=== PATIENT | male | born 1945 | race Caucasian/White ===

== ENCOUNTER 2021-02-10 06:48 | Inpatient (IN) ==
[2021-02-10] MEDS ORDERED: LACTATED RINGERS 1,000 ML IV ONE (07:17)
[2021-02-10] MEDS ORDERED: cefTRIAXone 1 GM in DEXTROSE 5% IN WATER 50 ML IV SCH (07:30)
--- NOTE | 2021-02-10 07:31 | Emergency Department Note ---
HPI General Chief complaint: Fall Stated complaint: fall, stuck on ground Time Seen by Provider: 02/10/21 07:02 Source: patient Mode of arrival: ambulatory Limitations: no limitations History of Present Illness HPI Narrative: Narrative: 75 yo M w/ h/o a fib, possible HTN, and chronic alcohol use presents after a fal l. He reports that he fell yesterday around 1400, and since then has been unable to get up off the floor d/t generalized weakness. He does not know why he fell, but states that he went face first into the floor. He did lose consciousness but does not know the duration. After the fall, he was too weak to get up, and crawled around on the floor to occasionally get some gatorade to drink, although this was quite challenging and thus he was only able to drink about 1/2 bottle of gatorade. He attempted to get to his phone numerous times to call for help but was unable to until this AM. He currently denies any pain. His only complaint is of generalized weakness and dehydration. He has not had any similar episodes. He denies any current medications. Related Data Home Medications Medication Instructions Recorded Confirmed No Known Home Meds 01/06/20 02/10/21 Allergies Allergy/AdvReac Type Severity Reaction Status Date / Time No Known Drug Allergies Allergy Verified 02/10/21 16:20 Review of Systems ROS ROS Narrative: Narrative: All systems ED: reviewed and negative except as stated. [facility] Narrative Patient History Narrative: Narrative: Medical/Surgical/Family History All Active Problems (Updated 02/10/21 @ 12:16 by Damián Walton MD) Atrial fibrillation with RVR (Acute) Acute hyponatremia (Acute) Acute dehydration (Acute) Multiple skin tears (Acute) Head injury (Acute) Elevated CK (Acute) Generalized muscle weakness (Acute) Social History Smoking Status: Former smoker Alcohol Intake Frequency: 2+ drinks per day Substance Use: does not use Exam Narrative Narrative: Narrative: General Limitations: no limitations General appearance: Present alert and in no apparent distress Head Head: Present normocephalic and other (dried blood over L caodaism) Eye Eye: Present PERRL, EOMI and other (dried secretions around the eyes B/L); Absent conjunctival injection ENT ENT: Present normal oropharynx and mucous membranes dry Neck Neck: Present normal inspection; Absent tenderness Chest Chest: Present normal inspection and symmetric chest wall rise Respiratory Respiratory: Present normal lung sounds bilaterally; Absent respiratory distress and wheezes Cardiovascular Cardiovascular: Present regular rate, normal rhythm, +S1 and +S2 Adbominal Abdominal: Present soft and normal bowel sounds; Absent distention and ten derness Extremities Extremities: Present pedal edema (2+ B/LLE pitting edema) Neurological Neurological: Present alert, oriented X3 and other (intact sensation and strength all 4 extremities, no facial droop or tongue deviation, no aphasia/dysarthria) Psychiatric Psychiatric: Present normal affect Skin Skin: Present warm (WNL), dry and other (multiple contusions, ecchymoses over the B/LUE. Nipples and belly button have a dried neon pink substance over them, which rubs off w/ an alcohol prep pad. Skin tears over B/LUE, L caodaism) Course Vital Signs Vital signs: Vital Signs Temperature 97.0 F 02/10/21 06:49 Pulse Rate 105 H 02/10/21 06:49 Respiratory Rate 24 H 02/10/21 06:49 Blood Pressure 122/104 02/10/21 06:49 Pulse Oximetry (%) 100 02/10/21 06:49 Temperature 97.6 F 02/10/21 16:04 Pulse Rate 92 H 02/10/21 16:04 Respiratory Rate 18 02/10/21 18:01 Blood Pressure 102/73 02/10/21 18:01 Pulse Oximetry (%) 99 02/10/21 18:01 [facility]DM Narrative Medical decision making narrative: Narrative: 75 yo M w h/o AF and ETOH use presents after a fall w/ prolonged immobilization. DDx - Head injury, spinal injury, extremity injury, rhabdomyolysis, sepsis, metabolic/electrolyte d/o, dehydration, thyroid d/o, arrhythmia, syncope Pt presented clinically stable, in NAD. He had NFD on exam, was AOx3, but given his age and LOC, I opted to check a CT head which was negative for bleed. I clinically cleared his C spine w/ NEXUS criteria. I did not see evidence of extremity injury. CK was elevated, but not to the level of rhabdo, and there was no assoc'd FOUZIA. Sepsis was a concern, however ultimately he had no septic source, no fever, no leukocytosis. While his lactate was elevated, this was much more likely d/t dehydration. I Tx'd his dehydration w/ 1L LR, w/ good effect. CMP was notable for significant hyponatremia, which may have contributed to his fall. I started him on gentle NS for cautious replacement. While TSH was s omewhat elevated, I did not feel that this was likely to be the source of his presentation. Syncope is possible given the unclear nature of his fall, however he did not have signs/symptoms of high risk syncope causes such as aortic pathology, PE, ACS, CVA/SAH. EKG showed no high risk syncope features such as ischemia, interval prolongation, WPW, Brugada. His sodium required ongoing replacement and he was thus admitted to the hospitalist. In our discussion, we did note his elevated LFTs, and he requested a RUQ US which is pending. EKG (06:51AM) Sinus rate of 102, normal SC, QRS, QT/QTc intervals, no STEMI. Overall similar to previous EKG from December. Lab Data Lab results reviewed: Yes I reviewed the patient's lab results. Result diagrams: 02/10/21 07:50 02/10/21 07:50 Labs: Lab Results 02/10/21 02/10/21 02/10/21 Range/Units 07:50 07:50 07:50 WBC 10.1 (4.5-11.0) K/mcL RBC 3.18 L (4.50-5.90) M/mcL Hgb 11.6 L (13.5-16.5) g/dL Hct 31.5 L (41.0-55.0) % MCV 99.1 (80.0-100.0) fL MCH 36.5 H (26.0-34.0) pg MCHC 36.8 H (31.0-36.0) g/dL RDW 13.1 (11.5-14.5) % Plt Count 169 (140-440) K/mcL MPV 10.1 (7.4-10.4) fL Neut % (Auto) 76.6 (38.0-78.0) % Lymph % (Auto) 6.8 L (15.0-49.0) % Sumter % (Auto) 15.1 H (1.0-12.0) % Eos % (Auto) 1.2 (0.0-7.0) % Baso % (Auto) 0.3 (0.0-2.0) % Lymph # (Auto) 0.69 L (1.50-4.80) K/mcL Sumter # (Auto) 1.53 H (0.10-0.90) K/mcL Eos # (Auto) 0.12 (0.00-0.70) K/mcL Baso # (Auto) 0.03 (0.00-0.20) K/mcL Absolute Neutrophils 7.75 (1.80-8.00) K/mcL VBG Lactic Acid 2.6 H (0.5-2.0) mmol/L Sodium 122 L (133-145) mmol/L Potassium 3.5 (3.3-5.1) mmol/L Chloride 83 L (96-108) mmol/L Carbon Dioxide 23 (22-30) mmol/L Anion Gap 16.0 (8.0-16.0) BUN 6 L (8-23) mg/dL Creatinine 0.5 L (0.7-1.2) mg/dL GFR Calculation 105 Glucose 120 H (70-105) mg/dL Osmolality (280-300) mOSM/kg Calcium 9.3 (8.6-10.4) mg/dL Total Bilirubin 4.1 H (0.1-1.0) mg/dL AST 164 H (<40) U/L ALT 111 H (<40) U/L Alkaline Phosphatase 150 H (39-117) U/L Total Creatine Kinase 250 H (24-195) U/L CK-MB (CK-2) 5.6 (<6.7) ng/mL Troponin T (<0.03) ng/mL Total Protein 6.1 (5.9-8.4) gm/dL Albumin 3.5 (3.2-5.2) gm/dL Globulin 2.6 (2.2-3.7) gm/dL Albumin/Globulin Ratio 1.3 (1.0-2.3) Procalcitonin (<0.10) ng/mL TSH 6.48 H (0.27-5.01) uIU/mL Urine Color Urine Appearance (Clear) Urine pH (5.0-9.0) Ur Specific Ronks (1.000-1.035) Urine Protein (Negative) mg/dL Urine Glucose (UA) (Negative) mg/dL Urine Ketones (Negative) mg/dL Urine Occult Blood (Negative) mg/dL Urine Nitrate (Negative) Urine Bilirubin (Negative) mg/dL Urine Urobilinogen mg/dL Ur Leukocyte Esterase (Negative) /ug Ur Culture Indicated? Urine Osmolality (80-1000) mOSM/kg Urine Opiates Screen Ur Opiates Confirm Ur Oxycodone Screen Urine Methadone Screen Ur Methadone Confirm Ur Barbiturates Screen Ur Barbiturate Confirm Ur Phencyclidine Scrn Urine PCP Confirm Ur Amphetamines Screen U Amphetamines Confirm U Benzodiazepines Scrn U Benzodiazepine Confm Urine Cocaine Screen Urine Cocaine Confirm U Cannabinoids Confirm U Marijuana (THC) Screen Ethyl Alcohol (<0.010) gm/dL 02/10/21 02/10/21 02/10/21 Range/Units 07:50 07:50 07:50 WBC (4.5-11.0) K/mcL RBC (4.50-5.90) M/mcL Hgb (13.5-16.5) g/dL Hct (41.0-55.0) % MCV (80.0-100.0) fL MCH (26.0-34.0) pg MCHC (31.0-36.0) g/dL RDW (11.5-14.5) % Plt Count (140-440) K/mcL MPV (7.4-10.4) fL Neut % (Auto) (38.0-78.0) % Lymph % (Auto) (15.0-49.0) % Sumter % (Auto) (1.0-12.0) % Eos % (Auto) (0.0-7.0) % Baso % (Auto) (0.0-2.0) % Lymph # (Auto) (1.50-4.80) K/mcL Sumter # (Auto) (0.10-0.90) K/mcL Eos # (Auto) (0.00-0.70) K/mcL Baso # (Auto) (0.00-0.20) K/mcL Absolute Neutrophils (1.80-8.00) K/mcL VBG Lactic Acid (0.5-2.0) mmol/L Sodium (133-145) mmol/L Potassium (3.3-5.1) mmol/L Chloride (96-108) mmol/L Carbon Dioxide (22-30) mmol/L Anion Gap (8.0-16.0) BUN (8-23) mg/dL Creatinine (0.7-1.2) mg/dL GFR Calculation Glucose (70-105) mg/dL Osmolality (280-300) mOSM/kg Calcium (8.6-10.4) mg/dL Total Bilirubin (0.1-1.0) mg/dL AST (<40) U/L ALT (<40) U/L Alkaline Phosphatase (39-117) U/L Total Creatine Kinase (24-195) U/L CK-MB (CK-2) (<6.7) ng/mL Troponin T < 0.01 (<0.03) ng/mL Total Protein (5.9-8.4) gm/dL Albumin (3.2-5.2) gm/dL Globulin (2.2-3.7) gm/dL Albumin/Globulin Ratio (1.0-2.3) Procalcitonin 0.49 H (<0.10) ng/mL TSH (0.27-5.01) uIU/mL Urine Color Urine Appearance (Clear) Urine pH (5.0-9.0) Ur Specific Ronks (1.000-1.035) Urine Protein (Negative) mg/dL Urine Glucose (UA) (Negative) mg/dL Urine Ketones (Negative) mg/dL Urine Occult Blood (Negative) mg/dL Urine Nitrate (Negative) Urine Bilirubin (Negative) mg/dL Urine Urobilinogen mg/dL Ur Leukocyte Esterase (Negative) /ug Ur Culture Indicated? Urine Osmolality (80-1000) mOSM/kg Urine Opiates Screen Ur Opiates Confirm Ur Oxycodone Screen Urine Methadone Screen Ur Methadone Confirm Ur Barbiturates Screen Ur Barbiturate Confirm Ur Phencyclidine Scrn Urine PCP Confirm Ur Amphetamines Screen U Amphetamines Confirm U Benzodiazepines Scrn U Benzodiazepine Confm Urine Cocaine Screen Urine Cocaine Confirm U Cannabinoids Confirm U Marijuana (THC) Screen Ethyl Alcohol < 0.010 (<0.010) gm/dL 02/10/21 02/10/21 02/10/21 Range/Units 09:45 09:45 09:45 WBC (4.5-11.0) K/mcL RBC (4.50-5.90) M/mcL Hgb (13.5-16.5) g/dL Hct (41.0-55.0) % MCV (80.0-100.0) fL MCH (26.0-34.0) pg MCHC (31.0-36.0) g/dL RDW (11.5-14.5) % Plt Count (140-440) K/mcL MPV (7.4-10.4) fL Neut % (Auto) (38.0-78.0) % Lymph % (Auto) (15.0-49.0) % Sumter % (Auto) (1.0-12.0) % Eos % (Auto) (0.0-7.0) % Baso % (Auto) (0.0-2.0) % Lymph # (Auto) (1.50-4.80) K/mcL Sumter # (Auto) (0.10-0.90) K/mcL Eos # (Auto) (0.00-0.70) K/mcL Baso # (Auto) (0.00-0.20) K/mcL Absolute Neutrophils (1.80-8.00) K/mcL VBG Lactic Acid (0.5-2.0) mmol/L Sodium (133-145) mmol/L Potassium (3.3-5.1) mmol/L Chloride (96-108) mmol/L Carbon Dioxide (22-30) mmol/L Anion Gap (8.0-16.0) BUN (8-23) mg/dL Creatinine (0.7-1.2) mg/dL GFR Calculation Glucose (70-105) mg/dL Osmolality 250 L (280-300) mOSM/kg Calcium (8.6-10.4) mg/dL Total Bilirubin (0.1-1.0) mg/dL AST (<40) U/L ALT (<40) U/L Alkaline Phosphatase (39-117) U/L Total Creatine Kinase (24-195) U/L CK-MB (CK-2) (<6.7) ng/mL Troponin T (<0.03) ng/mL Total Protein (5.9-8.4) gm/dL Albumin (3.2-5.2) gm/dL Globulin (2.2-3.7) gm/dL Albumin/Globulin Ratio (1.0-2.3) Procalcitonin (<0.10) ng/mL TSH (0.27-5.01) uIU/mL Urine Color Yellow Urine Appearance Clear (Clear) Urine pH 6.0 (5.0-9.0) Ur Specific Ronks 1.003 (1.000-1.035) Urine Protein Negative (Negative) mg/dL Urine Glucose (UA) Negative (Negative) mg/dL Urine Ketones Negative (Negative) mg/dL Urine Occult Blood Negative (Negative) mg/dL Urine Nitrate Negative (Negative) Urine Bilirubin Negative (Negative) mg/dL Urine Urobilinogen 4.0 A mg/dL Ur Leukocyte Esterase Negative (Negative) /ug Ur Culture Indicated? No Urine Osmolality 152 (80-1000) mOSM/kg Urine Opiates Screen Ur Opiates Confirm Ur Oxycodone Screen Urine Methadone Screen Ur Methadone Confirm Ur Barbiturates Screen Ur Barbiturate Confirm Ur Phencyclidine Scrn Urine PCP Confirm Ur Amphetamines Screen U Amphetamines Confirm U Benzodiazepines Scrn U Benzodiazepine Confm Urine Cocaine Screen Urine Cocaine Confirm U Cannabinoids Confirm U Marijuana (THC) Screen Ethyl Alcohol (<0.010) gm/dL 02/10/21 Range/Units 09:46 WBC (4.5-11.0) K/mcL RBC (4.50-5.90) M/mcL Hgb (13.5-16.5) g/dL Hct (41.0-55.0) % MCV (80.0-100.0) fL MCH (26.0-34.0) pg MCHC (31.0-36.0) g/dL RDW (11.5-14.5) % Plt Count (140-440) K/mcL MPV (7.4-10.4) fL Neut % (Auto) (38.0-78.0) % Lymph % (Auto) (15.0-49.0) % Sumter % (Auto) (1.0-12.0) % Eos % (Auto) (0.0-7.0) % Baso % (Auto) (0.0-2.0) % Lymph # (Auto) (1.50-4.80) K/mcL Sumter # (Auto) (0.10-0.90) K/mcL Eos # (Auto) (0.00-0.70) K/mcL Baso # (Auto) (0.00-0.20) K/mcL Absolute Neutrophils (1.80-8.00) K/mcL VBG Lactic Acid (0.5-2.0) mmol/L Sodium (133-145) mmol/L Potassium (3.3-5.1) mmol/L Chloride (96-108) mmol/L Carbon Dioxide (22-30) mmol/L Anion Gap (8.0-16.0) BUN (8-23) mg/dL Creatinine (0.7-1.2) mg/dL GFR Calculation Glucose (70-105) mg/dL Osmolality (280-300) mOSM/kg Calcium (8.6-10.4) mg/dL Total Bilirubin (0.1-1.0) mg/dL AST (<40) U/L ALT (<40) U/L Alkaline Phosphatase (39-117) U/L Total Creatine Kinase (24-195) U/L CK-MB (CK-2) (<6.7) ng/mL Troponin T (<0.03) ng/mL Total Protein (5.9-8.4) gm/dL Albumin (3.2-5.2) gm/dL Globulin (2.2-3.7) gm/dL Albumin/Globulin Ratio (1.0-2.3) Procalcitonin (<0.10) ng/mL TSH (0.27-5.01) uIU/mL Urine Color Urine Appearance (Clear) Urine pH (5.0-9.0) Ur Specific Ronks (1.000-1.035) Urine Protein (Negative) mg/dL Urine Glucose (UA) (Negative) mg/dL Urine Ketones (Negative) mg/dL Urine Occult Blood (Negative) mg/dL Urine Nitrate (Negative) Urine Bilirubin (Negative) mg/dL Urine Urobilinogen mg/dL Ur Leukocyte Esterase (Negative) /ug Ur Culture Indicated? Urine Osmolality (80-1000) mOSM/kg Urine Opiates Screen None detected Ur Opiates Confirm TNP Ur Oxycodone Screen None detected Urine Methadone Screen None detected Ur Methadone Confirm TNP Ur Barbiturates Screen None detected Ur Barbiturate Confirm TNP Ur Phencyclidine Scrn None detected Urine PCP Confirm TNP Ur Amphetamines Screen None detected U Amphetamines Confirm TNP U Benzodiazepines Scrn None detected U Benzodiazepine Confm TNP Urine Cocaine Screen None detected Urine Cocaine Confirm TNP U Cannabinoids Confirm TNP U Marijuana (THC) Screen None detected Ethyl Alcohol (<0.010) gm/dL ED POC Tests ED POC Tests: SHIVANI - SARS Antigen Negative Discharge Plan Patient/Caregiver Discharge Instructions Pt seen by KILN PLACER/PA only: No Clinical Impression: Acute hyponatremia, Acute dehydration, Multiple skin tears, Head injury, Elevated CK, Generalized muscle weakness Patient Disposition: Xfer As Inpt ([facility]) Condition: Fair Discharge Date/Time: 02/10/21 14:17
[2021-02-10] MEDS ORDERED: cefTRIAXone 1 GM VIAL ONE (08:16)
--- NOTE | 2021-02-10 09:08 | Cat Scan Report ---
CLINICAL INFORMATION: Trauma COMPARISON: None. TECHNIQUE: 2.5 mm helical slices were obtained in the skull base to vertex. Following reconstruction, axial reformatted images were reviewed at bone and parenchymal windows. The exam was performed using radiation dose optimization techniques including, but not limited to, automated exposure control, adjustment of the mA and/or kV according to patient size and use of iterative reconstruction technique. FINDINGS: The ventricles, sulci, fissures, and cisterns are symmetrically enlarged bowel moderate age-related atrophy. No extra-axial fluid collections are identified. Mild patchy chronic ischemic changes, in the cerebral white matter, expected for age. There is no evidence of hemorrhage, mass effect, or edema. Bone windows show no osseous abnormality. IMPRESSION: Moderate atrophy with chronic ischemic changes in the deep cerebral white matter expected for age. No acute findings Opacification of the right sphenoid sinus compatible sphenoid sinusitis. Mild mucosal thickening in the right anterior ethmoid air cells.. Interpreted and Authenticated by: Luke Dickens 02/10/21
[2021-02-10 09:09] LABS: Alcohol, Blood < 10.0 mg/dL; Alcohol,Blood < 0.010 gm/dL (<0.010)
[2021-02-10 09:12] LABS: Basophils # (Auto) 0.03 K/mcL (0.00-0.20); Basophils % (Auto) 0.3 % (0.0-2.0); Eosinophils # (Auto) 0.12 K/mcL (0.00-0.70); Eosinophils % (Auto) 1.2 % (0.0-7.0); Hematocrit 31.5 % (41.0-55.0); Hemoglobin 11.6 g/dL (13.5-16.5); Lymphocytes # (Auto) 0.69 K/mcL (1.50-4.80); Lymphocytes % (Auto) 6.8 % (15.0-49.0); Mean Cell Volume 99.1 fL (80.0-100.0); Mean Corpuscular HGB Conc 36.8 g/dL (31.0-36.0); Mean Platelet Volume 10.1 fL (7.4-10.4); Monocytes # (Auto) 1.53 K/mcL (0.10-0.90); Monocytes % (Auto) 15.1 % (1.0-12.0); Neutrophils % (Auto) 76.6 % (38.0-78.0); Platelet Count 169 K/mcL (140-440); RBC 3.18 M/mcL (4.50-5.90); Red Cell Distribution Width 13.1 % (11.5-14.5); WBC 10.1 K/mcL (4.5-11.0)
[2021-02-10 09:30] LABS: ALT/SGPT 111 U/L (<40); AST/SGOT 164 U/L (<40); Albumin 3.5 gm/dL (3.2-5.2); Albumin/Globulin Ratio 1.3 (1.0-2.3); Alkaline Phosphatase 150 U/L (39-117); Bilirubin,Total 4.1 mg/dL (0.1-1.0); Blood Urea Nitrogen 6 mg/dL (8-23); Calcium 9.3 mg/dL (8.6-10.4); Carbon Dioxide 23 mmol/L (22-30); Chloride 83 mmol/L (96-108); Creatine Kinase 250 U/L (24-195); Creatine Kinase MB 5.6 ng/mL (<6.7); Globulin 2.6 gm/dL (2.2-3.7); Glomerular Filtration Rate 105; Glucose 120 mg/dL (70-105); Thyroid Stimulating Hormone 6.48 uIU/mL (0.27-5.01)
[2021-02-10 11:11] LABS: Appearance,Urine CLEAR (Clear); Bilirubin,Urine Negative (Negative); Color,Urine YELLOW; Culture Indicated,Urine No; Glucose,Urine (UA) Negative (Negative); Ketones,Urine Negative (Negative); Leukocyte Esterase,Urine Negative /ug (Negative); Nitrate,Urine Negative (Negative); Protein,Urine Negative (Negative); Specific Gravity,Urine 1.003 (1.000-1.035); Urine Blood Negative (Negative)
[2021-02-10 11:14] LABS: Amphetamine Screen,Urine None detected; Barbiturate Screen,Urine None detected; Benzodiazepines Screen,Urine None detected; Cannabinoid Screen,Urine None detected; Cocaine Screen,Urine None detected; Opiate Screen,Urine None detected; Oxycodone, Urine Screen None detected; Phencyclidine Screen,Urine None detected
[2021-02-10] MEDS ORDERED: DIPH,PERTUSS(ACELL),TET VAC/PF 0.5 ML SYRINGE IM ONE (12:05)
--- NOTE | 2021-02-10 12:06 | XRay Report ---
CLINICAL INFORMATION: fall, sepsis, r/o occult PNA COMPARISON: 01/06/2020 FINDINGS: Heart size, mediastinum and pulmonary vessels are normal. The lungs are clear. No effusions. Malunified old fracture distal left clavicle again noted.. Nonunified fracture tip of the distal right clavicle again noted IMPRESSION: Negative Interpreted and Authenticated by: Luke Dickens 02/10/21
[2021-02-10] MEDS ORDERED: 0.9 % SODIUM CHLORIDE 1,000 ML IV SCH (12:15)
--- NOTE | 2021-02-10 13:19 | Internal Med History&Physical ---
HPI History of Present Illness Patient information: Note initiated : 02/10/21 at 1:15 pm Service Date, if different from initiated Date: [] Patient: Johnathan Son a 75 y/o M admitted on for Fall, Stuck On Ground. Chief Complaint: [] History of present illness: Mr. Son is a 75 year old M with a history of chronic alcoholism who lives fairly independently. Patient over the last couple of days has gotten increasingly weak. He fell yesterday and was unable to get off the floor after he momentarily lost consciousness. He somehow dragged himself to fetch Gatorade. He subsequently managed to call help this morning and presented to the ER for evaluation. Initial work-up was with neuroimaging was unremarkable for acute process except for chronic ischemic changes. Sodium 122, bilirubin 4.1, elevated LFTs, elevated lactate. No clear source of infection identified. Patient was started on crystalloids. It was unclear as to the circumstances of fall whether a seizure or true syncope. Subsequently hospitalist service was consulted for further evaluation. At the time of my evaluation patient is lucid. Undergoing abdominal ultrasound. He was able to provide answer most of the question. Denies fever, chills, abdominal pain, chest pain, vertigo but endorses to progressive weakness fatigue. He denies recent sick contacts. Denies Covid symptoms or cough or diarrhea or dysuria. He does endorse to drinking 3 tall beers a day which is lower than before. He however has attempted to quit a few times but unable to due to significant withdrawal symptoms including shakes and jitters. He also expresses desire to help him quit alcohol during his hospitalization. No family members are present. Review of systems 10 point review system was performed and is negative except for ones discussed above PFSH PFSH All Active Problems (Updated 02/10/21 @ 12:16 by Damián Walton MD) Atrial fibrillation with RVR (Acute) Acute hyponatremia (Acute) Acute dehydration (Acute) Multiple skin tears (Acute) Head injury (Acute) Elevated CK (Acute) Generalized muscle weakness (Acute) Social History alcohol intake frequency: 2+ drinks per day substance use type: does not use MEDS/ALLERGIES Home Medications and Allergies Home Medications Medication Instructions Recorded Confirmed Type No Known Home Meds 01/06/20 02/10/21 History Allergies Allergy/AdvReac Type Severity Reaction Status Date / Time No Known Drug Allergies Allergy Verified 02/10/21 06:48 EXAM Constitutional Vitals: Temp Pulse Resp BP Pulse Ox 97.0 F 97 H 20 115/83 100 02/10/21 06:49 02/10/21 13:01 02/10/21 13:01 02/10/21 12:02 02/10/21 13:01 Head bruising/skin abrasion left lateral orbit Anxious and lethargic Oral cavity moist No ear or nose discharge Eye no subconjunctival pallor, movement symmetrical S1-S2 regular tachycardia Nonlabored breathing Nondistended nontender abdomen Lower extremity no cyanosis clubbing or joint swelling Skin no suspicious lesion Psych anxious but no hallucination Neuro normal higher function on limited neuro exam DATA Data Completed and Pending Labs: Labs from last 24 hours 02/10/21 02/10/21 02/10/21 09:46 09:45 07:50 WBC RBC Hgb Hct MCV MCH MCHC RDW Plt Count MPV Neut % (Auto) Lymph % (Auto) [place] % (Auto) Eos % (Auto) Baso % (Auto) Lymph # (Auto) [place] # (Auto) Eos # (Auto) Baso # (Auto) Absolute Neutrophils VBG Lactic Acid Sodium Potassium Chloride Carbon Dioxide Anion Gap BUN Creatinine GFR Calculation Glucose Calcium Total Bilirubin AST ALT Alkaline Phosphatase Total Creatine Kinase CK-MB (CK-2) Troponin T Total Protein Albumin Globulin Albumin/Globulin Ratio TSH Urine Color Yellow Urine Appearance Clear Urine pH 6.0 Ur Specific [place] 1.003 Urine Protein Negative Urine Glucose (UA) Negative Urine Ketones Negative Urine Occult Blood Negative Urine Nitrate Negative Urine Bilirubin Negative Urine Urobilinogen 4.0 A Ur Leukocyte Esterase Negative Ur Culture Indicated? No Urine Opiates Screen None detected Ur Opiates Confirm TNP Ur Oxycodone Screen None detected Urine Methadone Screen None detected Ur Methadone Confirm TNP Ur Barbiturates Screen None detected Ur Barbiturate Confirm TNP Ur Phencyclidine Scrn None detected Urine PCP Confirm TNP Ur Amphetamines Screen None detected U Amphetamines Confirm TNP U Benzodiazepines Scrn None detected U Benzodiazepine Confm TNP Urine Cocaine Screen None detected Urine Cocaine Confirm TNP U Cannabinoids Confirm TNP U Marijuana (THC) Screen None detected Ethyl Alcohol < 0.010 02/10/21 02/10/21 02/10/21 07:50 07:50 07:50 WBC RBC Hgb Hct MCV MCH MCHC RDW Plt Count MPV Neut % (Auto) Lymph % (Auto) [place] % (Auto) Eos % (Auto) Baso % (Auto) Lymph # (Auto) [place] # (Auto) Eos # (Auto) Baso # (Auto) Absolute Neutrophils VBG Lactic Acid 2.6 H Sodium 122 L Potassium 3.5 Chloride 83 L Carbon Dioxide 23 Anion Gap 16.0 BUN 6 L Creatinine 0.5 L GFR Calculation 105 Glucose 120 H Calcium 9.3 Total Bilirubin 4.1 H AST 164 H ALT 111 H Alkaline Phosphatase 150 H Total Creatine Kinase 250 H CK-MB (CK-2) 5.6 Troponin T < 0.01 Total Protein 6.1 Albumin 3.5 Globulin 2.6 Albumin/Globulin Ratio 1.3 TSH 6.48 H Urine Color Urine Appearance Urine pH Ur Specific [place] Urine Protein Urine Glucose (UA) Urine Ketones Urine Occult Blood Urine Nitrate Urine Bilirubin Urine Urobilinogen Ur Leukocyte Esterase Ur Culture Indicated? Urine Opiates Screen Ur Opiates Confirm Ur Oxycodone Screen Urine Methadone Screen Ur Methadone Confirm Ur Barbiturates Screen Ur Barbiturate Confirm Ur Phencyclidine Scrn Urine PCP Confirm Ur Amphetamines Screen U Amphetamines Confirm U Benzodiazepines Scrn U Benzodiazepine Confm Urine Cocaine Screen Urine Cocaine Confirm U Cannabinoids Confirm U Marijuana (THC) Screen Ethyl Alcohol 02/10/21 07:50 WBC 10.1 RBC 3.18 L Hgb 11.6 L Hct 31.5 L MCV 99.1 MCH 36.5 H MCHC 36.8 H RDW 13.1 Plt Count 169 MPV 10.1 Neut % (Auto) 76.6 Lymph % (Auto) 6.8 L [place]field % (Auto) 15.1 H Eos % (Auto) 1.2 Baso % (Auto) 0.3 Lymph # (Auto) 0.69 L [place]field # (Auto) 1.53 H Eos # (Auto) 0.12 Baso # (Auto) 0.03 Absolute Neutrophils 7.75 VBG Lactic Acid Sodium Potassium Chloride Carbon Dioxide Anion Gap BUN Creatinine GFR Calculation Glucose Calcium Total Bilirubin AST ALT Alkaline Phosphatase Total Creatine Kinase CK-MB (CK-2) Troponin T Total Protein Albumin Globulin Albumin/Globulin Ratio TSH Urine Color Urine Appearance Urine pH Ur Specific [place] Urine Protein Urine Glucose (UA) Urine Ketones Urine Occult Blood Urine Nitrate Urine Bilirubin Urine Urobilinogen Ur Leukocyte Esterase Ur Culture Indicated? Urine Opiates Screen Ur Opiates Confirm Ur Oxycodone Screen Urine Methadone Screen Ur Methadone Confirm Ur Barbiturates Screen Ur Barbiturate Confirm Ur Phencyclidine Scrn Urine PCP Confirm Ur Amphetamines Screen U Amphetamines Confirm U Benzodiazepines Scrn U Benzodiazepine Confm Urine Cocaine Screen Urine Cocaine Confirm U Cannabinoids Confirm U Marijuana (THC) Screen Ethyl Alcohol A/P Narrative A/P Narrative: * Syncope-unclear etiology, negative head CT except for microvascular ischemic changes, check echocardiogram, continue telemetry monitoring to rule out arrhythmias, orthostasis. * Symptomatic hyponatremia continue 4 hourly sodium check. Likely secondary to alcohol use. Check urine and serum osmolarity. Rule out SIADH. * Severe alcohol use disorder high risk DTs. Continue management on benzodiazepine sparing protocol on clonidine/gabapentin. * Elevated LFTs/bilirubin. Await ultrasound rule out obstructive biliary process. Likely alcoholic hepatitis. * Prophylaxis Heparin Plan * Inpatient PCU admission * Seizure watch/telemetry monitoring/neuroimaging * Syncope evaluation * Crystalloid support/multivitamins/electrolyte management * Alcohol withdrawal management per protocol * PT OT/nutrition support * Discharge planning per case management Time Spent With Patient Time: Total time spent is greater than 50% in coordination of care (as documented) at patient's floor/unit and/or counseling patient:
--- NOTE | 2021-02-10 14:16 | Ultrasound Report ---
CLINICAL INFORMATION: elevated LFTs, r/o biliary pathology COMPARISON: None. FINDINGS: Liver is moderately enlarged 17.5 cm in vertical dimension mid clavicular line. It is diffusely hyperechoic heterogeneous compatible fatty change or other diffuse hepatocellular process. No focal hepatic lesion. The gallbladder and bile ducts are normal CBD is 6 mm. The right kidney and pancreas are normal. No free fluid IMPRESSION: Moderate hepatomegaly with elevated echotexture compatible fatty change or other diffuse hepatocellular process. Interpreted and Authenticated by: Luke Dickens 02/10/21
[2021-02-10] MEDS ORDERED: POTASSIUM CHLORIDE 20 MEQ PACKET PO PRN (14:21)
[2021-02-10] MEDS ORDERED: BISACODYL 10 MG SUPP.RECT PR PRN (14:21)
[2021-02-10] MEDS ORDERED: ACETAMINOPHEN 325 MG TABLET PO PRN (14:21)
[2021-02-10] MEDS ORDERED: ACETAMINOPHEN 650 MG/65 ML BAG IV PRN (14:21)
[2021-02-10] MEDS ORDERED: MAGNESIUM SULFATE 2 GM/50 ML BAG IV PRN (14:21)
[2021-02-10] MEDS ORDERED: POLYETHYLENE GLYCOL 3350 17 GM PACKET PO PRN (14:21)
[2021-02-10] MEDS ORDERED: cloNIDine TTS 1 1 PATCH PATCH TD ONE (14:21)
[2021-02-10] MEDS ORDERED: POTASSIUM CHLORIDE 40 MEQ in DEXTROSE 5% IN WATER 500 ML IV PRN (14:21)
[2021-02-10] MEDS ORDERED: ONDANSETRON 4 MG/2 ML VIAL IV PRN (14:21)
[2021-02-10] MEDS ORDERED: NEUTRA PHOS 1 PACKET PO PRN (14:21)
[2021-02-10] MEDS ORDERED: MELATONIN 3 MG TABLET PO PRN (14:21)
[2021-02-10] MEDS ORDERED: GABAPENTIN 300 MG CAPSULE PO ONE (14:21)
[2021-02-10] MEDS ORDERED: ONDANSETRON 4 MG ODT TABLET SL PRN (14:21)
[2021-02-10] MEDS: cloNIDine HCL 0.1 MG TABLET PO SCH ×2 (14:36→21:32)
[2021-02-10] MEDS: 0.9 % SODIUM CHLORIDE 1,000 ML IV SCH (14:37)
[2021-02-10] MEDS: 0.9 % SODIUM CHLORIDE 10 ML SYRINGE IV SCH ×2 (14:37→20:30)
[2021-02-10] MEDS: DOCUSATE SODIUM 100 MG CAPSULE PO SCH (20:11)
[2021-02-10] MEDS: GABAPENTIN 400 MG CAPSULE PO SCH (20:17)
[2021-02-10] MEDS: HEPARIN 5,000 UNIT/ML VIAL SQ SCH (20:17)
[2021-02-10] MEDS: CYANOCOBALAMIN (VITAMIN B-12) 500 MCG TABLET PO SCH (20:17)
[2021-02-10] MEDS ORDERED: SENNOSIDES/DOCUSATE SODIUM 1 TAB TABLET PO SCH (21:00)
[2021-02-11 04:58] LABS: ALT/SGPT 93 U/L (<40); AST/SGOT 132 U/L (<40); Albumin 3.1 gm/dL (3.2-5.2); Albumin/Globulin Ratio 1.3 (1.0-2.3); Alkaline Phosphatase 142 U/L (39-117); Basophils # (Auto) 0.04 K/mcL (0.00-0.20); Basophils % (Auto) 0.5 % (0.0-2.0); Bilirubin,Direct 1.7 mg/dL (<0.3); Bilirubin,Total 2.6 mg/dL (0.1-1.0); Blood Urea Nitrogen 5 mg/dL (8-23); Calcium 8.6 mg/dL (8.6-10.4); Carbon Dioxide 27 mmol/L (22-30); Chloride 88 mmol/L (96-108); Eosinophils # (Auto) 0.38 K/mcL (0.00-0.70); Eosinophils % (Auto) 4.3 % (0.0-7.0); Globulin 2.4 gm/dL (2.2-3.7); Glomerular Filtration Rate 105; Glucose 129 mg/dL (70-105); Hematocrit 28.8 % (41.0-55.0); Hemoglobin 10.3 g/dL (13.5-16.5); Lactate Dehydrogenase 215 U/L (135-225); Lymphocytes # (Auto) 0.87 K/mcL (1.50-4.80); Lymphocytes % (Auto) 9.9 % (15.0-49.0); Mean Corpuscular HGB Conc 35.8 g/dL (31.0-36.0); Mean Platelet Volume 9.9 fL (7.4-10.4); Monocytes # (Auto) 1.38 K/mcL (0.10-0.90); Monocytes % (Auto) 15.6 % (1.0-12.0); Neutrophils % (Auto) 69.7 % (38.0-78.0); Phosphorous 3.5 mg/dL (2.5-4.5); Platelet Count 153 K/mcL (140-440); RBC 2.88 M/mcL (4.50-5.90); Red Cell Distribution Width 13.5 % (11.5-14.5); Triglycerides 64 mg/dL (<150); Uric Acid 2.2 mg/dL (2.5-8.0); WBC 8.8 K/mcL (4.5-11.0)
[2021-02-11] MEDS: 0.9 % SODIUM CHLORIDE 10 ML SYRINGE IV SCH ×3 (05:09→22:34)
[2021-02-11] MEDS: GABAPENTIN 400 MG CAPSULE PO SCH (05:59)
[2021-02-11] MEDS: cloNIDine HCL 0.1 MG TABLET PO SCH (05:59)
[2021-02-11] MEDS: HEPARIN 5,000 UNIT/ML VIAL SQ SCH ×2 (08:41→22:05)
[2021-02-11] MEDS: CYANOCOBALAMIN (VITAMIN B-12) 500 MCG TABLET PO SCH ×2 (08:41→22:05)
[2021-02-11] MEDS: DOCUSATE SODIUM 100 MG CAPSULE PO SCH ×2 (08:42→22:05)
[2021-02-11] MEDS ORDERED: FOLIC ACID 1 MG TABLET PO SCH (09:00)
[2021-02-11] MEDS ORDERED: SODIUM CHLORIDE 1 GM TABLET PO SCH (09:00)
[2021-02-11] MEDS ORDERED: MULTIVIT,THER IRON,CA,FA & MIN 1 TABLET PO SCH (09:00)
[2021-02-11] MEDS ORDERED: THIAMINE 100 MG TABLET PO SCH (09:00)
--- NOTE | 2021-02-11 11:26 | Internal Med Progress Note ---
SUBJECTIVE Subjective Patient information: Note initiated : 02/11/21 at 11:21 am Service Date, if different from initiated Date: [] Patient: Johnathan Son a 75 y/o M admitted on 02/10/21 for Fall, Stuck On Ground. Chief Complaint: [] Interval history: Mr. Son is a 75 year old M with a history of chronic alcoholism who lives fairly independently. Patient over the last couple of days has gotten increasingly weak. He fell yesterday and was unable to get off the floor after he momentarily lost consciousness. He somehow dragged himself to fetch Gatorade. He subsequently managed to call help this morning and presented to the ER for evaluation. Initial work-up was with neuroimaging was unremarkable for acute process except for chronic ischemic changes. Sodium 122, bilirubin 4.1, elevated LFTs, elevated lactate. No clear source of infection identified. Patient was started on crystalloids. It was unclear as to the circumstances of fall whether a seizure or true syncope. Subsequently hospitalist service was consulted for further evaluation. At the time of my evaluation patient is lucid. Undergoing abdominal ultrasound. He was able to provide answer most of the question. Denies fever, chills, abdominal pain, chest pain, vertigo but endorses to progressive weakness fatigue. He denies recent sick contacts. Denies Covid symptoms or cough or diarrhea or dysuria. He does endorse to drinking 3 tall beers a day which is lower than before. He however has attempted to quit a few times but unable to due to significant withdrawal symptoms including shakes and jitters. He also expresses desire to help him quit alcohol during his hospitalization. 02/11-patient doing a lot better. CIWA score less than 5. Responding well to gabapentin. DC clonidine due to systolics less than 90. Denies agitation/hallucination. Tolerating diet. Stable labs and hemodynamics. No concerns expressed with nursing staff. No telemetry events. Sodium improved to 122, potassium 3.1 on replacement, magnesium 1.5. Downtrending LFTs Constitutional Vitals: Vital Signs Temp Pulse Resp BP Pulse Ox 96.9 F L 73 19 117/77 98 02/11/21 08:01 02/11/21 08:01 02/11/21 08:01 02/11/21 08:01 02/11/21 08:01 Period Temp Pulse Resp BP Sys/White Pulse Ox Last 24 Hr 96.9 F-98.2 F 70-108 14-24 102-142/63-95 91-100 Intake and Output 02/10/21 02/11/21 02/11/21 21:59 05:59 13:59 Intake Total 1473 530 Output Total 425 2 Balance 1473 -425 528 Weight 73.482 kg Alert oriented No anxiety and psychomotor agitation Nonlabored breathing on room air No telemetry events Intake & Output: Intake & Output 02/10/21 02/11/21 02/11/21 21:59 05:59 13:59 Intake Total 1473 530 Output Total 425 2 Balance 1473 -425 528 Weight 73.482 kg Intake: IV 303 50 Sodium Chloride 0.9% 1,000 ml @ 303 150 mls/hr IV .Q6H40M [facility] Rx#: [id number] Oral 1170 Lipid 240 GI Tube Flush 240 Output: Void Amount 425 # of times incontinent of urine 2 Other: Meal Dinner Breakfast Percent of Meal Consumed 100% 100% Feeding Ability Independent Urine Appearance Clear Urine Color Dark Nena OBJ DATA Labs CBC & Chem 7: 02/11/21 03:58 02/11/21 08:03 Labs: Abnormal Lab Results 02/11/21 02/11/21 02/11/21 08:03 03:58 03:58 RBC Hgb Hct MCH MCHC Lymph % (Auto) [place] % (Auto) Lymph # (Auto) [place] # (Auto) VBG Lactic Acid Sodium 122 L 121 L 123 L Potassium 3.1 L Chloride 88 L BUN 5 L Creatinine 0.5 L Glucose 129 H Osmolality Uric Acid 2.2 L Magnesium 1.5 L Total Bilirubin 2.6 H Direct Bilirubin 1.7 H GGT 629 H AST 132 H ALT 93 H Alkaline Phosphatase 142 H Total Creatine Kinase Total Protein 5.5 L Albumin 3.1 L Procalcitonin TSH Urine Urobilinogen 02/11/21 02/11/21 02/10/21 03:58 00:23 20:06 RBC 2.88 L Hgb 10.3 L Hct 28.8 L MCH 35.8 H MCHC Lymph % (Auto) 9.9 L [place] % (Auto) 15.6 H Lymph # (Auto) 0.87 L [place] # (Auto) 1.38 H VBG Lactic Acid Sodium 121 L 118 L* Potassium Chloride BUN Creatinine Glucose Osmolality Uric Acid Magnesium Total Bilirubin Direct Bilirubin GGT AST ALT Alkaline Phosphatase Total Creatine Kinase Total Protein Albumin Procalcitonin TSH Urine Urobilinogen 02/10/21 02/10/21 02/10/21 16:00 09:45 09:45 RBC Hgb Hct MCH MCHC Lymph % (Auto) [place] % (Auto) Lymph # (Auto) [place] # (Auto) VBG Lactic Acid Sodium 118 L* Potassium Chloride BUN Creatinine Glucose Osmolality 250 L Uric Acid Magnesium Total Bilirubin Direct Bilirubin GGT AST ALT Alkaline Phosphatase Total Creatine Kinase Total Protein Albumin Procalcitonin TSH Urine Urobilinogen 4.0 A 02/10/21 02/10/21 02/10/21 07:50 07:50 07:50 RBC Hgb Hct MCH MCHC Lymph % (Auto) [place] % (Auto) Lymph # (Auto) [place] # (Auto) VBG Lactic Acid 2.6 H Sodium 122 L Potassium Chloride 83 L BUN 6 L Creatinine 0.5 L Glucose 120 H Osmolality Uric Acid Magnesium Total Bilirubin 4.1 H Direct Bilirubin GGT AST 164 H ALT 111 H Alkaline Phosphatase 150 H Total Creatine Kinase 250 H Total Protein Albumin Procalcitonin 0.49 H TSH 6.48 H Urine Urobilinogen 02/10/21 07:50 RBC 3.18 L Hgb 11.6 L Hct 31.5 L MCH 36.5 H MCHC 36.8 H Lymph % (Auto) 6.8 L [place] % (Auto) 15.1 H Lymph # (Auto) 0.69 L [place] # (Auto) 1.53 H VBG Lactic Acid Sodium Potassium Chloride BUN Creatinine Glucose Osmolality Uric Acid Magnesium Total Bilirubin Direct Bilirubin GGT AST ALT Alkaline Phosphatase Total Creatine Kinase Total Protein Albumin Procalcitonin TSH Urine Urobilinogen Meds: Medications Acetaminophen (Acetaminophen 325 Mg Tablet) 650 mg PO Q4-6HP PRN; Protocol PRN Reason: Per Pain Protocol/Fever > 101 Bisacodyl (Bisacodyl 10 Mg Supp.Rect) 10 mg VA Q2-3DAYS PRN PRN Reason: Constipation Clonidine HCl (Clonidine Hcl 0.1 Mg Tablet) 0.1 mg PO Q8H [facility] Last Admin: 02/11/21 05:59 Dose: 0.1 mg Documented by: Cyanocobalamin (Cyanocobalamin (Vitamin B-12) 500 Mcg Tablet) 1,000 mcg PO BID [facility] Stop: 02/15/21 09:01 Last Admin: 02/11/21 08:41 Dose: 1,000 mcg Documented by: Docusate Sodium (Docusate Sodium 100 Mg Capsule) 100 mg PO BID [facility] Last Admin: 02/11/21 08:42 Dose: Not Given Documented by: Folic Acid (Folic Acid 1 Mg Tablet) 1 mg PO DAILY [facility] Last Admin: 02/11/21 08:42 Dose: 1 mg Documented by: Gabapentin (Gabapentin 400 Mg Capsule) 800 mg PO Q8H [facility] Stop: 02/11/21 14:01 Last Admin: 02/11/21 05:59 Dose: 800 mg Documented by: Heparin Sodium (Porcine) (Heparin 5,000 Unit/Ml Vial) 5,000 unit SQ Q12 [facility] Last Admin: 02/11/21 08:41 Dose: 5,000 unit Documented by: Potassium Chloride 40 meq/ (Dextrose) 520 mls @ 130 mls/hr IV UD PRN PRN Reason: K+ = or < 3.5 Acetaminophen (Ofirmev) 650 mg in 65 mls @ 130 mls/hr IV Q6HP PRN; Protocol PRN Reason: Per Pain Protocol/Fever > 101 Magnesium Sulfate (Magnesium Sulfate) 2 gm in 50 mls @ 50 mls/hr IV UD PRN PRN Reason: MG = or < 1.7 Last Infusion: 02/11/21 10:47 Dose: Infused Documented by: Sodium Chloride (Sodium Chloride 0.9%) 1,000 mls @ 50 mls/hr IV .Q20H [facility] Stop: 02/13/21 02:20 Last Admin: 02/10/21 14:37 Dose: 50 mls/hr Documented by: Iron Carb/Multivit/[place]/Folic Acid (Multivit,Ther Iron,Ca,Fa & Min 1 Tablet) 1 tab PO DAILY [facility] Last Admin: 02/11/21 08:42 Dose: 1 tab Documented by: Melatonin (Melatonin 3 Mg Tablet) 3 mg PO HSP PRN PRN Reason: Insomnia Last Admin: 02/10/21 20:16 Dose: 3 mg Documented by: Ondansetron HCl (Ondansetron 4 Mg Odt Tablet) 4 mg SL Q4-6HP PRN; Protocol PRN Reason: Nausea And Vomiting Ondansetron HCl (Ondansetron 4 Mg/2 Ml Vial) 4 mg IV Q4-6HP PRN; Protocol PRN Reason: Nausea And Vomiting Polyethylene Glycol (Polyethylene Glycol 3350 17 Gm Packet) 17 gm PO DAILYP PRN PRN Reason: Constipation Potassium Chloride (Potassium Chloride 20 Meq Packet) 40 meq PO DAILYP PRN PRN Reason: K+ < 3.5 Last Admin: 02/11/21 09:11 Dose: 40 meq Documented by: Potassium/Phosphorus/Sodium (Neutra Phos 1 Packet) 2 packet PO ONCE PRN PRN Reason: For phosphorus less than 2.5 Senna/Docusate Sodium (Sennosides/Docusate Sodium 1 Tab Tablet) 1 tab PO HS [facility] Last Admin: 02/10/21 20:17 Dose: Not Given Documented by: Sodium Chloride (0.9 % Sodium Chloride 10 Ml Syringe) 10 ml IV Q8 [facility] Last Admin: 02/11/21 05:09 Dose: Not Given Documented by: Sodium Chloride (Sodium Chloride 1 Gm Tablet) 2 gm PO TID [facility] Last Admin: 02/11/21 09:09 Dose: 2 gm Documented by: Thiamine HCl (Thiamine 100 Mg Tablet) 100 mg PO DAILY [facility] Last Admin: 02/11/21 08:42 Dose: 100 mg Documented by: A/P Narrative A/P Narrative: * Syncope- negative head CT except for microvascular ischemic changes, echo EF 63%, no critical , no telemetry events. Likely secondary to volume depletion. * Symptomatic hyponatremia secondary to poor solute intake/solute loss from alcoholism-gradually improving. Sodium up from 1 18- 22. Continue 4 hourly sodium check. Urine osmolarity suggestive against SIADH * Severe alcohol use disorder high risk DTs. Responding well to gabapentin. * Hypokalemia/low magnesium on replacement * Elevated LFTs/bilirubin. Clinically improving. Negative biliary ultrasound except for fatty liver changes . * Generalized deconditioning continue PT OT/nutrition support * Prophylaxis Heparin Plan * Transfer to telemetry monitored medical floor * Continue electrolyte replacement * Alcohol withdrawal management per protocol * Continue PT OT/nutrition support * Discharge planning per case management Time Spent With Patient Time: Total time spent is greater than 50% in coordination of care (as documented) at patient's floor/unit and/or counseling patient: QUALITY VTE Deep Vein Thrombosis/Pulmonary Embolism Present on Admission: No
[2021-02-11] MEDS: 0.9 % SODIUM CHLORIDE 1,000 ML IV SCH ×2 (11:39→12:40)
[2021-02-11] MEDS ORDERED: MAGNESIUM SULFATE 2 GM/50 ML BAG IV PRN (11:41)
[2021-02-11] MEDS ORDERED: ACETAMINOPHEN 650 MG/65 ML BAG IV PRN (11:41)
[2021-02-11] MEDS ORDERED: MELATONIN 3 MG TABLET PO PRN (11:41)
[2021-02-11] MEDS ORDERED: POLYETHYLENE GLYCOL 3350 17 GM PACKET PO PRN (11:41)
[2021-02-11] MEDS ORDERED: NEUTRA PHOS 1 PACKET PO PRN (11:41)
[2021-02-11] MEDS ORDERED: ACETAMINOPHEN 325 MG TABLET PO PRN (11:41)
[2021-02-11] MEDS ORDERED: ONDANSETRON 4 MG/2 ML VIAL IV PRN (11:41)
[2021-02-11] MEDS ORDERED: POTASSIUM CHLORIDE 40 MEQ in DEXTROSE 5% IN WATER 500 ML IV PRN (11:41)
[2021-02-11] MEDS ORDERED: ONDANSETRON 4 MG ODT TABLET SL PRN (11:41)
[2021-02-11] MEDS ORDERED: POTASSIUM CHLORIDE 20 MEQ PACKET PO PRN (11:41)
[2021-02-11] MEDS ORDERED: BISACODYL 10 MG SUPP.RECT PR PRN (11:41)
[2021-02-11] MEDS ORDERED: GABAPENTIN 400 MG CAPSULE PO SCH (14:00)
--- NOTE | 2021-02-11 14:43 | EKG ---
[facility] Test Date: 2021-02-10 Pat Name: Johnathan Son Department: ED Room: Gender: Male Client Service Administrator: CECILIA : [id number] Requested By: Damián Walton Order Number: [id number] Reading MD: Omari Mcclelland M.D. Measurements Intervals [place] Rate: 102 P: 6 DC: 161 QRS: -7 QRSD: 89 T: 27 QT: 368 QTc: 480 Interpretive Statements Age not entered, assumed to be 49 years old for purpose of ECG interpretation Sinus tachycardia Probable left atrial enlargement Borderline prolonged QT interval NO PRIOR TRACING FOR COMPARISON BORDERLINE TRACING Electronically Signed On 02-11-2021 14:42:31 PDT by Omari Mcclelland M.D. /[id number]/[id number]
[2021-02-11] MEDS: SODIUM CHLORIDE 1 GM TABLET PO SCH ×2 (15:08→22:05)
[2021-02-11] MEDS: LORazepam 2 MG/ML VIAL IV PRN (19:58)
[2021-02-11] MEDS ORDERED: LORazepam 2 MG/ML VIAL ONE (19:58)
[2021-02-11] MEDS: SENNOSIDES/DOCUSATE SODIUM 1 TAB TABLET PO SCH (22:05)
[2021-02-12] MEDS: LORazepam 2 MG/ML VIAL IV PRN ×3 (05:28→21:15)
[2021-02-12] MEDS ORDERED: LORazepam 2 MG/ML VIAL ONE (05:29)
[2021-02-12] MEDS: 0.9 % SODIUM CHLORIDE 10 ML SYRINGE IV SCH ×3 (05:35→21:16)
[2021-02-12 08:12] LABS: ALT/SGPT 98 U/L (<40); AST/SGOT 128 U/L (<40); Albumin/Globulin Ratio 1.1 (1.0-2.3); Alkaline Phosphatase 121 U/L (39-117); Bilirubin,Direct 2.1 mg/dL (<0.3); Bilirubin,Total 3.4 mg/dL (0.1-1.0); Blood Urea Nitrogen 5 mg/dL (8-23); Calcium 8.5 mg/dL (8.6-10.4); Carbon Dioxide 26 mmol/L (22-30); Chloride 91 mmol/L (96-108); Globulin 2.7 gm/dL (2.2-3.7); Glomerular Filtration Rate 115; Glucose 120 mg/dL (70-105); Lactate Dehydrogenase 262 U/L (135-225); Triglycerides 61 mg/dL (<150); Uric Acid 1.8 mg/dL (2.5-8.0)
[2021-02-12] MEDS: HEPARIN 5,000 UNIT/ML VIAL SQ SCH ×2 (08:13→21:14)
[2021-02-12] MEDS: DOCUSATE SODIUM 100 MG CAPSULE PO SCH ×2 (08:13→21:16)
[2021-02-12] MEDS: THIAMINE 100 MG TABLET PO SCH (08:13)
[2021-02-12] MEDS: FOLIC ACID 1 MG TABLET PO SCH (08:13)
[2021-02-12] MEDS: SODIUM CHLORIDE 1 GM TABLET PO SCH ×3 (08:13→21:15)
[2021-02-12] MEDS: MULTIVIT,THER IRON,CA,FA & MIN 1 TABLET PO SCH (08:13)
[2021-02-12 08:14] LABS: Basophils # (Auto) 0.05 K/mcL (0.00-0.20); Basophils % (Auto) 0.6 % (0.0-2.0); Eosinophils # (Auto) 0.22 K/mcL (0.00-0.70); Eosinophils % (Auto) 2.7 % (0.0-7.0); Hematocrit 31.9 % (41.0-55.0); Hemoglobin 11.1 g/dL (13.5-16.5); Lymphocytes # (Auto) 0.56 K/mcL (1.50-4.80); Lymphocytes % (Auto) 6.8 % (15.0-49.0); Mean Cell Volume 103.9 fL (80.0-100.0); Mean Corpuscular HGB Conc 34.8 g/dL (31.0-36.0); Mean Platelet Volume 9.9 fL (7.4-10.4); Monocytes # (Auto) 1.06 K/mcL (0.10-0.90); Monocytes % (Auto) 12.8 % (1.0-12.0); Neutrophils % (Auto) 77.1 % (38.0-78.0); Platelet Count 187 K/mcL (140-440); RBC 3.07 M/mcL (4.50-5.90); Red Cell Distribution Width 14.1 % (11.5-14.5); WBC 8.3 K/mcL (4.5-11.0)
[2021-02-12] MEDS: CYANOCOBALAMIN (VITAMIN B-12) 500 MCG TABLET PO SCH ×2 (08:14→21:15)
[2021-02-12] MEDS: 0.9 % SODIUM CHLORIDE 1,000 ML IV SCH (09:23)
--- NOTE | 2021-02-12 10:34 | Internal Med Progress Note ---
SUBJECTIVE Subjective Patient information: Note initiated : 02/12/21 at 10:31 am Service Date, if different from initiated Date: [] Patient: Johnathan Son a 75 y/o M admitted on 02/10/21 for Fall, Stuck On Ground. Chief Complaint: [] Interval history: Mr. Son is a 75 year old M with a history of chronic alcoholism who lives fairly independently. Patient over the last couple of days has gotten increasingly weak. He fell yesterday and was unable to get off the floor after he momentarily lost consciousness. He somehow dragged himself to fetch Gatorade. He subsequently managed to call help this morning and presented to the ER for evaluation. Initial work-up was with neuroimaging was unremarkable for acute process except for chronic ischemic changes. Sodium 122, bilirubin 4.1, elevated LFTs, elevated lactate. No clear source of infection identified. Patient was started on crystalloids. It was unclear as to the circumstances of fall whether a seizure or true syncope. Subsequently hospitalist service was consulted for further evaluation. At the time of my evaluation patient is lucid. Undergoing abdominal ultrasound. He was able to provide answer most of the question. Denies fever, chills, abdominal pain, chest pain, vertigo but endorses to progressive weakness fatigue. He denies recent sick contacts. Denies Covid symptoms or cough or diarrhea or dysuria. He does endorse to drinking 3 tall beers a day which is lower than before. He however has attempted to quit a few times but unable to due to significant withdrawal symptoms including shakes and jitters. He also expresses desire to help him quit alcohol during his hospitalization. 02/11-patient doing a lot better. CIWA score less than 5. Responding well to gabapentin. DC clonidine due to systolics less than 90. Denies agitation/hallucination. Tolerating diet. Stable labs and hemodynamics. No concerns expressed with nursing staff. No telemetry events. Sodium improved to 122, potassium 3.1 on replacement, magnesium 1.5. Downtrending LFTs 02/12-patient experiencing alcohol withdrawal. Responding well to clonidine/gabapentin/as needed benzodiazepine. Continue nutrition support/electrolyte management/multivitamin supplements. Continue physical therapies. Anticipate SNF transfer once clinically stable likely Monday. No overnight fever chills or concerns per staff. Constitutional Vitals: Vital Signs Temp Pulse Resp BP Pulse Ox 97.9 F 101 H 18 132/74 97 02/12/21 07:00 02/12/21 07:00 02/12/21 07:00 02/12/21 07:00 02/12/21 07:00 Period Temp Pulse Resp BP Sys/White Pulse Ox Last 24 Hr 97.1 F-98.2 F 78-114 16-20 82-158/54-96 95-100 Intake and Output 02/11/21 02/12/21 02/12/21 21:59 05:59 13:59 Intake Total 120 300 Output Total 250 1500 250 Balance -130 -1200 -250 Weight 74.117 kg Alert but anxious Intermittently confused Nonlabored breathing Occasional agitation/tachycardia/tachypnea Intake & Output: Intake & Output 02/11/21 02/12/21 02/12/21 21:59 05:59 13:59 Intake Total 120 300 Output Total 250 1500 250 Balance -130 -1200 -250 Weight 74.117 kg Intake: Oral 120 300 Output: Void Amount 250 1500 250 Other: Urine Appearance Clear Clear Urine Color Dark Nena Dark Yellow Light Nena Urine Odor Normal Stool Size Moderate Stool Color Brown Stool Consistency Formed # Voids 1 # Bowel Movements 1 OBJ DATA Labs CBC & Chem 7: 02/12/21 05:00 02/12/21 06:29 Labs: Abnormal Lab Results 02/12/21 02/12/21 02/11/21 06:29 05:00 12:09 RBC 3.07 L Hgb 11.1 L Hct 31.9 L MCV 103.9 H MCH 36.2 H MCHC Lymph % (Auto) 6.8 L Brooks % (Auto) 12.8 H Lymph # (Auto) 0.56 L Brooks # (Auto) 1.06 H VBG Lactic Acid Sodium 125 L 122 L Potassium Chloride 91 L BUN 5 L Creatinine 0.4 L Glucose 120 H Osmolality Uric Acid 1.8 L Calcium 8.5 L Magnesium Total Bilirubin 3.4 H Direct Bilirubin 2.1 H GGT 572 H AST 128 H ALT 98 H Alkaline Phosphatase 121 H Lactate Dehydrogenase 262 H Total Creatine Kinase Total Protein 5.7 L Albumin 3.0 L Procalcitonin TSH Urine Urobilinogen 02/11/21 02/11/21 02/11/21 08:03 03:58 03:58 RBC Hgb Hct MCV MCH MCHC Lymph % (Auto) Brooks % (Auto) Lymph # (Auto) Brooks # (Auto) VBG Lactic Acid Sodium 122 L 121 L 123 L Potassium 3.1 L Chloride 88 L BUN 5 L Creatinine 0.5 L Glucose 129 H Osmolality Uric Acid 2.2 L Calcium Magnesium 1.5 L Total Bilirubin 2.6 H Direct Bilirubin 1.7 H GGT 629 H AST 132 H ALT 93 H Alkaline Phosphatase 142 H Lactate Dehydrogenase Total Creatine Kinase Total Protein 5.5 L Albumin 3.1 L Procalcitonin TSH Urine Urobilinogen 02/11/21 02/11/21 02/10/21 03:58 00:23 20:06 RBC 2.88 L Hgb 10.3 L Hct 28.8 L MCV MCH 35.8 H MCHC Lymph % (Auto) 9.9 L [place] % (Auto) 15.6 H Lymph # (Auto) 0.87 L [place] # (Auto) 1.38 H VBG Lactic Acid Sodium 121 L 118 L* Potassium Chloride BUN Creatinine Glucose Osmolality Uric Acid Calcium Magnesium Total Bilirubin Direct Bilirubin GGT AST ALT Alkaline Phosphatase Lactate Dehydrogenase Total Creatine Kinase Total Protein Albumin Procalcitonin TSH Urine Urobilinogen 02/10/21 02/10/21 02/10/21 16:00 09:45 09:45 RBC Hgb Hct MCV MCH MCHC Lymph % (Auto) Brooks % (Auto) Lymph # (Auto) Brooks # (Auto) VBG Lactic Acid Sodium 118 L* Potassium Chloride BUN Creatinine Glucose Osmolality 250 L Uric Acid Calcium Magnesium Total Bilirubin Direct Bilirubin GGT AST ALT Alkaline Phosphatase Lactate Dehydrogenase Total Creatine Kinase Total Protein Albumin Procalcitonin TSH Urine Urobilinogen 4.0 A 02/10/21 02/10/21 02/10/21 07:50 07:50 07:50 RBC Hgb Hct MCV MCH MCHC Lymph % (Auto) Brooks % (Auto) Lymph # (Auto) Brooks # (Auto) VBG Lactic Acid 2.6 H Sodium 122 L Potassium Chloride 83 L BUN 6 L Creatinine 0.5 L Glucose 120 H Osmolality Uric Acid Calcium Magnesium Total Bilirubin 4.1 H Direct Bilirubin GGT AST 164 H ALT 111 H Alkaline Phosphatase 150 H Lactate Dehydrogenase Total Creatine Kinase 250 H Total Protein Albumin Procalcitonin 0.49 H TSH 6.48 H Urine Urobilinogen 02/10/21 07:50 RBC 3.18 L Hgb 11.6 L Hct 31.5 L MCV MCH 36.5 H MCHC 36.8 H Lymph % (Auto) 6.8 L Brooks % (Auto) 15.1 H Lymph # (Auto) 0.69 L Brooks # (Auto) 1.53 H VBG Lactic Acid Sodium Potassium Chloride BUN Creatinine Glucose Osmolality Uric Acid Calcium Magnesium Total Bilirubin Direct Bilirubin GGT AST ALT Alkaline Phosphatase Lactate Dehydrogenase Total Creatine Kinase Total Protein Albumin Procalcitonin TSH Urine Urobilinogen Meds: Medications Acetaminophen (Acetaminophen 325 Mg Tablet) 650 mg PO Q4-6HP PRN; Protocol PRN Reason: Per Pain Protocol/Fever > 101 Bisacodyl (Bisacodyl 10 Mg Supp.Rect) 10 mg [place] Q2-3DAYS PRN PRN Reason: Constipation Cyanocobalamin (Cyanocobalamin (Vitamin B-12) 500 Mcg Tablet) 1,000 mcg PO BID [facility] Stop: 02/15/21 09:01 Last Admin: 02/12/21 08:14 Dose: 1,000 mcg Documented by: Docusate Sodium (Docusate Sodium 100 Mg Capsule) 100 mg PO BID [facility] Last Admin: 02/12/21 08:13 Dose: 100 mg Documented by: Folic Acid (Folic Acid 1 Mg Tablet) 1 mg PO DAILY [facility] Last Admin: 02/12/21 08:13 Dose: 1 mg Documented by: Heparin Sodium (Porcine) (Heparin 5,000 Unit/Ml Vial) 5,000 unit SQ Q12 [facility] Last Admin: 02/12/21 08:13 Dose: 5,000 unit Documented by: Potassium Chloride 40 meq/ (Dextrose) 520 mls @ 130 mls/hr IV UD PRN PRN Reason: K+ = or < 3.5 Sodium Chloride (Sodium Chloride 0.9%) 1,000 mls @ 50 mls/hr IV .Q20H [facility] Stop: 02/13/21 02:20 Last Admin: 02/12/21 09:23 Dose: 50 mls/hr Documented by: Acetaminophen (Ofirmev) 650 mg in 65 mls @ 130 mls/hr IV Q6HP PRN; Protocol PRN Reason: Per Pain Protocol/Fever > 101 Magnesium Sulfate (Magnesium Sulfate) 2 gm in 50 mls @ 50 mls/hr IV UD PRN PRN Reason: MG = or < 1.7 Iron Carb/Multivit/Reactor Kettle Operator/Folic Acid (Multivit,Ther Iron,Ca,Fa & Min 1 Tablet) 1 tab PO DAILY [facility] Last Admin: 02/12/21 08:13 Dose: 1 tab Documented by: Lorazepam (Lorazepam 2 Mg/Ml Vial) 1 mg IV Q4HP PRN PRN Reason: Alcohol Withdrawal Last Admin: 02/12/21 05:28 Dose: 1 mg Documented by: Melatonin (Melatonin 3 Mg Tablet) 3 mg PO HSP PRN PRN Reason: Insomnia Ondansetron HCl (Ondansetron 4 Mg Odt Tablet) 4 mg SL Q4-6HP PRN; Protocol PRN Reason: Nausea And Vomiting Ondansetron HCl (Ondansetron 4 Mg/2 Ml Vial) 4 mg IV Q4-6HP PRN; Protocol PRN Reason: Nausea And Vomiting Polyethylene Glycol (Polyethylene Glycol 3350 17 Gm Packet) 17 gm PO DAILYP PRN PRN Reason: Constipation Potassium Chloride (Potassium Chloride 20 Meq Packet) 40 meq PO DAILYP PRN PRN Reason: K+ < 3.5 Potassium/Phosphorus/Sodium (Neutra Phos 1 Packet) 2 packet PO ONCE PRN PRN Reason: For phosphorus less than 2.5 Senna/Docusate Sodium (Sennosides/Docusate Sodium 1 Tab Tablet) 1 tab PO HS [facility] Last Admin: 02/11/21 22:05 Dose: 1 tab Documented by: Sodium Chloride (0.9 % Sodium Chloride 10 Ml Syringe) 10 ml IV Q8 [facility] Last Admin: 02/12/21 05:35 Dose: 10 ml Documented by: Sodium Chloride (Sodium Chloride 1 Gm Tablet) 2 gm PO TID [facility] Last Admin: 02/12/21 08:13 Dose: 2 gm Documented by: Thiamine HCl (Thiamine 100 Mg Tablet) 100 mg PO DAILY [facility] Last Admin: 02/12/21 08:13 Dose: 100 mg Documented by: A/P Narrative A/P Narrative: * Acute alcohol withdrawal with early DTs. Continue management on CIWA protocol. CIWA score now 5 continue clonidine/gabapentin/lorazepam * Syncope- negative head CT except for microvascular ischemic changes, echo EF 63%, no critical , no telemetry events. Likely secondary to volume depletion. * Symptomatic hyponatremia secondary to poor solute intake/solute loss from alcoholism-gradually improving. Sodium up from 18- 22->125. Urine osmolarity suggestive against SIADH * Hypokalemia/low magnesium/low phosphorus on replacement * Elevated LFTs/bilirubin secondary to alcoholism. Clinically improving. Negative biliary ultrasound except for fatty liver changes . * Generalized deconditioning continue PT OT/nutrition support * Prophylaxis Heparin Plan * Continue alcohol withdrawal management * Continue electrolyte replacement * Continue PT OT/nutrition support/dietitian consult * Discharge planning per case management Time Spent With Patient Time: Total time spent is greater than 50% in coordination of care (as documented) at patient's floor/unit and/or counseling patient: QUALITY VTE Deep Vein Thrombosis/Pulmonary Embolism Present on Admission: No
[2021-02-12] MEDS: SENNOSIDES/DOCUSATE SODIUM 1 TAB TABLET PO SCH (21:16)
[2021-02-13] MEDS: 0.9 % SODIUM CHLORIDE 10 ML SYRINGE IV SCH ×3 (04:56→21:00)
[2021-02-13] MEDS: LORazepam 2 MG/ML VIAL IV PRN (05:47)
[2021-02-13 07:27] LABS: ALT/SGPT 93 U/L (<40); AST/SGOT 107 U/L (<40); Albumin/Globulin Ratio 1.2 (1.0-2.3); Alkaline Phosphatase 128 U/L (39-117); Bilirubin,Direct 1.8 mg/dL (<0.3); Bilirubin,Total 2.8 mg/dL (0.1-1.0); Blood Urea Nitrogen 6 mg/dL (8-23); Calcium 8.6 mg/dL (8.6-10.4); Carbon Dioxide 25 mmol/L (22-30); Chloride 96 mmol/L (96-108); Globulin 2.6 gm/dL (2.2-3.7); Glomerular Filtration Rate 105; Glucose 96 mg/dL (70-105); Lactate Dehydrogenase 261 U/L (135-225); Phosphorous 3.2 mg/dL (2.5-4.5); Triglycerides 71 mg/dL (<150); Uric Acid 1.8 mg/dL (2.5-8.0)
[2021-02-13 07:47] LABS: Basophils # (Auto) 0.06 K/mcL (0.00-0.20); Basophils % (Auto) 0.6 % (0.0-2.0); Eosinophils # (Auto) 0.29 K/mcL (0.00-0.70); Hematocrit 31.6 % (41.0-55.0); Lymphocytes # (Auto) 1.19 K/mcL (1.50-4.80); Lymphocytes % (Auto) 12.2 % (15.0-49.0); Mean Cell Volume 102.3 fL (80.0-100.0); Mean Corpuscular HGB Conc 34.8 g/dL (31.0-36.0); Mean Platelet Volume 9.7 fL (7.4-10.4); Monocytes # (Auto) 1.47 K/mcL (0.10-0.90); Monocytes % (Auto) 15.1 % (1.0-12.0); Neutrophils % (Auto) 69.1 % (38.0-78.0); Platelet Count 214 K/mcL (140-440); RBC 3.09 M/mcL (4.50-5.90); Red Cell Distribution Width 14.6 % (11.5-14.5); WBC 9.7 K/mcL (4.5-11.0)
[2021-02-13] MEDS: DOCUSATE SODIUM 100 MG CAPSULE PO SCH ×2 (08:08→20:59)
[2021-02-13] MEDS: CYANOCOBALAMIN (VITAMIN B-12) 500 MCG TABLET PO SCH ×2 (08:31→20:59)
[2021-02-13] MEDS: MULTIVIT,THER IRON,CA,FA & MIN 1 TABLET PO SCH (08:31)
[2021-02-13] MEDS: SODIUM CHLORIDE 1 GM TABLET PO SCH ×3 (08:31→21:00)
[2021-02-13] MEDS: THIAMINE 100 MG TABLET PO SCH (08:31)
[2021-02-13] MEDS: FOLIC ACID 1 MG TABLET PO SCH (08:31)
[2021-02-13] MEDS: HEPARIN 5,000 UNIT/ML VIAL SQ SCH ×2 (08:32→21:00)
--- NOTE | 2021-02-13 19:26 | Internal Med Progress Note ---
SUBJECTIVE Subjective Patient information: Note initiated : 02/13/21 at 7:26 pm Service Date, if different from initiated Date: [] Patient: Johnathan Son a 75 y/o M admitted on 02/10/21 for Fall, Stuck On Ground. Chief Complaint: Follow-up hyponatremia, alcohol withdrawal Interval history: Mr. Son is a 75 year old M with a history of chronic alcoholism who lives fairly independently. Patient over the last couple of days has gotten increasingly weak. He fell yesterday and was unable to get off the floor after he momentarily lost consciousness. He somehow dragged himself to fetch Gatorade. He subsequently managed to call help this morning and presented to the ER for evaluation. Initial work-up was with neuroimaging was unremarkable for acute process except for chronic ischemic changes. Sodium 122, bilirubin 4.1, elevated LFTs, elevated lactate. No clear source of infection identified. Patient was started on crystalloids. It was unclear as to the circumstances of fall whether a seizure or true syncope. Subsequently hospitalist service was consulted for further evaluation. At the time of my evaluation patient is lucid. Undergoing abdominal ultrasound. He was able to provide answer most of the question. Denies fever, chills, abdominal pain, chest pain, vertigo but endorses to progressive weakness fatigue. He denies recent sick contacts. Denies Covid symptoms or cough or diarrhea or dysuria. He does endorse to drinking 3 tall beers a day which is lower than before. He however has attempted to quit a few times but unable to due to significant withdrawal symptoms including shakes and jitters. He also expresses desire to help him quit alcohol during his hospitalization. 02/11-patient doing a lot better. CIWA score less than 5. Responding well to gabapentin. DC clonidine due to systolics less than 90. Denies agitation/hallucination. Tolerating diet. Stable labs and hemodynamics. No concerns expressed with nursing staff. No telemetry events. Sodium improved to 122, potassium 3.1 on replacement, magnesium 1.5. Downtrending LFTs 02/12-patient experiencing alcohol withdrawal. Responding well to clonidine/gabapentin/as needed benzodiazepine. Continue nutrition support/electrolyte management/multivitamin supplements. Continue physical therapies. Anticipate SNF transfer once clinically stable likely Monday. No overnight fever chills or concerns per staff. 7atient without complaints this morning. Awake, alert and oriented to himself, being at [facility], because he is not fully recovered from his fall. Denies any hallucinations. Appetite is pretty good. Withdrawal symptoms seem to be tapering off. Sodium has normalized today. Constitutional Vitals: Vital Signs Temp Pulse Resp BP Pulse Ox 97.5 F 106 H 14 139/86 99 02/13/21 16:00 02/13/21 16:00 02/13/21 16:00 02/13/21 16:00 02/13/21 16:00 Period Temp Pulse Resp BP Sys/White Pulse Ox Last 24 Hr 97 F-98 F 86-111 14-20 124-156/72-100 95-99 Intake and Output 02/13/21 02/13/21 02/13/21 05:59 13:59 21:59 Intake Total 325 240 Output Total 276 225 450 Balance 49 15 -450 GENERAL: Sitting up in bed no acute distress RESPIRATORY: Lungs are clear CARDIOVASCULAR: Regular, mildly tachycardic ABDOMEN: Soft, no tenderness EXTREMITIES: Warm, no edema NEURO: Alert, oriented to person, place and situation, generally weak Intake & Output: Intake & Output 02/13/21 02/13/21 02/13/21 05:59 13:59 21:59 Intake Total 325 240 Output Total 276 225 450 Balance 49 15 -450 Intake: IV 50 Oral 275 240 Output: Void Amount 275 225 450 # of times incontinent of urine 1 Other: Meal Breakfast Percent of Meal Consumed 50% Feeding Ability Independent Urine Appearance Clear Clear Urine Color Dark Yellow Dark Yellow Dark Nena Urine Odor Normal OBJ DATA Labs CBC & Chem 7: 02/13/21 05:43 02/13/21 05:42 Labs: Abnormal Lab Results 02/13/21 02/13/21 02/12/21 05:43 05:42 06:29 RBC 3.09 L Hgb 11.0 L Hct 31.6 L MCV 102.3 H MCH 35.6 H RDW 14.6 H Lymph % (Auto) 12.2 L [place] % (Auto) 15.1 H Lymph # (Auto) 1.19 L [place] # (Auto) 1.47 H Sodium 125 L Potassium Chloride 91 L BUN 6 L 5 L Creatinine 0.5 L 0.4 L Glucose 120 H Uric Acid 1.8 L 1.8 L Calcium 8.5 L Magnesium Total Bilirubin 2.8 H 3.4 H Direct Bilirubin 1.8 H 2.1 H GGT 515 H 572 H AST 107 H 128 H ALT 93 H 98 H Alkaline Phosphatase 128 H 121 H Lactate Dehydrogenase 261 H 262 H Total Protein 5.6 L 5.7 L Albumin 3.0 L 3.0 L 02/12/21 02/11/21 02/11/21 05:00 12:09 08:03 RBC 3.07 L Hgb 11.1 L Hct 31.9 L MCV 103.9 H MCH 36.2 H RDW Lymph % (Auto) 6.8 L [place] % (Auto) 12.8 H Lymph # (Auto) 0.56 L [place] # (Auto) 1.06 H Sodium 122 L 122 L Potassium Chloride BUN Creatinine Glucose Uric Acid Calcium Magnesium Total Bilirubin Direct Bilirubin GGT AST ALT Alkaline Phosphatase Lactate Dehydrogenase Total Protein Albumin 02/11/21 02/11/21 02/11/21 03:58 03:58 03:58 RBC 2.88 L Hgb 10.3 L Hct 28.8 L MCV MCH 35.8 H RDW Lymph % (Auto) 9.9 L [place] % (Auto) 15.6 H Lymph # (Auto) 0.87 L [place] # (Auto) 1.38 H Sodium 121 L 123 L Potassium 3.1 L Chloride 88 L BUN 5 L Creatinine 0.5 L Glucose 129 H Uric Acid 2.2 L Calcium Magnesium 1.5 L Total Bilirubin 2.6 H Direct Bilirubin 1.7 H GGT 629 H AST 132 H ALT 93 H Alkaline Phosphatase 142 H Lactate Dehydrogenase Total Protein 5.5 L Albumin 3.1 L 02/11/21 02/10/21 02/10/21 00:23 20:06 16:00 RBC Hgb Hct MCV MCH RDW Lymph % (Auto) [place] % (Auto) Lymph # (Auto) [place] # (Auto) Sodium 121 L 118 L* 118 L* Potassium Chloride BUN Creatinine Glucose Uric Acid Calcium Magnesium Total Bilirubin Direct Bilirubin GGT AST ALT Alkaline Phosphatase Lactate Dehydrogenase Total Protein Albumin Meds: Medications Acetaminophen (Acetaminophen 325 Mg Tablet) 650 mg PO Q4-6HP PRN; Protocol PRN Reason: Per Pain Protocol/Fever > 101 Bisacodyl (Bisacodyl 10 Mg Supp.Rect) 10 mg [place] Q2-3DAYS PRN PRN Reason: Constipation Cyanocobalamin (Cyanocobalamin (Vitamin B-12) 500 Mcg Tablet) 1,000 mcg PO BID [facility] Stop: 02/15/21 09:01 Last Admin: 02/13/21 08:31 Dose: 1,000 mcg Documented by: Docusate Sodium (Docusate Sodium 100 Mg Capsule) 100 mg PO BID [facility] Last Admin: 02/13/21 08:08 Dose: Not Given Documented by: Folic Acid (Folic Acid 1 Mg Tablet) 1 mg PO DAILY [facility] Last Admin: 02/13/21 08:31 Dose: 1 mg Documented by: Heparin Sodium (Porcine) (Heparin 5,000 Unit/Ml Vial) 5,000 unit SQ Q12 [facility] Last Admin: 02/13/21 08:32 Dose: 5,000 unit Documented by: Potassium Chloride 40 meq/ (Dextrose) 520 mls @ 130 mls/hr IV UD PRN PRN Reason: K+ = or < 3.5 Acetaminophen (Ofirmev) 650 mg in 65 mls @ 130 mls/hr IV Q6HP PRN; Protocol PRN Reason: Per Pain Protocol/Fever > 101 Magnesium Sulfate (Magnesium Sulfate) 2 gm in 50 mls @ 50 mls/hr IV UD PRN PRN Reason: MG = or < 1.7 Last Infusion: 02/13/21 02:00 Dose: Infused Documented by: Iron Carb/Multivit/Concrete Pipe Maker/Folic Acid (Multivit,Ther Iron,Ca,Fa & Min 1 Tablet) 1 tab PO DAILY [facility] Last Admin: 02/13/21 08:31 Dose: 1 tab Documented by: Lorazepam (Lorazepam 2 Mg/Ml Vial) 1 mg IV Q4HP PRN PRN Reason: Alcohol Withdrawal Last Admin: 02/13/21 05:47 Dose: 1 mg Documented by: Melatonin (Melatonin 3 Mg Tablet) 3 mg PO HSP PRN PRN Reason: Insomnia Ondansetron HCl (Ondansetron 4 Mg Odt Tablet) 4 mg SL Q4-6HP PRN; Protocol PRN Reason: Nausea And Vomiting Ondansetron HCl (Ondansetron 4 Mg/2 Ml Vial) 4 mg IV Q4-6HP PRN; Protocol PRN Reason: Nausea And Vomiting Polyethylene Glycol (Polyethylene Glycol 3350 17 Gm Packet) 17 gm PO DAILYP PRN PRN Reason: Constipation Potassium Chloride (Potassium Chloride 20 Meq Packet) 40 meq PO DAILYP PRN PRN Reason: K+ < 3.5 Potassium/Phosphorus/Sodium (Neutra Phos 1 Packet) 2 packet PO ONCE PRN PRN Reason: For phosphorus less than 2.5 Senna/Docusate Sodium (Sennosides/Docusate Sodium 1 Tab Tablet) 1 tab PO HS [facility] Last Admin: 02/12/21 21:16 Dose: Not Given Documented by: Sodium Chloride (0.9 % Sodium Chloride 10 Ml Syringe) 10 ml IV Q8 [facility] Last Admin: 02/13/21 13:29 Dose: 10 ml Documented by: Sodium Chloride (Sodium Chloride 1 Gm Tablet) 2 gm PO TID [facility] Last Admin: 02/13/21 15:00 Dose: 2 gm Documented by: Thiamine HCl (Thiamine 100 Mg Tablet) 100 mg PO DAILY [facility] Last Admin: 02/13/21 08:31 Dose: 100 mg Documented by: A/P Narrative A/P Narrative: Acute alcohol withdrawal with early delirium -Improved 02/13 -Initially managed with gabapentin and clonidine -No longer receiving clonidine nor gabapentin Syncope/fall -Negative head CT except for microvascular ischemic changes -Echo EF 63%, no critical , no telemetry events -Likely secondary to volume depletion Symptomatic hyponatremia -Secondary to poor solute intake/solute loss from alcoholism-gradually improving -Sodium up from 118-122->125->133 -Urine osmolarity suggestive against SIADH Hypokalemia/low magnesium/low phosphorus -On replacement Elevated LFTs/bilirubin -Secondary to alcohol use -Clinically improving -Negative biliary ultrasound except for fatty liver changes Generalized deconditioning continue PT OT/nutrition support Plan -Continue CIWA, as needed lorazepam -Replete electrolytes as needed -Continue PT and OT -Likely will need skilled facility -Prophylaxis: Enoxaparin Time Spent With Patient Time: Total time spent is greater than 50% in coordination of care (as documented) at patient's floor/unit and/or counseling patient: QUALITY VTE Deep Vein Thrombosis/Pulmonary Embolism Present on Admission: No
[2021-02-13] MEDS: SENNOSIDES/DOCUSATE SODIUM 1 TAB TABLET PO SCH (20:59)
[2021-02-14] MEDS: 0.9 % SODIUM CHLORIDE 10 ML SYRINGE IV SCH ×3 (05:15→20:04)
[2021-02-14 07:26] LABS: ALT/SGPT 77 U/L (<40); AST/SGOT 100 U/L (<40); Albumin 2.9 gm/dL (3.2-5.2); Albumin/Globulin Ratio 1.2 (1.0-2.3); Alkaline Phosphatase 106 U/L (39-117); Bilirubin,Direct 1.7 mg/dL (<0.3); Bilirubin,Total 2.7 mg/dL (0.1-1.0); Blood Urea Nitrogen 6 mg/dL (8-23); Calcium 8.2 mg/dL (8.6-10.4); Carbon Dioxide 25 mmol/L (22-30); Chloride 95 mmol/L (96-108); Globulin 2.4 gm/dL (2.2-3.7); Glomerular Filtration Rate 115; Glucose 93 mg/dL (70-105); Lactate Dehydrogenase 241 U/L (135-225); Phosphorous 3.4 mg/dL (2.5-4.5); Triglycerides 73 mg/dL (<150); Uric Acid 1.6 mg/dL (2.5-8.0)
[2021-02-14 07:27] LABS: Basophils # (Auto) 0.04 K/mcL (0.00-0.20); Basophils % (Auto) 0.5 % (0.0-2.0); Eosinophils % (Auto) 3.4 % (0.0-7.0); Hematocrit 29.3 % (41.0-55.0); Lymphocytes # (Auto) 1.13 K/mcL (1.50-4.80); Lymphocytes % (Auto) 12.8 % (15.0-49.0); Mean Cell Volume 102.1 fL (80.0-100.0); Mean Corpuscular HGB Conc 34.1 g/dL (31.0-36.0); Mean Platelet Volume 9.7 fL (7.4-10.4); Monocytes # (Auto) 1.18 K/mcL (0.10-0.90); Monocytes % (Auto) 13.4 % (1.0-12.0); Neutrophils % (Auto) 69.9 % (38.0-78.0); Platelet Count 204 K/mcL (140-440); RBC 2.87 M/mcL (4.50-5.90); Red Cell Distribution Width 14.7 % (11.5-14.5); WBC 8.8 K/mcL (4.5-11.0)
[2021-02-14] MEDS: DOCUSATE SODIUM 100 MG CAPSULE PO SCH ×2 (08:17→20:04)
[2021-02-14] MEDS: SODIUM CHLORIDE 1 GM TABLET PO SCH ×3 (08:17→20:04)
[2021-02-14] MEDS: CYANOCOBALAMIN (VITAMIN B-12) 500 MCG TABLET PO SCH ×2 (08:17→20:04)
[2021-02-14] MEDS: HEPARIN 5,000 UNIT/ML VIAL SQ SCH ×2 (08:17→20:03)
[2021-02-14] MEDS: FOLIC ACID 1 MG TABLET PO SCH (08:18)
[2021-02-14] MEDS: MULTIVIT,THER IRON,CA,FA & MIN 1 TABLET PO SCH (08:18)
[2021-02-14] MEDS: THIAMINE 100 MG TABLET PO SCH (08:18)
--- NOTE | 2021-02-14 14:00 | Internal Med Progress Note ---
SUBJECTIVE Subjective Patient information: Note initiated : 02/14/21 at 1:56 pm Service Date, if different from initiated Date: [] Patient: Johnathan Son a 75 y/o M admitted on 02/10/21 for Fall, Stuck On Ground. Chief Complaint: Follow-up hyponatremia, alcohol withdrawal Interval history: Mr. Son is a 75 year old M with a history of chronic alcoholism who lives fairly independently. Patient over the last couple of days has gotten increasingly weak. He fell yesterday and was unable to get off the floor after he momentarily lost consciousness. He somehow dragged himself to fetch Gatorade. He subsequently managed to call help this morning and presented to the ER for evaluation. Initial work-up was with neuroimaging was unremarkable for acute process except for chronic ischemic changes. Sodium 122, bilirubin 4.1, elevated LFTs, elevated lactate. No clear source of infection identified. Patient was started on crystalloids. It was unclear as to the circumstances of fall whether a seizure or true syncope. Subsequently hospitalist service was consulted for further evaluation. At the time of my evaluation patient is lucid. Undergoing abdominal ultrasound. He was able to provide answer most of the question. Denies fever, chills, abdominal pain, chest pain, vertigo but endorses to progressive weakness fatigue. He denies recent sick contacts. Denies Covid symptoms or cough or diarrhea or dysuria. He does endorse to drinking 3 tall beers a day which is lower than before. He however has attempted to quit a few times but unable to due to significant withdrawal symptoms including shakes and jitters. He also expresses desire to help him quit alcohol during his hospitalization. 02/11-patient doing a lot better. CIWA score less than 5. Responding well to gabapentin. DC clonidine due to systolics less than 90. Denies agitation/hallucination. Tolerating diet. Stable labs and hemodynamics. No concerns expressed with nursing staff. No telemetry events. Sodium improved to 122, potassium 3.1 on replacement, magnesium 1.5. Downtrending LFTs 02/12-patient experiencing alcohol withdrawal. Responding well to clonidine/gabapentin/as needed benzodiazepine. Continue nutrition support/electrolyte management/multivitamin supplements. Continue physical therapies. Anticipate SNF transfer once clinically stable likely Monday. No overnight fever chills or concerns per staff. 7atient without complaints this morning. Awake, alert and oriented to himself, being at [facility], because he is not fully recovered from his fall. Denies any hallucinations. Appetite is pretty good. Withdrawal symptoms seem to be tapering off. Sodium has normalized today. 81continues to progress. Remains awake and alert, no hallucinations. Sodium mildly decreased today. Potassium is normal. Constitutional Vitals: Vital Signs Temp Pulse Resp BP Pulse Ox 98.3 F 98 H 16 150/92 96 02/14/21 11:04 02/14/21 11:04 02/14/21 11:04 02/14/21 11:04 02/14/21 11:04 Period Temp Pulse Resp BP Sys/White Pulse Ox Last 24 Hr 97.5 F-98.3 F 95-106 14-20 131-167/80-92 95-99 Intake and Output 02/13/21 02/14/21 02/14/21 21:59 05:59 13:59 Intake Total 040 975 5207 Output Total 800 700 825 Balance -550 -300 375 Weight 167 lb 8 oz GENERAL: Sitting up in bed eating lunch, talkative RESPIRATORY: Bilateral basal crackles, resolve after deep inspiration CARDIOVASCULAR: Regular rate and rhythm ABDOMEN: Nondistended, active bowel sounds EXTREMITIES: No edema NEURO: Alert, oriented person, place, situation, generalized weakness is present Intake & Output: Intake & Output 02/13/21 02/14/21 02/14/21 21:59 05:59 13:59 Intake Total 416 111 5366 Output Total 800 700 825 Balance -550 -300 375 Weight 167 lb 8 oz Intake: Oral 606 329 6888 Output: Void Amount 800 700 825 # of times incontinent of urine 0 Other: Meal Lunch Percent of Meal Consumed 100% Feeding Ability Independent Urine Appearance Clear Clear Clear Urine Color Dark Yellow Dark Yellow Dark Yellow Urine Odor Normal Normal Stool Size Large Stool Color Brown Stool Consistency Soft Formed # Bowel Movements 1 # of times incontinent of 0 Bowels OBJ DATA Labs CBC & Chem 7: 02/14/21 05:53 02/14/21 05:52 Labs: Abnormal Lab Results 02/14/21 02/14/21 02/13/21 05:53 05:52 05:43 RBC 2.87 L 3.09 L Hgb 10.0 L 11.0 L Hct 29.3 L 31.6 L MCV 102.1 H 102.3 H MCH 34.8 H 35.6 H RDW 14.7 H 14.6 H Lymph % (Auto) 12.8 L 12.2 L [place] % (Auto) 13.4 H 15.1 H Lymph # (Auto) 1.13 L 1.19 L [place] # (Auto) 1.18 H 1.47 H Sodium 130 L Chloride 95 L BUN 6 L Creatinine 0.4 L Glucose Uric Acid 1.6 L Calcium 8.2 L Total Bilirubin 2.7 H Direct Bilirubin 1.7 H GGT 428 H AST 100 H ALT 77 H Alkaline Phosphatase Lactate Dehydrogenase 241 H Total Protein 5.3 L Albumin 2.9 L 02/13/21 02/12/21 02/12/21 05:42 06:29 05:00 RBC 3.07 L Hgb 11.1 L Hct 31.9 L MCV 103.9 H MCH 36.2 H RDW Lymph % (Auto) 6.8 L [place] % (Auto) 12.8 H Lymph # (Auto) 0.56 L [place] # (Auto) 1.06 H Sodium 125 L Chloride 91 L BUN 6 L 5 L Creatinine 0.5 L 0.4 L Glucose 120 H Uric Acid 1.8 L 1.8 L Calcium 8.5 L Total Bilirubin 2.8 H 3.4 H Direct Bilirubin 1.8 H 2.1 H GGT 515 H 572 H AST 107 H 128 H ALT 93 H 98 H Alkaline Phosphatase 128 H 121 H Lactate Dehydrogenase 261 H 262 H Total Protein 5.6 L 5.7 L Albumin 3.0 L 3.0 L Meds: Medications Acetaminophen (Acetaminophen 325 Mg Tablet) 650 mg PO Q4-6HP PRN; Protocol PRN Reason: Per Pain Protocol/Fever > 101 Bisacodyl (Bisacodyl 10 Mg Supp.Rect) 10 mg MI Q2-3DAYS PRN PRN Reason: Constipation Cyanocobalamin (Cyanocobalamin (Vitamin B-12) 500 Mcg Tablet) 1,000 mcg PO BID [facility] Stop: 02/15/21 09:01 Last Admin: 02/14/21 08:17 Dose: 1,000 mcg Documented by: Docusate Sodium (Docusate Sodium 100 Mg Capsule) 100 mg PO BID [facility] Last Admin: 02/14/21 08:17 Dose: 100 mg Documented by: Folic Acid (Folic Acid 1 Mg Tablet) 1 mg PO DAILY [facility] Last Admin: 02/14/21 08:18 Dose: 1 mg Documented by: Heparin Sodium (Porcine) (Heparin 5,000 Unit/Ml Vial) 5,000 unit SQ Q12 [facility] Last Admin: 02/14/21 08:17 Dose: 5,000 unit Documented by: Potassium Chloride 40 meq/ (Dextrose) 520 mls @ 130 mls/hr IV UD PRN PRN Reason: K+ = or < 3.5 Acetaminophen (Ofirmev) 650 mg in 65 mls @ 130 mls/hr IV Q6HP PRN; Protocol PRN Reason: Per Pain Protocol/Fever > 101 Magnesium Sulfate (Magnesium Sulfate) 2 gm in 50 mls @ 50 mls/hr IV UD PRN PRN Reason: MG = or < 1.7 Last Infusion: 02/13/21 02:00 Dose: Infused Documented by: Iron Carb/Multivit/Cooker Sulfate/Folic Acid (Multivit,Ther Iron,Ca,Fa & Min 1 Tablet) 1 tab PO DAILY [facility] Last Admin: 02/14/21 08:18 Dose: 1 tab Documented by: Lorazepam (Lorazepam 2 Mg/Ml Vial) 1 mg IV Q4HP PRN PRN Reason: Alcohol Withdrawal Last Admin: 02/13/21 05:47 Dose: 1 mg Documented by: Melatonin (Melatonin 3 Mg Tablet) 3 mg PO HSP PRN PRN Reason: Insomnia Ondansetron HCl (Ondansetron 4 Mg Odt Tablet) 4 mg SL Q4-6HP PRN; Protocol PRN Reason: Nausea And Vomiting Ondansetron HCl (Ondansetron 4 Mg/2 Ml Vial) 4 mg IV Q4-6HP PRN; Protocol PRN Reason: Nausea And Vomiting Polyethylene Glycol (Polyethylene Glycol 3350 17 Gm Packet) 17 gm PO DAILYP PRN PRN Reason: Constipation Potassium Chloride (Potassium Chloride 20 Meq Packet) 40 meq PO DAILYP PRN PRN Reason: K+ < 3.5 Last Admin: 02/14/21 11:11 Dose: 40 meq Documented by: Potassium/Phosphorus/Sodium (Neutra Phos 1 Packet) 2 packet PO ONCE PRN PRN Reason: For phosphorus less than 2.5 Senna/Docusate Sodium (Sennosides/Docusate Sodium 1 Tab Tablet) 1 tab PO HS [facility] Last Admin: 02/13/21 20:59 Dose: 1 tab Documented by: Sodium Chloride (0.9 % Sodium Chloride 10 Ml Syringe) 10 ml IV Q8 [facility] Last Admin: 02/14/21 05:15 Dose: 10 ml Documented by: Sodium Chloride (Sodium Chloride 1 Gm Tablet) 2 gm PO TID [facility] Last Admin: 02/14/21 08:17 Dose: 2 gm Documented by: Thiamine HCl (Thiamine 100 Mg Tablet) 100 mg PO DAILY [facility] Last Admin: 02/14/21 08:18 Dose: 100 mg Documented by: A/P Narrative A/P Narrative: Acute alcohol withdrawal with early delirium -Improved 02/13 and 02/14 -Initially managed with gabapentin and clonidine -No longer receiving clonidine nor gabapentin Syncope/fall -Negative head CT except for microvascular ischemic changes -Echo EF 63%, no critical , no telemetry events -Likely secondary to volume depletion Symptomatic hyponatremia -Secondary to poor solute intake/solute loss from alcoholism-gradually improving -Sodium up from 118-122->125->133 -Urine osmolarity suggestive against SIADH Hypokalemia/low magnesium/low phosphorus -On replacement Elevated LFTs/bilirubin -Secondary to alcohol use -Clinically improving -Negative biliary ultrasound except for fatty liver changes Generalized deconditioning continue PT OT/nutrition support Plan -Continue CIWA, as needed lorazepam -Replete electrolytes as needed -Continue PT and OT -Likely will need skilled facility, approaching medical stability for discharge -Prophylaxis: Enoxaparin Time Spent With Patient Time: Total time spent is greater than 50% in coordination of care (as documented) at patient's floor/unit and/or counseling patient: QUALITY VTE Deep Vein Thrombosis/Pulmonary Embolism Present on Admission: No
[2021-02-14] MEDS: SENNOSIDES/DOCUSATE SODIUM 1 TAB TABLET PO SCH (20:03)
[2021-02-14] MEDS: METOPROLOL TARTRATE 25 MG TABLET PO SCH (23:07)
[2021-02-15 07:52] LABS: ALT/SGPT 80 U/L (<40); AST/SGOT 103 U/L (<40); Albumin 2.9 gm/dL (3.2-5.2); Albumin/Globulin Ratio 1.2 (1.0-2.3); Alkaline Phosphatase 104 U/L (39-117); Bilirubin,Direct 1.5 mg/dL (<0.3); Bilirubin,Total 2.6 mg/dL (0.1-1.0); Blood Urea Nitrogen 7 mg/dL (8-23); Calcium 8.4 mg/dL (8.6-10.4); Carbon Dioxide 26 mmol/L (22-30); Chloride 95 mmol/L (96-108); Globulin 2.5 gm/dL (2.2-3.7); Glomerular Filtration Rate 105; Glucose 114 mg/dL (70-105); Lactate Dehydrogenase 280 U/L (135-225); Triglycerides 76 mg/dL (<150); Uric Acid 1.6 mg/dL (2.5-8.0)
[2021-02-15] MEDS: FOLIC ACID 1 MG TABLET PO SCH (08:26)
[2021-02-15] MEDS: CYANOCOBALAMIN (VITAMIN B-12) 500 MCG TABLET PO SCH (08:26)
[2021-02-15] MEDS: DOCUSATE SODIUM 100 MG CAPSULE PO SCH (08:26)
[2021-02-15] MEDS: MULTIVIT,THER IRON,CA,FA & MIN 1 TABLET PO SCH (08:27)
[2021-02-15] MEDS: HEPARIN 5,000 UNIT/ML VIAL SQ SCH (08:27)
[2021-02-15] MEDS: THIAMINE 100 MG TABLET PO SCH (08:27)
[2021-02-15] MEDS: METOPROLOL TARTRATE 25 MG TABLET PO SCH (08:27)
[2021-02-15] MEDS: SODIUM CHLORIDE 1 GM TABLET PO SCH (08:28)
[2021-02-15] MEDS: 0.9 % SODIUM CHLORIDE 10 ML SYRINGE IV SCH (08:28)
--- NOTE | 2021-02-15 13:06 | Discharge Summary ---
Discharge Provider Provider Patient information: Note initiated : 02/15/21 at 1:04 pm Service Date, if different from initiated Date: [] Patient: Johnathan Son 75 y/o M admitted on 02/10/21 for Fall, Stuck On Ground. Date of admission: 02/10/21 14:11 Discharge date: 02/15/21 Primary care physician: PCP No Attending physician on admission: Uri Norman Consults: 02/10/21 Consult to Physician [CONS] Stat Comment: Consulting Provider: Uri Norman Reason For Exam: Physician to Consult Attending physician on discharge: Anu Cabrera Discharge Meds Discharge Medications Home Medications No Known Home Meds 01/06/20 [History Confirmed 02/10/21 Last Taken Unknown] folic acid 1 mg PO DAILY #30 tab 02/15/21 [Rx Last Taken Unknown] melatonin 3 mg PO HSP PRN #30 tab 02/15/21 [Rx Last Taken Unknown] metoprolol tartrate 25 mg PO BID #60 tab 02/15/21 [Rx Last Taken Unknown] emqzbxcn-xwjo-DO-calcium-mins [Thera M Plus (ferrous fumarat)] 1 tab PO DAILY #30 tab 02/15/21 [Rx Last Taken Unknown] sodium chloride 2 gm PO TID #180 tab 02/15/21 [Rx Last Taken Unknown] thiamine mononitrate (vit B1) 100 mg PO DAILY #30 tab 02/15/21 [Rx Last Taken Unknown] COURSE Hospital Course Hospital course: Mr. Son is a 75 year old M with a history of chronic alcoholism who lives fairly independently. Patient over the last couple of days has gotten increasingly weak. He fell yesterday and was unable to get off the floor after he momentarily lost consciousness. He somehow dragged himself to fetch Gatorade. He subsequently managed to call help this morning and presented to the ER for evaluation. Initial work-up was with neuroimaging was unremarkable for acute process except for chronic ischemic changes. Sodium 122, bilirubin 4.1, elevated LFTs, elevated lactate. No clear source of infection identified. Patient was started on crystalloids. It was unclear as to the circumstances of fall whether a seizure or true syncope. Subsequently hospitalist service was consulted for further evaluation. At the time of my evaluation patient is lucid. Undergoing abdominal ultrasound. He was able to provide answer most of the question. Denies fever, chills, abdominal pain, chest pain, vertigo but endorses to progressive weakness fatigue. He denies recent sick contacts. Denies Covid symptoms or cough or diarrhea or dysuria. He does endorse to drinking 3 tall beers a day which is lower than before. He however has attempted to quit a few times but unable to due to significant withdrawal symptoms including shakes and jitters. He also expresses desire to help him quit alcohol during his hospitalization. 02/11-patient doing a lot better. CIWA score less than 5. Responding well to g abapentin. DC clonidine due to systolics less than 90. Denies agitation/hallucination. Tolerating diet. Stable labs and hemodynamics. No concerns expressed with nursing staff. No telemetry events. Sodium improved to 122, potassium 3.1 on replacement, magnesium 1.5. Downtrending LFTs 02/12-patient experiencing alcohol withdrawal. Responding well to clonidine/gabapentin/as needed benzodiazepine. Continue nutrition support/electrolyte management/multivitamin supplements. Continue physical therapies. Anticipate SNF transfer once clinically stable likely Monday. No overnight fever chills or concerns per staff. 7atient without complaints this morning. Awake, alert and oriented to himself, being at [facility], because he is not fully recovered from his fall. Denies any hallucinations. Appetite is pretty good. Withdrawal symptoms seem to be tapering off. Sodium has normalized today. 81continues to progress. Remains awake and alert, no hallucinations. Sodium mildly decreased today. Potassium is normal. 82appetite remains good. Minimal tremor. Alert, oriented. LFTs stable. Sodium stable 130. Potassium and phosphorus repleted. Will need follow-up and recheck of liver enzymes in convalescence. Accepted for transfer to [facility] for skilled rehab Discharge diagnosis: Syncope and fall Secondary discharge diagnosis: Acute alcohol withdrawal with early delirium -Managed with gabapentin and clonidine for benzodiazepine sparing -Resolved x48 hours at times of discharge Syncope/fall -Negative head CT except for microvascular ischemic changes -Echo EF 63%, no critical , no telemetry events -Likely secondary to volume depletion Symptomatic hyponatremia -Secondary to poor solute intake/solute loss from alcoholism-gradually improving -Sodium stable at 130 at discharge -Urine osmolarity suggestive against SIADH Hypokalemia/low magnesium/low phosphorus -Repleted Elevated LFTs/bilirubin -Secondary to alcohol use -Clinically improving, stable at discharge -Negative biliary ultrasound except for fatty liver changes Generalized deconditioning -continue PT OT/nutrition support at SNF Reason for admission: Fall Procedures: None Complications: None Time Spent with Patient Time attestation: Total time spent providing and/or coordinating discharge services: Time spent: Greater than 30 minutes EXAM Constitutional Vitals: Temp Pulse Resp BP Pulse Ox 98.5 F 75 20 147/94 99 02/15/21 07:12 02/15/21 07:12 02/15/21 07:12 02/15/21 07:12 02/15/21 07:12 GENERAL: Sitting on edge of bed no acute distress RESPIRATORY: Clear lung cortes CARDIOVASCULAR: Regular rate and rhythm ABDOMEN: Nontender EXTREMITIES: No edema NEURO: Alert, oriented to person, place and situation. Very mild resting tremor. Generalized weakness without focal finding Discharge Data Data Completed and Pending Labs on day of discharge: Labs from last 24 hours 02/15/21 06:12 Sodium 130 L Potassium 4.1 Chloride 95 L Carbon Dioxide 26 Anion Gap 9.0 BUN 7 L Creatinine 0.5 L GFR Calculation 105 Glucose 114 H Uric Acid 1.6 L Calcium 8.4 L Phosphorus 4.0 Magnesium 1.7 Total Bilirubin 2.6 H Direct Bilirubin 1.5 H GGT 423 H AST 103 H ALT 80 H Alkaline Phosphatase 104 Lactate Dehydrogenase 280 H Total Protein 5.4 L Albumin 2.9 L Globulin 2.5 Albumin/Globulin Ratio 1.2 Triglycerides 76 Impressions Impressions: Date of Service: 02/10/21 Procedure(s): CT head/brain wo con IMPRESSION: Moderate atrophy with chronic ischemic changes in the deep cerebral white matter expected for age. No acute findings Opacification of the right sphenoid sinus compatible sphenoid sinusitis. Mild mucosal thickening in the right anterior ethmoid air cells.. Date of Service: 02/10/21 Procedure(s): XR chest 1V portable FINDINGS: Heart size, mediastinum and pulmonary vessels are normal. The lungs are clear. No effusions. Malunified old fracture distal left clavicle again noted.. Nonunified fracture tip of the distal right clavicle again noted IMPRESSION: Negative Date of Service: 02/10/21 Procedure(s): US abdomen limited IMPRESSION: Moderate hepatomegaly with elevated echotexture compatible fatty change or other diffuse hepatocellular process. Echocardiogram, 02/10/2021 Left ventricular systolic function is normal, EF 63% Left ventricule is normal in size, the LV wood are upper normal in thickness. The right ventricle is normal size, right ventricular systolic function is mildly reduced Doppler findings suggest normal pulmonary artery pressures The left and right atrial chambers are normal in size Mitral leaflets appear thickened, excursion is mildly reduced. Mild mitral annular calcification Mild to moderate mitral regurgitation The tricuspid leaflets are thickened and/or calcified, but open well. Mild to moderate tricuspid regurgitation The aortic valve is mildly sclerotic The pulmonic valve is grossly normal Discharge Plan Patient/Caregiver Discharge Instructions Activity: increase activity as tolerated Diet: Regular Diet Prescriptions: New sodium chloride 1 gram Tablet 2 gm PO TID Qty: 180 RF: 0 melatonin 3 mg Tablet 3 mg PO HSP PRN (Reason: Insomnia) Qty: 30 RF: 0 folic acid 1 mg Tablet 1 mg PO DAILY Qty: 30 RF: 0 metoprolol tartrate 25 mg Tablet 25 mg PO BID Qty: 60 RF: 0 Thera M Plus (ferrous fumarat) 9 mg iron-400 mcg Tablet 1 tab PO DAILY Qty: 30 RF: 0 thiamine mononitrate (vit B1) 100 mg Tablet 100 mg PO DAILY Qty: 30 RF: 0 Continued No Known Home Meds RF: 0 Other Ambulatory Orders: OT Discharge Order (Routine) Location: None Selected Ordered By: Anu Cabrera Primary Care Provider - Referral (NOW) Timeframe: [id number] Location: None Selected Ordered By: Anu Cabrera Physical Therapy at Discharge - General (Routine) Location: None Selected Ordered By: Anu Cabrera Follow Up Plan Follow up with: No,PCP [Primary Care Provider] - Patient Disposition: Xfer SNF Prognosis: Fair Rehab Potential: Fair I certify that the patient requires SNF services: Yes Overall status at discharge: patient is progressing back to baseline Discharge Orders: Discharge Order (Routine); Ordered 02/15/21 Ordered By: Anu Cabrera QUALITY VTE Deep Vein Thrombosis/Pulmonary Embolism Present on Admission: No
== END 2021-02-15 13:55 | DRG 312 ==
LOC: ED 06:48 → ICU 14:11 → MEDSUR 02-11 20:52
PROVIDERS: ADMIT Internal Medicine; ATTEND Internal Medicine

== ENCOUNTER 2021-11-01 12:00 | Inpatient (IN) ==
[2021-11-01] MEDS ORDERED: 0.9 % SODIUM CHLORIDE 1,000 ML IV ONE (12:11)
--- NOTE | 2021-11-01 12:35 | XRay Report ---
CLINICAL INFORMATION: Weakness COMPARISON: 02/10/2021 TECHNIQUE: Portable FINDINGS: The heart size, mediastinum and pulmonary vessels are unremarkable. The lungs are clear. There are no effusions. Malunified old fracture distal left clavicle seen as before. IMPRESSION: Normal chest. Interpreted and Authenticated by: Luke Dickens 11/01/21
[2021-11-01 13:11] LABS: Basophils # (Auto) 0.02 K/mcL (0.00-0.30); Basophils % (Auto) 0.2 % (0.0-2.0); Eosinophils % (Auto) 1.1 % (0.0-7.0); Hematocrit 30.2 % (40.1-51.0); Hemoglobin 10.9 g/dL (13.7-17.5); Lymphocytes # (Auto) 0.71 K/mcL (1.50-4.80); Lymphocytes % (Auto) 7.9 % (15.5-49.0); Mean Cell Volume 93.5 fL (80.0-100.0); Mean Corpuscular HGB Conc 36.1 g/dL (31.0-36.0); Mean Platelet Volume 9.3 fL (7.4-10.4); Monocytes # (Auto) 1.47 K/mcL (0.10-0.90); Monocytes % (Auto) 16.3 % (1.0-12.0); Neutrophils % (Auto) 74.5 % (38.0-78.0); Platelet Count 122 K/mcL (140-440); RBC 3.23 M/mcL (4.63-6.08); Red Cell Distribution Width 13.2 % (11.5-14.5)
[2021-11-01 13:16] LABS: Blood Urea Nitrogen 7 mg/dL (8-23); Calcium 8.8 mg/dL (8.6-10.4); Carbon Dioxide 21 mmol/L (22-30); Chloride 87 mmol/L (96-108); Glomerular Filtration Rate 114; Glucose 108 mg/dL (70-105)
[2021-11-01] MEDS ORDERED: 0.9 % SODIUM CHLORIDE 1,000 ML IV SCH (13:30)
--- NOTE | 2021-11-01 13:48 | Emergency Department Note ---
Weakness HPI General Chief complaint: Weakness Stated complaint: weakness, altered mental status Time Seen by Provider: 11/01/21 12:06 Source: EMS Mode of arrival: EMS History of Present Illness HPI Narrative: Narrative: 76-year-old male presents the emergency department via EMS as well as via family for generalized weakness he says he is having a hard time getting up and getting around he said he had a similar episode where he is very dehydrated and here about a year ago. Says very similar to that he has no pain anywhere he has no f melani no chills just feels weak all over. He is denying any other symptoms otherwise he has no painful urination. He has no abdominal pain no chest pain no shortness of breath just generalized weakness throughout. He says he feels like just his legs getting give out whenever he stands. He does live home alone and family does go check on him every once in a while but otherwise does take care of himself alone. He said he has not been taking his meds as he seems to get confused as some of them say twice a day and some say daily and he says it just is very hard so he does not take his pills really at all. Related Data Home Medications Medication Instructions Recorded Confirmed No Known Home Meds 11/01/21 11/01/21 Allergies Allergy/AdvReac Type Severity Reaction Status Date / Time No Known Drug Allergies Allergy Verified 02/10/21 16:20 Review of Systems ROS ROS Narrative: Narrative: All systems ED: reviewed and negative except as stated. [facility] Narrative Patient History Narrative: Narrative: Medical/Surgical/Family History All Active Problems (Updated 11/01/21 @ 14:01 by Tim Manzano DO) Atrial fibrillation with RVR (Acute) Acute hyponatremia (Acute) Acute dehydration (Acute) Multiple skin tears (Acute) Head injury (Acute) Elevated CK (Acute) Generalized muscle weakness (Acute) Acute hyponatremia (Acute) Social History Smoking Status: Former smoker Alcohol Intake Frequency: 2+ drinks per day Substance Use: does not use Exam Narrative Narrative: Narrative: Vital signs noted General: Awake. Alert. No distress. Skin: Warm. Dry. No rash. HEENT: NCAT. PERRL. EOMI. No conjunctivitis. No nystagmus. No pharyngitis. Membranes moist. Neck: No PTP. Good ROM. No meningeal signs. No stridor. No thyromegaly. No JVD. Cardiovascular: RRR. No murmur. No rubs. No gallops. Respiratory: No respiratory distress. Breath sounds equal. Lungs clear. Gastrointestinal: Abdomen soft. No tenderness. No distention. Normal bowel sounds. No palpable organomegaly or masses. Back: No deformity. No CVAT. Musculoskeletal: No tenderness. No swelling. No erythema. No edema. Good peripheral pulses x 4 Lymphatic: No palpable adenopathy. Neurological: No focal neurological deficits observed. CN 2-12 are intact. Good FTN. No pronator drift. Course Vital Signs Vital signs: Vital Signs Temperature 98.3 F 11/01/21 12:07 Pulse Rate 97 H 11/01/21 12:07 Respiratory Rate 20 11/01/21 12:07 Blood Pressure 135/76 11/01/21 12:07 Pulse Oximetry (%) 97 11/01/21 12:07 Temperature 98.3 F 11/01/21 12:07 Pulse Rate 108 H 11/01/21 15:31 Respiratory Rate 16 11/01/21 15:31 Blood Pressure 122/70 11/01/21 15:31 Pulse Oximetry (%) 99 11/01/21 15:31 MDM MDM Narrative Medical decision making narrative: Narrative: Patient presents he has no signs of strokes has normal neurological deficits but is obviously weak. Did get an EKG which shows no acute findings. I did get basic labs turns out he has hyponatremic at 123 which I think is causing most of his symptoms I started him on IV fluids 150 mL of normal saline per hour to help with hyponatremia. I am worried patient is also is unable to care for himself at home we did have social work see him but now that we are going to admit him due to the hyponatremia I think they can possibly look at getting home health versus admission into facility as I am worried he just is unable to care for himself at this time. I think is all secondary just to dehydration and failure to thrive. X-ray also was done and is negative. Patient with hyponatremia I think he does need to be admitted. Patient will be admitted to the floor I spoke with Dr. Jimenez who is agreed to admit the patient. EKG interpretation: EKG done at 1213 interpreted by myself shows normal sinus rhythm rate 9062, QRS 89, TC 471 there is no acute ST changes no acute T wave changes no other signs of ischemia. No signs of hypertrophy, heart strain, heart block. No WPW/Brugada/HOCM. Impression is normal sinus EKG with no ischemia Lab Data Result diagrams: 11/01/21 12:10 11/01/21 12:10 Labs: Lab Results 11/01/21 11/01/21 11/01/21 Range/Units 12:10 12:10 13:05 WBC 9.0 (4.5-11.0) K/mcL RBC 3.23 L (4.63-6.08) M/mcL Hgb 10.9 L (13.7-17.5) g/dL Hct 30.2 L (40.1-51.0) % MCV 93.5 (80.0-100.0) fL MCH 33.7 (26.0-34.0) pg MCHC 36.1 H (31.0-36.0) g/dL RDW 13.2 (11.5-14.5) % Plt Count 122 L (140-440) K/mcL MPV 9.3 (7.4-10.4) fL Neut % (Auto) 74.5 (38.0-78.0) % Lymph % (Auto) 7.9 L (15.5-49.0) % [place] % (Auto) 16.3 H (1.0-12.0) % Eos % (Auto) 1.1 (0.0-7.0) % Baso % (Auto) 0.2 (0.0-2.0) % Lymph # (Auto) 0.71 L (1.50-4.80) K/mcL [place] # (Auto) 1.47 H (0.10-0.90) K/mcL Eos # (Auto) 0.10 (0.00-0.70) K/mcL Baso # (Auto) 0.02 (0.00-0.30) K/mcL Absolute Neutrophils 6.72 (1.80-8.00) K/mcL Sodium 123 L (133-145) mmol/L Potassium 3.1 L (3.3-5.1) mmol/L Chloride 87 L (96-108) mmol/L Carbon Dioxide 21 L (22-30) mmol/L Anion Gap 15.0 (8.0-16.0) BUN 7 L (8-23) mg/dL Creatinine 0.4 L (0.7-1.2) mg/dL GFR Calculation 114 Glucose 108 H (70-105) mg/dL Calcium 8.8 (8.6-10.4) mg/dL Urine Color Yellow Urine Appearance Cloudy A (Clear) Urine pH 6.0 (5.0-9.0) Ur Specific [place] 1.004 (1.000-1.035) Urine Protein Negative (Negative) mg/dL Urine Glucose (UA) Negative (Negative) mg/dL Urine Ketones 5 A (Negative) mg/dL Urine Occult Blood 0.03 (Negative) mg/dL Urine Nitrate Negative (Negative) Urine Bilirubin Negative (Negative) mg/dL Urine Urobilinogen Negative mg/dL Ur Leukocyte Esterase 250 A (Negative) /uL Urine RBC 13 H (0-3) /hpf Urine WBC 125 H (0-4) /hpf Ur Squamous Epith Cells 0 (0-4) /hpf Ur Transition Epith Cell < 1 (0-2) /hpf Urine Bacteria Mod A (0) /hpf Urine Mucus Few A (None) /hpf Ur Culture Indicated? yes ED POC Tests ED POC Tests: SHIVANI - SARS Antigen Negative Discharge Plan Patient/Caregiver Discharge Instructions Pt seen by SHOWER ROOM ATTENDANT/PA only: No Clinical Impression: Acute hyponatremia, Acute dehydration, Generalized muscle weakness Patient Disposition: Xfer As Inpt ([facility]) Condition: Fair Follow up with: No,PCP [Primary Care Provider] - Prescriptions: No Action No Known Home Meds 0RF
[2021-11-01 14:29] LABS: Appearance,Urine CLOUDY (Clear); Bacteria,Urine MOD /hpf (0); Bilirubin,Urine Negative (Negative); Color,Urine YELLOW; Culture Indicated,Urine yes; Glucose,Urine (UA) Negative (Negative); Ketones,Urine 5 mg/dL (Negative); Leukocyte Esterase,Urine 250 /uL (Negative); Mucus,Urine FEW /hpf; Nitrate,Urine Negative (Negative); Protein,Urine Negative (Negative); Specific Gravity,Urine 1.004 (1.000-1.035); Urine Blood 0.03 mg/dL (Negative); Urine RBC 13 /hpf (0-3); Urine Squamous Epithelial Cell 0 /hpf (0-4); Urine Transitional Epi Cells < 1 /hpf (0-2); Urine WBC 125 /hpf (0-4); Urobilinogen,Urine Negative
[2021-11-01] MEDS: 0.9 % SODIUM CHLORIDE 1,000 ML IV SCH ×2 (16:08→22:38)
--- NOTE | 2021-11-01 16:27 | Internal Med History&Physical ---
HPI History of Present Illness Patient information: Note initiated : 11/01/21 at 4:12 pm Service Date, if different from initiated Date: [] Patient: Johnathan Son a 76 y/o M admitted on for weakness, altered mental status. Chief Complaint: [weakness, confusion] Chief complaint: weakness, confusion History of present illness: Mr. Son is a 76 year old M negative past medical history, presenting with 3-day history of general body weakness, contusions, and decreased oral intake. There was no prior similar episode. Patient stated that over the past week to 10 days, he has increasing degree of confusions. For example, 3 days ago when he was in the history and try to go, he forgot what he was doing so he could not cook himself any food. As a result, he has minimal oral intake in terms of both food and liquid over the past 3 days. He is also feeling increasing general body weakness. He is also experiencing increased urinary frequency but denies any urgency or dysuria. He tried to call his son for help but his phone was that so he could not do so. Today he decided to walk out of his apartment and ask his retail store manager for help who decided to call EMS and sent him to our ED for further evaluations. Vital signs significant for mild tachycardia with heart rate in the low 100s beats per minute, rest of the vital signs within normal limits. Labs significant for lack of leukocytosis with WBC 9.0. Chemistry showing sodium of 133. BUN and creatinine 7 and 0.4, respectively. UA suggestive the presence of urinary tract infections. Chest x-ray within normal limits. Constitutional Constitutional: Present weakness; Absent chills, excessive sweating, fatigue or fever(s) Additional comments: confusion EENT Eyes: Absent blurry vision, change in vision, loss of vision or other visual disturbances Ears: Absent decreased hearing or tinnitus Nose, mouth and throat: Absent abnormal hearing, dry mouth, headache(s), nasal congestion or sore throat Cardiovascular Cardiovascular: Absent chest pain, chest pain at rest, edema, irregular heart rhythm or palpatations Respiratory Respiratory: Absent cough, dyspnea or wheezing Gastrointestinal Gastrointestinal: Absent abdominal pain, constipation, diarrhea, nausea or vomiting Genitourinary Genitourinary: urinary frequency Musculoskeletal Musculoskeletal: Absent back pain, deformity, limited range of motion, muscle cramps, muscle weakness or numbness Integumentary Integumentary: Absent lesions, rash or wounds Neurological Neurological: Present confusion, memory loss and weakness; Absent focal weakness, headache(s) or numbness Psychiatric Psychiatric: Absent anxiety, depression or hallucinations PFSH PFSH All Active Problems (Updated 11/01/21 @ 16:23 by Aaron Jimenez MD) Physical deconditioning (Acute) UTI (urinary tract infection) (Acute) Delirium (Acute) Dementia (Acute) Anemia, normocytic normochromic (Acute) Hypokalemia (Acute) Atrial fibrillation with RVR (Acute) Acute hyponatremia (Acute) Acute dehydration (Acute) Multiple skin tears (Acute) Head injury (Acute) Elevated CK (Acute) Generalized muscle weakness (Acute) Acute hyponatremia (Acute) Social History alcohol intake frequency: 2+ drinks per day substance use type: does not use MEDS/ALLERGIES Home Medications and Allergies Home Medications Medication Instructions Recorded Confirmed Type No Known Home Meds 11/01/21 11/01/21 History Allergies Allergy/AdvReac Type Severity Reaction Status Date / Time No Known Drug Allergies Allergy Verified 02/10/21 16:20 EXAM Constitutional Vitals: Temp Pulse Resp BP Pulse Ox 36.8 C 108 H 16 122/70 99 11/01/21 12:07 11/01/21 15:31 11/01/21 15:31 11/01/21 15:31 11/01/21 15:31 General appearance: cooperative, disheveled and no acute distress Head Head exam: Absent atraumatic, normal inspection or normocephalic Additional comments: bruises with dried blood clot in his left forehead Eye Eye exam: Present conjunctival injection and EOMI; Absent PERRL ENT ENT exam: Present mucous membranes moist, normal exam and normal external ear exam Neck Neck exam: Present normal inspection; Absent lymphadenopathy, tenderness or thyromegaly Respiratory Respiratory exam: Absent accessory muscle use, respiratory distress or wheezes Cardiovascular Cardiovascular exam: Present tachycardia; Absent normal rate and rhythm or JVD GI/Abdominal GI/Abdominal exam: Present normal bowel sounds and soft; Absent organomegaly or tenderness Rectal Rectal exam: Present deferred Extremities Exam Extremities exam: Present full ROM, normal capillary refill and normal inspection; Absent tenderness Neurological Exam Neurological exam: Present alert, CN II-XII intact and oriented X3; Absent motor sensory deficit Additional comments: He does not know who is the current president Psychiatric Psychiatric exam: Present normal affect and normal mood; Absent anxious or depressed Skin Skin exam: Present dry and intact Additional comments: bruises left forearm DATA Data Completed and Pending Labs: Labs from last 24 hours 11/01/21 11/01/21 11/01/21 13:05 12:10 12:10 WBC 9.0 RBC 3.23 L Hgb 10.9 L Hct 30.2 L MCV 93.5 MCH 33.7 MCHC 36.1 H RDW 13.2 Plt Count 122 L MPV 9.3 Neut % (Auto) 74.5 Lymph % (Auto) 7.9 L [place] % (Auto) 16.3 H Eos % (Auto) 1.1 Baso % (Auto) 0.2 Lymph # (Auto) 0.71 L [place] # (Auto) 1.47 H Eos # (Auto) 0.10 Baso # (Auto) 0.02 Absolute Neutrophils 6.72 Sodium 123 L Potassium 3.1 L Chloride 87 L Carbon Dioxide 21 L Anion Gap 15.0 BUN 7 L Creatinine 0.4 L GFR Calculation 114 Glucose 108 H Calcium 8.8 Urine Color Yellow Urine Appearance Cloudy A Urine pH 6.0 Ur Specific [place] 1.004 Urine Protein Negative Urine Glucose (UA) Negative Urine Ketones 5 A Urine Occult Blood 0.03 Urine Nitrate Negative Urine Bilirubin Negative Urine Urobilinogen Negative Ur Leukocyte Esterase 250 A Urine RBC 13 H Urine WBC 125 H Ur Squamous Epith Cells 0 Ur Transition Epith Cell < 1 Urine Bacteria Mod A Urine Mucus Few A Ur Culture Indicated? yes A/P Assessment and plan (1) Acute hyponatremia: Status: Acute (2) Hypokalemia: Status: Acute (3) Anemia, normocytic normochromic: Status: Acute (4) Dementia: Status: Acute (5) Delirium: Status: Acute (6) UTI (urinary tract infection): Status: Acute (7) Physical deconditioning: Status: Acute Narrative A/P Narrative: Assessment and Plan: 1. UTI: Inpatient med surg Serial lactic acid Procalcitonin level Blood culture Urine culture cbc w/ auto diff in the morning to trend WBC Rocephin Tylenol PRN fever 2. Hyponatremia: Unknown chronicity, could be 2/2 decrease oral intake Urine sodium level and urine Cr level AM cortisol NS@75cc/hr BMP q8hr, goal of correction 8-10 point/24hour in order to avoid overcorrection with resultant neurological consequences such as Central [place] Myelinolysis 3. Physical deconditioning, dementia vs delirium: Perform MMSE to screen for dementia Physical therapy Occupational therapy business performance manager for potential placement needs 4. Anemia, normocytic normochromic: cbc w/ auto diff in the morning to trend H/H 5. Hypokalemia: Potassium chloride oral replacement Serial BMP to trend serum potassium level Also check serum Mg level, and replace as needed GI ppx: not currently indicated DVT ppx: SCDs Code status: Full Prognosis: guarded Disposition: inpatient med surg; PT OT Time Spent With Patient Time: Total time spent is greater than 50% in coordination of care (as documented) at patient's floor/unit and/or counseling patient: Total time spent with greater than 50% in coordination of care (as documented) at patient's floor/unit and/or counseling patient:: 50 - 70 minutes
[2021-11-01] MEDS ORDERED: ONDANSETRON 4 MG/2 ML VIAL IV PRN (17:57)
[2021-11-01] MEDS ORDERED: ACETAMINOPHEN 325 MG TABLET PO PRN (17:57)
[2021-11-01] MEDS ORDERED: ZOLPIDEM 5 MG TABLET PO PRN (17:57)
[2021-11-01] MEDS ORDERED: IPRATROPIUM/ALBUTEROL 3 ML AMPUL.NEB NEB PRN (17:57)
[2021-11-01] MEDS ORDERED: cefTRIAXone 1 GM in DEXTROSE 5% IN WATER 50 ML IV SCH (17:57)
[2021-11-01] MEDS: POTASSIUM CHLORIDE 20 MEQ TABLET PO SCH (20:11)
[2021-11-01] MEDS: cefTRIAXone 1 GM VIAL IV SCH (20:11)
[2021-11-01] MEDS: 0.9 % SODIUM CHLORIDE 10 ML SYRINGE IV SCH (20:12)
[2021-11-01] MEDS: DOCUSATE SODIUM 100 MG CAPSULE PO SCH (20:12)
[2021-11-01] MEDS: SENNOSIDES 1 TABLET PO SCH (20:12)
[2021-11-01 20:38] LABS: Blood Urea Nitrogen 8 mg/dL (8-23); Calcium 9.4 mg/dL (8.6-10.4); Carbon Dioxide 22 mmol/L (22-30); Chloride 89 mmol/L (96-108); Glomerular Filtration Rate 104; Glucose 120 mg/dL (70-105); Thyroid Stimulating Hormone 5.84 uIU/mL (0.27-5.01)
[2021-11-01 22:41] LABS: Creatinine,Urine Random 44.9 mg/dL (39.0-259.0)
[2021-11-02] MEDS: 0.9 % SODIUM CHLORIDE 10 ML SYRINGE IV SCH ×3 (05:50→23:40)
[2021-11-02] MEDS: 0.9 % SODIUM CHLORIDE 1,000 ML IV SCH ×3 (05:51→23:39)
[2021-11-02 08:03] LABS: Basophils # (Auto) 0.02 K/mcL (0.00-0.30); Basophils % (Auto) 0.3 % (0.0-2.0); Eosinophils # (Auto) 0.14 K/mcL (0.00-0.70); Eosinophils % (Auto) 2.4 % (0.0-7.0); Hematocrit 31.2 % (40.1-51.0); Hemoglobin 10.7 g/dL (13.7-17.5); Lymphocytes % (Auto) 13.9 % (15.5-49.0); Mean Cell Volume 98.1 fL (80.0-100.0); Mean Corpuscular HGB Conc 34.3 g/dL (31.0-36.0); Mean Platelet Volume 9.1 fL (7.4-10.4); Monocytes # (Auto) 1.02 K/mcL (0.10-0.90); Monocytes % (Auto) 17.7 % (1.0-12.0); Neutrophils % (Auto) 65.7 % (38.0-78.0); Platelet Count 122 K/mcL (140-440); RBC 3.18 M/mcL (4.63-6.08); Red Cell Distribution Width 13.9 % (11.5-14.5); WBC 5.8 K/mcL (4.5-11.0)
[2021-11-02 08:10] LABS: Phosphorous 2.5 mg/dL (2.5-4.5)
[2021-11-02 08:30] LABS: Blood Urea Nitrogen 7 mg/dL (8-23); Carbon Dioxide 21 mmol/L (22-30); Chloride 94 mmol/L (96-108); Glomerular Filtration Rate 104; Glucose 113 mg/dL (70-105)
[2021-11-02] MEDS: DOCUSATE SODIUM 100 MG CAPSULE PO SCH ×2 (08:37→23:40)
[2021-11-02] MEDS: POTASSIUM CHLORIDE 20 MEQ TABLET PO SCH ×2 (08:38→17:22)
[2021-11-02] MEDS: cefTRIAXone 1 GM VIAL IV SCH (08:42)
[2021-11-02 11:40] LABS: Blood Urea Nitrogen 7 mg/dL (8-23); Calcium 9.1 mg/dL (8.6-10.4); Carbon Dioxide 25 mmol/L (22-30); Chloride 94 mmol/L (96-108); Glomerular Filtration Rate 104; Glucose 131 mg/dL (70-105)
--- NOTE | 2021-11-02 12:01 | Internal Med Progress Note ---
SUBJECTIVE Subjective Patient information: Note initiated : 11/02/21 at 11:56 am Service Date, if different from initiated Date: [] Patient: Johnathan Son a 76 y/o M admitted on 11/01/21 for weakness, altered mental status. Chief Complaint: [] Interval history: Mr. Son is a 76 year old M negative past medical history, presenting with 3-day history of general body weakness, contusions, and decreased oral intake. There was no prior similar episode. Patient stated that over the past week to 10 days, he has increasing degree of confusions. For example, 3 days ago when he was in the history and try to go, he forgot what he was doing so he could not cook himself any food. As a result, he has minimal oral intake in terms of both food and liquid over the past 3 days. He is also feeling increasing general body weakness. He is also experiencing increased urinary frequency but denies any urgency or dysuria. He tried to call his son for help but his phone was that so he could not do so. Today he decided to walk out of his apartment and ask his business office manager for help who decided to call EMS and sent him to our ED for further evaluations. Vital signs significant for mild tachycardia with heart rate in the low 100s beats per minute, rest of the vital signs within normal limits. Labs significant for lack of leukocytosis with WBC 9.0. Chemistry showing sodium of 133. BUN and creatinine 7 and 0.4, respectively. UA suggestive the presence of urinary tract infections. Chest x-ray within normal limits. 10/02: Afebrile overnight. Urine culture growing enterococcus species; blood culture no growth to date. WBC 5.8. Serum sodium 130; potassium 3.1. c/o general body weakness. Good appetite. Denies dysuria, positive for increased urinary frequency. Continue Rocephin for UTI. Continue NS@70cc/hr and potassium replacem ent and serial BMP. Pending PT OT MMSE evaluation, potential SNF placement. Constitutional Vitals: Vital Signs Temp Pulse Resp BP Pulse Ox 36.6 C 86 20 143/84 98 11/02/21 07:43 11/02/21 07:43 11/02/21 07:43 11/02/21 07:43 11/02/21 07:43 Period Temp Pulse Resp BP Sys/White Pulse Ox Last 24 Hr 36.6 C-37.2 C 86-114 12-21 108-148/61-94 95-100 Intake and Output 11/01/21 11/02/21 11/02/21 21:59 05:59 13:59 Intake Total 452 400 480 Output Total 825 475 220 Balance -373 -75 260 Weight 73.618 kg Intake & Output: Intake & Output 11/01/21 11/02/21 11/02/21 21:59 05:59 13:59 Intake Total 452 400 480 Output Total 825 475 220 Balance -373 -75 260 Weight 73.618 kg Intake: IV 452 200 Sodium Chloride 0.9% 1,000 ml @ 452 200 75 mls/hr IV .[id number] [facility] Rx#: [id number] Oral 200 480 Output: Void Amount 825 475 220 Other: Meal Breakfast Percent of Meal Consumed 100% Urine Appearance Clear Clear Clear Urine Color Light [place] Dark Yellow Dark Yellow General appearance: average body habitus, cooperative and no acute distress Head Head exam: Absent atraumatic, normal inspection or normocephalic Additional comments: bruises on left forehead Eye Eye exam: Present normal appearance ENT ENT exam: Present mucous membranes moist, normal exam and normal external ear exam Neck Neck exam: Present normal inspection Respiratory Respiratory exam: Present normal respiratory exam Cardiovascular Cardiovascular exam: Present normal rate and rhythm GI/Abdominal GI/Abdominal exam: Present normal bowel sounds Back Exam Back exam: Present normal inspection Neurological Exam Neurological exam: Present alert and oriented X3 Skin Skin exam: Present intact and warm Additional comments: bruises on left forearm OBJ DATA Labs CBC & Chem 7: 11/02/21 06:03 11/02/21 09:57 Labs: Abnormal Lab Results 11/02/21 11/02/21 11/02/21 09:57 06:03 06:03 RBC 3.18 L Hgb 10.7 L Hct 31.2 L MCHC Plt Count 122 L Lymph % (Auto) 13.9 L [place] % (Auto) 17.7 H Lymph # (Auto) 0.80 L [place] # (Auto) 1.02 H Sodium 130 L 128 L Potassium 3.1 L Chloride 94 L 94 L Carbon Dioxide 21 L BUN 7 L 7 L Creatinine 0.5 L 0.5 L Glucose 131 H 113 H Procalcitonin TSH Urine Appearance Urine Ketones Ur Leukocyte Esterase Urine RBC Urine WBC Urine Bacteria Urine Mucus 11/01/21 11/01/21 11/01/21 19:26 19:26 13:05 RBC Hgb Hct MCHC Plt Count Lymph % (Auto) [place] % (Auto) Lymph # (Auto) [place] # (Auto) Sodium 126 L Potassium 3.1 L Chloride 89 L Carbon Dioxide BUN Creatinine 0.5 L Glucose 120 H Procalcitonin 0.22 H TSH 5.84 H Urine Appearance Cloudy A Urine Ketones 5 A Ur Leukocyte Esterase 250 A Urine RBC 13 H Urine WBC 125 H Urine Bacteria Mod A Urine Mucus Few A 11/01/21 11/01/21 12:10 12:10 RBC 3.23 L Hgb 10.9 L Hct 30.2 L MCHC 36.1 H Plt Count 122 L Lymph % (Auto) 7.9 L [place] % (Auto) 16.3 H Lymph # (Auto) 0.71 L [place] # (Auto) 1.47 H Sodium 123 L Potassium 3.1 L Chloride 87 L Carbon Dioxide 21 L BUN 7 L Creatinine 0.4 L Glucose 108 H Procalcitonin TSH Urine Appearance Urine Ketones Ur Leukocyte Esterase Urine RBC Urine WBC Urine Bacteria Urine Mucus Meds: Medications Acetaminophen (Acetaminophen 325 Mg Tablet) 650 mg PO Q6HP PRN; Protocol PRN Reason: Per Pain Protocol/Fever > 101 Albuterol/Ipratropium (Ipratropium/Albuterol 3 Ml Ampul.Neb) 3 ml NEB Q4HRT PRN PRN Reason: Wheezing Ceftriaxone Sodium (Ceftriaxone 1 Gm Vial) 1 gm IV Q24H [facility] Last Admin: 11/02/21 08:42 Dose: 1 gm Documented by: Docusate Sodium (Docusate Sodium 100 Mg Capsule) 100 mg PO BID [facility] Last Admin: 11/02/21 08:37 Dose: 100 mg Documented by: Sodium Chloride (Sodium Chloride 0.9%) 1,000 mls @ 75 mls/hr IV .[id number] [facility] Last Admin: 11/02/21 05:51 Dose: Not Given Documented by: Ondansetron HCl (Ondansetron 4 Mg/2 Ml Vial) 4 mg IV Q6HP PRN PRN Reason: Nausea And Vomiting Potassium Chloride (Potassium Chloride 20 [facility]) [facility] Admin: 11/02/21 08:38 Dose: 40 meq Documented by: Senna (Sennosides 1 Tablet) 2 tab PO HS [facility] Last Admin: 11/01/21 20:12 Dose: Not Given Documented by: Sodium Chloride (0.9 % Sodium Chloride 10 Ml Syringe) 10 ml IV Q8 [facility] Last Admin: 11/02/21 05:50 Dose: 10 ml Documented by: Zolpidem Tartrate (Zolpidem 5 Mg Tablet) 5 mg PO HSP PRN PRN Reason: Insomnia A/P Assessment and plan (1) Acute hyponatremia: Status: Acute (2) Hypokalemia: Status: Acute (3) Anemia, normocytic normochromic: Status: Acute (4) Dementia: Status: Acute (5) Delirium: Status: Acute (6) UTI (urinary tract infection): Status: Acute (7) Physical deconditioning: Status: Acute Narrative A/P Narrative: Assessment and Plan: 1. UTI: Inpatient med surg Serial lactic acid 1.2 Procalcitonin level 0.22 Blood culture, no growth to date Urine culture, growing enterococcus species cbc w/ auto diff in the morning to trend WBC Rocephin Tylenol PRN fever 2. Hyponatremia: Unknown chronicity, could be 2/2 decrease oral intake Urine sodium level and urine Cr level AM cortisol NS@75cc/hr BMP q8hr, goal of correction 8-10 point/24hour in order to avoid overcorrection with resultant neurological consequences such as Central [place] Myelinolysis 3. Physical deconditioning, dementia vs delirium: Perform MMSE to screen for dementia Physical therapy Occupational therapy mortuary operations manager for potential placement needs 4. Anemia, normocytic normochromic: cbc w/ auto diff in the morning to trend H/H 5. Hypokalemia: Potassium chloride oral replacement Serial BMP to trend serum potassium level Also check serum Mg level, and replace as needed GI ppx: not currently indicated DVT ppx: SCDs Code status: Full Prognosis: guarded Disposition: inpatient med surg; PT OT Time Spent With Patient Time: Total time spent is greater than 50% in coordination of care (as documented) at patient's floor/unit and/or counseling patient: Total time spent with greater than 50% in coordination of care (as documented) at patient's floor/unit and/or counseling patient:: 25 - 35 minutes
[2021-11-02 19:27] LABS: Blood Urea Nitrogen 9 mg/dL (8-23); Calcium 9.2 mg/dL (8.6-10.4); Carbon Dioxide 22 mmol/L (22-30); Chloride 98 mmol/L (96-108); Glomerular Filtration Rate 91; Glucose 143 mg/dL (70-105)
--- NOTE | 2021-11-02 19:51 | EKG ---
[facility] Test Date: 2021-11-01 Pat Name: Johnathan Son Department: ED Room: Gender: Male Regulatory Analyst: : 1945 Requested By: Tim Manzano Order Number: [id number] Reading MD: Julio C Keenan Measurements Intervals [place] Rate: 91 P: 38 NE: 162 QRS: 1 QRSD: 89 T: 16 QT: 382 QTc: 471 Interpretive Statements Sinus rhythm Atrial premature complexes Inferior infarct, old Electronically Signed On 11-02-2021 19:51:16 PDT by Julio C Keenan /store/M0/[id number]
[2021-11-02] MEDS: SENNOSIDES 1 TABLET PO SCH (23:40)
[2021-11-03] MEDS: 0.9 % SODIUM CHLORIDE 10 ML SYRINGE IV SCH ×3 (05:24→22:28)
[2021-11-03 07:10] LABS: Basophils # (Auto) 0.03 K/mcL (0.00-0.30); Basophils % (Auto) 0.5 % (0.0-2.0); Eosinophils # (Auto) 0.22 K/mcL (0.00-0.70); Eosinophils % (Auto) 3.5 % (0.0-7.0); Hematocrit 30.9 % (40.1-51.0); Hemoglobin 10.9 g/dL (13.7-17.5); Lymphocytes # (Auto) 1.01 K/mcL (1.50-4.80); Lymphocytes % (Auto) 16.2 % (15.5-49.0); Mean Cell Volume 97.2 fL (80.0-100.0); Mean Corpuscular HGB Conc 35.3 g/dL (31.0-36.0); Mean Platelet Volume 8.9 fL (7.4-10.4); Monocytes # (Auto) 1.15 K/mcL (0.10-0.90); Monocytes % (Auto) 18.4 % (1.0-12.0); Neutrophils % (Auto) 61.4 % (38.0-78.0); Platelet Count 139 K/mcL (140-440); RBC 3.18 M/mcL (4.63-6.08); Red Cell Distribution Width 14.1 % (11.5-14.5); WBC 6.3 K/mcL (4.5-11.0)
[2021-11-03 08:16] LABS: Phosphorous 2.1 mg/dL (2.5-4.5)
[2021-11-03 08:19] LABS: Blood Urea Nitrogen 8 mg/dL (8-23); Carbon Dioxide 20 mmol/L (22-30); Chloride 99 mmol/L (96-108); Glomerular Filtration Rate 104; Glucose 121 mg/dL (70-105)
[2021-11-03] MEDS: cefTRIAXone 1 GM VIAL IV SCH (08:49)
[2021-11-03] MEDS: POTASSIUM CHLORIDE 20 MEQ TABLET PO SCH ×2 (08:49→17:21)
[2021-11-03] MEDS: DOCUSATE SODIUM 100 MG CAPSULE PO SCH ×2 (08:49→22:29)
[2021-11-03] MEDS: 0.9 % SODIUM CHLORIDE 1,000 ML IV SCH (09:30)
[2021-11-03] MEDS ORDERED: MAGNESIUM SULFATE 2 GM/50 ML BAG IV PRN (11:15)
--- NOTE | 2021-11-03 11:33 | Internal Med Progress Note ---
SUBJECTIVE Subjective Patient information: Note initiated : 11/03/21 at 11:26 am Service Date, if different from initiated Date: [] Patient: Johnathan Son a 76 y/o M admitted on 11/01/21 for weakness, altered mental status. Chief Complaint: [] Interval history: Mr. Son is a 76 year old M negative past medical history, presenting with 3-day history of general body weakness, contusions, and decreased oral intake. There was no prior similar episode. Patient stated that over the past week to 10 days, he has increasing degree of confusions. For example, 3 days ago when he was in the history and try to go, he forgot what he was doing so he could not cook himself any food. As a result, he has minimal oral intake in terms of both food and liquid over the past 3 days. He is also feeling increasing general body weakness. He is also experiencing increased urinary frequency but denies any urgency or dysuria. He tried to call his son for help but his phone was that so he could not do so. Today he decided to walk out of his apartment and ask his indoor sports centre manager for help who decided to call EMS and sent him to our ED for further evaluations. Vital signs significant for mild tachycardia with heart rate in the low 100s beats per minute, rest of the vital signs within normal limits. Labs significant for lack of leukocytosis with WBC 9.0. Chemistry showing sodium of 133. BUN and creatinine 7 and 0.4, respectively. UA suggestive the presence of urinary tract infections. Chest x-ray within normal limits. 11/02: Afebrile overnight. Urine culture growing enterococcus species; blood culture no growth to date. WBC 5.8. Serum sodium 130; potassium 3.1. c/o general body weakness. Good appetite. Denies dysuria, positive for increased urinary frequency. Continue Rocephin for UTI. Continue NS@70cc/hr and potassium replacem ent and serial BMP. Pending PT OT MMSE evaluation, potential SNF placement. 11/03: Afebrile overnight. Urine culture growing enterococcus species; blood culture no growth to date. WBC 6.3. Mg level 1.3. Improving strength. Denies increased urinary frequency or dysuria. Denies any pain. Evaluated by PT to go to SNF. MMSE 24/30, suggestive of mild cognitive deficit. Continue Rocephin for UTI. Constitutional Vitals: Vital Signs Temp Pulse Resp BP Pulse Ox 36.7 C 88 20 151/93 93 11/03/21 07:46 11/03/21 07:46 11/03/21 07:46 11/03/21 07:46 11/03/21 07:46 Period Temp Pulse Resp BP Sys/White Pulse Ox Last 24 Hr 36.7 C-36.9 C 88-100 12-20 146-154/83-93 92-98 Intake and Output 11/02/21 11/03/21 11/03/21 21:59 05:59 13:59 Intake Total 512 767 0871 Output Total 325 1175 750 Balance -25 -600 450 Weight 72.529 kg Intake & Output: Intake & Output 11/02/21 11/03/21 11/03/21 21:59 05:59 13:59 Intake Total 903 766 8238 Output Total 325 1175 750 Balance -25 -600 450 Weight 72.529 kg Intake: IV 0 Sodium Chloride 0.9% 1,000 ml @ 0 75 mls/hr IV .[id number] [facility] Rx#: [id number] Oral 807 [id number] [id number] Output: Void Amount 325 1175 750 Other: Meal Dinner Breakfast Percent of Meal Consumed 90 100% Feeding Ability Independent Independent Urine Appearance Clear Clear Clear Urine Color Bright Yellow Bright Yellow Dark Yellow Urine Odor Strong Normal Normal Stool Size Copious Stool Color Brown Stool Consistency Soft # Bowel Movements 1 Head Head exam: Present normocephalic; Absent atraumatic or normal inspection Additional comments: bruises on left forehead, covered by bandage Eye Eye exam: Present normal appearance ENT ENT exam: Present mucous membranes moist, normal exam and normal external ear exam Neck Neck exam: Present normal inspection Respiratory Respiratory exam: Present normal respiratory exam Cardiovascular Cardiovascular exam: Present normal rate and rhythm GI/Abdominal GI/Abdominal exam: Present normal bowel sounds Back Exam Back exam: Present normal inspection Neurological Exam Neurological exam: Present alert and oriented X3 Skin Skin exam: Present warm; Absent intact Additional comments: bruises on left forehead, covered by bandage OBJ DATA Labs CBC & Chem 7: 11/03/21 05:23 11/03/21 05:24 Labs: Abnormal Lab Results 11/03/21 11/03/21 11/03/21 05:24 05:23 05:23 RBC 3.18 L Hgb 10.9 L Hct 30.9 L MCH 34.3 H MCHC Plt Count 139 L Lymph % (Auto) [place] % (Auto) 18.4 H Lymph # (Auto) 1.01 L [place] # (Auto) 1.15 H Sodium Potassium Chloride Carbon Dioxide 20 L BUN Creatinine 0.5 L Glucose 121 H Phosphorus 2.1 L Magnesium 1.3 L Procalcitonin TSH Urine Appearance Urine Ketones Ur Leukocyte Esterase Urine RBC Urine WBC Urine Bacteria Urine Mucus 11/02/21 11/02/21 11/02/21 18:08 09:57 06:03 RBC 3.18 L Hgb 10.7 L Hct 31.2 L MCH MCHC Plt Count 122 L Lymph % (Auto) 13.9 L [place] % (Auto) 17.7 H Lymph # (Auto) 0.80 L [place] # (Auto) 1.02 H Sodium 132 L 130 L Potassium 3.1 L Chloride 94 L Carbon Dioxide BUN 7 L Creatinine 0.5 L Glucose 143 H 131 H Phosphorus Magnesium Procalcitonin TSH Urine Appearance Urine Ketones Ur Leukocyte Esterase Urine RBC Urine WBC Urine Bacteria Urine Mucus 11/02/21 11/01/21 11/01/21 06:03 19:26 19:26 RBC Hgb Hct MCH MCHC Plt Count Lymph % (Auto) [place] % (Auto) Lymph # (Auto) [place] # (Auto) Sodium 128 L 126 L Potassium 3.1 L Chloride 94 L 89 L Carbon Dioxide 21 L BUN 7 L Creatinine 0.5 L 0.5 L Glucose 113 H 120 H Phosphorus Magnesium Procalcitonin 0.22 H TSH 5.84 H Urine Appearance Urine Ketones Ur Leukocyte Esterase Urine RBC Urine WBC Urine Bacteria Urine Mucus 11/01/21 11/01/21 11/01/21 13:05 12:10 12:10 RBC 3.23 L Hgb 10.9 L Hct 30.2 L MCH MCHC 36.1 H Plt Count 122 L Lymph % (Auto) 7.9 L [place] % (Auto) 16.3 H Lymph # (Auto) 0.71 L [place] # (Auto) 1.47 H Sodium 123 L Potassium 3.1 L Chloride 87 L Carbon Dioxide 21 L BUN 7 L Creatinine 0.4 L Glucose 108 H Phosphorus Magnesium Procalcitonin TSH Urine Appearance Cloudy A Urine Ketones 5 A Ur Leukocyte Esterase 250 A Urine RBC 13 H Urine WBC 125 H Urine Bacteria Mod A Urine Mucus Few A Meds: Medications Acetaminophen (Acetaminophen 325 Mg Tablet) 650 mg PO Q6HP PRN; Protocol PRN Reason: Per Pain Protocol/Fever > 101 Albuterol/Ipratropium (Ipratropium/Albuterol 3 Ml Ampul.Neb) 3 ml NEB Q4HRT PRN PRN Reason: Wheezing Ceftriaxone Sodium (Ceftriaxone 1 Gm Vial) 1 gm IV Q24H [facility] Last Admin: 11/03/21 08:49 Dose: 1 gm Documented by: Docusate Sodium (Docusate Sodium 100 Mg Capsule) 100 mg PO BID [facility] Last Admin: 11/03/21 08:49 Dose: 100 mg Documented by: Sodium Chloride (Sodium Chloride 0.9%) 1,000 mls @ 75 mls/hr IV .[id number] [facility] Last Admin: 11/03/21 09:30 Dose: Not Given Documented by: Magnesium Sulfate (Magnesium Sulfate) 2 gm in 50 mls @ 25 mls/hr IV UD PRN PRN Reason: Hypomagnesemia Ondansetron HCl (Ondansetron 4 Mg/2 Ml Vial) 4 mg IV Q6HP PRN PRN Reason: Nausea And Vomiting Potassium Chloride (Potassium Chloride 20 Meq Tablet) 40 meq PO BIDCC [facility] Last Admin: 11/03/21 08:49 Dose: 40 meq Documented by: Senna (Sennosides 1 Tablet) 2 tab PO HS [facility] Last Admin: 11/02/21 23:40 Dose: Not Given Documented by: Sodium Chloride (0.9 % Sodium Chloride 10 Ml Syringe) 10 ml IV Q8 [facility] Last Admin: 11/03/21 05:24 Dose: Not Given Documented by: Zolpidem Tartrate (Zolpidem 5 Mg Tablet) 5 mg PO HSP PRN PRN Reason: Insomnia A/P Assessment and plan (1) Acute hyponatremia: Status: Acute (2) Hypokalemia: Status: Acute (3) Anemia, normocytic normochromic: Status: Acute (4) Dementia: Status: Acute (5) Delirium: Status: Acute (6) UTI (urinary tract infection): Status: Acute (7) Physical deconditioning: Status: Acute (8) Hypomagnesemia: Status: Acute Narrative A/P Narrative: Assessment and Plan: 1. UTI: Inpatient med surg Serial lactic acid 1.2 Procalcitonin level 0.22 Blood culture, no growth to date Urine culture, growing enterococcus species cbc w/ auto diff in the morning to trend WBC Rocephin Tylenol PRN fever 2. Hyponatremia: Unknown chronicity, could be 2/2 decrease oral intake Urine sodium level and urine Cr level AM cortisol NS@75cc/hr BMP q8hr, goal of correction 8-10 point/24hour in order to avoid overcorrection with resultant neurological consequences such as [place] Myelinolysis 3. Physical deconditioning, dementia vs delirium: MMSE 24/30 suggestive of mild cognitive deficit Physical therapy--> recs. SNF placement Occupational therapy unit trust manager for potential placement needs 4. Anemia, normocytic normochromic: cbc w/ auto diff in the morning to trend H/H 5. Hypokalemia: RESOLVED Potassium chloride oral replacement Serial BMP to trend serum potassium level Also check serum Mg level, and replace as needed 6. Hypomagnesemia: Magnesium rider for replacement Serum Mg level in the morning to trend; repeat replacement as needed GI ppx: not currently indicated DVT ppx: SCDs Code status: Full Prognosis: guarded Disposition: inpatient med surg; PT OT recs SNF placement Time Spent With Patient Time: Total time spent is greater than 50% in coordination of care (as documented) at patient's floor/unit and/or counseling patient: Total time spent with greater than 50% in coordination of care (as documented) at patient's floor/unit and/or counseling patient:: 25 - 35 minutes
--- NOTE | 2021-11-03 14:14 | Internal Med Progress Note ---
SUBJECTIVE Subjective Patient information: Note initiated : 11/03/21 at 2:13 pm Service Date, if different from initiated Date: [] Patient: Johnathan Son a 76 y/o M admitted on 11/01/21 for weakness, altered mental status. Chief Complaint: [] Interval history: Mr. Son is a 76 year old M negative past medical history, presenting with 3-day history of general body weakness, contusions, and decreased oral intake. There was no prior similar episode. Patient stated that over the past week to 10 days, he has increasing degree of confusions. For example, 3 days ago when he was in the history and try to go, he forgot what he was doing so he could not cook himself any food. As a result, he has minimal oral intake in terms of both food and liquid over the past 3 days. He is also feeling increasing general body weakness. He is also experiencing increased urinary frequency but denies any urgency or dysuria. He tried to call his son for help but his phone was that so he could not do so. Today he decided to walk out of his apartment and ask his manager production for help who decided to call EMS and sent him to our ED for further evaluations. Vital signs significant for mild tachycardia with heart rate in the low 100s beats per minute, rest of the vital signs within normal limits. Labs significant for lack of leukocytosis with WBC 9.0. Chemistry showing sodium of 133. BUN and creatinine 7 and 0.4, respectively. UA suggestive the presence of urinary tract infections. Chest x-ray within normal limits. 11/02: Afebrile overnight. Urine culture growing enterococcus species; blood culture no growth to date. WBC 5.8. Serum sodium 130; potassium 3.1. c/o general body weakness. Good appetite. Denies dysuria, positive for increased urinary frequency. Continue Rocephin for UTI. Continue NS@70cc/hr and potassium replacement and serial BMP. Pending PT OT MMSE evaluation, potential SNF placement. 11/03: Afebrile overnight. Urine culture growing pansensitive enterococcus species; blood culture no growth to date. WBC 6.3. Mg level 1.3. Improving strength. Denies increased urinary frequency or dysuria. Denies any pain. Evaluated by PT to go to SNF. MMSE 24/30, suggestive of mild cognitive deficit. Continue Rocephin for UTI. 11/04 Transitioned to Amoxicillin for Enterococcus UTI, discontinued ceftriaxone. Awaiting placement. Physical exam Head: Atraumatic, normal inspection. Eyes: normal appearance, no scleral icterus. Neck: full ROM Respiratory: no respiratory distress. Cardiovascular: normal rate and rhythm, S1, S2. GI/Abdominal: soft, nontender, no guarding. Extremities: full range of motion, nontender. Neurological: CN II-XII intact, intact motor, intact sensation. Psychiatric: normal mood. Skin: warm, normal color Constitutional Vitals: Vital Signs Temp Pulse Resp BP Pulse Ox 98.3 F 108 H 22 150/105 100 11/03/21 12:00 11/03/21 12:00 11/03/21 12:00 11/03/21 12:00 11/03/21 12:00 Period Temp Pulse Resp BP Sys/White Pulse Ox Last 24 Hr 98.1 F-98.4 F 88-108 12-22 146-152/83-105 92-100 Intake and Output 11/03/21 11/03/21 11/03/21 05:59 13:59 21:59 Intake Total 575 1200 Output Total 1175 750 Balance -600 450 Intake & Output: Intake & Output 11/03/21 11/03/21 11/03/21 05:59 13:59 21:59 Intake Total 575 1200 Output Total 1175 750 Balance -600 450 Intake: IV 0 Sodium Chloride 0.9% 1,000 ml @ 0 75 mls/hr IV .[id number] [facility] Rx#: [id number] Oral 575 1200 Output: Void Amount 1175 750 Other: Meal Breakfast Percent of Meal Consumed 100% Feeding Ability Independent Urine Appearance Clear Clear Urine Color Bright Yellow Dark Yellow Urine Odor Normal Normal Stool Size Copious Stool Color Brown Stool Consistency Soft # Bowel Movements 1 OBJ DATA Labs CBC & Chem 7: 11/04/21 05:19 11/04/21 05:19 Labs: Abnormal Lab Results 11/03/21 11/03/21 11/03/21 05:24 05:23 05:23 RBC 3.18 L Hgb 10.9 L Hct 30.9 L MCH 34.3 H MCHC Plt Count 139 L Lymph % (Auto) [place] % (Auto) 18.4 H Lymph # (Auto) 1.01 L [place] # (Auto) 1.15 H Sodium Potassium Chloride Carbon Dioxide 20 L BUN Creatinine 0.5 L Glucose 121 H Phosphorus 2.1 L Magnesium 1.3 L Procalcitonin TSH Urine Appearance Urine Ketones Ur Leukocyte Esterase Urine RBC Urine WBC Urine Bacteria Urine Mucus 11/02/21 11/02/21 11/02/21 18:08 09:57 06:03 RBC 3.18 L Hgb 10.7 L Hct 31.2 L MCH MCHC Plt Count 122 L Lymph % (Auto) 13.9 L [place] % (Auto) 17.7 H Lymph # (Auto) 0.80 L [place] # (Auto) 1.02 H Sodium 132 L 130 L Potassium 3.1 L Chloride 94 L Carbon Dioxide BUN 7 L Creatinine 0.5 L Glucose 143 H 131 H Phosphorus Magnesium Procalcitonin TSH Urine Appearance Urine Ketones Ur Leukocyte Esterase Urine RBC Urine WBC Urine Bacteria Urine Mucus 11/02/21 11/01/21 11/01/21 06:03 19:26 19:26 RBC Hgb Hct MCH MCHC Plt Count Lymph % (Auto) [place] % (Auto) Lymph # (Auto) [place] # (Auto) Sodium 128 L 126 L Potassium 3.1 L Chloride 94 L 89 L Carbon Dioxide 21 L BUN 7 L Creatinine 0.5 L 0.5 L Glucose 113 H 120 H Phosphorus Magnesium Procalcitonin 0.22 H TSH 5.84 H Urine Appearance Urine Ketones Ur Leukocyte Esterase Urine RBC Urine WBC Urine Bacteria Urine Mucus 11/01/21 11/01/21 11/01/21 13:05 12:10 12:10 RBC 3.23 L Hgb 10.9 L Hct 30.2 L MCH MCHC 36.1 H Plt Count 122 L Lymph % (Auto) 7.9 L [place] % (Auto) 16.3 H Lymph # (Auto) 0.71 L [place] # (Auto) 1.47 H Sodium 123 L Potassium 3.1 L Chloride 87 L Carbon Dioxide 21 L BUN 7 L Creatinine 0.4 L Glucose 108 H Phosphorus Magnesium Procalcitonin TSH Urine Appearance Cloudy A Urine Ketones 5 A Ur Leukocyte Esterase 250 A Urine RBC 13 H Urine WBC 125 H Urine Bacteria Mod A Urine Mucus Few A Meds: Medications Acetaminophen (Acetaminophen 325 Mg Tablet) 650 mg PO Q6HP PRN; Protocol PRN Reason: Per Pain Protocol/Fever > 101 Albuterol/Ipratropium (Ipratropium/Albuterol 3 Ml Ampul.Neb) 3 ml NEB Q4HRT PRN PRN Reason: Wheezing Ceftriaxone Sodium (Ceftriaxone 1 Gm Vial) 1 gm IV Q24H [facility] Last Admin: 11/03/21 08:49 Dose: 1 gm Documented by: Docusate Sodium (Docusate Sodium 100 Mg Capsule) 100 mg PO BID [facility] Last Admin: 11/03/21 08:49 Dose: 100 mg Documented by: Sodium Chloride (Sodium Chloride 0.9%) 1,000 mls @ 75 mls/hr IV .[id number] [facility] Last Admin: 11/03/21 09:30 Dose: Not Given Documented by: Magnesium Sulfate (Magnesium Sulfate) 2 gm in 50 mls @ 25 mls/hr IV UD PRN PRN Reason: Hypomagnesemia Last Admin: 11/03/21 12:06 Dose: 25 mls/hr Documented by: Ondansetron HCl (Ondansetron 4 Mg/2 Ml Vial) 4 mg IV Q6HP PRN PRN Reason: Nausea And Vomiting Potassium Chloride (Potassium Chloride 20 Meq Tablet) 40 meq PO BIDCC [facility] Last Admin: 11/03/21 08:49 Dose: 40 meq Documented by: Senna (Sennosides 1 Tablet) 2 tab PO HS [facility] Last Admin: 11/02/21 23:40 Dose: Not Given Documented by: Sodium Chloride (0.9 % Sodium Chloride 10 Ml Syringe) 10 ml IV Q8 [facility] Last Admin: 11/03/21 05:24 Dose: Not Given Documented by: Zolpidem Tartrate (Zolpidem 5 Mg Tablet) 5 mg PO HSP PRN PRN Reason: Insomnia A/P Narrative A/P Narrative: Assessment: 76-year-old male admitted for UTI secondary to pansensitive Enterococcus. #UTI secondary to Enterococcus #Hypomagnesemia #Normocytic anemia #Elevated blood pressure #Resolved hypokalemia #Hyponatremia #Generalized weakness #Probable skin cancer on left face #Possible mild cognitive impairment Plan -Transition to oral Amoxicillin 500 mg Q8 hrs for Enterococcus UTI. -Replace electrolytes as needed. -Start Norvasc 5 mg daily. -Monitor serum sodium. -Discontinue IV fluid. -PT and OT following. -Fluid restricted diet. -CODE STATUS: Full -Disposition: SNF pending placement. Time Spent With Patient Time: Total time spent is greater than 50% in coordination of care (as documented) at patient's floor/unit and/or counseling patient:
[2021-11-03] MEDS ORDERED: AMPICILLIN SODIUM 2 GM VIAL IV SCH (14:15)
[2021-11-03] MEDS: AMPICILLIN SODIUM 2 GM in 0.9 % SODIUM CHLORIDE 100 ML IV SCH ×2 (15:07→19:25)
[2021-11-03] MEDS: SENNOSIDES 1 TABLET PO SCH (22:29)
[2021-11-04] MEDS: AMPICILLIN SODIUM 2 GM in 0.9 % SODIUM CHLORIDE 100 ML IV SCH ×3 (00:20→12:35)
[2021-11-04] MEDS: 0.9 % SODIUM CHLORIDE 10 ML SYRINGE IV SCH ×3 (05:27→20:11)
[2021-11-04 06:58] LABS: Basophils # (Auto) 0.05 K/mcL (0.00-0.30); Basophils % (Auto) 0.8 % (0.0-2.0); Eosinophils # (Auto) 0.25 K/mcL (0.00-0.70); Eosinophils % (Auto) 3.9 % (0.0-7.0); Hematocrit 32.5 % (40.1-51.0); Hemoglobin 11.1 g/dL (13.7-17.5); Lymphocytes # (Auto) 1.12 K/mcL (1.50-4.80); Lymphocytes % (Auto) 17.6 % (15.5-49.0); Mean Cell Volume 98.8 fL (80.0-100.0); Mean Corpuscular HGB Conc 34.2 g/dL (31.0-36.0); Mean Platelet Volume 8.8 fL (7.4-10.4); Monocytes # (Auto) 1.28 K/mcL (0.10-0.90); Monocytes % (Auto) 20.1 % (1.0-12.0); Neutrophils % (Auto) 57.6 % (38.0-78.0); Platelet Count 146 K/mcL (140-440); RBC 3.29 M/mcL (4.63-6.08); Red Cell Distribution Width 14.6 % (11.5-14.5); WBC 6.4 K/mcL (4.5-11.0)
[2021-11-04 07:04] LABS: Blood Urea Nitrogen 6 mg/dL (8-23); Calcium 8.8 mg/dL (8.6-10.4); Carbon Dioxide 22 mmol/L (22-30); Chloride 98 mmol/L (96-108); Glomerular Filtration Rate 104; Glucose 109 mg/dL (70-105)
[2021-11-04] MEDS: POTASSIUM CHLORIDE 20 MEQ TABLET PO SCH ×2 (07:16→17:58)
[2021-11-04] MEDS: DOCUSATE SODIUM 100 MG CAPSULE PO SCH ×2 (07:22→19:29)
[2021-11-04 07:33] LABS: Phosphorous 2.6 mg/dL (2.5-4.5)
[2021-11-04] MEDS: AMOXICILLIN 250 MG CAPSULE PO SCH ×2 (17:58→23:12)
[2021-11-04] MEDS: SENNOSIDES 1 TABLET PO SCH (19:30)
[2021-11-04] MEDS ORDERED: amLODIPine 5 MG TABLET PO SCH (21:00)
[2021-11-05] MEDS: 0.9 % SODIUM CHLORIDE 10 ML SYRINGE IV SCH (05:26)
[2021-11-05] MEDS: AMOXICILLIN 250 MG CAPSULE PO SCH ×2 (05:26→13:09)
[2021-11-05 06:21] LABS: Basophils # (Auto) 0.05 K/mcL (0.00-0.30); Basophils % (Auto) 0.7 % (0.0-2.0); Eosinophils # (Auto) 0.31 K/mcL (0.00-0.70); Hematocrit 32.8 % (40.1-51.0); Hemoglobin 11.3 g/dL (13.7-17.5); Lymphocytes # (Auto) 1.43 K/mcL (1.50-4.80); Lymphocytes % (Auto) 18.6 % (15.5-49.0); Mean Cell Volume 98.5 fL (80.0-100.0); Mean Corpuscular HGB Conc 34.5 g/dL (31.0-36.0); Mean Platelet Volume 8.9 fL (7.4-10.4); Monocytes # (Auto) 1.46 K/mcL (0.10-0.90); Neutrophils % (Auto) 57.7 % (38.0-78.0); Platelet Count 154 K/mcL (140-440); RBC 3.33 M/mcL (4.63-6.08); Red Cell Distribution Width 14.8 % (11.5-14.5); WBC 7.7 K/mcL (4.5-11.0)
[2021-11-05 06:48] LABS: Blood Urea Nitrogen 7 mg/dL (8-23); Calcium 8.9 mg/dL (8.6-10.4); Carbon Dioxide 22 mmol/L (22-30); Chloride 98 mmol/L (96-108); Glomerular Filtration Rate 97; Glucose 111 mg/dL (70-105)
[2021-11-05] MEDS: POTASSIUM CHLORIDE 20 MEQ TABLET PO SCH (07:01)
[2021-11-05] MEDS: DOCUSATE SODIUM 100 MG CAPSULE PO SCH (08:31)
[2021-11-05] MEDS ORDERED: THIAMINE 100 MG TABLET PO SCH (09:00)
--- NOTE | 2021-11-05 11:48 | Discharge Summary ---
Discharge Provider Provider Patient information: Note initiated : 11/05/21 at 11:46 am Service Date, if different from initiated Date: [] Patient: Johnathan Son 76 y/o M admitted on 11/01/21 for weakness, altered mental status. Chief Complaint: [] Date of admission: 11/01/21 17:40 Discharge date: 11/05/21 Primary care physician: PCP No Consults: 11/01/21 Consult to Physician [CONS] Stat Comment: Consulting Provider: Aaron Jimenez Reason For Exam: Physician to Consult Discharge Meds Discharge Medications Home Medications amlodipine 5 mg tablet 5 mg PO HS #60 tab 11/05/21 [Rx Last Taken Unknown] amoxicillin 250 mg capsule 500 mg PO Q8H 3 Days #18 cap 11/05/21 [Rx Last Taken Unknown] thiamine mononitrate (vit B1) 100 mg tablet 100 mg PO DAILY 60 Days #60 tab 11/05/21 [Rx Last Taken Unknown] COURSE Hospital Course Hospital course: Mr. Son is a 76 year old M negative past medical history, presenting with 3-day history of general body weakness, contusions, and decreased oral intake. There was no prior similar episode. Patient stated that over the past week to 10 days, he has increasing degree of confusions. For example, 3 days ago when he was in the history and try to go, he forgot what he was doing so he could not cook himself any food. As a result, he has minimal oral intake in terms of both food and liquid over the past 3 days. He is also feeling increasing general body weakness. He is also experiencing increased urinary frequency but denies any urgency or dysuria. He tried to call his son for help but his phone was that so he could not do so. Today he decided to walk out of his apartment and ask his manager security for help who decided to call EMS and sent him to our ED for further evaluations. Vital signs significant for mild tachycardia with heart rate in the low 100s beats per minute, rest of the vital signs within normal limits. Labs significant for lack of leukocytosis with WBC 9.0. Chemistry showing sodium of 133. BUN and creatinine 7 and 0.4, respectively. UA suggestive the presence of urinary tract infections. Chest x-ray within normal limits. 11/02: Afebrile overnight. Urine culture growing enterococcus species; blood culture no growth to date. WBC 5.8. Serum sodium 130; potassium 3.1. c/o general body weakness. Good appetite. Denies dysuria, positive for increased urinary frequency. Continue Rocephin for UTI. Continue NS@70cc/hr and potassium replacement and serial BMP. Pending PT OT MMSE evaluation, potential SNF placement. 11/03: Afebrile overnight. Urine culture growing pansensitive enterococcus species; blood culture no growth to date. WBC 6.3. Mg level 1.3. Improving strength. Denies increased urinary frequency or dysuria. Denies any pain. Evaluated by PT to go to SNF. MMSE , suggestive of mild cognitive deficit. Continue Rocephin for UTI. Blood cultures showing no growth to date. 11/04 Transitioned to Amoxicillin for Enterococcus UTI, discontinued ceftriaxone. Awaiting placement. 11/05 Discharged to group home facility for rehab. Discharged on amoxicillin to complete about 7 days of antibiotic treatment for UTI, also discharged with a new prescription for Norvasc for elevated blood pressure. Physical exam Head: Atraumatic, normal inspection. Eyes: normal appearance, no scleral icterus. Neck: full ROM Respiratory: no respiratory distress. Cardiovascular: normal rate and rhythm, S1, S2. GI/Abdominal: soft, nontender, no guarding. Extremities: full range of motion, nontender. Neurological: CN II-XII intact, intact motor, intact sensation. Psychiatric: normal mood. Skin: warm, normal color Discharge diagnosis: UTI secondary to Enterococcus Time Spent with Patient Time attestation: Total time spent providing and/or coordinating discharge services: EXAM Constitutional Vitals: Temp Pulse Resp BP Pulse Ox 97.9 F 94 H 16 132/78 96 11/05/21 07:34 11/05/21 07:34 11/05/21 07:34 11/05/21 07:34 11/05/21 07:34 Discharge Data Data Completed and Pending Labs on day of discharge: Labs from last 24 hours 11/05/21 11/05/21 05:26 05:26 WBC 7.7 RBC 3.33 L Hgb 11.3 L Hct 32.8 L MCV 98.5 MCH 33.9 MCHC 34.5 RDW 14.8 H Plt Count 154 MPV 8.9 Neut % (Auto) 57.7 Lymph % (Auto) 18.6 [place] % (Auto) 19.0 H Eos % (Auto) 4.0 Baso % (Auto) 0.7 Lymph # (Auto) 1.43 L [place] # (Auto) 1.46 H Eos # (Auto) 0.31 Baso # (Auto) 0.05 Absolute Neutrophils 4.42 Sodium 131 L Potassium 4.2 Chloride 98 Carbon Dioxide 22 Anion Gap 11.0 BUN 7 L Creatinine 0.6 L GFR Calculation 97 Glucose 111 H Calcium 8.9 Preliminary micro results at discharge 11/01/21 19:26 Blood Culture - Preliminary Blood 11/01/21 19:18 Blood Culture - Preliminary Blood Discharge Plan Patient/Caregiver Discharge Instructions Activity: as per physical therapy Diet: Regular Diet Prescriptions: New amlodipine 5 mg Tablet 5 mg PO HS Qty: 60 4RF amoxicillin 250 mg Capsule 500 mg PO Q8H 3 Days Qty: 18 0RF thiamine mononitrate (vit B1) 100 mg Tablet 100 mg PO DAILY 60 Days Qty: 60 0RF Other Ambulatory Orders: OT Discharge Order (Routine) Location: None Selected Ordered By: Eddie Howard Physical Therapy at Discharge - General (Routine) Location: None Selected Ordered By: Eddie Howard Follow Up Plan Follow up with: Kentrell Crespo MD [Physician] - (See Dr. Crespo in 7-14 days after discharge for skin lesion to left face; concern for skin CA. Please call and schedule.) No,PCP [Primary Care Provider] - Patient Disposition: Xfer SNF Prognosis: Fair Rehab Potential: Fair I certify that the patient requires SNF services: Yes Overall status at discharge: patient is progressing back to baseline Discharge Orders: Discharge Order (Routine); Ordered 11/05/21 Ordered By: Eddie Howard
== END 2021-11-05 13:30 | DRG 690 ==
LOC: ED 12:00 → MEDSUR 17:40
PROVIDERS: ADMIT Internal Medicine; ATTEND Internal Medicine

== ENCOUNTER 2022-01-14 03:39 | Inpatient (IN) ==
[2022-01-14] MEDS ORDERED: 0.9 % SODIUM CHLORIDE 1,000 ML IV ONE ×2 (03:48→05:02)
[2022-01-14] MEDS ORDERED: LORazepam 2 MG/ML VIAL IV ONE ×2 (03:48→05:05)
--- NOTE | 2022-01-14 03:51 | Emergency Department Note ---
Nausea/Vomiting/Diarrhea HPI General Chief complaint: Nausea/Vomiting/Diarrhea Stated complaint: N/V/D Time Seen by Provider: 01/14/22 03:43 Source: EMS Mode of arrival: EMS Limitations: no limitations History of Present Illness HPI Narrative: Patient presents via EMS transport for chief complaint nausea and vomiting and trouble the last 2 days. Diarrhea started within the last day. No significant associated abdominal pain. EMS reports large bucket of vomit next to him, along with diarrhea on the floor. Patient mostly is only been consuming beer . emesis is not bloody, bilious or coffee ground, bowel movements not bloody or dark tarry . No seizure activity reported. Patient denies current CP, sob, fever, chills, headache, focal weakness, loss/change of sensation or any other complaints at this time. PMH/PSHx/Meds/Allergies/SH/FH as per nursing documentation and reviewed. A full 10 point review of systems reviewed and negative except as noted in HPI. Related Data Previous Rx's Medication Instructions Recorded amlodipine 5 mg tablet 5 mg PO HS #60 tab 11/05/21 Allergies Allergy/AdvReac Type Severity Reaction Status Date / Time No Known Drug Allergies Allergy Verified 02/10/21 16:20 Review of Systems ROS ROS Narrative: see HPI PFSH Narrative Patient History Narrative: Narrative: Medical/Surgical/Family History All Active Problems (Updated 01/14/22 @ 07:08 by Miles Hart DO) Nausea vomiting and diarrhea (Acute) Dehydration (Acute) Acidosis, lactic (Acute) Alcohol withdrawal (Acute) Hypomagnesemia (Acute) Physical deconditioning (Acute) UTI (urinary tract infection) (Acute) Delirium (Acute) Dementia (Acute) Anemia, normocytic normochromic (Acute) Hypokalemia (Acute) Atrial fibrillation with RVR (Acute) Acute hyponatremia (Acute) Acute dehydration (Acute) Multiple skin tears (Acute) Head injury (Acute) Elevated CK (Acute) Generalized muscle weakness (Acute) Acute hyponatremia (Acute) Social History Smoking Status: Former smoker Alcohol Intake Frequency: 2+ drinks per day Substance Use: does not use Exam Narrative Narrative: PHYSICIAL EXAM: Vitals reviewed GENERAL: Awake and alert in room, nondiaphoretic, no active vomiting, disheveled, dried feces in bilateral lower extremities and legs, the patient appears nourished and normally developed. Vital signs as documented. EYES: Head exam is unremarkable. No scleral icterus HEENT: Dry mucous membranes of mouth and lips, nares patent without copious rh inorrhea. Skin lesion to the left side of face lateral to left eye LUNGS: Lungs are clear to auscultation, -r/r/w without any respiratory distress. CARDIAC: Rhythm is regular. No dysrhythmias or murmurs. ABDOMEN: Soft, non-tender, non-distended, no rebound/guarding, with no obvious masses EXTREMITIES: No peripheral edema, with no obvious deformities. SKIN: Good color, with no significant rashes. No pallor. NEURO: Mildly tremulous, no obvious neurological deficits, normal sensation and strength bilaterally. PSYCH: Moderately anxious appearing otherwise mood and affect normal. Appropriate for age. General Limitations: no limitations Course Reevaluation(s) Reevaluation #1: Patient only mildly hyponatremic and hyperchloremic, potassium within normal limits, glucose within normal limits, patient mildly tremulous concerning component of alcohol withdrawal Time: 04:07 Reevaluation #2: Nausea symptoms resolved with Ativan, no longer tremulous will continue to monitor Time: 04:21 Reevaluation #3: Patient noted to become transiently tachycardic, appeared to have emesis in carine th coughing, EKG obtained sinus tachycardia with sitting patient up patient heart rate improved with intervention seems significantly dehydrated as hemoglobin markedly increased from baseline, will continue to monitor Time: 05:09 Additional Reevaluation(s): 0614 patient chest x-ray very focal infiltrate grossly unchanged from previous, will give a daily dose of amlodipine 0646 patient having slight desat possibly slight aspiration on amlodipine, will attempt breathing treatment Consultations Consultation #1: Dr. Jimenez spoke to the admitting physician about the patient's clinical workup as well as the emergency medicine treatment. Physician agrees to admission to their service at this time. Accepting physician will continue the medical evaluatio n/workup and treatment plan upon admission and add additional testing, interventions/treatment as necessary Time: 07:05 Vital Signs Vital signs: Vital Signs Temperature 97.3 F 01/14/22 03:42 Pulse Rate 106 H 01/14/22 03:42 Respiratory Rate 17 01/14/22 03:42 Blood Pressure 148/86 01/14/22 03:42 Pulse Oximetry (%) 96 01/14/22 03:42 Temperature 97.3 F 01/14/22 03:42 Pulse Rate 108 H 01/14/22 04:41 Respiratory Rate 16 01/14/22 06:46 Blood Pressure 156/105 01/14/22 06:46 Pulse Oximetry (%) 92 01/14/22 06:31 MDM MDM Narrative Medical decision making narrative: All results/imaging obtained reviewed and interpreted, results trended/compared with previous levels if available to evaluate for abnormality contributing to todays presentation, After reviewing patients comorbidities, severity of history of presenting illness, labs and imaging if obtained in conjunction with physical exam and course in emergency department, deemed to have potential for deterioration/progression of symptoms that could lead to multiple morbidities or mortality, decision made that patient requires further observation/ev aluation/treatment and patient admitted to appropriate service, patient/family understand and agree with plan. Chart created with voice recognition software, errors may be present due to softwares interpretation Lab Data Result diagrams: 01/14/22 03:55 Labs: Lab Results 01/14/22 01/14/22 01/14/22 Range/Units 03:55 03:55 03:55 WBC 7.6 (4.5-11.0) K/mcL RBC 4.11 L (4.63-6.08) M/mcL Hgb 14.0 (13.7-17.5) g/dL Hct 39.0 L (40.1-51.0) % POC Hct (41-55) MCV 94.9 (80.0-100.0) fL MCH 34.1 H (26.0-34.0) pg MCHC 35.9 (31.0-36.0) g/dL RDW 13.7 (11.5-14.5) % Plt Count 129 L (140-440) K/mcL MPV 8.8 (7.4-10.4) fL Immature Gran % (Auto) 0.5 (0.0-0.5) % Neut % (Auto) 74.0 (38.0-78.0) % Lymph % (Auto) 12.1 L (15.5-49.0) % [place] % (Auto) 10.9 (1.0-12.0) % Eos % (Auto) 2.2 (0.0-7.0) % Baso % (Auto) 0.3 (0.0-2.0) % Lymph # (Auto) 0.92 L (1.50-4.80) K/mcL [place] # (Auto) 0.83 (0.10-0.90) K/mcL Eos # (Auto) 0.17 (0.00-0.70) K/mcL Baso # (Auto) 0.02 (0.00-0.30) K/mcL Immature Gran # 0.04 (0.00-0.05) K/mcl Absolute Neutrophils 5.67 (1.80-8.00) K/mcL VBG Lactic Acid 7.4 H* (0.5-2.0) mmol/L POC Sodium (133-145) POC Potassium (3.3-5.1) POC Chloride (96-108) POC Total CO2 (22-30) POC BUN (6-20) POC Creatinine (0.6-1.2) POC Glucose (70-105) POC WB Ioniz Calcium (1.16-1.32) Magnesium 1.7 (1.6-2.5) mg/dL Lipase 27 (7-60) U/L Urine Color Urine Appearance (Clear) Urine pH (5.0-9.0) Ur Specific [place] (1.000-1.035) Urine Protein (Negative) mg/dL Urine Glucose (UA) (Negative) mg/dL Urine Ketones (Negative) mg/dL Urine Occult Blood (Negative) mg/dL Urine Nitrate (Negative) Urine Bilirubin (Negative) mg/dL Urine Urobilinogen mg/dL Ur Leukocyte Esterase (Negative) /uL Urine RBC (0-3) /hpf Urine WBC (0-4) /hpf Ur Squamous Epith Cells (0-4) /hpf Ur Transition Epith Cell (0-2) /hpf Urine Bacteria (0) /hpf Hyaline Casts (0-2) /lph Urine Mucus (None) /hpf Ur Culture Indicated? Ethyl Alcohol mg/dL 49.0 mg/dL Ethyl Alcohol g/dL 0.049 H (<0.010) gm/dL 01/14/22 01/14/22 01/14/22 Range/Units 03:59 05:29 05:41 WBC (4.5-11.0) K/mcL RBC (4.63-6.08) M/mcL Hgb (13.7-17.5) g/dL Hct (40.1-51.0) % POC Hct 41.0 (41-55) MCV (80.0-100.0) fL MCH (26.0-34.0) pg MCHC (31.0-36.0) g/dL RDW (11.5-14.5) % Plt Count (140-440) K/mcL MPV (7.4-10.4) fL Immature Gran % (Auto) (0.0-0.5) % Neut % (Auto) (38.0-78.0) % Lymph % (Auto) (15.5-49.0) % [place] % (Auto) (1.0-12.0) % Eos % (Auto) (0.0-7.0) % Baso % (Auto) (0.0-2.0) % Lymph # (Auto) (1.50-4.80) K/mcL [place] # (Auto) (0.10-0.90) K/mcL Eos # (Auto) (0.00-0.70) K/mcL Baso # (Auto) (0.00-0.30) K/mcL Immature Gran # (0.00-0.05) K/mcl Absolute Neutrophils (1.80-8.00) K/mcL VBG Lactic Acid 5.1 H* (0.5-2.0) mmol/L POC Sodium 131 L (133-145) POC Potassium 3.8 (3.3-5.1) POC Chloride 94 L (96-108) POC Total CO2 18.0 L (22-30) POC BUN < 3 L (6-20) POC Creatinine 0.6 (0.6-1.2) POC Glucose 112 H (70-105) POC WB Ioniz Calcium 1.03 L (1.16-1.32) Magnesium (1.6-2.5) mg/dL Lipase (7-60) U/L Urine Color Yellow Urine Appearance Clear (Clear) Urine pH 6.0 (5.0-9.0) Ur Specific [place] 1.004 (1.000-1.035) Urine Protein Negative (Negative) mg/dL Urine Glucose (UA) Negative (Negative) mg/dL Urine Ketones Negative (Negative) mg/dL Urine Occult Blood 0.03 (Negative) mg/dL Urine Nitrate Negative (Negative) Urine Bilirubin Negative (Negative) mg/dL Urine Urobilinogen Negative mg/dL Ur Leukocyte Esterase Negative (Negative) /uL Urine RBC 3 (0-3) /hpf Urine WBC 2 (0-4) /hpf Ur Squamous Epith Cells < 1 (0-4) /hpf Ur Transition Epith Cell < 1 (0-2) /hpf Urine Bacteria None (0) /hpf Hyaline Casts 7 H (0-2) /lph Urine Mucus Few A (None) /hpf Ur Culture Indicated? No Ethyl Alcohol mg/dL mg/dL Ethyl Alcohol g/dL (<0.010) gm/dL EKG Data EKG #1: EKG attestation: Yes I reviewed and interpreted this EKG. EKG results narrative: Obtained 501 reviewed 502 Sinus tachycardia mild prolonged QT interval 357 QTC 41 QRS 89 OH 159 rate [address] elevation depression or signs of acute ischemia Interpreted personally Discharge Plan Patient/Caregiver Discharge Instructions Pt seen by REAL ESTATE CLERK/PA only: No Clinical Impression: Nausea vomiting and diarrhea, Dehydration, Acidosis, lactic, Alcohol withdrawal Patient Disposition: Xfer As Inpt ([facility]) Condition: Fair Follow up with: Noe Anderson MD [Primary Care Provider] - Prescriptions: No Action amlodipine 5 mg Tablet 5 mg PO HS Qty: 60 4RF
[2022-01-14] MEDS ORDERED: MAGNESIUM SULFATE 2 GM/50 ML BAG IV ONE (03:55)
[2022-01-14 04:03] LABS: POC Blood Urea Nitrogen < 3 (6-20); POC Calcium, Ionized 1.03 (1.16-1.32); POC Chloride 94 (96-108); POC Creatinine 0.6 (0.6-1.2); POC Glucose, Random 112 (70-105); POC Potassium 3.8 (3.3-5.1); POC Sodium 131 (133-145)
[2022-01-14 04:46] LABS: Basophils # (Auto) 0.02 K/mcL (0.00-0.30); Basophils % (Auto) 0.3 % (0.0-2.0); Eosinophils # (Auto) 0.17 K/mcL (0.00-0.70); Eosinophils % (Auto) 2.2 % (0.0-7.0); Lymphocytes # (Auto) 0.92 K/mcL (1.50-4.80); Lymphocytes % (Auto) 12.1 % (15.5-49.0); Mean Cell Volume 94.9 fL (80.0-100.0); Mean Corpuscular HGB Conc 35.9 g/dL (31.0-36.0); Mean Platelet Volume 8.8 fL (7.4-10.4); Monocytes # (Auto) 0.83 K/mcL (0.10-0.90); Monocytes % (Auto) 10.9 % (1.0-12.0); Platelet Count 129 K/mcL (140-440); RBC 4.11 M/mcL (4.63-6.08); Red Cell Distribution Width 13.7 % (11.5-14.5); WBC 7.6 K/mcL (4.5-11.0)
[2022-01-14 05:04] LABS: Alcohol,Blood 0.049 gm/dL (<0.010)
[2022-01-14] MEDS ORDERED: amLODIPine 5 MG TABLET PO ONE (06:14)
[2022-01-14 06:31] LABS: Appearance,Urine CLEAR (Clear); Bilirubin,Urine Negative (Negative); Color,Urine YELLOW; Culture Indicated,Urine No; Glucose,Urine (UA) Negative (Negative); Ketones,Urine Negative (Negative); Leukocyte Esterase,Urine Negative /uL (Negative); Mucus,Urine FEW /hpf; Nitrate,Urine Negative (Negative); Protein,Urine Negative (Negative); Specific Gravity,Urine 1.004 (1.000-1.035); Urine Blood 0.03 mg/dL (Negative); Urine Hyaline Cast 7 /lph (0-2); Urine RBC 3 /hpf (0-3); Urine Squamous Epithelial Cell < 1 /hpf (0-4); Urine Transitional Epi Cells < 1 /hpf (0-2); Urine WBC 2 /hpf (0-4); Urobilinogen,Urine Negative
[2022-01-14] MEDS ORDERED: IPRATROPIUM/ALBUTEROL 3 ML AMPUL.NEB NEB ONE (06:46)
--- NOTE | 2022-01-14 08:39 | XRay Report ---
HISTORY: Short of breath FINDINGS: The lungs are clear and well expanded. The heart size, pulmonary vasculature, mediastinum anat and pleura are normal. Degenerative changes are present in the acromioclavicular joints bilaterally. There has been no significant change since 11/01/21. IMPRESSION: Normal exam Interpreted and Authenticated by: Stefano Gomes 01/14/22
--- NOTE | 2022-01-14 08:50 | Internal Med History&Physical ---
HPI History of Present Illness Patient information: Note initiated : 01/14/22 at 8:42 am Service Date, if different from initiated Date: [] Patient: Johnathan Son a 76 y/o M admitted on for N/V/D. Chief Complaint: [nausea, vomiting] Chief complaint: nausea vomiting History of present illness: Mr. Son is a 76 year old M history of skin cancer of his left face, alcohol abuse, presenting with 2-day history of nausea vomiting and diarrhea. Patient was hospitalized 1 year ago for alcohol withdrawal. Patient's state that he has been drinking beer up to 12 packs/day with last use yesterday morning. He is experiencing nausea vomiting and diarrhea for the past 2 days. He is also coming of general body weakness, gradually progressing over the past 3 months. He is complaining of anxiety and he has increased hand tremors. He denies any hallucinations. Vital signs at ED presentations significant for tachycardia with heart rate up to the 120s beats per minute. Labs significant for lactic acid 7.4 which came down to 3.0 after IV fluid given in the ED. Blood alcohol level was 0.049. Admission request made for nausea vomiting and diarrhea likely secondary to alcohol abuse/alcohol withdrawal. Constitutional Constitutional: Present weakness; Absent chills, excessive sweating, fatigue or fever(s) EENT Eyes: Absent blurry vision, change in vision, loss of vision or other visual disturbances Ears: Absent decreased hearing or tinnitus Nose, mouth and throat: Absent abnormal hearing, dry mouth, headache(s), nasal congestion or sore throat Cardiovascular Cardiovascular: Absent chest pain, chest pain at rest, edema, irregular heart rhythm or palpatations Respiratory Respiratory: Absent cough, dyspnea or wheezing Gastrointestinal Gastrointestinal: Present diarrhea, nausea and vomiting; Absent abdominal pain or constipation Musculoskeletal Musculoskeletal: Absent back pain, deformity, limited range of motion, muscle cramps, muscle weakness or numbness Additional comments: Increased hand tremors Integumentary Integumentary: Absent lesions, rash or wounds Neurological Neurological: Absent focal weakness, headache(s) or numbness Psychiatric Psychiatric: Absent anxiety, depression or hallucinations PFSH PFSH All Active Problems (Updated 01/14/22 @ 08:51 by Aaron Jimenez MD) Skin cancer of face (Acute) Nausea vomiting and diarrhea (Acute) Dehydration (Acute) Acidosis, lactic (Acute) Alcohol withdrawal (Acute) Hypomagnesemia (Acute) Physical deconditioning (Acute) UTI (urinary tract infection) (Acute) Delirium (Acute) Dementia (Acute) Anemia, normocytic normochromic (Acute) Hypokalemia (Acute) Atrial fibrillation with RVR (Acute) Acute hyponatremia (Acute) Acute dehydration (Acute) Multiple skin tears (Acute) Head injury (Acute) Elevated CK (Acute) Generalized muscle weakness (Acute) Acute hyponatremia (Acute) Social History alcohol intake frequency: 2+ drinks per day substance use type: does not use MEDS/ALLERGIES Home Medications and Allergies Home Medications Medication Instructions Recorded Confirmed Type amlodipine 5 mg tablet 5 mg PO HS #60 tab 11/05/21 Rx Allergies Allergy/AdvReac Type Severity Reaction Status Date / Time No Known Drug Allergies Allergy Verified 02/10/21 16:20 EXAM Constitutional Vitals: Temp Pulse Resp BP Pulse Ox 36.7 C 125 H 17 121/76 99 01/14/22 08:31 01/14/22 08:31 01/14/22 08:31 01/14/22 08:31 01/14/22 08:31 General appearance: cooperative, disheveled and no acute distress Head Head exam: Present atraumatic; Absent normocephalic Additional comments: Skin lesion left face Eye Eye exam: Present EOMI and PERRL ENT ENT exam: Present mucous membranes moist, normal exam and normal external ear exam Neck Neck exam: Present normal inspection; Absent lymphadenopathy, tenderness or thyromegaly Respiratory Respiratory exam: Absent accessory muscle use, respiratory distress or wheezes Cardiovascular Cardiovascular exam: Present tachycardia; Absent JVD GI/Abdominal GI/Abdominal exam: Present normal bowel sounds and soft; Absent organomegaly or tenderness Rectal Rectal exam: Present deferred Extremities Exam Extremities exam: Present full ROM, normal capillary refill and normal inspection; Absent tenderness Additional comments: Increased hand tremors bilaterally Neurological Exam Neurological exam: Present alert, CN II-XII intact and oriented X3; Absent motor sensory deficit Additional comments: Increased hand tremors bilaterally Psychiatric Psychiatric exam: Present normal affect and normal mood; Absent anxious or depre ssed Skin Skin exam: Present dry and intact DATA Data Completed and Pending Labs: Labs from last 24 hours 01/14/22 01/14/22 01/14/22 07:26 05:41 05:29 WBC RBC Hgb Hct POC Hct MCV MCH MCHC RDW Plt Count MPV Immature Gran % (Auto) Neut % (Auto) Lymph % (Auto) [place] % (Auto) Eos % (Auto) Baso % (Auto) Lymph # (Auto) [place] # (Auto) Eos # (Auto) Baso # (Auto) Immature Gran # Absolute Neutrophils VBG Lactic Acid 3.0 H 5.1 H* POC Sodium POC Potassium POC Chloride POC Total CO2 POC BUN POC Creatinine POC Glucose POC WB Ioniz Calcium Magnesium Lipase Urine Color Yellow Urine Appearance Clear Urine pH 6.0 Ur Specific [place] 1.004 Urine Protein Negative Urine Glucose (UA) Negative Urine Ketones Negative Urine Occult Blood 0.03 Urine Nitrate Negative Urine Bilirubin Negative Urine Urobilinogen Negative Ur Leukocyte Esterase Negative Urine RBC 3 Urine WBC 2 Ur Squamous Epith Cells < 1 Ur Transition Epith Cell < 1 Urine Bacteria None Hyaline Casts 7 H Urine Mucus Few A Ur Culture Indicated? No Ethyl Alcohol mg/dL Ethyl Alcohol g/dL 01/14/22 01/14/22 01/14/22 03:59 03:55 03:55 WBC 7.6 RBC 4.11 L Hgb 14.0 Hct 39.0 L POC Hct 41.0 MCV 94.9 MCH 34.1 H MCHC 35.9 RDW 13.7 Plt Count 129 L MPV 8.8 Immature Gran % (Auto) 0.5 Neut % (Auto) 74.0 Lymph % (Auto) 12.1 L [place] % (Auto) 10.9 Eos % (Auto) 2.2 Baso % (Auto) 0.3 Lymph # (Auto) 0.92 L [place] # (Auto) 0.83 Eos # (Auto) 0.17 Baso # (Auto) 0.02 Immature Gran # 0.04 Absolute Neutrophils 5.67 VBG Lactic Acid POC Sodium 131 L POC Potassium 3.8 POC Chloride 94 L POC Total CO2 18.0 L POC BUN < 3 L POC Creatinine 0.6 POC Glucose 112 H POC WB Ioniz Calcium 1.03 L Magnesium Lipase Urine Color Urine Appearance Urine pH Ur Specific [place] Urine Protein Urine Glucose (UA) Urine Ketones Urine Occult Blood Urine Nitrate Urine Bilirubin Urine Urobilinogen Ur Leukocyte Esterase Urine RBC Urine WBC Ur Squamous Epith Cells Ur Transition Epith Cell Urine Bacteria Hyaline Casts Urine Mucus Ur Culture Indicated? Ethyl Alcohol mg/dL 49.0 Ethyl Alcohol g/dL 0.049 H 01/14/22 03:55 WBC RBC Hgb Hct POC Hct MCV MCH MCHC RDW Plt Count MPV Immature Gran % (Auto) Neut % (Auto) Lymph % (Auto) [place] % (Auto) Eos % (Auto) Baso % (Auto) Lymph # (Auto) [place] # (Auto) Eos # (Auto) Baso # (Auto) Immature Gran # Absolute Neutrophils VBG Lactic Acid 7.4 H* POC Sodium POC Potassium POC Chloride POC Total CO2 POC BUN POC Creatinine POC Glucose POC WB Ioniz Calcium Magnesium 1.7 Lipase 27 Urine Color Urine Appearance Urine pH Ur Specific [place] Urine Protein Urine Glucose (UA) Urine Ketones Urine Occult Blood Urine Nitrate Urine Bilirubin Urine Urobilinogen Ur Leukocyte Esterase Urine RBC Urine WBC Ur Squamous Epith Cells Ur Transition Epith Cell Urine Bacteria Hyaline Casts Urine Mucus Ur Culture Indicated? Ethyl Alcohol mg/dL Ethyl Alcohol g/dL A/P Assessment and plan (1) Nausea vomiting and diarrhea: Status: Acute (2) Alcohol withdrawal: Status: Acute (3) Skin cancer of face: Status: Acute Narrative A/P Narrative: Assessment and Plans: 1. Alcohol withdrawal with associated nausea vomiting and diarrhea: Inpatient PCU with telemetry CIWA protocol Banana [id number] Thiamine with multivitamins KUB Zofran Phenergan Imodium rd managerhealth information manager therapy 2. h/o left face skin cancer: f/u with oncologist outpatient GI ppx: not currently indicated DVT ppx: Lovenox Code status: DNI Prognosis: guarded Disposition: inpatient PCU; PT Time Spent With Patient Time: Total time spent is greater than 50% in coordination of care (as documented) at patient's floor/unit and/or counseling patient: Total time spent with greater than 50% in coordination of care (as documented) at patient's floor/unit and/or counseling patient:: 50 - 70 minutes
[2022-01-14] MEDS ORDERED: IPRATROPIUM/ALBUTEROL 3 ML AMPUL.NEB NEB PRN (09:41)
[2022-01-14] MEDS ORDERED: HALOPERIDOL LACTATE 5 MG/ML VIAL IV PRN (09:41)
[2022-01-14] MEDS ORDERED: ONDANSETRON 4 MG/2 ML VIAL IV PRN (09:41)
[2022-01-14] MEDS ORDERED: PROMETHAZINE 25 MG/ML VIAL IV PRN (09:41)
[2022-01-14] MEDS ORDERED: cloNIDine HCL 0.1 MG TABLET PO PRN (09:41)
[2022-01-14] MEDS ORDERED: ACETAMINOPHEN 325 MG TABLET PO PRN (09:41)
[2022-01-14] MEDS ORDERED: THIAMINE 100 MG TABLET PO SCH (09:41)
[2022-01-14] MEDS ORDERED: LACTULOSE 20 GM/30 ML ORAL.SOL PO PRN (09:41)
[2022-01-14] MEDS ORDERED: LOPERAMIDE 2 MG CAPSULE PO PRN (09:41)
[2022-01-14] MEDS ORDERED: SENNOSIDES 1 TABLET PO PRN (09:41)
--- NOTE | 2022-01-14 10:21 | XRay Report ---
HISTORY: Nausea vomiting and diarrhea FINDINGS: The bowel gas pattern is normal. The stomach is decompressed. There is no apparent soft tissue mass. There are few vascular calcifications in the pelvis. 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 IMPRESSION: Normal exam Interpreted and Authenticated by: Stefano Gomes 01/14/22
[2022-01-14] MEDS: DOCUSATE SODIUM 100 MG CAPSULE PO SCH ×2 (10:41→20:24)
[2022-01-14] MEDS: ENOXAPARIN 40 MG/0.4 ML SYRINGE SQ SCH (10:42)
[2022-01-14] MEDS: FOLIC ACID 1 MG TABLET PO SCH (10:42)
[2022-01-14] MEDS: MULTIVIT,THER IRON,CA,FA & MIN 1 TABLET PO SCH (10:42)
[2022-01-14] MEDS: 0.9 % SODIUM CHLORIDE 10 ML SYRINGE IV SCH ×5 (10:43→20:40)
[2022-01-14] MEDS ORDERED: POTASSIUM CHLORIDE 20 MEQ, MAGNESIUM SULFATE 16.24 MEQ, THIAMINE 100 MG, MVI, ADULT NO.... IV SCH (11:00)
[2022-01-14 11:17] LABS: Basophils # (Auto) 0.03 K/mcL (0.00-0.30); Basophils % (Auto) 0.4 % (0.0-2.0); Eosinophils # (Auto) 0.08 K/mcL (0.00-0.70); Hematocrit 41.1 % (40.1-51.0); Hemoglobin 14.5 g/dL (13.7-17.5); Lymphocytes % (Auto) 9.7 % (15.5-49.0); Mean Cell Volume 95.4 fL (80.0-100.0); Mean Corpuscular HGB Conc 35.3 g/dL (31.0-36.0); Mean Platelet Volume 8.7 fL (7.4-10.4); Monocytes # (Auto) 0.93 K/mcL (0.10-0.90); Monocytes % (Auto) 11.3 % (1.0-12.0); Neutrophils % (Auto) 77.2 % (38.0-78.0); Platelet Count 113 K/mcL (140-440); RBC 4.31 M/mcL (4.63-6.08); Red Cell Distribution Width 13.9 % (11.5-14.5); WBC 8.2 K/mcL (4.5-11.0)
[2022-01-14 12:58] LABS: ALT/SGPT 30 U/L (<40); AST/SGOT 56 U/L (<40); Albumin 4.1 gm/dL (3.2-5.2); Albumin/Globulin Ratio 1.5 (1.0-2.3); Alkaline Phosphatase 117 U/L (39-117); Bilirubin,Total 1.5 mg/dL (0.1-1.0); Blood Urea Nitrogen 4 mg/dL (8-23); Calcium 8.5 mg/dL (8.6-10.4); Carbon Dioxide 25 mmol/L (22-30); Chloride 96 mmol/L (96-108); Globulin 2.8 gm/dL (2.2-3.7); Glomerular Filtration Rate 91; Glucose 93 mg/dL (70-105); Phosphorous 2.6 mg/dL (2.5-4.5)
[2022-01-14] MEDS ORDERED: amLODIPine 5 MG TABLET PO SCH (21:00)
[2022-01-14] MEDS: 0.9 % SODIUM CHLORIDE 1,000 ML IV SCH (21:23)
[2022-01-15] MEDS: 0.9 % SODIUM CHLORIDE 10 ML SYRINGE IV SCH ×5 (05:51→20:48)
[2022-01-15 06:32] LABS: Basophils # (Auto) 0.02 K/mcL (0.00-0.30); Basophils % (Auto) 0.3 % (0.0-2.0); Eosinophils # (Auto) 0.32 K/mcL (0.00-0.70); Eosinophils % (Auto) 5.4 % (0.0-7.0); Hematocrit 37.7 % (40.1-51.0); Hemoglobin 13.3 g/dL (13.7-17.5); Lymphocytes # (Auto) 0.91 K/mcL (1.50-4.80); Lymphocytes % (Auto) 15.3 % (15.5-49.0); Mean Cell Volume 97.2 fL (80.0-100.0); Mean Corpuscular HGB Conc 35.3 g/dL (31.0-36.0); Mean Platelet Volume 9.1 fL (7.4-10.4); Monocytes # (Auto) 0.85 K/mcL (0.10-0.90); Monocytes % (Auto) 14.3 % (1.0-12.0); Neutrophils % (Auto) 64.4 % (38.0-78.0); Platelet Count 92 K/mcL (140-440); RBC 3.88 M/mcL (4.63-6.08); Red Cell Distribution Width 14.3 % (11.5-14.5); WBC 5.9 K/mcL (4.5-11.0)
[2022-01-15 06:46] LABS: ALT/SGPT 23 U/L (<40); AST/SGOT 43 U/L (<40); Albumin 3.4 gm/dL (3.2-5.2); Albumin/Globulin Ratio 1.3 (1.0-2.3); Alkaline Phosphatase 99 U/L (39-117); Bilirubin,Total 1.6 mg/dL (0.1-1.0); Blood Urea Nitrogen 5 mg/dL (8-23); Calcium 8.5 mg/dL (8.6-10.4); Carbon Dioxide 27 mmol/L (22-30); Chloride 95 mmol/L (96-108); Globulin 2.7 gm/dL (2.2-3.7); Glomerular Filtration Rate 104; Glucose 106 mg/dL (70-105)
[2022-01-15 06:47] LABS: Phosphorous 1.7 mg/dL (2.5-4.5)
[2022-01-15] MEDS: 0.9 % SODIUM CHLORIDE 1,000 ML IV SCH (06:53)
--- NOTE | 2022-01-15 08:27 | Internal Med Progress Note ---
SUBJECTIVE Subjective Patient information: Note initiated : 01/15/22 at 8:23 am Service Date, if different from initiated Date: [] Patient: Johnathan Son 76 y/o M admitted on 01/14/22 for N/V/D. Chief Complaint: [] Interval history: History of present illness: Mr. Son is a 76 year old M history of skin cancer of his left face, alcohol abuse, presenting with 2-day history of nausea vomiting and diarrhea. Patient was hospitalized 1 year ago for alcohol withdrawal. Patient's state that he has been drinking beer up to 12 packs/day with last use yesterday morning. He is experiencing nausea vomiting and diarrhea for the past 2 days. He is also coming of general body weakness, gradually progressing over the past 3 months. He is complaining of anxiety and he has increased hand tremors. He denies any hallucinations. Vital signs at ED presentations significant for tachycardia with heart rate up to the 120s beats per minute. Labs significant for lactic acid 7.4 which came down to 3.0 after IV fluid given in the ED. Blood alcohol level was 0.049. Admission request made for nausea vomiting and diarrhea likely secondary to alcohol abuse/alcohol withdrawal. 01/15: CIWA score of 9. A&O X3. Denies nausea, vomiting, diarrhea. Positive for hallucinations, mainly visual. Positive for hand tremors. Good appetite. Continue CIWA protocol. Saline lock. Continue to work with physical therapy for placement planning. Constitutional Vitals: Vital Signs Temp Pulse Resp BP Pulse Ox 36.4 C 80 17 147/82 98 01/15/22 08:02 01/15/22 06:01 01/15/22 08:10 01/15/22 08:02 01/15/22 06:01 Period Temp Pulse Resp BP Sys/White Pulse Ox Last 24 Hr 36.4 C-38.0 C 77-132 11-24 111-163/66-114 94-100 Intake and Output 01/14/22 01/15/22 01/15/22 21:59 05:59 13:59 Intake Total 1265 1430 Output Total 725 317 100 Balance 540 -317 1330 Weight 74.072 kg Intake & Output: Intake & Output 01/14/22 01/15/22 01/15/22 21:59 05:59 13:59 Intake Total 1265 1430 Output Total 725 317 100 Balance 540 -317 1330 Weight 74.072 kg Intake: IV 1025 950 Sodium Chloride 0.9% 1,000 ml @ 950 100 mls/hr IV .Q10H [facility] Rx#: [id number] Potassium Chloride 20 Meq 1025 Magnesium Sulfate 16.24 Meq Vitamin B1 100 mg Infuvite Adult 10 ml In Sodium Chloride 0.9% 1,000 ml @ 100 mls/hr IV . [id number] [facility] Rx#:[id number] Oral 240 480 Output: Void Amount 725 315 100 # of times incontinent of urine 2 Other: Meal Dinner jello and applesauce Percent of Meal Consumed 75% 100% Feeding Ability Assist with Tray Set Up Urine Appearance Clear Clear Clear Urine Color Light Nena Dark Nena Dark Yellow Urine Odor Strong Normal Stool Size Smear Stool Color Brown Stool Consistency Soft # of times incontinent of 1 Bowels General appearance: cooperative, disheveled and no acute distress Head Head exam: Present atraumatic and normal inspection Additional comments: Left facial lesion Eye Eye exam: Present normal appearance ENT ENT exam: Present mucous membranes moist, normal exam and normal external ear exam Neck Neck exam: Present normal inspection Respiratory Respiratory exam: Present normal respiratory exam Cardiovascular Cardiovascular exam: Present normal rate and rhythm GI/Abdominal GI/Abdominal exam: Present normal bowel sounds Back Exam Back exam: Present normal inspection Neurological Exam Neurological exam: Present alert and oriented X3 Additional comments: Increased hand tremors Skin Skin exam: Present intact and warm OBJ DATA Labs CBC & Chem 7: 01/15/22 05:13 01/15/22 05:13 Labs: Abnormal Lab Results 01/15/22 01/15/22 01/14/22 05:13 05:13 10:42 RBC 3.88 L Hgb 13.3 L Hct 37.7 L MCH 34.3 H Plt Count 92 L Lymph % (Auto) 15.3 L [place] % (Auto) 14.3 H Lymph # (Auto) 0.91 L [place] # (Auto) VBG Lactic Acid POC Sodium Sodium 131 L POC Chloride Chloride 95 L POC Total CO2 POC BUN BUN 5 L 4 L Creatinine 0.5 L Glucose 106 H POC Glucose Calcium 8.5 L 8.5 L POC WB Ioniz Calcium Phosphorus 1.7 L Total Bilirubin 1.6 H 1.5 H AST 43 H 56 H Hyaline Casts Urine Mucus Ethyl Alcohol g/dL 01/14/22 01/14/22 01/14/22 10:42 07:26 05:41 RBC 4.31 L Hgb Hct MCH Plt Count 113 L Lymph % (Auto) 9.7 L [place] % (Auto) Lymph # (Auto) 0.80 L [place] # (Auto) 0.93 H VBG Lactic Acid 3.0 H 5.1 H* POC Sodium Sodium POC Chloride Chloride POC Total CO2 POC BUN BUN Creatinine Glucose POC Glucose Calcium POC WB Ioniz Calcium Phosphorus Total Bilirubin AST Hyaline Casts Urine Mucus Ethyl Alcohol g/dL 01/14/22 01/14/22 01/14/22 05:29 03:59 03:55 RBC 4.11 L Hgb Hct 39.0 L MCH 34.1 H Plt Count 129 L Lymph % (Auto) 12.1 L [place] % (Auto) Lymph # (Auto) 0.92 L [place] # (Auto) VBG Lactic Acid POC Sodium 131 L Sodium POC Chloride 94 L Chloride POC Total CO2 18.0 L POC BUN < 3 L BUN Creatinine Glucose POC Glucose 112 H Calcium POC WB Ioniz Calcium 1.03 L Phosphorus Total Bilirubin AST Hyaline Casts 7 H Urine Mucus Few A Ethyl Alcohol g/dL 01/14/22 01/14/22 03:55 03:55 RBC Hgb Hct MCH Plt Count Lymph % (Auto) [place] % (Auto) Lymph # (Auto) [place] # (Auto) VBG Lactic Acid 7.4 H* POC Sodium Sodium POC Chloride Chloride POC Total CO2 POC BUN BUN Creatinine Glucose POC Glucose Calcium POC WB Ioniz Calcium Phosphorus Total Bilirubin AST Hyaline Casts Urine Mucus Ethyl Alcohol g/dL 0.049 H Meds: Medications Acetaminophen (Acetaminophen 325 Mg Tablet) 650 mg PO Q6HP PRN; Protocol PRN Reason: Per Pain Protocol/Fever > 101 Albuterol/Ipratropium (Ipratropium/Albuterol 3 Ml Ampul.Neb) 3 ml NEB Q4HRT PRN PRN Reason: Wheezing Amlodipine Besylate (Amlodipine 5 Mg Tablet) 5 mg PO [facility] Last Admin: 01/14/22 20:35 Dose: Not Given Documented by: Clonidine HCl (Clonidine Hcl 0.1 Mg Tablet) 0.1 mg PO Q4HP PRN PRN Reason: ALC Docusate Sodium (Docusate Sodium 100 Mg Capsule) 100 mg PO BID [facility] Last Admin: 01/14/22 20:24 Dose: Not Given Documented by: Enoxaparin Sodium (Enoxaparin 40 Mg/0.4 Ml Syringe) 40 mg SQ DAILY [facility] Last Admin: 01/14/22 10:42 Dose: 40 mg Documented by: Folic Acid (Folic Acid 1 Mg Tablet) 1 mg PO DAILY [facility] Last Admin: 01/14/22 10:42 Dose: 1 mg Documented by: Haloperidol Lactate (Haloperidol Lactate 5 Mg/Ml Vial) 0.5 mg IV Q2HP PRN PRN Reason: Alcohol Withdrawal/Assess CIWA Iron Carb/Multivit/Business Systems Architect/Folic Acid (Multivit,Ther Iron,Ca,Fa & Min 1 Tablet) 1 tab PO DAILY [facility] Last Admin: 01/14/22 10:42 Dose: 1 tab Documented by: Lactulose (Lactulose 20 Gm/30 Ml Oral.Dai) 10 gm PO DAILYP PRN PRN Reason: Constipation Loperamide HCl (Loperamide 2 Mg Capsule) 2 mg PO PRN PRN PRN Reason: Diarrhea Lorazepam (Lorazepam 1 Mg Tablet) 0 mg PO Q4HP PRN; Protocol PRN Reason: Alcohol Withdrawal/Assess CIWA Ondansetron HCl (Ondansetron 4 Mg/2 Ml Vial) 4 mg IV Q4HP PRN; Protocol PRN Reason: Nausea And Vomiting Promethazine HCl (Promethazine 25 Mg/Ml Vial) 25 mg IV Q6HP PRN; Protocol PRN Reason: Nausea And Vomiting Senna (Sennosides 1 Tablet) 2 tab PO HSP PRN PRN Reason: Constipation Sodium Chloride (0.9 % Sodium Chloride 10 Ml Syringe) 10 ml IV Q8 [facility] Last Admin: 01/15/22 05:51 Dose: Not Given Documented by: Sodium Chloride (0.9 % Sodium Chloride 10 Ml Syringe) 10 ml IV Q8 [facility] Last Admin: 01/15/22 05:51 Dose: Not Given Documented by: Thiamine HCl (Thiamine 100 Mg Tablet) 100 mg PO QDAY [facility] A/P Assessment and plan (1) Nausea vomiting and diarrhea: Status: Acute (2) Alcohol withdrawal: Status: Acute (3) Skin cancer of face: Status: Acute (4) Anemia, hyperchromic: Status: Acute Narrative A/P Narrative: Assessment and Plans: 1. Alcohol withdrawal with associated nausea vomiting and diarrhea: Inpatient PCU with telemetry [facility] protocol Banana [id number] Thiamine with multivitamins KUB Zofran Phenergan Imodium manager data warehousecarbon capture power plant manager therapy 2. h/o left face skin cancer: f/u with oncologist outpatient 3. Anemia, hyperchromic: cbc w/ auto diff in the morning to trend H/H GI ppx: not currently indicated DVT ppx: Lovenox Code status: DNI Prognosis: guarded Disposition: inpatient PCU; PT Time Spent With Patient Time: Total time spent is greater than 50% in coordination of care (as documented) at patient's floor/unit and/or counseling patient: Total time spent with greater than 50% in coordination of care (as documented) at patient's floor/unit and/or counseling patient:: 35 - 50 minutes QUALITY VTE Deep Vein Thrombosis/Pulmonary Embolism Present on Admission: No
[2022-01-15] MEDS: ENOXAPARIN 40 MG/0.4 ML SYRINGE SQ SCH (08:41)
[2022-01-15] MEDS: THIAMINE 100 MG TABLET PO SCH (08:41)
[2022-01-15] MEDS: MULTIVIT,THER IRON,CA,FA & MIN 1 TABLET PO SCH (08:41)
[2022-01-15] MEDS: DOCUSATE SODIUM 100 MG CAPSULE PO SCH ×2 (08:41→20:22)
[2022-01-15] MEDS: FOLIC ACID 1 MG TABLET PO SCH (08:41)
[2022-01-15] MEDS: LORazepam 1 MG TABLET PO PRN ×2 (09:36→13:57)
[2022-01-15] MEDS ORDERED: DILTIAZEM 25 MG/5 ML VIAL IV ONE (12:28)
[2022-01-15] MEDS ORDERED: DILTIAZEM 125 MG in DEXTROSE 5% IN WATER 100 ML IV SCH (13:25)
[2022-01-15] MEDS: DILTIAZEM 30 MG TABLET PO SCH ×3 (13:38→20:48)
[2022-01-15] MEDS: DILTIAZEM 125 MG in DEXTROSE 5% IN WATER 100 ML IV SCH (13:40)
[2022-01-15] MEDS: 0.9 % SODIUM CHLORIDE 250 ML IV SCH (13:40)
[2022-01-15] MEDS ORDERED: LORazepam 2 MG/ML VIAL IV PRN ×3 (15:50→17:17)
[2022-01-15] MEDS ORDERED: LORazepam 2 MG/ML VIAL ONE (17:48)
[2022-01-15] MEDS: APIXABAN 5 MG TABLET PO SCH (20:48)
[2022-01-16] MEDS: 0.9 % SODIUM CHLORIDE 250 ML IV SCH ×2 (01:42→15:46)
[2022-01-16] MEDS: DILTIAZEM 125 MG in DEXTROSE 5% IN WATER 100 ML IV SCH ×2 (01:53→15:46)
[2022-01-16] MEDS: 0.9 % SODIUM CHLORIDE 10 ML SYRINGE IV SCH ×3 (05:30→20:29)
[2022-01-16 06:26] LABS: Basophils # (Auto) 0.01 K/mcL (0.00-0.30); Basophils % (Auto) 0.2 % (0.0-2.0); Eosinophils # (Auto) 0.28 K/mcL (0.00-0.70); Eosinophils % (Auto) 4.3 % (0.0-7.0); Hematocrit 36.1 % (40.1-51.0); Hemoglobin 12.8 g/dL (13.7-17.5); Lymphocytes # (Auto) 0.88 K/mcL (1.50-4.80); Lymphocytes % (Auto) 13.6 % (15.5-49.0); Mean Cell Volume 96.5 fL (80.0-100.0); Mean Corpuscular HGB Conc 35.5 g/dL (31.0-36.0); Mean Platelet Volume 9.2 fL (7.4-10.4); Monocytes # (Auto) 0.83 K/mcL (0.10-0.90); Monocytes % (Auto) 12.8 % (1.0-12.0); Neutrophils % (Auto) 68.8 % (38.0-78.0); Platelet Count 99 K/mcL (140-440); RBC 3.74 M/mcL (4.63-6.08); Red Cell Distribution Width 13.7 % (11.5-14.5); WBC 6.5 K/mcL (4.5-11.0)
[2022-01-16 06:48] LABS: ALT/SGPT 20 U/L (<40); AST/SGOT 35 U/L (<40); Albumin 3.1 gm/dL (3.2-5.2); Albumin/Globulin Ratio 1.2 (1.0-2.3); Alkaline Phosphatase 87 U/L (39-117); Bilirubin,Total 1.2 mg/dL (0.1-1.0); Blood Urea Nitrogen 5 mg/dL (8-23); Calcium 8.3 mg/dL (8.6-10.4); Carbon Dioxide 27 mmol/L (22-30); Chloride 96 mmol/L (96-108); Globulin 2.6 gm/dL (2.2-3.7); Glomerular Filtration Rate 104; Glucose 135 mg/dL (70-105); Phosphorous 2.2 mg/dL (2.5-4.5)
[2022-01-16] MEDS: DILTIAZEM 30 MG TABLET PO SCH ×4 (07:29→20:29)
[2022-01-16] MEDS: THIAMINE 100 MG TABLET PO SCH (08:20)
[2022-01-16] MEDS: DOCUSATE SODIUM 100 MG CAPSULE PO SCH ×2 (08:20→20:25)
[2022-01-16] MEDS: APIXABAN 5 MG TABLET PO SCH ×2 (08:20→20:29)
[2022-01-16] MEDS: FOLIC ACID 1 MG TABLET PO SCH (08:20)
[2022-01-16] MEDS: MULTIVIT,THER IRON,CA,FA & MIN 1 TABLET PO SCH (08:20)
--- NOTE | 2022-01-16 09:45 | Internal Med Progress Note ---
SUBJECTIVE Subjective Patient information: Note initiated : 01/16/22 at 9:40 am Service Date, if different from initiated Date: [] Patient: Johnathan Son 76 y/o M admitted on 01/14/22 for N/V/D. Chief Complaint: [] Interval history: History of present illness: Mr. Son is a 76 year old M history of skin cancer of his left face, alcohol abuse, presenting with 2-day history of nausea vomiting and diarrhea. Patient was hospitalized 1 year ago for alcohol withdrawal. Patient's state that he has been drinking beer up to 12 packs/day with last use yesterday morning. He is experiencing nausea vomiting and diarrhea for the past 2 days. He is also coming of general body weakness, gradually progressing over the past 3 months. He is complaining of anxiety and he has increased hand tremors. He denies any hallucinations. Vital signs at ED presentations significant for tachycardia with heart rate up to the 120s beats per minute. Labs significant for lactic acid 7.4 which came down to 3.0 after IV fluid given in the ED. Blood alcohol level was 0.049. Admission request made for nausea vomiting and diarrhea likely secondary to alcohol abuse/alcohol withdrawal. 01/15: CIWA score of 9. A&O X3. Denies nausea, vomiting, diarrhea. Positive for hallucinations, mainly visual. Positive for hand tremors. Good appetite. Continue CIWA protocol. Saline lock. Continue to work with physical therapy for placement planning. 01/16: Patient was being transferred to ICU with initiations of Cardizem drip and p.o. Cardizem after developing new onset atrial fibrillation's. His CIWA score was in the high teens overnight but this morning suspected to. He denies insomnia. He denies anxiety or agitations. He denies hallucinations. He denies nausea or vomiting but had an episode of diarrhea overnight. He denies increased hand tremors. He is committing of overall weakness especially lower extremity weakness. When physical therapist work with the patient's earlier this morning, he developed again sinus tachycardia with heart rate up to the 150s beats per minutes now was sitting at 1 teens beats per minute. Continue CIWA protocol. Continue p.o. Cardizem. Cardizem drip as needed for atrial fibrillation's. Pending 2D echocardiogram. Physical therapist recommended SNF placement, will start to look for SNF placement. Constitutional Vitals: Vital Signs Temp Pulse Resp BP Pulse Ox 37.0 C 97 H 17 115/76 98 01/16/22 08:02 01/16/22 08:02 01/16/22 08:02 01/16/22 08:02 01/16/22 08:33 Period Temp Pulse Resp BP Sys/White Pulse Ox Last 24 Hr 36.5 C-37.2 C 65-141 13-25 89-148/51-104 93-100 Intake and Output 01/15/22 01/16/22 01/16/22 21:59 05:59 13:59 Intake Total 350 512 240 Output Total 961 725 225 Balance -611 -213 15 Weight 75.614 kg Intake & Output: Intake & Output 01/15/22 01/16/22 01/16/22 21:59 05:59 13:59 Intake Total 350 512 240 Output Total 961 725 225 Balance -611 -213 15 Weight 75.614 kg Intake: IV 50 312 Sodium Chloride 0.9% 250 ml @ 267 20 mls/hr IV .[id number] [facility] Rx#: [id number] Cardizem 125 mg In Dextrose 5% 50 45 in Water 100 ml @ 5 MG/HR 5 mls /hr IV Q12H [facility] Rx#:[id number] Oral 300 200 240 Output: Void Amount 960 725 225 # of times incontinent of urine 1 Other: Meal Dinner Breakfast Percent of Meal Consumed 100% 100% Feeding Ability Total Assistance Urine Appearance Clear Clear Clear Urine Color Dark Yellow Dark Yellow Light Nena Urine Odor Normal Normal Normal Stool Size Small Stool Color Brown Stool Consistency Loose # Bowel Movements 1 # of times incontinent of 0 Bowels Head Head exam: Present atraumatic; Absent normal inspection Additional comments: Black eschar on his left lateral face Eye Eye exam: Present normal appearance ENT ENT exam: Present mucous membranes moist, normal exam and normal external ear exam Neck Neck exam: Present normal inspection Respiratory Respiratory exam: Present normal respiratory exam Cardiovascular Cardiovascular exam: Present tachycardia GI/Abdominal GI/Abdominal exam: Present normal bowel sounds Back Exam Back exam: Present normal inspection Neurological Exam Neurological exam: Present alert and oriented X3 Skin Skin exam: Present intact and warm OBJ DATA Labs CBC & Chem 7: 01/16/22 05:11 01/16/22 05:11 Labs: Abnormal Lab Results 01/16/22 01/16/22 01/15/22 05:11 05:11 05:13 RBC 3.74 L Hgb 12.8 L Hct 36.1 L MCH 34.2 H Plt Count 99 L Lymph % (Auto) 13.6 L [place] % (Auto) 12.8 H Lymph # (Auto) 0.88 L [place] # (Auto) VBG Lactic Acid POC Sodium Sodium 131 L 131 L Potassium 3.0 L POC Chloride Chloride 95 L POC Total CO2 POC BUN BUN 5 L 5 L Creatinine 0.5 L 0.5 L Glucose 135 H 106 H POC Glucose Calcium 8.3 L 8.5 L POC WB Ioniz Calcium Phosphorus 2.2 L 1.7 L Total Bilirubin 1.2 H 1.6 H AST 43 H Total Protein 5.7 L Albumin 3.1 L Hyaline Casts Urine Mucus Ethyl Alcohol g/dL 01/15/22 01/14/22 01/14/22 05:13 10:42 10:42 RBC 3.88 L 4.31 L Hgb 13.3 L Hct 37.7 L MCH 34.3 H Plt Count 92 L 113 L Lymph % (Auto) 15.3 L 9.7 L Weber % (Auto) 14.3 H Lymph # (Auto) 0.91 L 0.80 L [place] # (Auto) 0.93 H VBG Lactic Acid POC Sodium Sodium Potassium POC Chloride Chloride POC Total CO2 POC BUN BUN 4 L Creatinine Glucose POC Glucose Calcium 8.5 L POC WB Ioniz Calcium Phosphorus Total Bilirubin 1.5 H AST 56 H Total Protein Albumin Hyaline Casts Urine Mucus Ethyl Alcohol g/dL 01/14/22 01/14/22 01/14/22 07:26 05:41 05:29 RBC Hgb Hct MCH Plt Count Lymph % (Auto) [place] % (Auto) Lymph # (Auto) Weber # (Auto) VBG Lactic Acid 3.0 H 5.1 H* POC Sodium Sodium Potassium POC Chloride Chloride POC Total CO2 POC BUN BUN Creatinine Glucose POC Glucose Calcium POC WB Ioniz Calcium Phosphorus Total Bilirubin AST Total Protein Albumin Hyaline Casts 7 H Urine Mucus Few A Ethyl Alcohol g/dL 01/14/22 01/14/22 01/14/22 03:59 03:55 03:55 RBC 4.11 L Hgb Hct 39.0 L MCH 34.1 H Plt Count 129 L Lymph % (Auto) 12.1 L Weber % (Auto) Lymph # (Auto) 0.92 L Weber # (Auto) VBG Lactic Acid POC Sodium 131 L Sodium Potassium POC Chloride 94 L Chloride POC Total CO2 18.0 L POC BUN < 3 L BUN Creatinine Glucose POC Glucose 112 H Calcium POC WB Ioniz Calcium 1.03 L Phosphorus Total Bilirubin AST Total Protein Albumin Hyaline Casts Urine Mucus Ethyl Alcohol g/dL 0.049 H 01/14/22 03:55 RBC Hgb Hct MCH Plt Count Lymph % (Auto) Weber % (Auto) Lymph # (Auto) Weber # (Auto) VBG Lactic Acid 7.4 H* POC Sodium Sodium Potassium POC Chloride Chloride POC Total CO2 POC BUN BUN Creatinine Glucose POC Glucose Calcium POC WB Ioniz Calcium Phosphorus Total Bilirubin AST Total Protein Albumin Hyaline Casts Urine Mucus Ethyl Alcohol g/dL Meds: Medications Acetaminophen (Acetaminophen 325 Mg Tablet) 650 mg PO Q6HP PRN; Protocol PRN Reason: Per Pain Protocol/Fever > 101 Albuterol/Ipratropium (Ipratropium/Albuterol 3 Ml Ampul.Neb) 3 ml NEB Q4HRT PRN PRN Reason: Wheezing Apixaban (Apixaban 5 Mg Tablet) 5 mg PO BID [facility] Last Admin: 01/16/22 08:20 Dose: 5 mg Documented by: Clonidine HCl (Clonidine Hcl 0.1 Mg Tablet) 0.1 mg PO Q4HP PRN PRN Reason: ALC Diltiazem HCl (Diltiazem 30 Mg Tablet) 30 mg PO ACHS [facility] Last Admin: 01/16/22 07:29 Dose: 30 mg Documented by: Docusate Sodium (Docusate Sodium 100 Mg Capsule) 100 mg PO BID [facility] Last Admin: 01/16/22 08:20 Dose: Not Given Documented by: Folic Acid (Folic Acid 1 Mg Tablet) 1 mg PO DAILY [facility] Last Admin: 01/16/22 08:20 Dose: 1 mg Documented by: Haloperidol Lactate (Haloperidol Lactate 5 Mg/Ml Vial) 0.5 mg IV Q2HP PRN PRN Reason: Alcohol Withdrawal/Assess CIWA Diltiazem HCl 125 mg/ Dextrose 125 mls @ 5 mls/hr IV Q12H [facility]; Protocol Last Titration: 01/16/22 03:00 Dose: 0 mg/hr, 0 mls/hr Documented by: Sodium Chloride (Sodium Chloride 0.9%) 250 mls @ 20 mls/hr IV .[id number] [facility] Last Infusion: 01/16/22 03:00 Dose: 0 mls/hr Documented by: Iron Carb/Multivit/Fixing Carpenter/Folic Acid (Multivit,Ther Iron,Ca,Fa & Min 1 Tablet) 1 tab PO DAILY [facility] Last Admin: 01/16/22 08:20 Dose: 1 tab Documented by: Lactulose (Lactulose 20 Gm/30 Ml Oral.Dai) 10 gm PO DAILYP PRN PRN Reason: Constipation Loperamide HCl (Loperamide 2 Mg Capsule) 2 mg PO PRN PRN PRN Reason: Diarrhea Lorazepam (Lorazepam 2 Mg/Ml Vial) 1 - 4 mg IV Q1-4HP PRN; Protocol PRN Reason: Alcohol Withdrawal/Assess CIWA Ondansetron HCl (Ondansetron 4 Mg/2 Ml Vial) 4 mg IV Q4HP PRN; Protocol PRN Reason: Nausea And Vomiting Promethazine HCl (Promethazine 25 Mg/Ml Vial) 25 mg IV Q6HP PRN; Protocol PRN Reason: Nausea And Vomiting Senna (Sennosides 1 Tablet) 2 tab PO HSP PRN PRN Reason: Constipation Sodium Chloride (0.9 % Sodium Chloride 10 Ml Syringe) 10 ml IV Q8 [facility] Last Admin: 01/16/22 05:30 Dose: 10 ml Documented by: Thiamine HCl (Thiamine 100 Mg Tablet) 100 mg PO QDAY [facility] Last Admin: 01/16/22 08:20 Dose: 100 mg Documented by: A/P Assessment and plan (1) Nausea vomiting and diarrhea: Status: Acute (2) Alcohol withdrawal: Status: Acute (3) Skin cancer of face: Status: Acute (4) Anemia, hyperchromic: Status: Acute Narrative A/P Narrative: Assessment and Plans: 1. Alcohol withdrawal with associated nausea vomiting and diarrhea: Inpatient ICU with telemetry [facility] protocol s/p Banana [id number] Thiamine with multivitamins KUB Zofran Phenergan Imodium consulting property managersection 8 property manager therapy 2. h/o left face skin cancer: f/u with oncologist outpatient 3. Anemia, hyperchromic: cbc w/ auto diff in the morning to trend H/H 4. New onset atrial fibrillation: Cardizem 30 mg p.o. 4 times daily Cardizem drip standby Eliquis as anticoagulations 2D echocardiogram pending GI ppx: not currently indicated DVT ppx: Eliquis Code status: DNI Prognosis: guarded Disposition: inpatient ICU; PT-->SNF Critical Care Time: 60min Time Spent With Patient Time: Total time spent is greater than 50% in coordination of care (as documented) at patient's floor/unit and/or counseling patient: Total time spent with greater than 50% in coordination of care (as documented) at patient's floor/unit and/or counseling patient:: 50 - 70 minutes Total Critical Care Time: 60 QUALITY VTE Deep Vein Thrombosis/Pulmonary Embolism Present on Admission: No
[2022-01-16] MEDS ORDERED: POTASSIUM PHOSPHATE 20 MEQ in DEXTROSE 5% IN WATER 250 ML IV ONE (12:21)
[2022-01-17] MEDS: DILTIAZEM 125 MG in DEXTROSE 5% IN WATER 100 ML IV SCH (02:37)
[2022-01-17] MEDS: 0.9 % SODIUM CHLORIDE 250 ML IV SCH ×2 (02:37→16:42)
[2022-01-17] MEDS: 0.9 % SODIUM CHLORIDE 10 ML SYRINGE IV SCH ×3 (05:50→21:36)
[2022-01-17 06:11] LABS: Basophils # (Auto) 0.02 K/mcL (0.00-0.30); Basophils % (Auto) 0.3 % (0.0-2.0); Eosinophils % (Auto) 3.1 % (0.0-7.0); Hemoglobin 13.9 g/dL (13.7-17.5); Lymphocytes # (Auto) 0.95 K/mcL (1.50-4.80); Lymphocytes % (Auto) 14.6 % (15.5-49.0); Mean Cell Volume 97.1 fL (80.0-100.0); Mean Corpuscular HGB Conc 34.8 g/dL (31.0-36.0); Mean Platelet Volume 9.4 fL (7.4-10.4); Monocytes % (Auto) 16.9 % (1.0-12.0); Neutrophils % (Auto) 64.8 % (38.0-78.0); Platelet Count 99 K/mcL (140-440); RBC 4.12 M/mcL (4.63-6.08); Red Cell Distribution Width 13.9 % (11.5-14.5); WBC 6.5 K/mcL (4.5-11.0)
[2022-01-17 06:42] LABS: ALT/SGPT 20 U/L (<40); AST/SGOT 31 U/L (<40); Albumin 3.2 gm/dL (3.2-5.2); Albumin/Globulin Ratio 1.1 (1.0-2.3); Alkaline Phosphatase 80 U/L (39-117); Bilirubin,Total 1.3 mg/dL (0.1-1.0); Blood Urea Nitrogen 5 mg/dL (8-23); Calcium 8.7 mg/dL (8.6-10.4); Carbon Dioxide 25 mmol/L (22-30); Chloride 97 mmol/L (96-108); Glomerular Filtration Rate 104; Glucose 99 mg/dL (70-105); Phosphorous 3.4 mg/dL (2.5-4.5)
[2022-01-17] MEDS: DILTIAZEM 30 MG TABLET PO SCH ×4 (06:58→21:36)
[2022-01-17] MEDS: DOCUSATE SODIUM 100 MG CAPSULE PO SCH ×2 (08:27→21:36)
[2022-01-17] MEDS: FOLIC ACID 1 MG TABLET PO SCH (08:27)
[2022-01-17] MEDS: THIAMINE 100 MG TABLET PO SCH (08:27)
[2022-01-17] MEDS: APIXABAN 5 MG TABLET PO SCH ×2 (08:27→21:36)
[2022-01-17] MEDS: MULTIVIT,THER IRON,CA,FA & MIN 1 TABLET PO SCH (08:28)
--- NOTE | 2022-01-17 10:45 | Internal Med Progress Note ---
SUBJECTIVE Subjective Patient information: Note initiated : 01/17/22 at 10:40 am Service Date, if different from initiated Date: [] Patient: Johnathan Son 76 y/o M admitted on 01/14/22 for N/V/D. Chief Complaint: [] Interval history: History of present illness: Mr. Son is a 76 year old M history of skin cancer of his left face, alcohol abuse, presenting with 2-day history of nausea vomiting and diarrhea. Patient was hospitalized 1 year ago for alcohol withdrawal. Patient's state that he has been drinking beer up to 12 packs/day with last use yesterday morning. He is experiencing nausea vomiting and diarrhea for the past 2 days. He is also coming of general body weakness, gradually progressing over the past 3 months. He is complaining of anxiety and he has increased hand tremors. He denies any hallucinations. Vital signs at ED presentations significant for tachycardia with heart rate up to the 120s beats per minute. Labs significant for lactic acid 7.4 which came down to 3.0 after IV fluid given in the ED. Blood alcohol level was 0.049. Admission request made for nausea vomiting and diarrhea likely secondary to alcohol abuse/alcohol withdrawal. 01/15: CIWA score of 9. A&O X3. Denies nausea, vomiting, diarrhea. Positive for hallucinations, mainly visual. Positive for hand tremors. Good appetite. Continue CIWA protocol. Saline lock. Continue to work with physical therapy for placement planning. 01/16: Patient was being transferred to ICU with initiations of Cardizem drip and p.o. Cardizem after developing new onset atrial fibrillation's. His CIWA score was in the high teens overnight but this morning suspected to. He denies insomnia. He denies anxiety or agitations. He denies hallucinations. He denies nausea or vomiting but had an episode of diarrhea overnight. He denies increased hand tremors. He is committing of overall weakness especially lower extremity weakness. When physical therapist work with the patient's earlier this morning, he developed again sinus tachycardia with heart rate up to the 150s beats per minutes now was sitting at 1 teens beats per minute. Continue CIWA protocol. Continue p.o. Cardizem. Cardizem drip as needed for atrial fibrillation's. Pending 2D echocardiogram. Physical therapist recommended SNF placement, will start to look for SNF placement. 01/17: CIWA score of 2 this morning. Alert and oriented x3. Denies any hallucinations. Denies nausea vomiting or diarrhea. Denies insomnia. Good appetite. Denies increased hand tremors. Cardizem drip being switched off at around 3 AM this morning and heart rate in the 80s beats per minute currently. 2D echocardiogram negative for any endocardial thrombus. Continue CIWA protocol. Continue p.o. Cardizem. DC Cardizem drip. Transfer from ICU back to [facility] with telemetry. Pending SNF placement. Constitutional Vitals: Vital Signs Temp Pulse Resp BP Pulse Ox 37.4 C H 81 20 130/73 100 01/17/22 08:21 01/17/22 10:00 01/17/22 08:21 01/17/22 10:00 01/17/22 10:00 Period Temp Pulse Resp BP Sys/White Pulse Ox Last 24 Hr 36.5 C-38.3 C 67-119 18-20 100-165/59-118 95-100 Intake and Output 01/16/22 01/17/22 01/17/22 21:59 05:59 13:59 Intake Total 1724.5455 100 570 Output Total 1516 601 250 Balance 208.5455 -501 320 Weight 75.115 kg Intake & Output: Intake & Output 01/16/22 01/17/22 01/17/22 21:59 05:59 13:59 Intake Total 1724.5455 100 570 Output Total 1516 601 250 Balance 208.5455 -501 320 Weight 75.115 kg Intake: IV 254.5455 Potassium Phosphate 20 Meq In 254.5455 Dextrose 5% in Water 250 ml @ 127.273 mls/hr IV ONCE ONE Rx#: [id number] Oral 1470 100 570 Output: Void Amount 1515 600 250 # of times incontinent of urine 1 1 Other: Meal Dinner Breakfast Percent of Meal Consumed Refused 100% Urine Appearance Clear Clear Urine Color Bright Yellow Bright Yellow Urine Odor Normal Normal Head Head exam: Present atraumatic; Absent normal inspection Additional comments: Left face eschar lesions Eye Eye exam: Present normal appearance ENT ENT exam: Present mucous membranes moist, normal exam and normal external ear exam Neck Neck exam: Present normal inspection Respiratory Respiratory exam: Present normal respiratory exam Cardiovascular Cardiovascular exam: Present irregular rhythm GI/Abdominal GI/Abdominal exam: Present normal bowel sounds Back Exam Back exam: Present normal inspection Neurological Exam Neurological exam: Present alert and oriented X3 Skin Skin exam: Present intact and warm OBJ DATA Labs CBC & Chem 7: 01/17/22 05:15 01/17/22 05:15 Labs: Abnormal Lab Results 01/17/22 01/17/22 01/16/22 05:15 05:15 05:11 RBC 4.12 L Hgb Hct 40.0 L MCH Plt Count 99 L Lymph % (Auto) 14.6 L [place] % (Auto) 16.9 H Lymph # (Auto) 0.95 L [place] # (Auto) 1.10 H Sodium 132 L 131 L Potassium 3.0 L 3.0 L Chloride BUN 5 L 5 L Creatinine 0.5 L 0.5 L Glucose 135 H Calcium 8.3 L Phosphorus 2.2 L Total Bilirubin 1.3 H 1.2 H AST Total Protein 5.7 L Albumin 3.1 L 01/16/22 01/15/22 01/15/22 05:11 05:13 05:13 RBC 3.74 L 3.88 L Hgb 12.8 L 13.3 L Hct 36.1 L 37.7 L MCH 34.2 H 34.3 H Plt Count 99 L 92 L Lymph % (Auto) 13.6 L 15.3 L [place] % (Auto) 12.8 H 14.3 H Lymph # (Auto) 0.88 L 0.91 L [place] # (Auto) Sodium 131 L Potassium Chloride 95 L BUN 5 L Creatinine 0.5 L Glucose 106 H Calcium 8.5 L Phosphorus 1.7 L Total Bilirubin 1.6 H AST 43 H Total Protein Albumin 01/14/22 01/14/22 10:42 10:42 RBC 4.31 L Hgb Hct MCH Plt Count 113 L Lymph % (Auto) 9.7 L [place] % (Auto) Lymph # (Auto) 0.80 L [place] # (Auto) 0.93 H Sodium Potassium Chloride BUN 4 L Creatinine Glucose Calcium 8.5 L Phosphorus Total Bilirubin 1.5 H AST 56 H Total Protein Albumin Meds: Medications Acetaminophen (Acetaminophen 325 Mg Tablet) 650 mg PO Q6HP PRN; Protocol PRN Reason: Per Pain Protocol/Fever > 101 Last Admin: 01/16/22 13:41 Dose: 650 mg Documented by: Albuterol/Ipratropium (Ipratropium/Albuterol 3 Ml Ampul.Neb) 3 ml NEB Q4HRT PRN PRN Reason: Wheezing Apixaban (Apixaban 5 Mg Tablet) 5 mg PO BID [facility] Last Admin: 01/17/22 08:27 Dose: 5 mg Documented by: Clonidine HCl (Clonidine Hcl 0.1 Mg Tablet) 0.1 mg PO Q4HP PRN PRN Reason: ALC Last Admin: 01/16/22 13:26 Dose: 0.1 mg Documented by: Diltiazem HCl (Diltiazem 30 Mg Tablet) 30 mg PO ACHS [facility] Last Admin: 01/17/22 06:58 Dose: 30 mg Documented by: Docusate Sodium (Docusate Sodium 100 Mg Capsule) 100 mg PO BID [facility] Last Admin: 01/17/22 08:27 Dose: 100 mg Documented by: Folic Acid (Folic Acid 1 Mg Tablet) 1 mg PO DAILY [facility] Last Admin: 01/17/22 08:27 Dose: 1 mg Documented by: Haloperidol Lactate (Haloperidol Lactate 5 Mg/Ml Vial) 0.5 mg IV Q2HP PRN PRN Reason: Alcohol Withdrawal/Assess CIWA Diltiazem HCl 125 mg/ Dextrose 125 mls @ 5 mls/hr IV Q12H [facility]; Protocol Last Admin: 01/17/22 02:37 Dose: Not Given Documented by: Sodium Chloride (Sodium Chloride 0.9%) 250 mls @ 20 mls/hr IV .[id number] [facility] Last Admin: 01/17/22 02:37 Dose: Not Given Documented by: Iron Carb/Multivit/[place]/Folic Acid (Multivit,Ther Iron,Ca,Fa & Min 1 Tablet) 1 tab PO DAILY [facility] Last Admin: 01/17/22 08:28 Dose: 1 tab Documented by: Lactulose (Lactulose 20 Gm/30 Ml Oral.Dai) 10 gm PO DAILYP PRN PRN Reason: Constipation Loperamide HCl (Loperamide 2 Mg Capsule) 2 mg PO PRN PRN PRN Reason: Diarrhea Lorazepam (Lorazepam 2 Mg/Ml Vial) 1 - 4 mg IV Q1-4HP PRN; Protocol PRN Reason: Alcohol Withdrawal/Assess CIWA Last Admin: 01/16/22 13:27 Dose: 2 mg Documented by: Ondansetron HCl (Ondansetron 4 Mg/2 Ml Vial) 4 mg IV Q4HP PRN; Protocol PRN Reason: Nausea And Vomiting Promethazine HCl (Promethazine 25 Mg/Ml Vial) 25 mg IV Q6HP PRN; Protocol PRN Reason: Nausea And Vomiting Senna (Sennosides 1 Tablet) 2 tab PO HSP PRN PRN Reason: Constipation Sodium Chloride (0.9 % Sodium Chloride 10 Ml Syringe) 10 ml IV Q8 [facility] Last Admin: 01/17/22 05:50 Dose: 10 ml Documented by: Thiamine HCl (Thiamine 100 Mg Tablet) 100 mg PO QDAY [facility] Last Admin: 01/17/22 08:27 Dose: 100 mg Documented by: A/P Assessment and plan (1) Nausea vomiting and diarrhea: Status: Acute (2) Alcohol withdrawal: Status: Acute (3) Skin cancer of face: Status: Acute (4) Anemia, hyperchromic: Status: Acute Narrative A/P Narrative: Assessment and Plans: 1. Alcohol withdrawal with associated nausea vomiting and diarrhea: inpatient ICU-->med surg telemetry CIWA protocol s/p Banana [id number] Thiamine with multivitamins KUB Zofran Phenergan Imodium meat sales and storage managerreconciliation manager therapy 2. h/o left face skin cancer: f/u with oncologist outpatient 3. Anemia, hyperchromic: cbc w/ auto diff in the morning to trend H/H 4. New onset atrial fibrillation: Cardizem 30 mg p.o. QID d/c Cardizem drip Eliquis as anticoagulations 2D echocardiogram-->no endocardial thrombus GI ppx: not currently indicated DVT ppx: Eliquis Code status: DNI Prognosis: guarded Disposition: inpatient ICU-->med surg telemetry; PT-->SNF Critical Care Time: 45min Time Spent With Patient Time: Total time spent is greater than 50% in coordination of care (as documented) at patient's floor/unit and/or counseling patient: Total time spent with greater than 50% in coordination of care (as documented) at patient's floor/unit and/or counseling patient:: 35 - 50 minutes QUALITY VTE Deep Vein Thrombosis/Pulmonary Embolism Present on Admission: No
[2022-01-17] MEDS: POTASSIUM CHLORIDE 20 MEQ TABLET PO SCH ×2 (11:04→16:37)
--- NOTE | 2022-01-17 13:24 | Internal Med Progress Note ---
SUBJECTIVE Subjective Patient information: Note initiated : 01/17/22 at 1:20 pm Service Date, if different from initiated Date: [] Patient: Johnathan Son 76 y/o M admitted on 01/14/22 for N/V/D. Chief Complaint: [] Interval history: History of present illness: Mr. Son is a 76 year old M history of skin cancer of his left face, alcohol abuse, presenting with 2-day history of nausea vomiting and diarrhea. Patient was hospitalized 1 year ago for alcohol withdrawal. Patient's state that he has been drinking beer up to 12 packs/day with last use yesterday morning. He is experiencing nausea vomiting and diarrhea for the past 2 days. He is also coming of general body weakness, gradually progressing over the past 3 months. He is complaining of anxiety and he has increased hand tremors. He denies any hallucinations. Vital signs at ED presentations significant for tachycardia with heart rate up to the 120s beats per minute. Labs significant for lactic acid 7.4 which came down to 3.0 after IV fluid given in the ED. Blood alcohol level was 0.049. Admission request made for nausea vomiting and diarrhea likely secondary to alcohol abuse/alcohol withdrawal. 01/15: CIWA score of 9. A&O X3. Denies nausea, vomiting, diarrhea. Positive for hallucinations, mainly visual. Positive for hand tremors. Good appetite. Continue CIWA protocol. Saline lock. Continue to work with physical therapy for placement planning. 01/16: Patient was being transferred to ICU with initiations of Cardizem drip and p.o. Cardizem after developing new onset atrial fibrillation's. His CIWA score was in the high teens overnight but this morning suspected to. He denies insomnia. He denies anxiety or agitations. He denies hallucinations. He denies nausea or vomiting but had an episode of diarrhea overnight. He denies increased hand tremors. He is committing of overall weakness especially lower extremity weakness. When physical therapist work with the patient's earlier this morning, he developed again sinus tachycardia with heart rate up to the 150s beats per minutes now was sitting at 1 teens beats per minute. Continue CIWA protocol. Continue p.o. Cardizem. Cardizem drip as needed for atrial fibrillation's. Pending 2D echocardiogram. Physical therapist recommended SNF placement, will start to look for SNF placement. 01/17: CIWA score of 2 this morning. Alert and oriented x3. Denies any hallucinations. Denies nausea vomiting or diarrhea. Denies insomnia. Good appetite. Denies increased hand tremors. Cardizem drip being switched off at around 3 AM this morning and heart rate in the 80s beats per minute currently. 2D echocardiogram negative for any endocardial thrombus. Continue CIWA protocol. Continue p.o. Cardizem. DC Cardizem drip. Transfer from ICU back to [facility] with telemetry. Pending SNF placement. 01/18 Constitutional Vitals: Vital Signs Temp Pulse Resp BP Pulse Ox 98.8 F 108 H 18 146/83 98 01/17/22 12:01 01/17/22 12:01 01/17/22 11:00 01/17/22 12:01 01/17/22 12:01 Period Temp Pulse Resp BP Sys/White Pulse Ox Last 24 Hr 97.7 F-100.9 F 67-108 18-20 100-161/59-93 95-100 Intake and Output 01/16/22 01/17/22 01/17/22 21:59 05:59 13:59 Intake Total 1724.5455 100 810 Output Total 1516 601 725 Balance 208.5455 -501 85 Weight 75.115 kg Intake & Output: Intake & Output 01/16/22 01/17/22 01/17/22 21:59 05:59 13:59 Intake Total 1724.5455 100 810 Output Total 1516 601 725 Balance 208.5455 -501 85 Weight 75.115 kg Intake: IV 254.5455 Potassium Phosphate 20 Meq In 254.5455 Dextrose 5% in Water 250 ml @ 127.273 mls/hr IV ONCE ONE Rx#: [id number] Oral 1470 100 810 Output: Void Amount 1515 600 725 # of times incontinent of urine 1 1 Other: Meal Dinner Lunch Percent of Meal Consumed Refused 100% Urine Appearance Clear Clear Clear Urine Color Bright Yellow Bright Yellow Dark Yellow Urine Odor Normal Normal Normal Exam: General: Alert, Awake, No acute Distress Eyes/N/T: EOMI, Head/Neck: neck supple, Left face eschar lesions CV: RRR, No murmurs, Pulm: Clear b/l, no wheezing/rhonchi/rales Abd: soft, nontender, +BS x4 Ext: no clubbing/cyanosis/edema Neuro: Alert, no focal deficits, moves all extremities, Skin: warm/dry OBJ DATA Labs CBC & Chem 7: 01/17/22 05:15 01/17/22 05:15 Labs: Abnormal Lab Results 01/17/22 01/17/22 01/16/22 05:15 05:15 05:11 RBC 4.12 L Hgb Hct 40.0 L MCH Plt Count 99 L Lymph % (Auto) 14.6 L [place] % (Auto) 16.9 H Lymph # (Auto) 0.95 L [place] # (Auto) 1.10 H Sodium 132 L 131 L Potassium 3.0 L 3.0 L Chloride BUN 5 L 5 L Creatinine 0.5 L 0.5 L Glucose 135 H Calcium 8.3 L Phosphorus 2.2 L Total Bilirubin 1.3 H 1.2 H AST Total Protein 5.7 L Albumin 3.1 L 01/16/22 01/15/22 01/15/22 05:11 05:13 05:13 RBC 3.74 L 3.88 L Hgb 12.8 L 13.3 L Hct 36.1 L 37.7 L MCH 34.2 H 34.3 H Plt Count 99 L 92 L Lymph % (Auto) 13.6 L 15.3 L [place] % (Auto) 12.8 H 14.3 H Lymph # (Auto) 0.88 L 0.91 L [place] # (Auto) Sodium 131 L Potassium Chloride 95 L BUN 5 L Creatinine 0.5 L Glucose 106 H Calcium 8.5 L Phosphorus 1.7 L Total Bilirubin 1.6 H AST 43 H Total Protein Albumin Meds: Medications Acetaminophen (Acetaminophen 325 Mg Tablet) 650 mg PO Q6HP PRN; Protocol PRN Reason: Per Pain Protocol/Fever > 101 Last Admin: 01/16/22 13:41 Dose: 650 mg Documented by: Albuterol/Ipratropium (Ipratropium/Albuterol 3 Ml Ampul.Neb) 3 ml NEB Q4HRT PRN PRN Reason: Wheezing Apixaban (Apixaban 5 Mg Tablet) 5 mg PO BID [facility] Last Admin: 01/17/22 08:27 Dose: 5 mg Documented by: Clonidine HCl (Clonidine Hcl 0.1 Mg Tablet) 0.1 mg PO Q4HP PRN PRN Reason: ALC Last Admin: 01/16/22 13:26 Dose: 0.1 mg Documented by: Diltiazem HCl (Diltiazem 30 Mg Tablet) 30 mg PO ACHS [facility] Last Admin: 01/17/22 11:04 Dose: 30 mg Documented by: Docusate Sodium (Docusate Sodium 100 Mg Capsule) 100 mg PO BID [facility] Last Admin: 01/17/22 08:27 Dose: 100 mg Documented by: Folic Acid (Folic Acid 1 Mg Tablet) 1 mg PO DAILY [facility] Last Admin: 01/17/22 08:27 Dose: 1 mg Documented by: Haloperidol Lactate (Haloperidol Lactate 5 Mg/Ml Vial) 0.5 mg IV Q2HP PRN PRN Reason: Alcohol Withdrawal/Assess CIWA Sodium Chloride (Sodium Chloride 0.9%) 250 mls @ 20 mls/hr IV .[id number] [facility] Last Admin: 01/17/22 02:37 Dose: Not Given Documented by: Iron Carb/Multivit/[place]/Folic Acid (Multivit,Ther Iron,Ca,Fa & Min 1 Tablet) 1 tab PO DAILY [facility] Last Admin: 01/17/22 08:28 Dose: 1 tab Documented by: Lactulose (Lactulose 20 Gm/30 Ml Oral.Dai) 10 gm PO DAILYP PRN PRN Reason: Constipation Loperamide HCl (Loperamide 2 Mg Capsule) 2 mg PO PRN PRN PRN Reason: Diarrhea Lorazepam (Lorazepam 2 Mg/Ml Vial) 1 - 4 mg IV Q1-4HP PRN; Protocol PRN Reason: Alcohol Withdrawal/Assess CIWA Last Admin: 01/16/22 13:27 Dose: 2 mg Documented by: Ondansetron HCl (Ondansetron 4 Mg/2 Ml Vial) 4 mg IV Q4HP PRN; Protocol PRN Reason: Nausea And Vomiting Potassium Chloride (Potassium Chloride 20 Meq Tablet) 40 meq PO BIDCC [facility] Last Admin: 01/17/22 11:04 Dose: 40 meq Documented by: Promethazine HCl (Promethazine 25 Mg/Ml Vial) 25 mg IV Q6HP PRN; Protocol PRN Reason: Nausea And Vomiting Senna (Sennosides 1 Tablet) 2 tab PO HSP PRN PRN Reason: Constipation Sodium Chloride (0.9 % Sodium Chloride 10 Ml Syringe) 10 ml IV Q8 [facility] Last Admin: 01/17/22 05:50 Dose: 10 ml Documented by: Thiamine HCl (Thiamine 100 Mg Tablet) 100 mg PO QDAY [facility] Last Admin: 01/17/22 08:27 Dose: 100 mg Documented by: A/P Narrative A/P Narrative: Assessment and Plans: *Alcohol withdrawal with associated nausea/vomiting/diarrhea: -[facility] protocol -Thiamine with multivitamins -Zofran/Phenergan/Imodium *New onset atrial fibrillation: -Cardizem 30 mg p.o. 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
--- NOTE | 2022-01-17 13:26 | Discharge Summary ---
Discharge Provider Provider IMPORTANT FOLLOW-UP INFORMATION FOR PCP: Patient information: Note initiated : 01/17/22 at 1:25 pm Service Date, if different from initiated Date: [] Patient: Johnathan Son 76 y/o M admitted on 01/14/22 for N/V/D. Chief Complaint: [] Date of admission: 01/14/22 09:30 Primary care physician: Noe Anderson MD Consults: 01/14/22 Consult to Physician [CONS] Stat Comment: Consulting Provider: Aaron Jimenez Reason For Exam: Physician to Consult COURSE Hospital Course Hospital course: History of present illness: Mr. Son is a 76 year old M history of skin cancer of his left face, alcohol abuse, presenting with 2-day history of nausea vomiting and diarrhea. Patient was hospitalized 1 year ago for alcohol withdrawal. Patient's state that he has been drinking beer up to 12 packs/day with last use yesterday morning. He is experiencing nausea vomiting and diarrhea for the past 2 days. He is also coming of general body weakness, gradually progressing over the past 3 months. He is complaining of anxiety and he has increased hand tremors. He denies any hallucinations. Vital signs at ED presentations significant for tachycardia with heart rate up to the 120s beats per minute. Labs significant for lactic acid 7.4 which came down to 3.0 after IV fluid given in the ED. Blood alcohol level was 0.049. Admission request made for nausea vomiting and diarrhea likely secondary to alcohol abuse/alcohol withdrawal. 01/15: CIWA score of 9. A&O X3. Denies nausea, vomiting, diarrhea. Positive for hallucinations, mainly visual. Positive for hand tremors. Good appetite. Continue CIWA protocol. Saline lock. Continue to work with physical therapy for placement planning. 01/16: Patient was being transferred to ICU with initiations of Cardizem drip and p.o. Cardizem after developing new onset atrial fibrillation's. His CIWA score was in the high teens overnight but this morning suspected to. He denies insomnia. He denies anxiety or agitations. He denies hallucinations. He denies nausea or vomiting but had an episode of diarrhea overnight. He denies increased hand tremors. He is committing of overall weakness especially lower extremity weakness. When physical therapist work with the patient's earlier this morning, he developed again sinus tachycardia with heart rate up to the 150s beats per minutes now was sitting at 1 teens beats per minute. Continue CIWA protocol. Continue p.o. Cardizem. Cardizem drip as needed for atrial fibrillation's. Pending 2D echocardiogram. Physical therapist recommended SNF placement, will start to look for SNF placement. 01/17: CIWA score of 2 this morning. Alert and oriented x3. Denies any hallucinations. Denies nausea vomiting or diarrhea. Denies insomnia. Good appetite. Denies increased hand tremors. Cardizem drip being switched off at around 3 AM this morning and heart rate in the 80s beats per minute currently. 2D echocardiogram negative for any endocardial thrombus. Continue CIWA protocol. Continue p.o. Cardizem. DC Cardizem drip. Transfer from ICU back to [facility] with telemetry. Pending SNF placement. Assessment and Plans: *Alcohol withdrawal with associated nausea/vomiting/diarrhea: *New onset atrial fibrillation: -Cardizem 30 mg p.o. 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 fib generalized we Secondary discharge diagnosis: History skin cancer chronic anemia hypertension possible mild cognitive impairment Time Spent with Patient Time attestation: Total time spent providing and/or coordinating discharge services: Time spent: Greater than 30 minutes EXAM Constitutional Vitals: Temp Pulse Resp BP Pulse Ox 98.8 F 108 H 18 146/83 98 01/17/22 12:01 01/17/22 12:01 01/17/22 11:00 01/17/22 12:01 01/17/22 12:01 Discharge Data Data Completed and Pending Labs on day of discharge: Labs from last 24 hours 01/17/22 01/17/22 05:15 05:15 WBC 6.5 RBC 4.12 L Hgb 13.9 Hct 40.0 L MCV 97.1 MCH 33.7 MCHC 34.8 RDW 13.9 Plt Count 99 L MPV 9.4 Immature Gran % (Auto) 0.3 Neut % (Auto) 64.8 Lymph % (Auto) 14.6 L [place] % (Auto) 16.9 H Eos % (Auto) 3.1 Baso % (Auto) 0.3 Lymph # (Auto) 0.95 L [place] # (Auto) 1.10 H Eos # (Auto) 0.20 Baso # (Auto) 0.02 Immature Gran # 0.02 Absolute Neutrophils 4.23 Sodium 132 L Potassium 3.0 L Chloride 97 Carbon Dioxide 25 Anion Gap 10.0 BUN 5 L Creatinine 0.5 L GFR Calculation 104 Glucose 99 Calcium 8.7 Phosphorus 3.4 Magnesium 1.9 Total Bilirubin 1.3 H AST 31 ALT 20 Alkaline Phosphatase 80 Total Protein 6.2 Albumin 3.2 Globulin 3.0 Albumin/Globulin Ratio 1.1 Discharge Plan Patient/Caregiver Discharge Instructions Activity: ambulate only with your walker Diet: Regular Diet Prescriptions: New diltiazem HCl 30 mg Tablet 30 mg PO ACHS Qty: 120 0RF Eliquis 5 mg Tablet 5 mg PO BID Qty: 60 0RF Continued amlodipine 5 mg Tablet 5 mg PO HS Qty: 60 4RF Follow Up Plan Follow up with: Noe Anderson MD [Primary Care Provider] - Patient Disposition: Xfer SNF Prognosis: Fair Rehab Potential: Fair I certify that the patient requires SNF services: Yes Overall status at discharge: patient is progressing back to baseline QUALITY VTE Deep Vein Thrombosis/Pulmonary Embolism Present on Admission: No
[2022-01-17] MEDS ORDERED: POTASSIUM CHLORIDE 20 MEQ TABLET PO SCH (17:30)
[2022-01-18] MEDS: 0.9 % SODIUM CHLORIDE 250 ML IV SCH (04:18)
[2022-01-18] MEDS: 0.9 % SODIUM CHLORIDE 10 ML SYRINGE IV SCH (04:39)
[2022-01-18 07:14] LABS: Basophils # (Auto) 0.03 K/mcL (0.00-0.30); Basophils % (Auto) 0.4 % (0.0-2.0); Eosinophils # (Auto) 0.12 K/mcL (0.00-0.70); Eosinophils % (Auto) 1.6 % (0.0-7.0); Hematocrit 39.7 % (40.1-51.0); Lymphocytes # (Auto) 1.15 K/mcL (1.50-4.80); Lymphocytes % (Auto) 14.9 % (15.5-49.0); Mean Cell Volume 96.8 fL (80.0-100.0); Mean Corpuscular HGB Conc 35.3 g/dL (31.0-36.0); Mean Platelet Volume 9.1 fL (7.4-10.4); Monocytes % (Auto) 16.8 % (1.0-12.0); Neutrophils % (Auto) 65.9 % (38.0-78.0); Platelet Count 113 K/mcL (140-440); Red Cell Distribution Width 13.9 % (11.5-14.5); WBC 7.7 K/mcL (4.5-11.0)
--- NOTE | 2022-01-18 07:26 | Internal Med Progress Note ---
SUBJECTIVE Subjective Patient information: Note initiated : 01/18/22 at 7:23 am Service Date, if different from initiated Date: [] Patient: Johnathan Son 76 y/o M admitted on 01/14/22 for N/V/D. Chief Complaint: [] Interval history: History of present illness: Mr. Son is a 76 year old M history of skin cancer of his left face, alcohol abuse, presenting with 2-day history of nausea vomiting and diarrhea. Patient was hospitalized 1 year ago for alcohol withdrawal. Patient's state that he has been drinking beer up to 12 packs/day with last use yesterday morning. He is experiencing nausea vomiting and diarrhea for the past 2 days. He is also coming of general body weakness, gradually progressing over the past 3 months. He is complaining of anxiety and he has increased hand tremors. He denies any hallucinations. Vital signs at ED presentations significant for tachycardia with heart rate up to the 120s beats per minute. Labs significant for lactic acid 7.4 which came down to 3.0 after IV fluid given in the ED. Blood alcohol level was 0.049. Admission request made for nausea vomiting and diarrhea likely secondary to alcohol abuse/alcohol withdrawal. 01/15: CIWA score of 9. A&O X3. Denies nausea, vomiting, diarrhea. Positive for hallucinations, mainly visual. Positive for hand tremors. Good appetite. Continue CIWA protocol. Saline lock. Continue to work with physical therapy for placement planning. 01/16: Patient was being transferred to ICU with initiations of Cardizem drip and p.o. Cardizem after developing new onset atrial fibrillation's. His CIWA score was in the high teens overnight but this morning suspected to. He denies insomnia. He denies anxiety or agitations. He denies hallucinations. He denies nausea or vomiting but had an episode of diarrhea overnight. He denies increased hand tremors. He is committing of overall weakness especially lower extremity weakness. When physical therapist work with the patient's earlier this morning, he developed again sinus tachycardia with heart rate up to the 150s beats per minutes now was sitting at 1 teens beats per minute. Continue CIWA protocol. Continue p.o. Cardizem. Cardizem drip as needed for atrial fibrillation's. Pending 2D echocardiogram. Physical therapist recommended SNF placement, will start to look for SNF placement. 01/17: CIWA score of 2 this morning. Alert and oriented x3. Denies any hallucinations. Denies nausea vomiting or diarrhea. Denies insomnia. Good appetite. Denies increased hand tremors. Cardizem drip being switched off at around 3 AM this morning and heart rate in the 80s beats per minute currently. 2D echocardiogram negative for any endocardial thrombus. Continue CIWA protocol. Continue p.o. Cardizem. DC Cardizem drip. Transfer from ICU back to [facility] with telemetry. Pending SNF placement. 01/18 Patient states poor sleep but otherwise no events overnight. Platelets mildly improved. Sodium stable. Potassium mildly low. Review of Systems: denies headache/fever/chills/nausea/vomiting/chest or abdominal pain/cough/dyspnea/diarrhea. Otherwise see above. Constitutional Vitals: Vital Signs Temp Pulse Resp BP Pulse Ox 97.8 F 90 18 156/86 97 01/18/22 06:56 01/18/22 06:56 01/18/22 03:28 01/18/22 06:56 01/18/22 06:56 Period Temp Pulse Resp BP Sys/White Pulse Ox Last 24 Hr 97.8 F-99.3 F 79-108 18-20 113-168/64-97 96-100 Intake and Output 01/17/22 01/18/22 01/18/22 21:59 05:59 13:59 Intake Total 1080 600 Output Total 600 1550 Balance 480 -950 Weight 74.797 kg Intake & Output: Intake & Output 01/17/22 01/18/22 01/18/22 21:59 05:59 13:59 Intake Total 1080 600 Output Total 600 1550 Balance 480 -950 Weight 74.797 kg Intake: Oral 1080 600 Output: Void Amount 600 1550 Other: Meal Dinner Percent of Meal Consumed 100% Urine Odor Normal # Voids 1 Exam: General: Alert, Awake, No acute Distress Eyes/N/T: EOMI, Head/Neck: neck supple, Left face eschar lesions CV: RRR, No murmurs, Pulm: Clear b/l, no wheezing/rhonchi/rales Abd: soft, nontender, +BS x4 Ext: no clubbing/cyanosis/edema Neuro: Alert, no focal deficits, moves all extremities, Skin: warm/dry OBJ DATA Labs CBC & Chem 7: 01/18/22 05:54 01/18/22 05:53 Labs: Abnormal Lab Results 01/18/22 01/17/22 01/17/22 05:54 05:15 05:15 RBC 4.10 L 4.12 L Hgb Hct 39.7 L 40.0 L MCH 34.1 H Plt Count 113 L 99 L Lymph % (Auto) 14.9 L 14.6 L Bledsoe % (Auto) 16.8 H 16.9 H Lymph # (Auto) 1.15 L 0.95 L Bledsoe # (Auto) 1.30 H 1.10 H Sodium 132 L Potassium 3.0 L BUN 5 L Creatinine 0.5 L Glucose Calcium Phosphorus Total Bilirubin 1.3 H Total Protein Albumin 01/16/22 01/16/22 05:11 05:11 RBC 3.74 L Hgb 12.8 L Hct 36.1 L MCH 34.2 H Plt Count 99 L Lymph % (Auto) 13.6 L Bledsoe % (Auto) 12.8 H Lymph # (Auto) 0.88 L Bledsoe # (Auto) Sodium 131 L Potassium 3.0 L BUN 5 L Creatinine 0.5 L Glucose 135 H Calcium 8.3 L Phosphorus 2.2 L Total Bilirubin 1.2 H Total Protein 5.7 L Albumin 3.1 L Meds: Medications Acetaminophen (Acetaminophen 325 Mg Tablet) 650 mg PO Q6HP PRN; Protocol PRN Reason: Per Pain Protocol/Fever > 101 Last Admin: 01/16/22 13:41 Dose: 650 mg Documented by: Albuterol/Ipratropium (Ipratropium/Albuterol 3 Ml Ampul.Neb) 3 ml NEB Q4HRT PRN PRN Reason: Wheezing Apixaban (Apixaban 5 Mg Tablet) 5 mg PO BID LORETA Last Admin: 01/17/22 21:36 Dose: 5 mg Documented by: Clonidine HCl (Clonidine Hcl 0.1 Mg Tablet) 0.1 mg PO Q4HP PRN PRN Reason: ALC Last Admin: 01/16/22 13:26 Dose: 0.1 mg Documented by: Diltiazem HCl (Diltiazem 30 Mg Tablet) 30 mg PO ACHS LORETA Last Admin: 01/17/22 21:36 Dose: 30 mg Documented by: Docusate Sodium (Docusate Sodium 100 Mg Capsule) 100 mg PO BID [facility] Last Admin: 01/17/22 21:36 Dose: 100 mg Documented by: Folic Acid (Folic Acid 1 Mg Tablet) 1 mg PO DAILY [facility] Last Admin: 01/17/22 08:27 Dose: 1 mg Documented by: Haloperidol Lactate (Haloperidol Lactate 5 Mg/Ml Vial) 0.5 mg IV Q2HP PRN PRN Reason: Alcohol Withdrawal/Assess CIWA Sodium Chloride (Sodium Chloride 0.9%) 250 mls @ 20 mls/hr IV .[id number] [facility] Last Admin: 01/18/22 04:18 Dose: Not Given Documented by: Iron Carb/Multivit/Bandmill Operator/Folic Acid (Multivit,Ther Iron,Ca,Fa & Min 1 Tablet) 1 tab PO DAILY [facility] Last Admin: 01/17/22 08:28 Dose: 1 tab Documented by: Lactulose (Lactulose 20 Gm/30 Ml Oral.Dai) 10 gm PO DAILYP PRN PRN Reason: Constipation Loperamide HCl (Loperamide 2 Mg Capsule) 2 mg PO PRN PRN PRN Reason: Diarrhea Lorazepam (Lorazepam 2 Mg/Ml Vial) 1 - 4 mg IV Q1-4HP PRN; Protocol PRN Reason: Alcohol Withdrawal/Assess [facility] Last Admin: 01/16/22 13:27 Dose: 2 mg Documented by: Ondansetron HCl (Ondansetron 4 Mg/2 Ml Vial) 4 mg IV Q4HP PRN; Protocol PRN Reason: Nausea And Vomiting Potassium Chloride (Potassium Chloride 20 Meq Tablet) 40 meq PO BIDCC [facility] Last Admin: 01/17/22 16:37 Dose: 40 meq Documented by: Promethazine HCl (Promethazine 25 Mg/Ml Vial) 25 mg IV Q6HP PRN; Protocol PRN Reason: Nausea And Vomiting Senna (Sennosides 1 Tablet) 2 tab PO HSP PRN PRN Reason: Constipation Sodium Chloride (0.9 % Sodium Chloride 10 Ml Syringe) 10 ml IV Q8 [facility] Last Admin: 01/18/22 04:39 Dose: 10 ml Documented by: Thiamine HCl (Thiamine 100 Mg Tablet) 100 mg PO QDAY [facility] Last Admin: 01/17/22 08:27 Dose: 100 mg Documented by: A/P Narrative A/P Narrative: Assessment and Plans: *Alcohol withdrawal with associated nausea/vomiting/diarrhea: -CIWA protocol -Thiamine with multivitamins -Zofran/Phenergan/Imodium *New onset atrial fibrillation: -Cardizem 30 mg p.o. 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
[2022-01-18 07:33] LABS: ALT/SGPT 20 U/L (<40); AST/SGOT 30 U/L (<40); Albumin 3.6 gm/dL (3.2-5.2); Albumin/Globulin Ratio 1.2 (1.0-2.3); Alkaline Phosphatase 79 U/L (39-117); Bilirubin,Direct 0.5 mg/dL (<0.3); Bilirubin,Total 1.3 mg/dL (0.1-1.0); Blood Urea Nitrogen 5 mg/dL (8-23); Carbon Dioxide 24 mmol/L (22-30); Chloride 94 mmol/L (96-108); Globulin 3.1 gm/dL (2.2-3.7); Glomerular Filtration Rate 97; Glucose 108 mg/dL (70-105); Lactate Dehydrogenase 188 U/L (135-225); Phosphorous 2.9 mg/dL (2.5-4.5); Triglycerides 55 mg/dL (<150); Uric Acid 1.9 mg/dL (2.5-8.0)
[2022-01-18] MEDS ORDERED: POTASSIUM CHLORIDE 20 MEQ TABLET PO ONE (08:10)
[2022-01-18] MEDS ORDERED: FUROSEMIDE 40 MG/4 ML VIAL IV ONE (08:10)
[2022-01-18] MEDS: POTASSIUM CHLORIDE 20 MEQ TABLET PO SCH (08:13)
[2022-01-18] MEDS: DILTIAZEM 30 MG TABLET PO SCH (08:13)
[2022-01-18] MEDS: DOCUSATE SODIUM 100 MG CAPSULE PO SCH (08:13)
[2022-01-18] MEDS: APIXABAN 5 MG TABLET PO SCH (08:13)
[2022-01-18] MEDS: MULTIVIT,THER IRON,CA,FA & MIN 1 TABLET PO SCH (08:13)
[2022-01-18] MEDS: FOLIC ACID 1 MG TABLET PO SCH (08:13)
[2022-01-18] MEDS: THIAMINE 100 MG TABLET PO SCH (08:13)
[2022-01-18] MEDS ORDERED: LISINOPRIL 10 MG TABLET PO SCH (09:00)
--- NOTE | 2022-01-18 09:02 | Discharge Summary ---
Discharge Provider Provider IMPORTANT FOLLOW-UP INFORMATION FOR PCP: Patient information: Note initiated : 01/18/22 at 9:00 am Service Date, if different from initiated Date: [] Patient: Johnathan Son 76 y/o M admitted on 01/14/22 for N/V/D. Chief Complaint: [] Date of admission: 01/14/22 09:30 Discharge date: 01/18/22 Primary care physician: Noe Anderson MD Consults: 01/14/22 Consult to Physician [CONS] Stat Comment: Consulting Provider: Aaron Jimenez Reason For Exam: Physician to Consult COURSE Hospital Course Hospital course: History of present illness: Mr. Son is a 76 year old M history of skin cancer of his left face, alcohol abuse, presenting with 2-day history of nausea vomiting and diarrhea. Patient was hospitalized 1 year ago for alcohol withdrawal. Patient's state that he has been drinking beer up to 12 packs/day with last use yesterday morning. He is experiencing nausea vomiting and diarrhea for the past 2 days. He is also coming of general body weakness, gradually progressing over the past 3 months. He is complaining of anxiety and he has increased hand tremors. He denies any hallucinations. Vital signs at ED presentations significant for tachycardia with heart rate up to the 120s beats per minute. Labs significant for lactic acid 7.4 which came down to 3.0 after IV fluid given in the ED. Blood alcohol level was 0.049. Admission request made for nausea vomiting and diarrhea likely secondary to alcohol abuse/alcohol withdrawal. 01/15: CIWA score of 9. A&O X3. Denies nausea, vomiting, diarrhea. Positive for hallucinations, mainly visual. Positive for hand tremors. Good appetite. Continue CIWA protocol. Saline lock. Continue to work with physical therapy for placement planning. 01/16: Patient was being transferred to ICU with initiations of Cardizem drip and p.o. Cardizem after developing new onset atrial fibrillation's. His CIWA score was in the high teens overnight but this morning suspected to. He denies insomnia. He denies anxiety or agitations. He denies hallucinations. He denies nausea or vomiting but had an episode of diarrhea overnight. He denies increased hand tremors. He is committing of overall weakness especially lower extremity weakness. When physical therapist work with the patient's earlier this morning, he developed again sinus tachycardia with heart rate up to the 150s beats per minutes now was sitting at 1 teens beats per minute. Continue CIWA protocol. Continue p.o. Cardizem. Cardizem drip as needed for atrial fibrillation's. Pending 2D echocardiogram. Physical therapist recommended SNF placement, will start to look for SNF placement. 01/17: CIWA score of 2 this morning. Alert and oriented x3. Denies any hallucinations. Denies nausea vomiting or diarrhea. Denies insomnia. Good appetite. Denies increased hand tremors. Cardizem drip being switched off at around 3 AM this morning and heart rate in the 80s beats per minute currently. 2D echocardiogram negative for any endocardial thrombus. Continue CIWA protocol. Continue p.o. Cardizem. DC Cardizem drip. Transfer from ICU back to [facility] with telemetry. Pending SNF placement. 01/18 Patient states poor sleep but otherwise no events overnight. Platelets mildly improved. Sodium stable. Potassium mildly low. Assessment and Plans: *Alcohol withdrawal with associated nausea/vomiting/diarrhea: *New onset atrial fibrillation: -Cardizem 30 mg p.o. 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 fib hyponatremia hypokalemia Secondary discharge diagnosis: Generalized weakness history left facial skin cancer anemia hypertension possible mild cog impairment Time Spent with Patient Time attestation: Total time spent providing and/or coordinating discharge services: Time spent: Greater than 30 minutes EXAM Constitutional Vitals: Temp Pulse Resp BP Pulse Ox 97.8 F 90 18 156/86 97 01/18/22 06:56 01/18/22 06:56 01/18/22 03:28 01/18/22 06:56 01/18/22 06:56 Discharge Data Data Completed and Pending Labs on day of discharge: Labs from last 24 hours 01/18/22 01/18/22 05:54 05:53 WBC 7.7 RBC 4.10 L Hgb 14.0 Hct 39.7 L MCV 96.8 MCH 34.1 H MCHC 35.3 RDW 13.9 Plt Count 113 L MPV 9.1 Immature Gran % (Auto) 0.4 Neut % (Auto) 65.9 Lymph % (Auto) 14.9 L Nobles % (Auto) 16.8 H Eos % (Auto) 1.6 Baso % (Auto) 0.4 Lymph # (Auto) 1.15 L Nobles # (Auto) 1.30 H Eos # (Auto) 0.12 Baso # (Auto) 0.03 Immature Gran # 0.03 Absolute Neutrophils 5.14 Sodium 131 L Potassium 3.1 L Chloride 94 L Carbon Dioxide 24 Anion Gap 13.0 BUN 5 L Creatinine 0.6 L GFR Calculation 97 Glucose 108 H Uric Acid 1.9 L Calcium 9.0 Phosphorus 2.9 Magnesium 1.6 Total Bilirubin 1.3 H Direct Bilirubin 0.5 H GGT 180 H AST 30 ALT 20 Alkaline Phosphatase 79 Lactate Dehydrogenase 188 Total Protein 6.7 Albumin 3.6 Globulin 3.1 Albumin/Globulin Ratio 1.2 Triglycerides 55 Discharge Plan Patient/Caregiver Discharge Instructions Activity: ambulate only with your walker Diet: Regular Diet Instructions: Acute Nausea and Vomiting (DC), Acute Diarrhea (GEN) Activity Restrictions/Additional Instructions: Resume home diet as tolerated. Take all meals up in chair, sitting at 90 degrees, to prevent aspiration. Increase activity as tolerated and as per instructions. Continue fall precautions. Follow-up with cardiology. A referral has been sent to [facility]. They will contact [place] to schedule. Follow-up with your oncologist for facial cancer. Contact the office on Friday 01/19 to schedule. Take all medication as directed. Return to ER for fever, chills, uncontrolled pain, inability to urinate or have a bowel movement, nausea and/or vomiting, swelling, redness, signs of infection, shortness of breath, chest pain, return of symptoms, or other acute symptom. Follow-up with your oncologist regarding your facial skin cancer. This discharge packet is provided to you to help keep you informed about your care. We want to ensure you get everything you need when you go home. You will also be receiving a call from us in a few days to follow up with you and see how you are doing since your discharge. This gives us a chance to listen to any concerns you maybe experiencing since you were discharged or any additional needs you may have, as well as providing us feedback on your care experience. We strive to always provide excellent care and thank you for your feedback and for choosing [facility]. Prescriptions: New diltiazem HCl 30 mg Tablet 30 mg PO ACHS Qty: 120 0RF Eliquis 5 mg Tablet 5 mg PO BID Qty: 60 0RF lisinopril 10 mg Tablet 10 mg PO DAILY Qty: 30 0RF Discontinued amlodipine 5 mg Tablet 5 mg PO HS Qty: 60 4RF Other Ambulatory Orders: Wound Care Instructions (CONT) Location: None Selected Ordered By: Lauri Chapin OT Discharge Order (Routine) Location: None Selected Ordered By: Lauri Chapin Physical Therapy at Discharge - General (Routine) Location: None Selected Ordered By: Lauri Chapin Discharge Referrals (Routine) Location: None Selected Ordered By: Lauri Chapin Follow Up Plan Follow up with: Noe Anderson MD [Primary Care Provider] - Patient Disposition: Xfer SNF Prognosis: Fair Rehab Potential: Fair I certify that the patient requires SNF services: Yes Overall status at discharge: patient is progressing back to baseline Discharge Orders: Discharge Order (Routine); Ordered 01/18/22 Ordered By: Lauri Chapin QUALITY VTE Deep Vein Thrombosis/Pulmonary Embolism Present on Admission: No
--- NOTE | 2022-01-21 10:29 | EKG ---
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
--- NOTE | 2022-01-23 19:09 | EKG ---
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
== END 2022-01-18 11:30 | DRG 897 ==
LOC: ED 03:39 → ICU 09:30 → MEDSUR 01-18 00:19
PROVIDERS: ADMIT Internal Medicine; ATTEND Internal Medicine

== ENCOUNTER 2022-03-21 14:58 | Inpatient (IN) ==
[2022-03-21 15:14] LABS: POC Blood Urea Nitrogen < 3 (6-20); POC Calcium, Ionized 1.05 (1.16-1.32); POC Chloride 86 (96-108); POC Glucose, Random 111 (70-105); POC Potassium 4.2 (3.3-5.1); POC Sodium 127 (133-145)
[2022-03-21] MEDS ORDERED: THIAMINE 100 MG/ML VIAL IM ONE (15:27)
[2022-03-21] MEDS ORDERED: 0.9 % SODIUM CHLORIDE 1,000 ML IV ONE (15:27)
--- NOTE | 2022-03-21 15:40 | Emergency Department Note ---
HPI General Chief complaint: Weakness Stated complaint: weakness, alcohol, Time Seen by Provider: 03/21/22 15:01 Source: EMS Mode of arrival: EMS Limitations: no limitations History of Present Illness HPI Narrative: Narrative: Patient presents emergency department for evaluation of generalized weakness. States he is too weak to get up today. He was found by EMS with some alcohol containers surrounding him. He reports 3 beers today. No trauma. Did not strike his head. Denies pain. No recent illness. No other complaints. Related Data Previous Rx's Medication Instructions Recorded apixaban 5 mg tablet (Eliquis) 5 mg PO BID #60 tabs 01/17/22 diltiazem HCl 30 mg tablet 30 mg PO ACHS #120 tabs 01/17/22 lisinopril 10 mg tablet 10 mg PO DAILY #30 tabs 01/18/22 Allergies Allergy/AdvReac Type Severity Reaction Status Date / Time No Known Drug Allergies Allergy Verified 03/21/22 15:08 Review of Systems ROS ROS Narrative: Narrative: As above, all other systems reviewed and negative. [facility] Narrative Patient History Narrative: Narrative: Medical/Surgical/Family History All Active Problems (Updated 03/21/22 @ 16:52 by Phillip Pittman MD) Weakness (Acute) Atrial fibrillation (Acute) Anemia, hyperchromic (Acute) Skin cancer of face (Acute) Nausea vomiting and diarrhea (Acute) Dehydration (Acute) Acidosis, lactic (Acute) Alcohol withdrawal (Acute) Hypomagnesemia (Acute) Physical deconditioning (Acute) UTI (urinary tract infection) (Acute) Delirium (Acute) Dementia (Acute) Anemia, normocytic normochromic (Acute) Hypokalemia (Acute) Atrial fibrillation with RVR (Acute) Acute hyponatremia (Acute) Acute dehydration (Acute) Multiple skin tears (Acute) Head injury (Acute) Elevated CK (Acute) Generalized muscle weakness (Acute) Acute hyponatremia (Acute) Social History Alcohol Intake Frequency: 2+ drinks per day Substance Use: does not use Exam Narrative Narrative: Narrative: General Limitations: no limitations General appearance: Present alert Head Head: Present atraumatic, normocephalic, normal inspection and other (Lesion to the left side of the face with this patient states is a carcinoma.) Eye Eye: Present normal appearance, PERRL and EOMI ENT ENT: Present normal exam Neck Neck: Present normal inspection and full ROM Respiratory Respiratory: Absent respiratory distress Extremities Extremities: Present normal inspection Neurological Neurological: Present alert, oriented X3 and CN II-XII intact; Absent motor sensory deficit Psychiatric Psychiatric: Present normal affect and normal mood Skin Skin: Present warm (WNL) and dry Course Vital Signs Vital signs: Vital Signs Temperature 98.0 F 03/21/22 15:04 Pulse Rate 102 H 03/21/22 15:04 Respiratory Rate 16 03/21/22 15:04 Blood Pressure 146/86 03/21/22 15:04 Pulse Oximetry (%) 92 03/21/22 15:04 Oxygen Delivery Method 03/21/22 15:04 Temperature 98.0 F 03/21/22 15:04 Pulse Rate 102 H 03/21/22 15:04 Respiratory Rate 14 03/21/22 15:48 Blood Pressure 129/78 03/21/22 15:46 Pulse Oximetry (%) 92 03/21/22 15:04 Oxygen Delivery Method 03/21/22 15:04 MDM MDM Narrative Medical decision making narrative: Narrative: EKG showed sinus rhythm, no acute ischemic changes, intervals ot herwise normal. Patient is given thiamine. Laboratory studies are pending. Patient is hydrated IV fluids. Patient's further care is signed over to oncoming emergency medicine physician. Lab Data Result diagrams: 03/21/22 15:40 03/21/22 15:40 Labs: Lab Results 03/21/22 Range/Units 15:11 POC Hct 45.0 (41-55) POC Sodium 127 L (133-145) POC Potassium 4.2 (3.3-5.1) POC Chloride 86 L (96-108) POC Total CO2 25.0 (22-30) POC BUN < 3 L (6-20) POC Creatinine 1.0 (0.6-1.2) POC Glucose 111 H (70-105) POC WB Ioniz Calcium 1.05 L (1.16-1.32) Discharge Plan Patient/Caregiver Discharge Instructions Pt seen by FARM OPERATIONS TECHNICAL DIRECTOR/PA only: No Clinical Impression: Weakness Patient Disposition: Still a Patient Follow up with: Noe Anderson MD [Primary Care Provider] - Prescriptions: No Action diltiazem HCl 30 mg Tablet 30 mg PO ACHS Qty: 120 0RF Eliquis 5 mg Tablet 5 mg PO BID Qty: 60 0RF lisinopril 10 mg Tablet 10 mg PO DAILY Qty: 30 0RF
[2022-03-21 17:03] LABS: Basophils # (Auto) 0.02 K/mcL (0.00-0.30); Basophils % (Auto) 0.3 % (0.0-2.0); Eosinophils # (Auto) 0.39 K/mcL (0.00-0.70); Eosinophils % (Auto) 5.5 % (0.0-7.0); Hematocrit 38.9 % (40.1-51.0); Hemoglobin 13.8 g/dL (13.7-17.5); Lymphocytes # (Auto) 1.87 K/mcL (1.50-4.80); Lymphocytes % (Auto) 26.5 % (15.5-49.0); Mean Cell Volume 90.3 fL (80.0-100.0); Mean Corpuscular HGB Conc 35.5 g/dL (31.0-36.0); Mean Platelet Volume 9.5 fL (7.4-10.4); Monocytes # (Auto) 0.68 K/mcL (0.10-0.90); Monocytes % (Auto) 9.6 % (1.0-12.0); Neutrophils % (Auto) 57.7 % (38.0-78.0); Platelet Count 115 K/mcL (140-440); RBC 4.31 M/mcL (4.63-6.08); Red Cell Distribution Width 13.7 % (11.5-14.5); WBC 7.1 K/mcL (4.5-11.0)
[2022-03-21 17:12] LABS: Alcohol,Blood 0.284 gm/dL (<0.010)
--- NOTE | 2022-03-21 17:13 | Emergency Department Note ---
Course Consultations Consultation #1: Dr. Howard, hospitalist Time: 06:55 Vital Signs Vital signs: Vital Signs Temperature 98.0 F 03/21/22 15:04 Pulse Rate 102 H 03/21/22 15:04 Respiratory Rate 16 03/21/22 15:04 Blood Pressure 146/86 03/21/22 15:04 Pulse Oximetry (%) 92 03/21/22 15:04 Oxygen Delivery Method 03/21/22 15:04 Temperature 98.0 F 03/21/22 15:04 Pulse Rate 109 H 03/22/22 06:45 Respiratory Rate 22 03/22/22 06:45 Blood Pressure 131/76 03/22/22 06:45 Pulse Oximetry (%) 90 03/22/22 06:45 Oxygen Delivery Method 03/22/22 06:04 MDM MDM Narrative Medical decision making narrative: 1700: Patient received in signout from Dr. Pittman. 76-year-old male presenting with generalized weakness and alcohol intoxication. Alcohol level is 284. Also noted to be hyponatremic to 126 and LFTs are elevated likely secondary to his alcohol use. He was given IV fluids and is being monitored in the emergency de partment. Patient lives at home alone and does not appear to be able to take care of himself. Will try to have case management evaluate him for placement in the morning. 0600: On reevaluation this morning patient noted to be tachycardic and tremulous with concern for alcohol withdrawal. campus monitor shows sinus tachycardia. His CIWA score is 7. 1mg ativan IV ordered. He was also noted to have rales in the right lung so a chest x-ray was ordered. Patient does report he has been coughing up a lot of phlegm. Will continue to monitor. 0630: Chest x-ray shows early infiltrate versus atelectasis in the right lung. Given his exam findings, will cover for pneumonia. IV Rocephin and azithromycin ordered. Rapid COVID and influenza swabs are negative. Will plan to admit for hyponatremia, alcohol withdrawal, and pneumonia. 0700: I spoke with Dr. Howard, hospitalist, who will accept the patient for admission. Lab Data Lab results reviewed: Yes I reviewed the patient's lab results. Result diagrams: 03/21/22 15:40 03/21/22 15:40 Labs: Lab Results 0903/21/22 03/21/22 Range/Units 15:11 15:40 15:40 WBC 7.1 (4.5-11.0) K/mcL RBC 4.31 L (4.63-6.08) M/mcL Hgb 13.8 (13.7-17.5) g/dL Hct 38.9 L (40.1-51.0) % POC Hct 45.0 (41-55) MCV 90.3 (80.0-100.0) fL MCH 32.0 (26.0-34.0) pg MCHC 35.5 (31.0-36.0) g/dL RDW 13.7 (11.5-14.5) % Plt Count 115 L (140-440) K/mcL MPV 9.5 (7.4-10.4) fL Immature Gran % (Auto) 0.4 (0.0-0.5) % Neut % (Auto) 57.7 (38.0-78.0) % Lymph % (Auto) 26.5 (15.5-49.0) % [place] % (Auto) 9.6 (1.0-12.0) % Eos % (Auto) 5.5 (0.0-7.0) % Baso % (Auto) 0.3 (0.0-2.0) % Lymph # (Auto) 1.87 (1.50-4.80) K/mcL [place] # (Auto) 0.68 (0.10-0.90) K/mcL Eos # (Auto) 0.39 (0.00-0.70) K/mcL Baso # (Auto) 0.02 (0.00-0.30) K/mcL Immature Gran # 0.03 (0.00-0.05) K/mcl Absolute Neutrophils 4.06 (1.80-8.00) K/mcL POC Sodium 127 L (133-145) Sodium 126 L (133-145) mmol/L POC Potassium 4.2 (3.3-5.1) Potassium 4.2 (3.3-5.1) mmol/L POC Chloride 86 L (96-108) Chloride 84 L (96-108) mmol/L Carbon Dioxide 23 (22-30) mmol/L POC Total CO2 25.0 (22-30) Anion Gap 19.0 H (8.0-16.0) POC BUN < 3 L (6-20) BUN 3 L (8-23) mg/dL Creatinine 0.6 L (0.7-1.2) mg/dL POC Creatinine 1.0 (0.6-1.2) GFR Calculation 97 Glucose 103 (70-105) mg/dL POC Glucose 111 H (70-105) Calcium 9.5 (8.6-10.4) mg/dL POC WB Ioniz Calcium 1.05 L (1.16-1.32) Total Bilirubin 1.6 H (0.1-1.0) mg/dL AST 124 H (<40) U/L ALT 86 H (<40) U/L Alkaline Phosphatase 103 (39-117) U/L Total Protein 8.1 (5.9-8.4) gm/dL Albumin 4.9 (3.2-5.2) gm/dL Globulin 3.2 (2.2-3.7) gm/dL Albumin/Globulin Ratio 1.5 (1.0-2.3) Ethyl Alcohol mg/dL mg/dL Ethyl Alcohol g/dL (<0.010) gm/dL 03/21/22 Range/Units 15:40 WBC (4.5-11.0) K/mcL RBC (4.63-6.08) M/mcL Hgb (13.7-17.5) g/dL Hct (40.1-51.0) % POC Hct (41-55) MCV (80.0-100.0) fL MCH (26.0-34.0) pg MCHC (31.0-36.0) g/dL RDW (11.5-14.5) % Plt Count (140-440) K/mcL MPV (7.4-10.4) fL Immature Gran % (Auto) (0.0-0.5) % Neut % (Auto) (38.0-78.0) % Lymph % (Auto) (15.5-49.0) % [place] % (Auto) (1.0-12.0) % Eos % (Auto) (0.0-7.0) % Baso % (Auto) (0.0-2.0) % Lymph # (Auto) (1.50-4.80) K/mcL [place] # (Auto) (0.10-0.90) K/mcL Eos # (Auto) (0.00-0.70) K/mcL Baso # (Auto) (0.00-0.30) K/mcL Immature Gran # (0.00-0.05) K/mcl Absolute Neutrophils (1.80-8.00) K/mcL POC Sodium (133-145) Sodium (133-145) mmol/L POC Potassium (3.3-5.1) Potassium (3.3-5.1) mmol/L POC Chloride (96-108) Chloride (96-108) mmol/L Carbon Dioxide (22-30) mmol/L POC Total CO2 (22-30) Anion Gap (8.0-16.0) POC BUN (6-20) BUN (8-23) mg/dL Creatinine (0.7-1.2) mg/dL POC Creatinine (0.6-1.2) GFR Calculation Glucose (70-105) mg/dL POC Glucose (70-105) Calcium (8.6-10.4) mg/dL POC WB Ioniz Calcium (1.16-1.32) Total Bilirubin (0.1-1.0) mg/dL AST (<40) U/L ALT (<40) U/L Alkaline Phosphatase (39-117) U/L Total Protein (5.9-8.4) gm/dL Albumin (3.2-5.2) gm/dL Globulin (2.2-3.7) gm/dL Albumin/Globulin Ratio (1.0-2.3) Ethyl Alcohol mg/dL 284.0 mg/dL Ethyl Alcohol g/dL 0.284 H (<0.010) gm/dL ED POC Tests ED POC Tests: SHIVANI - Influenza A Negative SHIVANI - Influenza B Negative SHIVANI - SARS Antigen Negative Radiology Data Radiology results reviewed: Yes I reviewed the patient's radiology results. Radiology results narrative: CXR: Early infiltrate vs atelectasis in the R lung, per my interpretation. Discharge Plan Patient/Caregiver Discharge Instructions Pt seen by VOCATIONAL REHABILITATION SPECIALIST/PA only: No Clinical Impression: Weakness, Alcohol withdrawal, Hyponatremia, Pneumonia Patient Disposition: Xfer As Inpt ([facility]) Condition: Fair Follow up with: Noe Anderson MD [Primary Care Provider] - Prescriptions: No Action diltiazem HCl 30 mg Tablet 30 mg PO ACHS Qty: 120 0RF Eliquis 5 mg Tablet 5 mg PO BID Qty: 60 0RF lisinopril 10 mg Tablet 10 mg PO DAILY Qty: 30 0RF
[2022-03-21 17:18] LABS: ALT/SGPT 86 U/L (<40); AST/SGOT 124 U/L (<40); Albumin 4.9 gm/dL (3.2-5.2); Albumin/Globulin Ratio 1.5 (1.0-2.3); Alkaline Phosphatase 103 U/L (39-117); Bilirubin,Total 1.6 mg/dL (0.1-1.0); Blood Urea Nitrogen 3 mg/dL (8-23); Calcium 9.5 mg/dL (8.6-10.4); Carbon Dioxide 23 mmol/L (22-30); Chloride 84 mmol/L (96-108); Globulin 3.2 gm/dL (2.2-3.7); Glomerular Filtration Rate 97; Glucose 103 mg/dL (70-105)
[2022-03-22] MEDS ORDERED: LORazepam 2 MG/ML VIAL IV ONE (06:05)
[2022-03-22] MEDS ORDERED: cefTRIAXone 1 GM VIAL IV ONE (06:23)
[2022-03-22] MEDS ORDERED: AZITHROMYCIN 500 MG in DEXTROSE 5% IN WATER 250 ML IV ONE (06:23)
--- NOTE | 2022-03-22 07:01 | Internal Med History&Physical ---
HPI History of Present Illness Patient information: Note initiated : 03/22/22 at 6:58 am Service Date, if different from initiated Date: [] Patient: Johnathan Son 76 y/o M admitted on for weakness, alcohol,. Chief Complaint: [] History of present illness: Mr. Son is a 76 year old antoinette with a history of atrial fibrillation, left periorbital skin cancer, chronic hyponatremia, alcohol use disorder who was brought to the emergency department for generalized weakness. The patient was found at home surrounded by empty alcohol bottles. In the emergency department, the patient was found to be in alcohol withdrawal, hyponatremic and there is also concern the patient may have a pneumonia therefore the patient was started on antibiotics. Review of systems Constitutional: Positive for fatigue Eyes: no vision changes or pain Cardiovascular: no chest pain, no palpitations Respiratory: Positive for cough Gastrointestinal: no abdominal pain, no nausea, vomiting, or diarrhea Genitourinary: no dysuria or difficulty voiding Musculoskeletal: no arthralgia or myalgia Integumentary: Positive for chronic lesion on left side of face. Neurological: no focal weakness or numbness Psychiatric: no anxiety or depression Physical exam Head: Atraumatic, normal inspection. Eyes: normal appearance, no scleral icterus. Neck: full ROM Respiratory: Cough, bilateral crackles, no respiratory distress. Cardiovascular: Regular tachycardia, S1, S2. GI/Abdominal: soft, nontender, no guarding. Extremities: full range of motion, nontender. Neurological: CN II-XII intact, intact motor, intact sensation. Psychiatric: normal mood. Skin: Chronic appearing left periorbital skin lesion. PFSH PFSH All Active Problems (Updated 03/22/22 @ 07:01 by Kevin Vallejo MD) Weakness (Acute) Alcohol withdrawal (Acute) Hyponatremia (Acute) Pneumonia (Acute) Atrial fibrillation (Acute) Anemia, hyperchromic (Acute) Skin cancer of face (Acute) Nausea vomiting and diarrhea (Acute) Dehydration (Acute) Acidosis, lactic (Acute) Alcohol withdrawal (Acute) Hypomagnesemia (Acute) Physical deconditioning (Acute) UTI (urinary tract infection) (Acute) Delirium (Acute) Dementia (Acute) Anemia, normocytic normochromic (Acute) Hypokalemia (Acute) Atrial fibrillation with RVR (Acute) Acute hyponatremia (Acute) Acute dehydration (Acute) Multiple skin tears (Acute) Head injury (Acute) Elevated CK (Acute) Generalized muscle weakness (Acute) Acute hyponatremia (Acute) Social History smoking status: Former smoker alcohol intake frequency: 2+ drinks per day substance use type: does not use MEDS/ALLERGIES Home Medications and Allergies Home Medications Medication Instructions Recorded Confirmed Type apixaban 5 mg tablet (Eliquis) 5 mg PO BID #60 tabs 01/17/22 03/22/22 Rx diltiazem HCl 30 mg tablet 30 mg PO ACHS #120 tabs 01/17/22 03/22/22 Rx lisinopril 10 mg tablet 10 mg PO DAILY #30 tabs 01/18/22 03/22/22 Rx Allergies Allergy/AdvReac Type Severity Reaction Status Date / Time No Known Drug Allergies Allergy Verified 03/21/22 15:08 EXAM Constitutional Vitals: Temp Pulse Resp BP Pulse Ox O2 Del Method 98.0 F 109 H 22 131/76 90 03/21/22 15:04 03/22/22 06:45 03/22/22 06:45 03/22/22 06:45 03/22/22 06:45 03/22/22 06:04 DATA Data Completed and Pending Labs: Labs from last 24 hours 03/22/22 03/22/22 03/21/22 06:44 06:44 15:40 WBC RBC Hgb Hct POC Hct MCV MCH MCHC RDW Plt Count MPV Immature Gran % (Auto) Neut % (Auto) Lymph % (Auto) [place] % (Auto) Eos % (Auto) Baso % (Auto) Lymph # (Auto) [place] # (Auto) Eos # (Auto) Baso # (Auto) Immature Gran # Absolute Neutrophils POC Sodium Sodium POC Potassium Potassium POC Chloride Chloride Carbon Dioxide POC Total CO2 Anion Gap POC BUN BUN Creatinine POC Creatinine GFR Calculation Glucose POC Glucose Calcium POC WB Ioniz Calcium Magnesium Pending Total Bilirubin AST ALT Alkaline Phosphatase Total Protein Albumin Globulin Albumin/Globulin Ratio Procalcitonin Pending Ethyl Alcohol mg/dL 284.0 Ethyl Alcohol g/dL 0.284 H 03/21/22 03/21/22 03/21/22 15:40 15:40 15:11 WBC 7.1 RBC 4.31 L Hgb 13.8 Hct 38.9 L POC Hct 45.0 MCV 90.3 MCH 32.0 MCHC 35.5 RDW 13.7 Plt Count 115 L MPV 9.5 Immature Gran % (Auto) 0.4 Neut % (Auto) 57.7 Lymph % (Auto) 26.5 [place] % (Auto) 9.6 Eos % (Auto) 5.5 Baso % (Auto) 0.3 Lymph # (Auto) 1.87 [place] # (Auto) 0.68 Eos # (Auto) 0.39 Baso # (Auto) 0.02 Immature Gran # 0.03 Absolute Neutrophils 4.06 POC Sodium 127 L Sodium 126 L POC Potassium 4.2 Potassium 4.2 POC Chloride 86 L Chloride 84 L Carbon Dioxide 23 POC Total CO2 25.0 Anion Gap 19.0 H POC BUN < 3 L BUN 3 L Creatinine 0.6 L POC Creatinine 1.0 GFR Calculation 97 Glucose 103 POC Glucose 111 H Calcium 9.5 POC WB Ioniz Calcium 1.05 L Magnesium Total Bilirubin 1.6 H AST 124 H ALT 86 H Alkaline Phosphatase 103 Total Protein 8.1 Albumin 4.9 Globulin 3.2 Albumin/Globulin Ratio 1.5 Procalcitonin Ethyl Alcohol mg/dL Ethyl Alcohol g/dL A/P Narrative A/P Narrative: Assessment: 76 year old antoinette with a history of atrial fibrillation, left periorbital skin cancer, chronic hyponatremia, alcohol use disorder who was brought to the emergency department for generalized weakness and found to have acute on chronic hyponatremia as well as alcohol withdrawal. #Alcohol withdrawal #Concern for pneumonia #Acute on chronic hyponatremia #Elevated LFT due to mild alcoholic hepatitis #Generalized weakness #Paroxysmal atrial fibrillation #Hypertension #Alcohol use disorder Plan -CIWA protocol with Ativan prn. -Vitamin supplementation. -IV fluid. -Monitor sodium level, follow LFTs -Obtain procalcitonin level. -Follow-up pending radiology report of chest x-ray. -Home medication reconciliation, continue important meds. -Regular diet. -PT consult. -DVT prophylaxis: Eliquis -Code status: Full -Disposition: TBD. Time Spent With Patient Time: Total time spent is greater than 50% in coordination of care (as documented) at patient's floor/unit and/or counseling patient:
[2022-03-22] MEDS ORDERED: ONDANSETRON 4 MG/2 ML VIAL IV PRN (07:23)
[2022-03-22] MEDS ORDERED: cefTRIAXone 1 GM in DEXTROSE 5% IN WATER 50 ML IV SCH (07:23)
[2022-03-22] MEDS ORDERED: SENNOSIDES 1 TABLET PO PRN (07:23)
[2022-03-22] MEDS ORDERED: LACTULOSE 20 GM/30 ML ORAL.SOL PO PRN (07:23)
[2022-03-22] MEDS: 0.9 % SODIUM CHLORIDE 1,000 ML IV SCH ×2 (08:00→18:10)
--- NOTE | 2022-03-22 08:58 | XRay Report ---
CLINICAL INFORMATION: Cough COMPARISON: 01/14/2022 TECHNIQUE: Portable FINDINGS: The heart size, mediastinum and pulmonary vessels are unremarkable. The lungs are clear. There are no effusions. MALUNIFIED old fracture distal left clavicle seen as before. Nonunified old avulsion fracture distal right clavicle also seen. IMPRESSION: Normal chest. Interpreted and Authenticated by: Luke Dickens 03/22/22
[2022-03-22] MEDS ORDERED: ENOXAPARIN 40 MG/0.4 ML SYRINGE SQ SCH (09:00)
[2022-03-22] MEDS: MULTIVIT,THER IRON,CA,FA & MIN 1 TABLET PO SCH (09:10)
[2022-03-22] MEDS: FOLIC ACID 1 MG TABLET PO SCH (09:10)
[2022-03-22 09:14] LABS: ALT/SGPT 65 U/L (<40); AST/SGOT 100 U/L (<40); Albumin 4.2 gm/dL (3.2-5.2); Albumin/Globulin Ratio 1.6 (1.0-2.3); Alkaline Phosphatase 82 U/L (39-117); Bilirubin,Direct 0.8 mg/dL (<0.3); Bilirubin,Total 2.1 mg/dL (0.1-1.0); Blood Urea Nitrogen 4 mg/dL (8-23); Calcium 9.2 mg/dL (8.6-10.4); Carbon Dioxide 18 mmol/L (22-30); Chloride 91 mmol/L (96-108); Globulin 2.7 gm/dL (2.2-3.7); Glomerular Filtration Rate 97; Glucose 96 mg/dL (70-105); Lactate Dehydrogenase 168 U/L (135-225); Phosphorous 2.6 mg/dL (2.5-4.5); Triglycerides 53 mg/dL (<150); Uric Acid 4.7 mg/dL (2.5-8.0)
[2022-03-22] MEDS: 0.9 % SODIUM CHLORIDE 10 ML SYRINGE IV SCH ×4 (13:22→20:54)
--- NOTE | 2022-03-22 15:15 | EKG ---
[facility] Test Date: 2022-03-21 Pat Name: Johnathan Son Department: ED Room: Gender: Male Cash Applications Analyst: AW : 1945 Requested By: Phillip Ptitman Order Number: [id number] Reading MD: Luke Gomes M.D. Measurements Intervals [place] Rate: 98 P: 53 MS: 150 QRS: 17 QRSD: 98 T: 49 QT: 357 QTc: 456 Interpretive Statements Sinus rhythm Electronically Signed On 03-22-2022 15:14:49 PDT by Luke Gomes M.D. /[facility]//[id number]
[2022-03-22] MEDS: DILTIAZEM 30 MG TABLET PO SCH ×2 (17:08→20:59)
[2022-03-22] MEDS: APIXABAN 5 MG TABLET PO SCH (20:59)
[2022-03-22] MEDS: LORazepam 2 MG/ML VIAL IV PRN (23:44)
[2022-03-23] MEDS: 0.9 % SODIUM CHLORIDE 1,000 ML IV SCH ×3 (04:12→12:40)
[2022-03-23] MEDS: 0.9 % SODIUM CHLORIDE 10 ML SYRINGE IV SCH ×6 (05:37→20:44)
[2022-03-23 07:04] LABS: ALT/SGPT 53 U/L (<40); AST/SGOT 74 U/L (<40); Albumin 3.9 gm/dL (3.2-5.2); Albumin/Globulin Ratio 1.6 (1.0-2.3); Alkaline Phosphatase 74 U/L (39-117); Bilirubin,Direct 0.8 mg/dL (<0.3); Bilirubin,Total 2.6 mg/dL (0.1-1.0); Blood Urea Nitrogen 5 mg/dL (8-23); Calcium 8.8 mg/dL (8.6-10.4); Carbon Dioxide 23 mmol/L (22-30); Chloride 94 mmol/L (96-108); Globulin 2.4 gm/dL (2.2-3.7); Glomerular Filtration Rate 104; Glucose 115 mg/dL (70-105); Lactate Dehydrogenase 159 U/L (135-225); Phosphorous 2.3 mg/dL (2.5-4.5); Triglycerides 58 mg/dL (<150); Uric Acid 3.2 mg/dL (2.5-8.0)
[2022-03-23] MEDS ORDERED: POTASSIUM CHLORIDE 20 MEQ TABLET PO ONE (07:42)
[2022-03-23] MEDS ORDERED: cefTRIAXone 1 GM VIAL IV SCH (09:00)
[2022-03-23] MEDS: DILTIAZEM 30 MG TABLET PO SCH ×4 (09:19→20:44)
[2022-03-23] MEDS: THIAMINE 100 MG in 0.9 % SODIUM CHLORIDE 50 ML IV SCH (09:19)
[2022-03-23] MEDS: FOLIC ACID 1 MG TABLET PO SCH (09:19)
[2022-03-23] MEDS: NEUTRA PHOS 1 PACKET PO SCH ×2 (09:19→20:44)
[2022-03-23] MEDS: MULTIVIT,THER IRON,CA,FA & MIN 1 TABLET PO SCH (09:19)
[2022-03-23] MEDS: APIXABAN 5 MG TABLET PO SCH ×2 (09:21→20:44)
[2022-03-23 09:40] LABS: Eosinophils % (Manual) 3 % (0-7); Hematocrit 34.1 % (40.1-51.0); Hemoglobin 11.6 g/dL (13.7-17.5); Hypochromasia 1+ (None Seen); Lymphocytes % 25 % (15-49); Mean Cell Volume 95.3 fL (80.0-100.0); Mean Platelet Volume 10.3 fL (7.4-10.4); Monocytes % (Manual) 10 % (1-12); Platelet Count 67 K/mcL (140-440); Platelet Estimate DECREASED (Normal); RBC 3.58 M/mcL (4.63-6.08); RBC Morphology ABNORMAL (Normal); Segmented Neutrophils % 62 % (38-78); WBC 5.2 K/mcL (4.5-11.0)
[2022-03-23] MEDS: LORazepam 2 MG/ML VIAL IV PRN ×2 (09:46→23:35)
[2022-03-23] MEDS ORDERED: AZITHROMYCIN 500 MG in DEXTROSE 5% IN WATER 250 ML IV SCH (10:00)
--- NOTE | 2022-03-23 11:15 | Internal Med Progress Note ---
SUBJECTIVE Subjective Patient information: Note initiated : 03/23/22 at 11:14 am Service Date, if different from initiated Date: [] Patient: Johnathan Son 76 y/o M admitted on 03/22/22 for weakness, alcohol,. Chief Complaint: [] Interval history: Mr. Son is a 76 year old antoinette with a history of atrial fibrillation, left periorbital skin cancer, chronic hyponatremia, alcohol use disorder who was brought to the emergency department for generalized weakness. The patient was found at home surrounded by empty alcohol bottles. In the emergency department, the patient was found to be in alcohol withdrawal, hyponatremic and there is also concern the patient may have a pneumonia therefore the patient was started on antibiotics. 03/23: The patient is an active alcohol withdrawal, receiving IV Ativan as needed per CIWA score. LFTs downtrending. Replaced potassium and phosphorus, continue IV fluid. Physical exam Head: Atraumatic, normal inspection. Eyes: normal appearance, no scleral icterus. Neck: full ROM Respiratory: No respiratory distress Cardiovascular: Regular tachycardia, S1, S2. GI/Abdominal: soft, nontender, no guarding. Extremities: full range of motion, nontender. Neurological: CN II-XII intact, intact motor, intact sensation. Psychiatric: Appears anxious Skin: Chronic appearing left periorbital skin lesion. Constitutional Vitals: Vital Signs Temp Pulse Resp BP Pulse Ox O2 Del Method O2 Flow Rate 98.1 F 120 H 23 H 138/80 96 0 03/23/22 08:01 03/23/22 10:04 03/23/22 10:04 03/23/22 10:04 03/23/22 10:04 03/23/22 07:00 03/23/22 00:55 Period Temp Pulse Resp BP Sys/White Pulse Ox O2 Del Method O2 Flow Rate Last 24 Hr 97.8 F-98.3 F 86-120 14-25 115-146/67-91 95-100 Room Air-Room Air 0-0 Intake and Output 03/22/22 03/23/22 03/23/22 21:59 05:59 13:59 Intake Total 1900 1420 1301 Output Total 790 1300 250 Balance 5655 938 2100 Weight 74.888 kg Intake & Output: Intake & Output 03/22/22 03/23/22 03/23/22 21:59 05:59 13:59 Intake Total 1900 1420 1301 Output Total 790 1300 250 Balance 0185 482 9283 Weight 74.888 kg Intake: IV 1000 1000 581 Sodium Chloride 0.9% 1,000 ml @ 1000 1000 530 100 mls/hr IV .Q10H [facility] Rx#: [id number] Vitamin B1 100 mg In Sodium 51 Chloride 0.9% 50 ml @ 50 mls/hr IV DAILY [facility] Rx#:[id number] Oral 900 420 240 GI Tube Flush 480 Output: Void Amount 790 1300 250 Other: Meal Breakfast Percent of Meal Consumed 100% Urine Appearance Clear Clear Clear Urine Color Dark Yellow Dark Yellow Light [place] Urine Odor Normal Normal Stool Size Moderate Stool Color Brown Stool Consistency Liquid # Voids 475 # Bowel Movements 1 OBJ DATA Labs CBC & Chem 7: 03/23/22 05:32 03/23/22 05:31 Labs: Abnormal Lab Results 03/23/22 03/23/22 03/22/22 05:32 05:31 06:44 RBC 3.58 L Hgb 11.6 L Hct 34.1 L Plt Count 67 L Platelet Estimate Decreased A RBC Morphology Abnormal A Hypochromasia 1+ A POC Sodium Sodium 131 L 132 L Potassium 3.2 L POC Chloride Chloride 94 L 91 L Carbon Dioxide 18 L Anion Gap 23.0 H POC BUN BUN 5 L 4 L Creatinine 0.5 L 0.6 L Glucose 115 H POC Glucose POC WB Ioniz Calcium Phosphorus 2.3 L Total Bilirubin 2.6 H 2.1 H Direct Bilirubin 0.8 H 0.8 H GGT 173 H 188 H AST 74 H 100 H ALT 53 H 65 H Procalcitonin Ethyl Alcohol g/dL 03/22/22 03/21/22 03/21/22 06:44 15:40 15:40 RBC Hgb Hct Plt Count Platelet Estimate RBC Morphology Hypochromasia POC Sodium Sodium 126 L Potassium POC Chloride Chloride 84 L Carbon Dioxide Anion Gap 19.0 H POC BUN BUN 3 L Creatinine 0.6 L Glucose POC Glucose POC WB Ioniz Calcium Phosphorus Total Bilirubin 1.6 H Direct Bilirubin GGT AST 124 H ALT 86 H Procalcitonin 0.19 H Ethyl Alcohol g/dL 0.284 H 03/21/22 03/21/22 15:40 15:11 RBC 4.31 L Hgb Hct 38.9 L Plt Count 115 L Platelet Estimate RBC Morphology Hypochromasia POC Sodium 127 L Sodium Potassium POC Chloride 86 L Chloride Carbon Dioxide Anion Gap POC BUN < 3 L BUN Creatinine Glucose POC Glucose 111 H POC WB Ioniz Calcium 1.05 L Phosphorus Total Bilirubin Direct Bilirubin GGT AST ALT Procalcitonin Ethyl Alcohol g/dL Meds: Medications Apixaban (Apixaban 5 Mg Tablet) 5 mg PO BID [facility] Last Admin: 03/23/22 09:21 Dose: 5 mg Diltiazem HCl (Diltiazem 30 Mg Tablet) 30 mg PO ACHS [facility] Last Admin: 03/23/22 09:19 Dose: 30 mg Folic Acid (Folic Acid 1 Mg Tablet) 1 mg PO DAILY [facility] Last Admin: 03/23/22 09:19 Dose: 1 mg Thiamine HCl 100 mg/ Sodium (Chloride) 51 mls @ 50 mls/hr IV DAILY [facility] Last Infusion: 03/23/22 10:25 Dose: Infused Iron Carb/Multivit/[place]/Folic Acid (Multivit,Ther Iron,Ca,Fa & Min 1 Tablet) 1 tab PO DAILY [facility] Last Admin: 03/23/22 09:19 Dose: 1 tab Lactulose (Lactulose 20 Gm/30 Ml Oral.Dai) 10 gm PO DAILYP PRN PRN Reason: Constipation Lorazepam (Lorazepam 2 Mg/Ml Vial) 0 mg IV Q4HP PRN; Protocol PRN Reason: Alcohol Withdrawal/Assess CIWA Last Admin: 03/23/22 09:46 Dose: 2 mg Ondansetron HCl (Ondansetron 4 Mg/2 Ml Vial) 4 mg IV Q4HP PRN; Protocol PRN Reason: Nausea And Vomiting Potassium/Phosphorus/Sodium (Neutra Phos 1 Packet) 1 packet PO BID [facility] Stop: 03/25/22 08:59 Last Admin: 03/23/22 09:19 Dose: 1 packet Senna (Sennosides 1 Tablet) 2 tab PO HSP PRN PRN Reason: Constipation Sodium Chloride (0.9 % Sodium Chloride 10 Ml Syringe) 10 ml IV Q8 [facility] Last Admin: 03/23/22 05:37 Dose: Not Given Sodium Chloride (0.9 % Sodium Chloride 10 Ml Syringe) 10 ml IV Q8 [facility] Last Admin: 03/23/22 05:37 Dose: Not Given A/P Narrative A/P Narrative: Assessment: 76 year old antoinette with a history of atrial fibrillation, left periorbital skin cancer, chronic hyponatremia, alcohol use disorder who was brought to the emergency department for generalized weakness and found to have alcohol withdrawal, acute on chronic hyponatremia, and elevated LFTs secondary to alcohol. Acute on chronic hyponatremia resolved with IV fluid, elevated LFTs improved. #Alcohol withdrawal #Chronic hyponatremia #Elevated LFT due to mild alcoholic hepatitis, improving #Generalized weakness #Paroxysmal atrial fibrillation #Hypertension #Alcohol use disorder #Left periorbital skin cancer Plan -CIWA protocol with Ativan prn, escalate treatment as needed. -Vitamin supplementation. -IV fluid. -Replace electrolytes as needed, follow LFTs. -Continue home Eliquis, diltiazem, lisinopril. -Regular diet. -PT consult. -quality assurance monitor final. -DVT prophylaxis: Eliquis -Code status: Full -Disposition: Possibly residential facility for rehab when stable. Referral to dermatology for facial skin cancer. Time Spent With Patient Time: Total time spent is greater than 50% in coordination of care (as documented) at patient's floor/unit and/or counseling patient:
[2022-03-24] MEDS: LORazepam 2 MG/ML VIAL IV PRN ×4 (00:42→22:13)
[2022-03-24] MEDS: 0.9 % SODIUM CHLORIDE 1,000 ML IV SCH ×2 (02:00→17:09)
[2022-03-24] MEDS: 0.9 % SODIUM CHLORIDE 10 ML SYRINGE IV SCH ×6 (06:01→20:54)
[2022-03-24 07:39] LABS: ALT/SGPT 46 U/L (<40); AST/SGOT 55 U/L (<40); Albumin 3.3 gm/dL (3.2-5.2); Albumin/Globulin Ratio 1.2 (1.0-2.3); Alkaline Phosphatase 69 U/L (39-117); Bilirubin,Direct 0.8 mg/dL (<0.3); Bilirubin,Total 2.2 mg/dL (0.1-1.0); Blood Urea Nitrogen 4 mg/dL (8-23); Calcium 8.6 mg/dL (8.6-10.4); Carbon Dioxide 21 mmol/L (22-30); Chloride 101 mmol/L (96-108); Globulin 2.7 gm/dL (2.2-3.7); Glomerular Filtration Rate 104; Glucose 112 mg/dL (70-105); Lactate Dehydrogenase 158 U/L (135-225); Phosphorous 2.6 mg/dL (2.5-4.5); Triglycerides 32 mg/dL (<150)
[2022-03-24] MEDS ORDERED: POTASSIUM CHLORIDE 20 MEQ TABLET PO ONE (08:28)
--- NOTE | 2022-03-24 08:28 | Internal Med Progress Note ---
SUBJECTIVE Subjective Patient information: Note initiated : 03/24/22 at 8:27 am Service Date, if different from initiated Date: [] Patient: Johnathan Son 76 y/o M admitted on 03/22/22 for weakness, alcohol,. Chief Complaint: [] Interval history: Mr. Son is a 76 year old antoinette with a history of atrial fibrillation, left periorbital skin cancer, chronic hyponatremia, alcohol use disorder who was brought to the emergency department for generalized weakness. The patient was found at home surrounded by empty alcohol bottles. In the emergency department, the patient was found to be in alcohol withdrawal, hyponatremic and there is also concern the patient may have a pneumonia therefore the patient was started on antibiotics. 03/23: The patient is an active alcohol withdrawal, receiving IV Ativan as needed per CIWA score. LFTs downtrending. Replaced potassium and phosphorus, continue IV fluid. 03/24: Had an aspiration event yesterday with food, recovered with normal respiratory rate and saturating well on room air overnight. Speech therapy consulted. CIWA scores improved from yesterday. Sodium level normal today, replaced potassium and magnesium. LFTs improving. Physical therapy recommended [facility] facility for rehab when the patient is discharged. Physical exam Head: Atraumatic, normal inspection. Eyes: normal appearance, no scleral icterus. Neck: full ROM Respiratory: No respiratory distress Cardiovascular: Regular tachycardia, S1, S2. GI/Abdominal: soft, nontender, no guarding. Extremities: full range of motion, nontender. Neurological: CN II-XII intact, intact motor, intact sensation. Psychiatric: Appears anxious Skin: Chronic appearing left periorbital skin lesion. Constitutional Vitals: Vital Signs Temp Pulse Resp BP Pulse Ox O2 Del Method O2 Flow Rate 97.5 F 87 17 124/70 96 0 03/24/22 04:00 03/24/22 06:01 03/24/22 06:01 03/24/22 06:01 03/24/22 06:01 03/23/22 23:58 03/23/22 00:55 Period Temp Pulse Resp BP Sys/White Pulse Ox O2 Del Method O2 Flow Rate Last 24 Hr 97.5 F-98.3 F 87-120 17-23 115-139/69-84 95-100 Room Air-Room Air Intake and Output 03/23/22 03/24/22 03/24/22 21:59 05:59 13:59 Intake Total 480 1800 Output Total 615 751 Balance -135 1049 Weight 74.871 kg Intake & Output: Intake & Output 03/23/22 03/24/22 03/24/22 21:59 05:59 13:59 Intake Total 480 1800 Output Total 615 751 Balance -135 1049 Weight 74.871 kg Intake: IV 1000 Sodium Chloride 0.9% 1,000 ml @ 1000 75 mls/hr IV .[id number] [facility] Rx#: [id number] Oral 480 800 Output: Void Amount 615 750 # of times incontinent of urine 1 Other: Meal Lunch Percent of Meal Consumed 100% Feeding Ability Independent Urine Appearance Clear Clear Urine Color Dark Yellow Pale Urine Odor Normal Normal Stool Size Moderate Smear Stool Color Brown Brown Stool Consistency Liquid Soft # Voids 1 # Bowel Movements 1 1 # of times incontinent of 1 1 Bowels OBJ DATA Labs CBC & Chem 7: 03/23/22 05:32 03/24/22 06:10 Labs: Abnormal Lab Results 03/24/22 03/23/22 03/23/22 06:10 05:32 05:31 RBC 3.58 L Hgb 11.6 L Hct 34.1 L Plt Count 67 L Platelet Estimate Decreased A RBC Morphology Abnormal A Hypochromasia 1+ A POC Sodium Sodium 131 L Potassium 3.0 L 3.2 L POC Chloride Chloride 94 L Carbon Dioxide 21 L Anion Gap POC BUN BUN 4 L 5 L Creatinine 0.5 L 0.5 L Glucose 112 H 115 H POC Glucose Uric Acid 2.0 L POC WB Ioniz Calcium Phosphorus 2.3 L Magnesium 1.5 L Total Bilirubin 2.2 H 2.6 H Direct Bilirubin 0.8 H 0.8 H GGT 147 H 173 H AST 55 H 74 H ALT 46 H 53 H Procalcitonin Ethyl Alcohol g/dL 03/22/22 03/22/22 03/21/22 06:44 06:44 15:40 RBC Hgb Hct Plt Count Platelet Estimate RBC Morphology Hypochromasia POC Sodium Sodium 132 L Potassium POC Chloride Chloride 91 L Carbon Dioxide 18 L Anion Gap 23.0 H POC BUN BUN 4 L Creatinine 0.6 L Glucose POC Glucose Uric Acid POC WB Ioniz Calcium Phosphorus Magnesium Total Bilirubin 2.1 H Direct Bilirubin 0.8 H GGT 188 H AST 100 H ALT 65 H Procalcitonin 0.19 H Ethyl Alcohol g/dL 0.284 H 03/21/22 03/21/22 03/21/22 15:40 15:40 15:11 RBC 4.31 L Hgb Hct 38.9 L Plt Count 115 L Platelet Estimate RBC Morphology Hypochromasia POC Sodium 127 L Sodium 126 L Potassium POC Chloride 86 L Chloride 84 L Carbon Dioxide Anion Gap 19.0 H POC BUN < 3 L BUN 3 L Creatinine 0.6 L Glucose POC Glucose 111 H Uric Acid POC WB Ioniz Calcium 1.05 L Phosphorus Magnesium Total Bilirubin 1.6 H Direct Bilirubin GGT AST 124 H ALT 86 H Procalcitonin Ethyl Alcohol g/dL Meds: Medications Apixaban (Apixaban 5 Mg Tablet) 5 mg PO BID [facility] Last Admin: 03/23/22 20:44 Dose: 5 mg Diltiazem HCl (Diltiazem 30 Mg Tablet) 30 mg PO ACHS [facility] Last Admin: 03/23/22 20:44 Dose: 30 mg Folic Acid (Folic Acid 1 Mg Tablet) 1 mg PO DAILY [facility] Last Admin: 03/23/22 09:19 Dose: 1 mg Thiamine HCl 100 mg/ Sodium (Chloride) 51 mls @ 50 mls/hr IV DAILY [facility] Last Infusion: 03/23/22 10:25 Dose: Infused Sodium Chloride (Sodium Chloride 0.9%) 1,000 mls @ 75 mls/hr IV .[id number] [facility] Last Admin: 03/24/22 02:00 Dose: 75 mls/hr Iron Carb/Multivit/Recreation Attendant/Folic Acid (Multivit,Ther Iron,Ca,Fa & Min 1 Tablet) 1 tab PO DAILY [facility] Last Admin: 03/23/22 09:19 Dose: 1 tab Lactulose (Lactulose 20 Gm/30 Ml Oral.Dai) 10 gm PO DAILYP PRN PRN Reason: Constipation Lisinopril (Lisinopril 10 Mg Tablet) 10 mg PO DAILY [facility] Lorazepam (Lorazepam 2 Mg/Ml Vial) 0 mg IV Q4HP PRN; Protocol PRN Reason: Alcohol Withdrawal/Assess CIWA Last Admin: 03/24/22 01:26 Dose: 3 mg Ondansetron HCl (Ondansetron 4 Mg/2 Ml Vial) 4 mg IV Q4HP PRN; Protocol PRN Reason: Nausea And Vomiting Potassium/Phosphorus/Sodium (Neutra Phos 1 Packet) 1 packet PO BID [facility] Stop: 03/25/22 08:59 Last Admin: 03/23/22 20:44 Dose: 1 packet Senna (Sennosides 1 Tablet) 2 tab PO HSP PRN PRN Reason: Constipation Sodium Chloride (0.9 % Sodium Chloride 10 Ml Syringe) 10 ml IV Q8 [facility] Last Admin: 03/24/22 06:01 Dose: 10 ml Sodium Chloride (0.9 % Sodium Chloride 10 Ml Syringe) 10 ml IV Q8 [facility] Last Admin: 03/24/22 06:01 Dose: Not Given A/P Narrative A/P Narrative: Assessment: 76 year old antoinette with a history of atrial fibrillation, left periorbital skin cancer, chronic hyponatremia, alcohol use disorder who was b rought to the emergency department for generalized weakness and found to have alcohol withdrawal, acute on chronic hyponatremia, and elevated LFTs secondary to alcohol. Acute on chronic hyponatremia resolved with IV fluid, elevated LFTs improved. #Alcohol withdrawal #Chronic hyponatremia #Elevated LFT due to mild alcoholic hepatitis, improving #Generalized weakness #Paroxysmal atrial fibrillation #Hypertension #Alcohol use disorder #Left periorbital skin cancer Plan -CIWA protocol with Ativan prn, escalate treatment as needed. -Vitamin supplementation. -IV fluid. -Replace electrolytes as needed, follow LFTs. -Continue home Eliquis, diltiazem, lisinopril. -Regular diet. -PT consult. -patient monitor for now due to history of A. fib. -Speech therapy consult. -DVT prophylaxis: Eliquis -Code status: Full -Disposition: senior care facility for rehab when stable. Referral to dermatology for facial skin cancer. Time Spent With Patient Time: Total time spent is greater than 50% in coordination of care (as documented) at patient's floor/unit and/or counseling patient:
[2022-03-24] MEDS ORDERED: MAGNESIUM SULFATE 2 GM/50 ML BAG IV ONE (08:29)
[2022-03-24] MEDS: LISINOPRIL 10 MG TABLET PO SCH (09:31)
[2022-03-24] MEDS: MULTIVIT,THER IRON,CA,FA & MIN 1 TABLET PO SCH (09:31)
[2022-03-24] MEDS: DILTIAZEM 30 MG TABLET PO SCH ×4 (09:31→20:53)
[2022-03-24] MEDS: NEUTRA PHOS 1 PACKET PO SCH ×2 (09:31→20:54)
[2022-03-24] MEDS: FOLIC ACID 1 MG TABLET PO SCH (09:31)
[2022-03-24] MEDS: APIXABAN 5 MG TABLET PO SCH ×2 (09:31→20:53)
[2022-03-24] MEDS: THIAMINE 100 MG in 0.9 % SODIUM CHLORIDE 50 ML IV SCH (09:31)
--- NOTE | 2022-03-24 13:11 | Internal Med Progress Note ---
SUBJECTIVE Subjective Patient information: Note initiated : 03/24/22 at 1:07 pm Service Date, if different from initiated Date: [] Patient: Johnathan Son 76 y/o M admitted on 03/22/22 for weakness, alcohol,. Chief Complaint: [] Interval history: Mr. Son is a 76 year old antoinette with a history of atrial fibrillation, left periorbital skin cancer, chronic hyponatremia, alcohol use disorder who was brought to the emergency department for generalized weakness. The patient was found at home surrounded by empty alcohol bottles. In the emergency department, the patient was found to be in alcohol withdrawal, hyponatremic and there is also concern the patient may have a pneumonia therefore the patient was started on antibiotics. 03/23: The patient is an active alcohol withdrawal, receiving IV Ativan as needed per CIWA score. LFTs downtrending. Replaced potassium and phosphorus, continue IV fluid. 03/24: Had an aspiration event yesterday with food, recovered with normal respiratory rate and saturating well on room air overnight. Speech therapy consulted. CIWA scores improved from yesterday. Sodium level normal today, replaced potassium and magnesium. LFTs improving. Physical therapy recommended detention facility for rehab when the patient is discharged. 03/25 Constitutional Vitals: Vital Signs Temp Pulse Resp BP Pulse Ox O2 Del Method O2 Flow Rate 96.8 F L 81 15 105/64 97 0 03/24/22 12:01 03/24/22 12:01 03/24/22 12:01 03/24/22 12:01 03/24/22 12:01 03/24/22 07:00 03/23/22 00:55 Period Temp Pulse Resp BP Sys/White Pulse Ox O2 Del Method O2 Flow Rate Last 24 Hr 96.8 F-98.3 F 81-105 15-23 105-139/64-84 95-100 Room Air-Room Air Intake and Output 03/23/22 03/24/22 03/24/22 21:59 05:59 13:59 Intake Total 480 1800 240 Output Total 615 751 Balance -135 1049 240 Weight 74.871 kg Intake & Output: Intake & Output 03/23/22 03/24/22 03/24/22 21:59 05:59 13:59 Intake Total 480 1800 240 Output Total 615 751 Balance -135 1049 240 Weight 74.871 kg Intake: IV 1000 Sodium Chloride 0.9% 1,000 ml @ 1000 75 mls/hr IV .[id number] [facility] Rx#: [id number] Oral 480 800 240 Output: Void Amount 615 750 # of times incontinent of urine 1 Other: Meal Lunch Breakfast Percent of Meal Consumed 100% 75% Feeding Ability Independent Assist with Tray Set Up Urine Appearance Clear Clear Urine Color Dark Yellow Pale Urine Odor Normal Normal Stool Size Moderate Smear Stool Color Brown Brown Stool Consistency Liquid Soft Liquid # Voids 1 # Bowel Movements 1 1 # of times incontinent of 1 1 Bowels Exam: General: Alert, Awake, No acute Distress Eyes/N/T: EOMI, Head/Neck: neck supple, CV: RRR, No murmurs, Pulm: Clear b/l, no wheezing/rhonchi/rales Abd: soft, nontender, +BS x4 Ext: no clubbing/cyanosis/edema Neuro: Alert, no focal deficits, moves all extremities, Skin: warm/dry, Chronic appearing left periorbital skin lesion. OBJ DATA Labs CBC & Chem 7: 03/23/22 05:32 03/24/22 06:10 Labs: Abnormal Lab Results 03/24/22 03/23/22 03/23/22 06:10 05:32 05:31 RBC 3.58 L Hgb 11.6 L Hct 34.1 L Plt Count 67 L Platelet Estimate Decreased A RBC Morphology Abnormal A Hypochromasia 1+ A POC Sodium Sodium 131 L Potassium 3.0 L 3.2 L POC Chloride Chloride 94 L Carbon Dioxide 21 L Anion Gap POC BUN BUN 4 L 5 L Creatinine 0.5 L 0.5 L Glucose 112 H 115 H POC Glucose Uric Acid 2.0 L POC WB Ioniz Calcium Phosphorus 2.3 L Magnesium 1.5 L Total Bilirubin 2.2 H 2.6 H Direct Bilirubin 0.8 H 0.8 H GGT 147 H 173 H AST 55 H 74 H ALT 46 H 53 H Procalcitonin Ethyl Alcohol g/dL 03/22/22 03/22/22 03/21/22 06:44 06:44 15:40 RBC Hgb Hct Plt Count Platelet Estimate RBC Morphology Hypochromasia POC Sodium Sodium 132 L Potassium POC Chloride Chloride 91 L Carbon Dioxide 18 L Anion Gap 23.0 H POC BUN BUN 4 L Creatinine 0.6 L Glucose POC Glucose Uric Acid POC WB Ioniz Calcium Phosphorus Magnesium Total Bilirubin 2.1 H Direct Bilirubin 0.8 H GGT 188 H AST 100 H ALT 65 H Procalcitonin 0.19 H Ethyl Alcohol g/dL 0.284 H 03/21/22 03/21/22 03/21/22 15:40 15:40 15:11 RBC 4.31 L Hgb Hct 38.9 L Plt Count 115 L Platelet Estimate RBC Morphology Hypochromasia POC Sodium 127 L Sodium 126 L Potassium POC Chloride 86 L Chloride 84 L Carbon Dioxide Anion Gap 19.0 H POC BUN < 3 L BUN 3 L Creatinine 0.6 L Glucose POC Glucose 111 H Uric Acid POC WB Ioniz Calcium 1.05 L Phosphorus Magnesium Total Bilirubin 1.6 H Direct Bilirubin GGT AST 124 H ALT 86 H Procalcitonin Ethyl Alcohol g/dL Meds: Medications Apixaban (Apixaban 5 Mg Tablet) 5 mg PO BID [facility] Last Admin: 03/24/22 09:31 Dose: 5 mg Diltiazem HCl (Diltiazem 30 Mg Tablet) 30 mg PO ACHS [facility] Last Admin: 03/24/22 09:31 Dose: 30 mg Folic Acid (Folic Acid 1 Mg Tablet) 1 mg PO DAILY [facility] Last Admin: 03/24/22 09:31 Dose: 1 mg Thiamine HCl 100 mg/ Sodium (Chloride) 51 mls @ 50 mls/hr IV DAILY [facility] Last Admin: 03/24/22 09:31 Dose: 50 mls/hr Sodium Chloride (Sodium Chloride 0.9%) 1,000 mls @ 75 mls/hr IV .[id number] [facility] Last Admin: 03/24/22 02:00 Dose: 75 mls/hr Iron Carb/Multivit/Pharmaceutical Detailer/Folic Acid (Multivit,Ther Iron,Ca,Fa & Min 1 Tablet) 1 tab PO DAILY [facility] Last Admin: 03/24/22 09:31 Dose: 1 tab Lactulose (Lactulose 20 Gm/30 Ml Oral.Dai) 10 gm PO DAILYP PRN PRN Reason: Constipation Lisinopril (Lisinopril 10 Mg Tablet) 10 mg PO DAILY [facility] Last Admin: 03/24/22 09:31 Dose: 10 mg Lorazepam (Lorazepam 2 Mg/Ml Vial) 0 mg IV Q4HP PRN; Protocol PRN Reason: Alcohol Withdrawal/Assess CIWA Last Admin: 03/24/22 09:31 Dose: 2 mg Ondansetron HCl (Ondansetron 4 Mg/2 Ml Vial) 4 mg IV Q4HP PRN; Protocol PRN Reason: Nausea And Vomiting Potassium/Phosphorus/Sodium (Neutra Phos 1 Packet) 1 packet PO BID [facility] Stop: 03/25/22 08:59 Last Admin: 03/24/22 09:31 Dose: 1 packet Senna (Sennosides 1 Tablet) 2 tab PO HSP PRN PRN Reason: Constipation Sodium Chloride (0.9 % Sodium Chloride 10 Ml Syringe) 10 ml IV Q8 [facility] Last Admin: 03/24/22 06:01 Dose: 10 ml Sodium Chloride (0.9 % Sodium Chloride 10 Ml Syringe) 10 ml IV Q8 [facility] Last Admin: 03/24/22 06:01 Dose: Not Given A/P Narrative A/P Narrative: A: #Alcohol withdrawal (Alcohol use disorder): #Chronic hyponatremia: #Elevated LFT due to mild alcoholic hepatitis, improving: #Generalized weakness: #Paroxysmal atrial fibrillation: #Hypertension: #Left periorbital skin cancer Plan -CIWA protocol with Ativan prn, escalate treatment as needed. -Vitamin supplementation. -IV fluid. -Replace electrolytes as needed, follow LFTs. -Continue home Eliquis, diltiazem, lisinopril. -Regular diet. -PT consult. -iv therapy nurse for now due to history of A. fib. -Speech therapy consult. 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
[2022-03-24] MEDS ORDERED: METOPROLOL TARTRATE 5 MG/5 ML VIAL IV PRN ×2 (13:47→14:00)
[2022-03-24] MEDS: METOPROLOL TARTRATE 5 MG/5 ML VIAL IV PRN ×2 (13:59→14:08)
--- NOTE | 2022-03-24 15:28 | Discharge Summary ---
Discharge Provider Provider IMPORTANT FOLLOW-UP INFORMATION FOR PCP: Patient information: Note initiated : 03/24/22 at 3:26 pm Service Date, if different from initiated Date: [] Patient: Jonhathan Son 76 y/o M admitted on 03/22/22 for weakness, alcohol,. Chief Complaint: [] Date of admission: 03/22/22 07:13 Discharge date: 03/28/22 Primary care physician: Noe Anderson MD Consults: 03/22/22 Consult to Physician [CONS] Stat Comment: Consulting Provider: Eddie Howard Reason For Exam: Physician to Consult COURSE Hospital Course Hospital course: Interval history: Mr. Son is a 76 year old antoinette with a history of atrial fibrillation, left periorbital skin cancer, chronic hyponatremia, alcohol use disorder who was brought to the emergency department for generalized weakness. The patient was found at home surrounded by empty alcohol bottles. In the emergency department, the patient was found to be in alcohol withdrawal, hyponatremic and there is also concern the patient may have a pneumonia therefore the patient was started on antibiotics. 03/23: The patient is an active alcohol withdrawal, receiving IV Ativan as needed per CIWA score. LFTs downtrending. Replaced potassium and phosphorus, continue IV fluid. 03/24: Had an aspiration event yesterday with food, recovered with normal respiratory rate and saturating well on room air overnight. Speech therapy consulted. CIWA scores improved from yesterday. Sodium level normal today, replaced potassium and magnesium. LFTs improving. Physical therapy recommended alf facility for rehab when the patient is discharged. 03/25 Patient required IV Ativan last night and p.o. Librium this morning. No new complaint from the patient. Thrombocytopenia slightly better today. Potassium magnesium better today. Mild transaminitis stable. 03/26 CIWA scores improving, still requiring some benzo. Patient says he has no new complaints other than feeling quite anxious at times. Sodium within normal limits. 03/27 Patient sitting up in chair. Seems to be feeling better. Did not require any IV Ativan but did get some Librium. Sodium low again today. Patient did drink quite a bit of water yesterday. Nurse concerned about patient still aspirating with food and drink. Patient has been seen by speech therapy and will have them reevaluate tomorrow. 03/28 No overnight event or new complaints. Stable for discharge. A: #Alcohol withdrawal (Alcohol use disorder): #Chronic hyponatremia: improved #Elevated LFT due to mild alcoholic hepatitis, improving: #Generalized weakness: #Paroxysmal atrial fibrillation: #Hypertension: #Left periorbital skin cancer Plan -CM for SNF -naltrexone for etoh use disorder -Referral to dermatology for facial skin cancer Discharge diagnosis: Alcohol abuse disorder and withdrawal Secondary discharge diagnosis: Chronic hyponatremia transaminitis generalized weakness paroxysmal atrial fibrillation hypertension left periorbital skin cancer Time Spent with Patient Time attestation: Total time spent providing and/or coordinating discharge services: Time spent: Greater than 30 minutes EXAM Constitutional Vitals: Temp Pulse Resp BP Pulse Ox O2 Del Method O2 Flow Rate 96.8 F L 117 H 23 H 108/69 99 0 03/24/22 12:01 03/24/22 14:03 03/24/22 14:03 03/24/22 14:03 03/24/22 14:03 03/24/22 07:00 03/23/22 00:55 Discharge Data Data Completed and Pending Labs on day of discharge: Labs from last 24 hours 03/24/22 06:10 Sodium 133 Potassium 3.0 L Chloride 101 Carbon Dioxide 21 L Anion Gap 11.0 BUN 4 L Creatinine 0.5 L GFR Calculation 104 Glucose 112 H Uric Acid 2.0 L Calcium 8.6 Phosphorus 2.6 Magnesium 1.5 L Total Bilirubin 2.2 H Direct Bilirubin 0.8 H GGT 147 H AST 55 H ALT 46 H Alkaline Phosphatase 69 Lactate Dehydrogenase 158 Total Protein 6.0 Albumin 3.3 Globulin 2.7 Albumin/Globulin Ratio 1.2 Triglycerides 32 Discharge Plan Patient/Caregiver Discharge Instructions Activity: increase activity as tolerated Diet: Dysphagia Level 7 Easy to Chew Foods and Thickened Liquids Activity Restrictions/Additional Instructions: No more alcohol intake. Prescriptions: New naltrexone 50 mg tablet 50 mg PO QDAY Qty: 30 0RF Rx Instructions: For Alcohol use disorder. Continued diltiazem HCl 30 mg Tablet 30 mg PO ACHS Qty: 120 0RF Eliquis 5 mg Tablet 5 mg PO BID Qty: 60 0RF lisinopril 10 mg Tablet 10 mg PO DAILY Qty: 30 0RF Follow Up Plan Follow up with: Noe Anderson MD [Primary Care Provider] - Patient Disposition: Xfer SNF Prognosis: Undetermined Rehab Potential: Fair I certify that the patient requires SNF services: Yes Overall status at discharge: patient is progressing back to baseline Discharge Orders: Discharge Order (Routine); Ordered 03/28/22 Ordered By: Lauri Chapin
[2022-03-24] MEDS: SODIUM CHLORIDE 1 GM TABLET PO SCH ×2 (16:25→20:53)
[2022-03-25] MEDS: 0.9 % SODIUM CHLORIDE 10 ML SYRINGE IV SCH ×6 (05:54→20:24)
--- NOTE | 2022-03-25 07:00 | EKG ---
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
--- NOTE | 2022-03-25 07:02 | EKG ---
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/[email or web address]/[id number]
[2022-03-25 07:05] LABS: Basophils # (Auto) 0.01 K/mcL (0.00-0.30); Basophils % (Auto) 0.2 % (0.0-2.0); Eosinophils # (Auto) 0.43 K/mcL (0.00-0.70); Eosinophils % (Auto) 7.4 % (0.0-7.0); Hematocrit 33.4 % (40.1-51.0); Hemoglobin 11.1 g/dL (13.7-17.5); Lymphocytes # (Auto) 1.23 K/mcL (1.50-4.80); Lymphocytes % (Auto) 21.1 % (15.5-49.0); Mean Corpuscular HGB Conc 33.2 g/dL (31.0-36.0); Mean Platelet Volume 9.9 fL (7.4-10.4); Monocytes # (Auto) 0.82 K/mcL (0.10-0.90); Monocytes % (Auto) 14.1 % (1.0-12.0); Neutrophils % (Auto) 56.7 % (38.0-78.0); Platelet Count 75 K/mcL (140-440); RBC 3.48 M/mcL (4.63-6.08); Red Cell Distribution Width 14.5 % (11.5-14.5); WBC 5.8 K/mcL (4.5-11.0)
--- NOTE | 2022-03-25 07:19 | Internal Med Progress Note ---
SUBJECTIVE Subjective Patient information: Note initiated : 03/25/22 at 7:15 am Service Date, if different from initiated Date: [] Patient: Johnathan Son 76 y/o M admitted on 03/22/22 for weakness, alcohol,. Chief Complaint: [] Interval history: Mr. Son is a 76 year old antoinette with a history of atrial fibrillation, left periorbital skin cancer, chronic hyponatremia, alcohol use disorder who was brought to the emergency department for generalized weakness. The patient was found at home surrounded by empty alcohol bottles. In the emergency department, the patient was found to be in alcohol withdrawal, hyponatremic and there is also concern the patient may have a pneumonia therefore the patient was started on antibiotics. 03/23: The patient is an active alcohol withdrawal, receiving IV Ativan as needed per CIWA score. LFTs downtrending. Replaced potassium and phosphorus, continue IV fluid. 03/24: Had an aspiration event yesterday with food, recovered with normal respiratory rate and saturating well on room air overnight. Speech therapy consulted. CIWA scores improved from yesterday. Sodium level normal today, replaced potassium and magnesium. LFTs improving. Physical therapy recommended intermediate facility for rehab when the patient is discharged. 03/25 Patient required IV Ativan last night and p.o. Librium this morning. No new complaint from the patient. Thrombocytopenia slightly better today. Potassium magnesium better today. Mild transaminitis stable. Review of Systems: denies headache/fever/chills/nausea/vomiting/chest or abdominal pain/cough/dyspnea/diarrhea. Otherwise see above. Constitutional Vitals: Vital Signs Temp Pulse Resp BP Pulse Ox O2 Del Method O2 Flow Rate 98.2 F 81 19 119/63 98 0 03/25/22 05:36 03/25/22 05:36 03/25/22 05:36 03/25/22 04:00 03/25/22 05:36 03/25/22 00:00 03/23/22 00:55 Period Temp Pulse Resp BP Sys/White Pulse Ox O2 Del Method O2 Flow Rate Last 24 Hr 96.8 F-98.6 F 72-154 14-27 90-132/58-90 95-100 Room Air-Room Air Intake and Output 03/24/22 03/25/22 03/25/22 21:59 05:59 13:59 Intake Total 1815 418 Output Total 252 493 Balance 1563 -75 Weight 75.013 kg Intake & Output: Intake & Output 03/24/22 03/25/22 03/25/22 21:59 05:59 13:59 Intake Total 1815 418 Output Total 252 493 Balance 1563 -75 Weight 75.013 kg Intake: IV 975 Sodium Chloride 0.9% 1,000 ml @ 975 75 mls/hr IV .[id number] [facility] Rx#: [id number] Oral 840 418 Output: Void Amount 250 490 # of times incontinent of urine 2 3 Other: Meal Lunch Percent of Meal Consumed 100% Urine Appearance Clear Clear Urine Color Dark Yellow Dark Yellow # Voids 1 1 Exam: General: Alert, Awake, No acute Distress Eyes/N/T: EOMI, Head/Neck: neck supple, CV: RRR, No murmurs, Pulm: Clear b/l, no wheezing/rhonchi/rales Abd: soft, nontender, +BS x4 Ext: no clubbing/cyanosis/edema Neuro: Alert, no focal deficits, moves all extremities, Skin: warm/dry, Chronic appearing left periorbital skin lesion. OBJ DATA Labs CBC & Chem 7: 03/25/22 06:08 03/25/22 06:07 Labs: Abnormal Lab Results 03/25/22 03/24/22 03/23/22 06:08 06:10 05:32 RBC 3.48 L 3.58 L Hgb 11.1 L 11.6 L Hct 33.4 L 34.1 L Plt Count 75 L 67 L [place] % (Auto) 14.1 H Eos % (Auto) 7.4 H Lymph # (Auto) 1.23 L Platelet Estimate Decreased A RBC Morphology Abnormal A Hypochromasia 1+ A Sodium Potassium 3.0 L Chloride Carbon Dioxide 21 L Anion Gap BUN 4 L Creatinine 0.5 L Glucose 112 H Uric Acid 2.0 L Phosphorus Magnesium 1.5 L Total Bilirubin 2.2 H Direct Bilirubin 0.8 H GGT 147 H AST 55 H ALT 46 H Procalcitonin 03/23/22 03/22/22 03/22/22 05:31 06:44 06:44 RBC Hgb Hct Plt Count [place] % (Auto) Eos % (Auto) Lymph # (Auto) Platelet Estimate RBC Morphology Hypochromasia Sodium 131 L 132 L Potassium 3.2 L Chloride 94 L 91 L Carbon Dioxide 18 L Anion Gap 23.0 H BUN 5 L 4 L Creatinine 0.5 L 0.6 L Glucose 115 H Uric Acid Phosphorus 2.3 L Magnesium Total Bilirubin 2.6 H 2.1 H Direct Bilirubin 0.8 H 0.8 H GGT 173 H 188 H AST 74 H 100 H ALT 53 H 65 H Procalcitonin 0.19 H Meds: Medications Apixaban (Apixaban 5 Mg Tablet) 5 mg PO BID [facility] Last Admin: 03/24/22 20:53 Dose: 5 mg Diltiazem HCl (Diltiazem 30 Mg Tablet) 30 mg PO ACHS [facility] Last Admin: 03/24/22 20:53 Dose: 30 mg Folic Acid (Folic Acid 1 Mg Tablet) 1 mg PO DAILY [facility] Last Admin: 03/24/22 09:31 Dose: 1 mg Thiamine HCl 100 mg/ Sodium (Chloride) 51 mls @ 50 mls/hr IV DAILY [facility] Last Infusion: 03/24/22 10:40 Dose: Infused Iron Carb/Multivit/[place]/Folic Acid (Multivit,Ther Iron,Ca,Fa & Min 1 Tablet) 1 tab PO DAILY [facility] Last Admin: 03/24/22 09:31 Dose: 1 tab Lactulose (Lactulose 20 Gm/30 Ml Oral.Dai) 10 gm PO DAILYP PRN PRN Reason: Constipation Lisinopril (Lisinopril 10 Mg Tablet) 10 mg PO DAILY [facility] Last Admin: 03/24/22 09:31 Dose: 10 mg Lorazepam (Lorazepam 2 Mg/Ml Vial) 0 mg IV Q4HP PRN; Protocol PRN Reason: Alcohol Withdrawal/Assess CIWA Last Admin: 03/24/22 22:13 Dose: 2 mg Metoprolol Tartrate (Metoprolol Tartrate 5 Mg/5 Ml Vial) 5 mg IV Q2H PRN PRN Reason: Tachyarrhythmias Ondansetron HCl (Ondansetron 4 Mg/2 Ml Vial) 4 mg IV Q4HP PRN; Protocol PRN Reason: Nausea And Vomiting Potassium/Phosphorus/Sodium (Neutra Phos 1 Packet) 1 packet PO BID [facility] Stop: 03/25/22 08:59 Last Admin: 03/24/22 20:54 Dose: 1 packet Senna (Sennosides 1 Tablet) 2 tab PO HSP PRN PRN Reason: Constipation Sodium Chloride (0.9 % Sodium Chloride 10 Ml Syringe) 10 ml IV Q8 [facility] Last Admin: 03/25/22 05:54 Dose: 10 ml Sodium Chloride (0.9 % Sodium Chloride 10 Ml Syringe) 10 ml IV Q8 [facility] Last Admin: 03/25/22 05:54 Dose: Not Given Sodium Chloride (Sodium Chloride 1 Gm Tablet) 1 gm PO TID [facility] Stop: 03/25/22 09:01 Last Admin: 03/24/22 20:53 Dose: 1 gm A/P Narrative A/P Narrative: A: #Alcohol withdrawal (Alcohol use disorder): improving, but still requiring IV ativan #Chronic hyponatremia: better #Elevated LFT due to mild alcoholic hepatitis: improving #Hypokalemia/hypomagnesemia: #Chronic thrombocytopenia: #Generalized weakness: #Paroxysmal atrial fibrillation: #Hypertension: #Left periorbital skin cancer #Oropharyneal dysphagia Plan -CIWA protocol with Ativan prn, escalate treatment as needed. -Vitamin supplementation. -Replace electrolytes as needed, follow LFTs. -Continue home Diltiazem/Lisinopril. 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
[2022-03-25 07:45] LABS: ALT/SGPT 42 U/L (<40); AST/SGOT 54 U/L (<40); Albumin 3.5 gm/dL (3.2-5.2); Albumin/Globulin Ratio 1.3 (1.0-2.3); Alkaline Phosphatase 66 U/L (39-117); Bilirubin,Direct 0.6 mg/dL (<0.3); Bilirubin,Total 1.4 mg/dL (0.1-1.0); Blood Urea Nitrogen 5 mg/dL (8-23); Calcium 8.6 mg/dL (8.6-10.4); Carbon Dioxide 22 mmol/L (22-30); Chloride 101 mmol/L (96-108); Globulin 2.6 gm/dL (2.2-3.7); Glomerular Filtration Rate 97; Glucose 103 mg/dL (70-105); Lactate Dehydrogenase 158 U/L (135-225); Phosphorous 3.4 mg/dL (2.5-4.5); Triglycerides 28 mg/dL (<150); Uric Acid 1.9 mg/dL (2.5-8.0)
[2022-03-25] MEDS: DILTIAZEM 30 MG TABLET PO SCH ×4 (08:33→20:24)
[2022-03-25] MEDS: FOLIC ACID 1 MG TABLET PO SCH (08:36)
[2022-03-25] MEDS: APIXABAN 5 MG TABLET PO SCH ×2 (08:36→20:23)
[2022-03-25] MEDS: MULTIVIT,THER IRON,CA,FA & MIN 1 TABLET PO SCH (08:36)
[2022-03-25] MEDS: LISINOPRIL 10 MG TABLET PO SCH (08:36)
[2022-03-25] MEDS: chlordiazePOXIDE 25 MG CAPSULE PO PRN ×2 (08:36→20:24)
[2022-03-25] MEDS: THIAMINE 100 MG in 0.9 % SODIUM CHLORIDE 50 ML IV SCH (09:01)
[2022-03-25] MEDS: SODIUM CHLORIDE 1 GM TABLET PO SCH (09:01)
[2022-03-26] MEDS: chlordiazePOXIDE 25 MG CAPSULE PO PRN ×3 (00:15→20:12)
[2022-03-26] MEDS: LORazepam 2 MG/ML VIAL IV PRN (01:09)
[2022-03-26] MEDS: 0.9 % SODIUM CHLORIDE 10 ML SYRINGE IV SCH ×6 (06:05→20:13)
[2022-03-26 06:57] LABS: ALT/SGPT 53 U/L (<40); AST/SGOT 61 U/L (<40); Albumin 4.1 gm/dL (3.2-5.2); Albumin/Globulin Ratio 1.1 (1.0-2.3); Alkaline Phosphatase 85 U/L (39-117); Bilirubin,Direct 0.6 mg/dL (<0.3); Bilirubin,Total 1.4 mg/dL (0.1-1.0); Blood Urea Nitrogen 6 mg/dL (8-23); Calcium 9.3 mg/dL (8.6-10.4); Carbon Dioxide 23 mmol/L (22-30); Chloride 98 mmol/L (96-108); Globulin 3.6 gm/dL (2.2-3.7); Glomerular Filtration Rate 97; Glucose 91 mg/dL (70-105); Lactate Dehydrogenase 196 U/L (135-225); Triglycerides 41 mg/dL (<150); Uric Acid 1.9 mg/dL (2.5-8.0)
[2022-03-26] MEDS ORDERED: FUROSEMIDE 40 MG/4 ML VIAL IV ONE (08:12)
--- NOTE | 2022-03-26 08:13 | Internal Med Progress Note ---
SUBJECTIVE Subjective Patient information: Note initiated : 03/26/22 at 8:09 am Service Date, if different from initiated Date: [] Patient: Johnathan Son 76 y/o M admitted on 03/22/22 for weakness, alcohol,. Chief Complaint: [] Interval history: Mr. Son is a 76 year old antoinette with a history of atrial fibrillation, left periorbital skin cancer, chronic hyponatremia, alcohol use disorder who was brought to the emergency department for generalized weakness. The patient was found at home surrounded by empty alcohol bottles. In the emergency department, the patient was found to be in alcohol withdrawal, hyponatremic and there is also concern the patient may have a pneumonia therefore the patient was started on antibiotics. 03/23: The patient is an active alcohol withdrawal, receiving IV Ativan as needed per CIWA score. LFTs downtrending. Replaced potassium and phosphorus, continue IV fluid. 03/24: Had an aspiration event yesterday with food, recovered with normal respiratory rate and saturating well on room air overnight. Speech therapy consulted. CIWA scores improved from yesterday. Sodium level normal today, replaced potassium and magnesium. LFTs improving. Physical therapy recommended custodial facility for rehab when the patient is discharged. 03/25 Patient required IV Ativan last night and p.o. Librium this morning. No new complaint from the patient. Thrombocytopenia slightly better today. Potassium magnesium better today. Mild transaminitis stable. 03/26 CIWA scores improving, still requiring some benzo. Patient says he has no new complaints other than feeling quite anxious at times. Sodium within normal limits. Review of Systems: denies headache/fever/chills/nausea/vomiting/chest or abdominal pain/cough/dyspnea/diarrhea. Otherwise see above. Constitutional Vitals: Vital Signs Temp Pulse Resp BP Pulse Ox O2 Del Method O2 Flow Rate 98 F 96 H 19 144/78 99 2 03/26/22 08:01 03/26/22 07:10 03/26/22 08:01 03/26/22 08:01 03/26/22 08:01 03/26/22 07:00 03/26/22 04:01 Period Temp Pulse Resp BP Sys/White Pulse Ox O2 Del Method O2 Flow Rate Last 24 Hr 97.6 F-98.1 F 73-102 13-21 117-154/67-97 96-100 Nasal Cannula- Room Air 0-2 Intake and Output 03/25/22 03/26/22 03/26/22 21:59 05:59 13:59 Intake Total 440 200 Output Total 726 750 Balance -286 -750 200 Weight 75.296 kg Intake & Output: Intake & Output 03/25/22 03/26/22 03/26/22 21:59 05:59 13:59 Intake Total 440 200 Output Total 726 750 Balance -286 -750 200 Weight 75.296 kg Intake: Oral 440 200 Output: Void Amount 725 750 # of times incontinent of urine 1 Other: Meal Dinner Percent of Meal Consumed 100% Feeding Ability Independent Urine Appearance Clear Clear Urine Color Bright Yellow Bright Yellow Urine Odor Normal Exam: General: Alert, Awake, No acute Distress Eyes/N/T: EOMI, Head/Neck: neck supple, CV: RRR, No murmurs, Pulm: Clear b/l, no wheezing/rhonchi/rales Abd: soft, nontender, +BS x4 Ext: no clubbing/cyanosis/edema Neuro: Alert, no focal deficits, moves all extremities, mildly tremulous Skin: warm/dry, Chronic appearing left periorbital skin lesion. OBJ DATA Labs CBC & Chem 7: 03/25/22 06:08 03/26/22 05:53 Labs: Abnormal Lab Results 03/26/22 03/25/22 03/25/22 05:53 06:08 06:07 RBC 3.48 L Hgb 11.1 L Hct 33.4 L Plt Count 75 L [place] % (Auto) 14.1 H Eos % (Auto) 7.4 H Lymph # (Auto) 1.23 L Platelet Estimate RBC Morphology Hypochromasia Potassium Carbon Dioxide BUN 6 L 5 L Creatinine 0.6 L 0.6 L Glucose Uric Acid 1.9 L 1.9 L Magnesium Total Bilirubin 1.4 H 1.4 H Direct Bilirubin 0.6 H 0.6 H GGT 158 H 134 H AST 61 H 54 H ALT 53 H 42 H 03/24/22 03/23/22 06:10 05:32 RBC 3.58 L Hgb 11.6 L Hct 34.1 L Plt Count 67 L [place] % (Auto) Eos % (Auto) Lymph # (Auto) Platelet Estimate Decreased A RBC Morphology Abnormal A Hypochromasia 1+ A Potassium 3.0 L Carbon Dioxide 21 L BUN 4 L Creatinine 0.5 L Glucose 112 H Uric Acid 2.0 L Magnesium 1.5 L Total Bilirubin 2.2 H Direct Bilirubin 0.8 H GGT 147 H AST 55 H ALT 46 H Meds: Medications Apixaban (Apixaban 5 Mg Tablet) 5 mg PO BID [facility] Last Admin: 03/25/22 20:23 Dose: 5 mg Chlordiazepoxide HCl (Chlordiazepoxide 25 Mg Capsule) 25 mg PO Q4HP PRN PRN Reason: Alcohol Withdrawal/Assess CIWA Last Admin: 03/26/22 00:15 Dose: 25 mg Diltiazem HCl (Diltiazem 30 Mg Tablet) 30 mg PO ACHS [facility] Last Admin: 03/25/22 20:24 Dose: 30 mg Folic Acid (Folic Acid 1 Mg Tablet) 1 mg PO DAILY [facility] Last Admin: 03/25/22 08:36 Dose: 1 mg Thiamine HCl 100 mg/ Sodium (Chloride) 51 mls @ 50 mls/hr IV DAILY [facility] Last Infusion: 03/25/22 10:03 Dose: Infused Iron Carb/Multivit/[employer]/Folic Acid (Multivit,Ther Iron,Ca,Fa & Min 1 Tablet) 1 tab PO DAILY [facility] Last Admin: 03/25/22 08:36 Dose: 1 tab Lactulose (Lactulose 20 Gm/30 Ml Oral.Dai) 10 gm PO DAILYP PRN PRN Reason: Constipation Lisinopril (Lisinopril 10 Mg Tablet) 10 mg PO DAILY [facility] Last Admin: 03/25/22 08:36 Dose: 10 mg Lorazepam (Lorazepam 2 Mg/Ml Vial) 0 mg IV Q4HP PRN; Protocol PRN Reason: Alcohol Withdrawal/Assess CIWA Last Admin: 03/26/22 01:09 Dose: 1 mg Metoprolol Tartrate (Metoprolol Tartrate 5 Mg/5 Ml Vial) 5 mg IV Q2HP PRN PRN Reason: Tachyarrhythmias Ondansetron HCl (Ondansetron 4 Mg/2 Ml Vial) 4 mg IV Q4HP PRN; Protocol PRN Reason: Nausea And Vomiting Senna (Sennosides 1 Tablet) 2 tab PO HSP PRN PRN Reason: Constipation Sodium Chloride (0.9 % Sodium Chloride 10 Ml Syringe) 10 ml IV Q8 [facility] Last Admin: 03/26/22 06:05 Dose: 10 ml Sodium Chloride (0.9 % Sodium Chloride 10 Ml Syringe) 10 ml IV Q8 [facility] Last Admin: 03/26/22 06:05 Dose: Not Given A/P Narrative A/P Narrative: A: #Alcohol withdrawal (Alcohol use disorder): improving, but still requiring IV ativan #Chronic hyponatremia: 2/2 beer potomania, improved with salt tabs #Transaminitis due to mild alcoholic hepatitis: improving #Hypokalemia/hypomagnesemia: #Chronic thrombocytopenia: stable #Generalized weakness: #Paroxysmal atrial fibrillation: #Hypertension: #Left periorbital skin cancer #Oropharyngeal dysphagia #Anxiety: Plan -CIWA protocol with Ativan prn, escalate treatment as needed. -Vitamin supplementation. 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
[2022-03-26] MEDS ORDERED: FUROSEMIDE 40 MG/4 ML VIAL IV SCH (08:30)
[2022-03-26] MEDS: MULTIVIT,THER IRON,CA,FA & MIN 1 TABLET PO SCH (08:57)
[2022-03-26] MEDS: APIXABAN 5 MG TABLET PO SCH ×2 (08:57→20:12)
[2022-03-26] MEDS: FOLIC ACID 1 MG TABLET PO SCH (08:57)
[2022-03-26] MEDS: LISINOPRIL 10 MG TABLET PO SCH (08:57)
[2022-03-26] MEDS: DILTIAZEM 30 MG TABLET PO SCH ×4 (08:57→20:12)
[2022-03-26] MEDS: THIAMINE 100 MG in 0.9 % SODIUM CHLORIDE 50 ML IV SCH (09:19)
[2022-03-26] MEDS ORDERED: LORazepam 2 MG/ML VIAL IV PRN (09:40)
[2022-03-26] MEDS: METOPROLOL TARTRATE 5 MG/5 ML VIAL IV PRN (11:50)
[2022-03-26] MEDS ORDERED: ACETAMINOPHEN 325 MG TABLET PO PRN (19:01)
[2022-03-27] MEDS: 0.9 % SODIUM CHLORIDE 10 ML SYRINGE IV SCH ×6 (06:09→20:02)
[2022-03-27 06:47] LABS: Basophils # (Auto) 0.02 K/mcL (0.00-0.30); Basophils % (Auto) 0.2 % (0.0-2.0); Eosinophils # (Auto) 0.42 K/mcL (0.00-0.70); Eosinophils % (Auto) 5.2 % (0.0-7.0); Hematocrit 33.2 % (40.1-51.0); Hemoglobin 11.2 g/dL (13.7-17.5); Lymphocytes # (Auto) 1.94 K/mcL (1.50-4.80); Lymphocytes % (Auto) 23.9 % (15.5-49.0); Mean Cell Volume 95.7 fL (80.0-100.0); Mean Corpuscular HGB Conc 33.7 g/dL (31.0-36.0); Mean Platelet Volume 9.4 fL (7.4-10.4); Monocytes # (Auto) 1.44 K/mcL (0.10-0.90); Monocytes % (Auto) 17.8 % (1.0-12.0); Neutrophils % (Auto) 52.4 % (38.0-78.0); Platelet Count 118 K/mcL (140-440); RBC 3.47 M/mcL (4.63-6.08); Red Cell Distribution Width 15.3 % (11.5-14.5); WBC 8.1 K/mcL (4.5-11.0)
[2022-03-27 07:12] LABS: ALT/SGPT 41 U/L (<40); AST/SGOT 45 U/L (<40); Albumin 3.4 gm/dL (3.2-5.2); Albumin/Globulin Ratio 1.1 (1.0-2.3); Alkaline Phosphatase 66 U/L (39-117); Bilirubin,Direct 0.5 mg/dL (<0.3); Bilirubin,Total 1.4 mg/dL (0.1-1.0); Blood Urea Nitrogen 7 mg/dL (8-23); Calcium 9.1 mg/dL (8.6-10.4); Carbon Dioxide 24 mmol/L (22-30); Chloride 94 mmol/L (96-108); Globulin 3.1 gm/dL (2.2-3.7); Glomerular Filtration Rate 104; Glucose 112 mg/dL (70-105); Lactate Dehydrogenase 171 U/L (135-225); Phosphorous 3.7 mg/dL (2.5-4.5); Triglycerides 31 mg/dL (<150); Uric Acid 2.3 mg/dL (2.5-8.0)
[2022-03-27] MEDS: LISINOPRIL 10 MG TABLET PO SCH (07:55)
[2022-03-27] MEDS: DILTIAZEM 30 MG TABLET PO SCH ×4 (07:55→20:02)
[2022-03-27] MEDS: MULTIVIT,THER IRON,CA,FA & MIN 1 TABLET PO SCH (07:55)
[2022-03-27] MEDS: FOLIC ACID 1 MG TABLET PO SCH (07:55)
[2022-03-27] MEDS: APIXABAN 5 MG TABLET PO SCH ×2 (07:55→20:02)
--- NOTE | 2022-03-27 08:09 | Internal Med Progress Note ---
SUBJECTIVE Subjective Patient information: Note initiated : 03/27/22 at 8:05 am Service Date, if different from initiated Date: [] Patient: Johnathan Son 76 y/o M admitted on 03/22/22 for weakness, alcohol,. Chief Complaint: [] Interval history: Mr. Son is a 76 year old antoinette with a history of atrial fibrillation, left periorbital skin cancer, chronic hyponatremia, alcohol use disorder who was brought to the emergency department for generalized weakness. The patient was found at home surrounded by empty alcohol bottles. In the emergency department, the patient was found to be in alcohol withdrawal, hyponatremic and there is also concern the patient may have a pneumonia therefore the patient was started on antibiotics. 03/23: The patient is an active alcohol withdrawal, receiving IV Ativan as needed per CIWA score. LFTs downtrending. Replaced potassium and phosphorus, continue IV fluid. 03/24: Had an aspiration event yesterday with food, recovered with normal respiratory rate and saturating well on room air overnight. Speech therapy consulted. CIWA scores improved from yesterday. Sodium level normal today, replaced potassium and magnesium. LFTs improving. [facility] therapy [facility] when the patient is discharged. 03/25 Patient required IV Ativan last night and p.o. Librium this morning. No new complaint from the patient. Thrombocytopenia slightly better today. Potassium magnesium better today. Mild transaminitis stable. 03/26 CIWA scores improving, still requiring some benzo. Patient says he has no new complaints other than feeling quite anxious at times. Sodium within normal limits. 03/27 Patient sitting up in chair. Seems to be feeling better. Did not require any IV Ativan but did get some Librium. Sodium low again today. Patient did drink quite a bit of water yesterday. Nurse concerned about patient still aspirating with food and drink. Patient has been seen by speech therapy and will have them reevaluate tomorrow. Review of Systems: denies headache/fever/chills/nausea/vomiting/chest or abdominal pain/dyspnea/diarrhea. Otherwise see above. Constitutional Vitals: Vital Signs Temp Pulse Resp BP Pulse Ox O2 Del Method O2 Flow Rate 97.6 F 85 20 134/75 99 2 03/27/22 03:34 03/27/22 06:06 03/27/22 06:06 03/27/22 06:01 03/27/22 06:06 03/27/22 03:34 03/26/22 04:01 Period Temp Pulse Resp BP Sys/White Pulse Ox O2 Del Method O2 Flow Rate Last 24 Hr 97.6 F-98.6 F 69-124 14-23 93-134/52-84 96-100 Room Air-Room Air Intake and Output 03/26/22 03/27/22 03/27/22 21:59 05:59 13:59 Intake Total 1516 1122 Output Total 490 890 290 Balance 1026 232 -290 Weight 73.567 kg Intake & Output: Intake & Output 03/26/22 03/27/22 03/27/22 21:59 05:59 13:59 Intake Total 1516 1122 Output Total 490 890 290 Balance 1026 232 -290 Weight 73.567 kg Intake: Nourishment/Supplement quantity 480 (ml) Oral 1036 1122 Output: Void Amount 490 890 290 Other: Meal Dinner Percent of Meal Consumed 0% Nourishment/Supplement name ensure Urine Appearance Clear Clear Clear Urine Color Dark Yellow Dark Yellow Dark Yellow Urine Odor Normal Normal Stool Size Large Stool Color Brown Stool Consistency Soft Formed # Bowel Movements 1 Exam: General: Alert, Awake, No acute Distress Eyes/N/T: EOMI, Head/Neck: neck supple, CV: RRR, No murmurs, Pulm: Clear b/l, no wheezing/rhonchi/rales Abd: soft, nontender, +BS x4 Ext: no clubbing/cyanosis/edema Neuro: Alert, no focal deficits, moves all extremities, Skin: warm/dry, Chronic appearing left periorbital skin lesion. OBJ DATA Labs CBC & Chem 7: 03/27/22 05:27 03/27/22 05:27 Labs: Abnormal Lab Results 03/27/22 03/27/22 03/26/22 05:27 05:27 05:53 RBC 3.47 L Hgb 11.2 L Hct 33.2 L RDW 15.3 H Plt Count 118 L [place] % (Auto) 17.8 H Eos % (Auto) Lymph # (Auto) [place] # (Auto) 1.44 H Sodium 129 L Chloride 94 L BUN 7 L 6 L Creatinine 0.5 L 0.6 L Glucose 112 H Uric Acid 2.3 L 1.9 L Total Bilirubin 1.4 H 1.4 H Direct Bilirubin 0.5 H 0.6 H GGT 119 H 158 H AST 45 H 61 H ALT 41 H 53 H 03/25/22 03/25/22 06:08 06:07 RBC 3.48 L Hgb 11.1 L Hct 33.4 L RDW Plt Count 75 L [place] % (Auto) 14.1 H Eos % (Auto) 7.4 H Lymph # (Auto) 1.23 L [place] # (Auto) Sodium Chloride BUN 5 L Creatinine 0.6 L Glucose Uric Acid 1.9 L Total Bilirubin 1.4 H Direct Bilirubin 0.6 H GGT 134 H AST 54 H ALT 42 H Meds: Medications Acetaminophen (Acetaminophen 325 Mg Tablet) 650 mg PO Q6HP PRN; Protocol PRN Reason: Per Pain Protocol Apixaban (Apixaban 5 Mg Tablet) 5 mg PO BID [facility] Last Admin: 03/27/22 07:55 Dose: 5 mg Chlordiazepoxide HCl (Chlordiazepoxide 25 Mg Capsule) 25 mg PO Q4HP PRN PRN Reason: Alcohol Withdrawal/Assess CIWA Last Admin: 03/26/22 20:12 Dose: 25 mg Diltiazem HCl (Diltiazem 30 Mg Tablet) 30 mg PO ACHS [facility] Last Admin: 03/27/22 07:55 Dose: 30 mg Folic Acid (Folic Acid 1 Mg Tablet) 1 mg PO DAILY [facility] Last Admin: 03/27/22 07:55 Dose: 1 mg Thiamine HCl 100 mg/ Sodium (Chloride) 51 mls @ 50 mls/hr IV DAILY [facility] Last Infusion: 03/26/22 10:43 Dose: Infused Iron Carb/Multivit/[place]/Folic Acid (Multivit,Ther Iron,Ca,Fa & Min 1 Tablet) 1 tab PO DAILY [facility] Last Admin: 03/27/22 07:55 Dose: 1 tab Lactulose (Lactulose 20 Gm/30 Ml Oral.Dai) 10 gm PO DAILYP PRN PRN Reason: Constipation Lisinopril (Lisinopril 10 Mg Tablet) 10 mg PO DAILY [facility] Last Admin: 03/27/22 07:55 Dose: 10 mg Lorazepam (Lorazepam 2 Mg/Ml Vial) 0 mg IV Q4HP PRN; Protocol PRN Reason: Alcohol Withdrawal/Assess CIWA Last Admin: 03/26/22 01:09 Dose: 1 mg Lorazepam (Lorazepam 2 Mg/Ml Vial) 0.5 mg IV Q2-4HP PRN PRN Reason: ANXIETY/SEDATION Last Admin: 03/26/22 10:08 Dose: 0.5 mg Metoprolol Tartrate (Metoprolol Tartrate 5 Mg/5 Ml Vial) 5 mg IV Q2HP PRN PRN Reason: Tachyarrhythmias Last Admin: 03/26/22 11:50 Dose: 5 mg Ondansetron HCl (Ondansetron 4 Mg/2 Ml Vial) 4 mg IV Q4HP PRN; Protocol PRN Reason: Nausea And Vomiting Senna (Sennosides 1 Tablet) 2 tab PO HSP PRN PRN Reason: Constipation Sodium Chloride (0.9 % Sodium Chloride 10 Ml Syringe) 10 ml IV Q8 [facility] Last Admin: 03/27/22 06:09 Dose: 10 ml Sodium Chloride (0.9 % Sodium Chloride 10 Ml Syringe) 10 ml IV Q8 [facility] Last Admin: 03/27/22 06:09 Dose: Not Given A/P Narrative A/P Narrative: A: #Alcohol withdrawal (Alcohol use disorder): improving, but still requiring IV ativan #Chronic hyponatremia: 2/2 beer potomania, #Transaminitis due to mild alcoholic hepatitis: improving #Hypokalemia/hypomagnesemia: #Chronic thrombocytopenia: stable #anemia, chronic: #Generalized weakness: #Paroxysmal atrial fibrillation: #Hypertension: #Left periorbital skin cancer #Oropharyngeal dysphagia: #Anxiety: Plan -CIWA protocol with Ativan prn -Vitamin supplementation -Replace electrolytes as needed -Continue home Diltiazem/Lisinopril -PT -diet per Speech therapy -CM for SNF -Referral to dermatology for facial skin cancer -ppx: Eliquis Code status: Limited Time Spent With Patient Time: Total time spent is greater than 50% in coordination of care (as documented) at patient's floor/unit and/or counseling patient:
[2022-03-27] MEDS: SODIUM CHLORIDE 1 GM TABLET PO SCH ×3 (08:49→20:02)
[2022-03-27] MEDS: THIAMINE 100 MG in 0.9 % SODIUM CHLORIDE 50 ML IV SCH (09:27)
[2022-03-27] MEDS: METOPROLOL TARTRATE 5 MG/5 ML VIAL IV PRN (11:12)
[2022-03-28] MEDS: 0.9 % SODIUM CHLORIDE 10 ML SYRINGE IV SCH ×2 (05:01)
[2022-03-28] MEDS: DILTIAZEM 30 MG TABLET PO SCH ×2 (06:59→11:12)
[2022-03-28] MEDS: MULTIVIT,THER IRON,CA,FA & MIN 1 TABLET PO SCH (08:10)
[2022-03-28] MEDS: LISINOPRIL 10 MG TABLET PO SCH (08:10)
[2022-03-28] MEDS: THIAMINE 100 MG in 0.9 % SODIUM CHLORIDE 50 ML IV SCH (08:10)
[2022-03-28] MEDS: FOLIC ACID 1 MG TABLET PO SCH (08:10)
[2022-03-28] MEDS: APIXABAN 5 MG TABLET PO SCH (08:10)
== END 2022-03-28 12:10 | DRG 897 ==
LOC: ED 14:58 → ICU 03-22 07:13
PROVIDERS: ADMIT Internal Medicine; ATTEND Internal Medicine

== ENCOUNTER 2022-05-30 09:58 | Inpatient (IN) ==
[2022-05-30] MEDS ORDERED: IOPAMIDOL 100 ML BOTTLE IV ONE (09:59)
[2022-05-30] MEDS ORDERED: LACTATED RINGERS 1,000 ML IV ONE (10:10)
--- NOTE | 2022-05-30 10:11 | Emergency Department Note ---
HPI General Chief complaint: Weakness Stated complaint: weakness Time Seen by Provider: 05/30/22 10:07 Source: patient and EMS Mode of arrival: EMS History of Present Illness HPI Narrative: Narrative: Patient is a 76-year-old male with a complex history who presents to the emergency department due to increased frequency of urination and weakness. Patient states that overnight last night he had increased frequency of urination and was having difficulty getting himself up to go to the bathroom and getting himself up from the bathroom. He endorses lightheadedness. He states that he has also had runny nose, sore throat, and loose stool. He states that he has a lesion on the left side of his face which she has had for a long time, but this has worsened. He states that he was seen by oncology in [place], and they had planned a surgery due to concern for a "malignancy," but this surgery was canceled. He states he became upset, so did not see his oncology team again. He has not seen anybody else about his lesion. He does endorse new ringing in his left ear. He denies any other symptoms at this time. Related Data Previous Rx's Medication Instructions Recorded apixaban 5 mg tablet (Eliquis) 5 mg PO BID #120 tabs 06/01/22 diltiazem HCl 30 mg tablet 30 mg PO ACHS #120 tabs 06/01/22 levofloxacin 750 mg tablet 750 mg PO Q24H #12 tabs 06/01/22 lisinopril 5 mg tablet 5 mg PO QDAY #30 tabs 06/01/22 Allergies Allergy/AdvReac Type Severity Reaction Status Date / Time No Known Drug Allergies Allergy Verified 05/30/22 09:59 Review of Systems ROS ROS Narrative: Narrative: Constitutional: Reports weakness (Generalized); Denies fever Eyes: Denies eye pain or vision change ENT ED: Reports throat pain and rhinorrhea; Denies hearing loss Cardiovascular: Denies chest pain, dyspnea on exertion, orthopnea or edema Respiratory: Denies shortness of breath or cough Gastrointestinal: Reports diarrhea; Denies abdominal pain, nausea, vomiting, constipation, hematochezia or melena Genitourinary: Reports dysuria and frequency; Denies hematuria or incontinence Musculoskeletal: Denies back pain or myalgia Integumentary: Denies rash or lesions Neurological: Reports weakness (Generalized); Denies headache, numbness, confusion, abnormal gait or dizziness Endocrine: Denies fatigue or polyuria Hematological/Lymphatic: Denies easy bleeding or easy bruising [facility] Narrative Patient History Narrative: Narrative: Medical/Surgical/Family History All Active Problems (Updated 06/02/22 @ 21:31 by Abel Perez MD) Weakness (Acute) Alcohol withdrawal (Acute) Hyponatremia (Acute) Pneumonia (Acute) Sepsis secondary to UTI (Acute) Atrial fibrillation (Acute) Anemia, hyperchromic (Acute) Skin cancer of face (Acute) Nausea vomiting and diarrhea (Acute) Dehydration (Acute) Acidosis, lactic (Acute) Alcohol withdrawal (Acute) Hypomagnesemia (Acute) Physical deconditioning (Acute) UTI (urinary tract infection) (Acute) Delirium (Acute) Dementia (Acute) Anemia, normocytic normochromic (Acute) Hypokalemia (Acute) Atrial fibrillation with RVR (Acute) Acute hyponatremia (Acute) Acute dehydration (Acute) Multiple skin tears (Acute) Head injury (Acute) Elevated CK (Acute) Generalized muscle weakness (Acute) Acute hyponatremia (Acute) Social History Smoking Status: Former smoker Alcohol Intake Frequency: 2+ drinks per day Substance Use: does not use Exam Narrative Narrative: Narrative: General General appearance: Present alert and in no apparent distress; Absent anxious, appears intoxicated or sleepy Head Head: Present atraumatic and normocephalic Eye Eye: Present PERRL and EOMI; Absent scleral icterus or nystagmus ENT ENT: Present mucous membranes moist; Absent nasal congestion Neck Neck: Present full ROM; Absent tenderness Chest Chest: Present normal inspection and symmetric chest wall rise; Absent tenderness Respiratory Respiratory: Present normal lung sounds bilaterally; Absent respiratory distress or accessory muscle use Cardiovascular Cardiovascular: Present normal rhythm, tachycardia and normal heart sounds Adbominal Abdominal: Present soft and normal bowel sounds; Absent distention or tenderness Extremities Extremities: Present normal inspection and full ROM; Absent tenderness Back Back: Present normal inspection and full ROM; Absent tenderness Neurological Neurological: Present alert, oriented X3 and CN II-XII intact; Absent motor sensory deficit Psychiatric Psychiatric: Present normal affect and normal mood Skin Skin: Present warm (WNL), dry and normal color Course Vital Signs Vital signs: Vital Signs Temperature 98.9 F 05/30/22 09:59 Pulse Rate 123 H 05/30/22 09:59 Respiratory Rate 18 05/30/22 09:59 Blood Pressure 169/98 05/30/22 09:59 Pulse Oximetry (%) 99 05/30/22 09:59 Oxygen Delivery Method 05/30/22 09:59 Temperature 97.6 F 06/02/22 13:21 Pulse Rate 91 H 06/02/22 13:21 Respiratory Rate 14 06/02/22 13:21 Blood Pressure 138/83 06/02/22 13:21 Pulse Oximetry (%) 100 06/02/22 13:21 Oxygen Delivery Method 06/02/22 13:21 Oxygen Flow Rate (L/min) 0 05/31/22 04:00 MDM MDM Narrative Medical decision making narrative: Narrative: Patient is a 76-year-old male with a complex history who presents to the emergency department due to increased frequency of urination and weakness. Patient meets SIRS criteria and there is concern for UTI. Patient's urinalysis is consistent with UTI. He has received antibiotics. I have spoken to Dr. Chapin who has agreed to see and evaluate patient for admission. Lab Data Result diagrams: 05/31/22 05:45 06/02/22 06:10 Labs: Lab Results 05/30/22 05/30/22 05/30/22 Range/Units 10:41 10:42 10:42 WBC 8.1 (4.5-11.0) K/mcL RBC 4.35 L (4.63-6.08) M/mcL Hgb 13.5 L (13.7-17.5) g/dL Hct 39.1 L (40.1-51.0) % MCV 89.9 (80.0-100.0) fL MCH 31.0 (26.0-34.0) pg MCHC 34.5 (31.0-36.0) g/dL RDW 14.1 (11.5-14.5) % Plt Count 135 L (140-440) K/mcL MPV 9.0 (8.8-12.5) fL Immature Gran % (Auto) 0.4 (0.0-0.5) % Neut % (Auto) 81.3 H (38.0-78.0) % Lymph % (Auto) 6.9 L (15.5-49.0) % [place] % (Auto) 11.1 (1.0-12.0) % Eos % (Auto) 0.1 (0.0-7.0) % Baso % (Auto) 0.2 (0.0-2.0) % Lymph # (Auto) 0.56 L (1.50-4.80) K/mcL [place] # (Auto) 0.90 (0.10-0.90) K/mcL Eos # (Auto) 0.01 (0.00-0.70) K/mcL Baso # (Auto) 0.02 (0.00-0.30) K/mcL Seg Neutrophils % 79 H (38-78) % Lymphocytes % 8 L (15-49) % Monocytes % (Manual) 13 H (1-12) % Immature Gran # 0.03 (0.00-0.05) K/mcl Absolute Neutrophils 6.60 (1.80-8.00) K/mcL Platelet Estimate Decreased A (Normal) RBC Morphology Normal (Normal) POC VBG pH (7.32-7.42) POC VBG pCO2 at Temp (41-51) POC VBG pO2 (25-40) POC VBG HCO3 (24-28) POC VBG Total CO2 (25-29) POC Venous O2 Sat (40-70) POC VBG Base Excess (-2-2) VBG Lactic Acid (0.5-2) Sodium (133-145) mmol/L Potassium (3.3-5.1) mmol/L Chloride (96-108) mmol/L Carbon Dioxide (22-30) mmol/L Anion Gap (8.0-16.0) BUN (8-23) mg/dL Creatinine (0.7-1.2) mg/dL GFR Calculation Glucose (70-105) mg/dL Osmolality (280-300) mOSM/kg Uric Acid (2.5-8.0) mg/dL Calcium (8.6-10.4) mg/dL Magnesium (1.6-2.5) mg/dL Total Bilirubin (0.1-1.0) mg/dL AST (<40) U/L ALT (<40) U/L Alkaline Phosphatase (39-117) U/L Total Protein (5.9-8.4) gm/dL Albumin (3.2-5.2) gm/dL Globulin (2.2-3.7) gm/dL Albumin/Globulin Ratio (1.0-2.3) Urine Color Urine Appearance (Clear) Urine pH (5.0-9.0) Ur Specific [place] (1.000-1.035) Urine Protein (Negative) mg/dL Urine Glucose (UA) (Negative) mg/dL Urine Ketones (Negative) mg/dL Urine Occult Blood (Negative) alcon/mcL Urine Nitrate (Negative) Urine Bilirubin (Negative) mg/dL Urine Urobilinogen mg/dL Ur Leukocyte Esterase (Negative) /uL Urine RBC (0-3) /hpf Urine WBC (0-4) /hpf Ur Squamous Epith Cells (0-4) /hpf Ur Transition Epith Cell (0-2) /hpf Urine Bacteria (0) /hpf Urine Mucus (None) /hpf Urine Yeast (Budding) (None) /hpf Ur Culture Indicated? Urine Osmolality (80-1000) mOSM/kg Ur Random Sodium mmol/L Ethyl Alcohol mg/dL 49.0 mg/dL Ethyl Alcohol g/dL 0.049 H (<0.010) gm/dL 05/30/22 05/30/22 05/30/22 Range/Units 10:43 11:20 11:20 WBC (4.5-11.0) K/mcL RBC (4.63-6.08) M/mcL Hgb (13.7-17.5) g/dL Hct (40.1-51.0) % MCV (80.0-100.0) fL MCH (26.0-34.0) pg MCHC (31.0-36.0) g/dL RDW (11.5-14.5) % Plt Count (140-440) K/mcL MPV (8.8-12.5) fL Immature Gran % (Auto) (0.0-0.5) % Neut % (Auto) (38.0-78.0) % Lymph % (Auto) (15.5-49.0) % [place] % (Auto) (1.0-12.0) % Eos % (Auto) (0.0-7.0) % Baso % (Auto) (0.0-2.0) % Lymph # (Auto) (1.50-4.80) K/mcL [place] # (Auto) (0.10-0.90) K/mcL Eos # (Auto) (0.00-0.70) K/mcL Baso # (Auto) (0.00-0.30) K/mcL Seg Neutrophils % (38-78) % Lymphocytes % (15-49) % Monocytes % (Manual) (1-12) % Immature Gran # (0.00-0.05) K/mcl Absolute Neutrophils (1.80-8.00) K/mcL Platelet Estimate (Normal) RBC Morphology (Normal) POC VBG pH 7.44 H (7.32-7.42) POC VBG pCO2 at Temp 34.7 L (41-51) POC VBG pO2 33 (25-40) POC VBG HCO3 23.8 L (24-28) POC VBG Total CO2 25.0 (25-29) POC Venous O2 Sat 67.0 (40-70) POC VBG Base Excess 0 (-2-2) VBG Lactic Acid 2.7 H (0.5-2) Sodium (133-145) mmol/L Potassium (3.3-5.1) mmol/L Chloride (96-108) mmol/L Carbon Dioxide (22-30) mmol/L Anion Gap (8.0-16.0) BUN (8-23) mg/dL Creatinine (0.7-1.2) mg/dL GFR Calculation Glucose (70-105) mg/dL Osmolality (280-300) mOSM/kg Uric Acid (2.5-8.0) mg/dL Calcium (8.6-10.4) mg/dL Magnesium (1.6-2.5) mg/dL Total Bilirubin (0.1-1.0) mg/dL AST (<40) U/L ALT (<40) U/L Alkaline Phosphatase (39-117) U/L Total Protein (5.9-8.4) gm/dL Albumin (3.2-5.2) gm/dL Globulin (2.2-3.7) gm/dL Albumin/Globulin Ratio (1.0-2.3) Urine Color Lt. yellow Urine Appearance Cloudy A (Clear) Urine pH 6.5 (5.0-9.0) Ur Specific [place] 1.010 (1.000-1.035) Urine Protein Negative (Negative) mg/dL Urine Glucose (UA) Negative (Negative) mg/dL Urine Ketones Trace A (Negative) mg/dL Urine Occult Blood Trace-intact A (Negative) alcon/mcL Urine Nitrate Positive A (Negative) Urine Bilirubin Negative (Negative) mg/dL Urine Urobilinogen 4.0 A mg/dL Ur Leukocyte Esterase Moderate A (Negative) /uL Urine RBC 2 (0-3) /hpf Urine WBC 20 H (0-4) /hpf Ur Squamous Epith Cells 0 (0-4) /hpf Ur Transition Epith Cell < 1 (0-2) /hpf Urine Bacteria Few A (0) /hpf Urine Mucus Few A (None) /hpf Urine Yeast (Budding) Few A (None) /hpf Ur Culture Indicated? yes Urine Osmolality 297 (80-1000) mOSM/kg Ur Random Sodium 84 mmol/L Ethyl Alcohol mg/dL mg/dL Ethyl Alcohol g/dL (<0.010) gm/dL 05/30/22 05/30/22 05/30/22 Range/Units 11:20 13:01 13:01 WBC (4.5-11.0) K/mcL RBC (4.63-6.08) M/mcL Hgb (13.7-17.5) g/dL Hct (40.1-51.0) % MCV (80.0-100.0) fL MCH (26.0-34.0) pg MCHC (31.0-36.0) g/dL RDW (11.5-14.5) % Plt Count (140-440) K/mcL MPV (8.8-12.5) fL Immature Gran % (Auto) (0.0-0.5) % Neut % (Auto) (38.0-78.0) % Lymph % (Auto) (15.5-49.0) % [place] % (Auto) (1.0-12.0) % Eos % (Auto) (0.0-7.0) % Baso % (Auto) (0.0-2.0) % Lymph # (Auto) (1.50-4.80) K/mcL [place] # (Auto) (0.10-0.90) K/mcL Eos # (Auto) (0.00-0.70) K/mcL Baso # (Auto) (0.00-0.30) K/mcL Seg Neutrophils % (38-78) % Lymphocytes % (15-49) % Monocytes % (Manual) (1-12) % Immature Gran # (0.00-0.05) K/mcl Absolute Neutrophils (1.80-8.00) K/mcL Platelet Estimate (Normal) RBC Morphology (Normal) POC VBG pH (7.32-7.42) POC VBG pCO2 at Temp (41-51) POC VBG pO2 (25-40) POC VBG HCO3 (24-28) POC VBG Total CO2 (25-29) POC Venous O2 Sat (40-70) POC VBG Base Excess (-2-2) VBG Lactic Acid (0.5-2) Sodium 129 L (133-145) mmol/L Potassium 4.3 (3.3-5.1) mmol/L Chloride 92 L (96-108) mmol/L Carbon Dioxide 23 (22-30) mmol/L Anion Gap 14.0 (8.0-16.0) BUN 3 L (8-23) mg/dL Creatinine 0.6 L (0.7-1.2) mg/dL GFR Calculation 96 Glucose 125 H (70-105) mg/dL Osmolality 282 (280-300) mOSM/kg Uric Acid 3.4 (2.5-8.0) mg/dL Calcium 9.2 (8.6-10.4) mg/dL Magnesium 1.7 (1.6-2.5) mg/dL Total Bilirubin 1.2 H (0.1-1.0) mg/dL AST 39 (<40) U/L ALT 25 (<40) U/L Alkaline Phosphatase 88 (39-117) U/L Total Protein 7.3 (5.9-8.4) gm/dL Albumin 4.0 (3.2-5.2) gm/dL Globulin 3.3 (2.2-3.7) gm/dL Albumin/Globulin Ratio 1.2 (1.0-2.3) Urine Color Urine Appearance (Clear) Urine pH (5.0-9.0) Ur Specific [place] (1.000-1.035) Urine Protein (Negative) mg/dL Urine Glucose (UA) (Negative) mg/dL Urine Ketones (Negative) mg/dL Urine Occult Blood (Negative) alcon/mcL Urine Nitrate (Negative) Urine Bilirubin (Negative) mg/dL Urine Urobilinogen mg/dL Ur Leukocyte Esterase (Negative) /uL Urine RBC (0-3) /hpf Urine WBC (0-4) /hpf Ur Squamous Epith Cells (0-4) /hpf Ur Transition Epith Cell (0-2) /hpf Urine Bacteria (0) /hpf Urine Mucus (None) /hpf Urine Yeast (Budding) (None) /hpf Ur Culture Indicated? Urine Osmolality (80-1000) mOSM/kg Ur Random Sodium mmol/L Ethyl Alcohol mg/dL mg/dL Ethyl Alcohol g/dL (<0.010) gm/dL 05/30/22 Range/Units 14:01 WBC (4.5-11.0) K/mcL RBC (4.63-6.08) M/mcL Hgb (13.7-17.5) g/dL Hct (40.1-51.0) % MCV (80.0-100.0) fL MCH (26.0-34.0) pg MCHC (31.0-36.0) g/dL RDW (11.5-14.5) % Plt Count (140-440) K/mcL MPV (8.8-12.5) fL Immature Gran % (Auto) (0.0-0.5) % Neut % (Auto) (38.0-78.0) % Lymph % (Auto) (15.5-49.0) % [place] % (Auto) (1.0-12.0) % Eos % (Auto) (0.0-7.0) % Baso % (Auto) (0.0-2.0) % Lymph # (Auto) (1.50-4.80) K/mcL [place] # (Auto) (0.10-0.90) K/mcL Eos # (Auto) (0.00-0.70) K/mcL Baso # (Auto) (0.00-0.30) K/mcL Seg Neutrophils % (38-78) % Lymphocytes % (15-49) % Monocytes % (Manual) (1-12) % Immature Gran # (0.00-0.05) K/mcl Absolute Neutrophils (1.80-8.00) K/mcL Platelet Estimate (Normal) RBC Morphology (Normal) POC VBG pH (7.32-7.42) POC VBG pCO2 at Temp (41-51) POC VBG pO2 (25-40) POC VBG HCO3 (24-28) POC VBG Total CO2 (25-29) POC Venous O2 Sat (40-70) POC VBG Base Excess (-2-2) VBG Lactic Acid 2.1 H (0.5-2) Sodium (133-145) mmol/L Potassium (3.3-5.1) mmol/L Chloride (96-108) mmol/L Carbon Dioxide (22-30) mmol/L Anion Gap (8.0-16.0) BUN (8-23) mg/dL Creatinine (0.7-1.2) mg/dL GFR Calculation Glucose (70-105) mg/dL Osmolality (280-300) mOSM/kg Uric Acid (2.5-8.0) mg/dL Calcium (8.6-10.4) mg/dL Magnesium (1.6-2.5) mg/dL Total Bilirubin (0.1-1.0) mg/dL AST (<40) U/L ALT (<40) U/L Alkaline Phosphatase (39-117) U/L Total Protein (5.9-8.4) gm/dL Albumin (3.2-5.2) gm/dL Globulin (2.2-3.7) gm/dL Albumin/Globulin Ratio (1.0-2.3) Urine Color Urine Appearance (Clear) Urine pH (5.0-9.0) Ur Specific [place] (1.000-1.035) Urine Protein (Negative) mg/dL Urine Glucose (UA) (Negative) mg/dL Urine Ketones (Negative) mg/dL Urine Occult Blood (Negative) alcon/mcL Urine Nitrate (Negative) Urine Bilirubin (Negative) mg/dL Urine Urobilinogen mg/dL Ur Leukocyte Esterase (Negative) /uL Urine RBC (0-3) /hpf Urine WBC (0-4) /hpf Ur Squamous Epith Cells (0-4) /hpf Ur Transition Epith Cell (0-2) /hpf Urine Bacteria (0) /hpf Urine Mucus (None) /hpf Urine Yeast (Budding) (None) /hpf Ur Culture Indicated? Urine Osmolality (80-1000) mOSM/kg Ur Random Sodium mmol/L Ethyl Alcohol mg/dL mg/dL Ethyl Alcohol g/dL (<0.010) gm/dL ED POC Tests ED POC Tests: SHIVANI - Influenza A Negative SHIVANI - Influenza B Negative SHIVANI - SARS Antigen Negative Discharge Plan Patient/Caregiver Discharge Instructions Pt seen by CAR RETARDER OPERATOR/PA only: No Clinical Impression: Sepsis secondary to UTI Activity: increase activity as tolerated Patient Disposition: Xfer As Inpt ([facility]) Condition: Fair Discharge Date/Time: 05/30/22 16:45
[2022-05-30 11:17] LABS: Basophils # (Auto) 0.02 K/mcL (0.00-0.30); Basophils % (Auto) 0.2 % (0.0-2.0); Eosinophils # (Auto) 0.01 K/mcL (0.00-0.70); Eosinophils % (Auto) 0.1 % (0.0-7.0); Hematocrit 39.1 % (40.1-51.0); Hemoglobin 13.5 g/dL (13.7-17.5); Lymphocytes # (Auto) 0.56 K/mcL (1.50-4.80); Lymphocytes % (Auto) 6.9 % (15.5-49.0); Mean Cell Volume 89.9 fL (80.0-100.0); Mean Corpuscular HGB Conc 34.5 g/dL (31.0-36.0); Monocytes % (Auto) 11.1 % (1.0-12.0); Neutrophils % (Auto) 81.3 % (38.0-78.0); Platelet Count 135 K/mcL (140-440); RBC 4.35 M/mcL (4.63-6.08); Red Cell Distribution Width 14.1 % (11.5-14.5); WBC 8.1 K/mcL (4.5-11.0)
[2022-05-30 11:29] LABS: Alcohol,Blood 0.049 gm/dL (<0.010)
[2022-05-30] MEDS ORDERED: PIPERACILLIN SODIUM/TAZOBACTAM 3.375 GM in DEXTROSE 5% IN WATER 50 ML IV ONE (11:41)
[2022-05-30] MEDS ORDERED: VANCOMYCIN 1,500 MG in 0.9 % SODIUM CHLORIDE 500 ML IV ONE (11:41)
[2022-05-30 12:49] LABS: Appearance,Urine CLOUDY (Clear); Bacteria,Urine FEW /hpf (0); Bilirubin,Urine NEGATIVE (Negative); Color,Urine LT. YELLOW; Culture Indicated,Urine yes; Glucose,Urine (UA) NEGATIVE (Negative); Ketones,Urine TRACE mg/dL (Negative); Leukocyte Esterase,Urine MODERATE /uL (Negative); Mucus,Urine FEW /hpf; Nitrate,Urine Positive (Negative); PH,Urine 6.5 (5.0-9.0); Protein,Urine NEGATIVE (Negative); Urine Blood TRACE-INTACT ery/mcL (Negative); Urine Budding Yeast FEW /hpf; Urine RBC 2 /hpf (0-3); Urine Squamous Epithelial Cell 0 /hpf (0-4); Urine Transitional Epi Cells < 1 /hpf (0-2); Urine WBC 20 /hpf (0-4)
[2022-05-30 13:20] LABS: ALT/SGPT 25 U/L (<40); AST/SGOT 39 U/L (<40); Albumin/Globulin Ratio 1.2 (1.0-2.3); Alkaline Phosphatase 88 U/L (39-117); Bilirubin,Total 1.2 mg/dL (0.1-1.0); Blood Urea Nitrogen 3 mg/dL (8-23); Calcium 9.2 mg/dL (8.6-10.4); Carbon Dioxide 23 mmol/L (22-30); Chloride 92 mmol/L (96-108); Globulin 3.3 gm/dL (2.2-3.7); Glomerular Filtration Rate 96; Glucose 125 mg/dL (70-105)
--- NOTE | 2022-05-30 13:22 | EKG ---
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 Measurements Intervals [place] Rate: 122 P: 51 WI: 155 QRS: 24 QRSD: 85 T: 34 QT: 324 QTc: 462 Interpretive Statements Sinus tachycardia Electronically Signed On 05-30-2022 13:22:23 PST by Luke Gomes M.D. /store/M0/[id number]
[2022-05-30 15:25] LABS: Lymphocytes % 8 % (15-49); Monocytes % (Manual) 13 % (1-12); Platelet Estimate DECREASED (Normal); RBC Morphology NORMAL (Normal); Segmented Neutrophils % 79 % (38-78)
--- NOTE | 2022-05-30 15:26 | Internal Med History&Physical ---
HPI History of Present Illness Patient information: Note initiated : 05/30/22 at 3:16 pm Service Date, if different from initiated Date: [] Patient: Johnathan Son a 76 y/o M admitted on for weakness. Chief Complaint: [] History of present illness: Mr. Son is a 76 year old M Presented to ED for severe weakness. Patient called 911 because he could not get up from his chair at the table. Is been progressively getting weaker the past couple days. Patient is a bit of a poor historian and feels a bit confused. He is also had some diarrhea for the past few days and urinary frequency. EMS reported fever of 101.5. In the ED he was tachycardic. Lactate elevated 2.7. Also had an elevated blood alcohol level of 0.049. He does drink a sixpack of beer per day. Sodium was low at 129. As well as a low chloride. Work-up concerning for sepsis from UTI. Patient was here in March for alcohol withdrawal Review of Systems: denies headache/nausea/vomiting/chest or abdominal pain/cough/dyspnea/. Otherwise see above. PFSH PFSH All Active Problems (Updated 03/22/22 @ 07:01 by Kevin Vallejo MD) Weakness (Acute) Alcohol withdrawal (Acute) Hyponatremia (Acute) Pneumonia (Acute) Atrial fibrillation (Acute) Anemia, hyperchromic (Acute) Skin cancer of face (Acute) Nausea vomiting and diarrhea (Acute) Dehydration (Acute) Acidosis, lactic (Acute) Alcohol withdrawal (Acute) Hypomagnesemia (Acute) Physical deconditioning (Acute) UTI (urinary tract infection) (Acute) Delirium (Acute) Dementia (Acute) Anemia, normocytic normochromic (Acute) Hypokalemia (Acute) Atrial fibrillation with RVR (Acute) Acute hyponatremia (Acute) Acute dehydration (Acute) Multiple skin tears (Acute) Head injury (Acute) Elevated CK (Acute) Generalized muscle weakness (Acute) Acute hyponatremia (Acute) Social History smoking status: Former smoker alcohol intake frequency: 2+ drinks per day substance use type: does not use MEDS/ALLERGIES Home Medications and Allergies Home Medications Medication Instructions Recorded Confirmed Type apixaban 5 mg tablet (Eliquis) 5 mg PO BID #60 tabs 01/17/22 03/22/22 Rx diltiazem HCl 30 mg tablet 30 mg PO ACHS #120 tabs 01/17/22 03/22/22 Rx lisinopril 10 mg tablet 10 mg PO DAILY #30 tabs 01/18/22 03/22/22 Rx naltrexone 50 mg tablet 50 mg PO QDAY #30 tabs 03/27/22 Rx Allergies Allergy/AdvReac Type Severity Reaction Status Date / Time No Known Drug Allergies Allergy Verified 05/30/22 09:59 EXAM Constitutional Vitals: Temp Pulse Resp BP Pulse Ox O2 Del Method 99.3 F H 123 H 18 182/95 97 05/30/22 14:56 05/30/22 13:46 05/30/22 14:22 05/30/22 13:46 05/30/22 14:56 05/30/22 14:56 Exam: General: Alert, Awake, No acute Distress Eyes/N/T: EOMI, PERRL, MM Head/Neck: neck supple, normocephalic atraumatic CV: RRR, No murmurs, normal s1/s2 Pulm: Clear b/l, no wheezing/rhonchi/rales Abd: soft, nontender, +BS x4 Ext: no clubbing/cyanosis/edema Neuro: Alert, no focal deficits, moves all extremities, CN 2-12 grossly intact, symmetrical strength b/l upper/lower, sensations intact b/l upper/lower Skin: warm/dry, Chronic left periorbital skin lesion DATA Data Completed and Pending Labs: Labs from last 24 hours 05/30/22 05/30/22 05/30/22 14:01 13:01 11:20 WBC RBC Hgb Hct MCV MCH MCHC RDW Plt Count MPV Immature Gran % (Auto) Neut % (Auto) Lymph % (Auto) [place] % (Auto) Eos % (Auto) Baso % (Auto) Lymph # (Auto) [place] # (Auto) Eos # (Auto) Baso # (Auto) Immature Gran # Absolute Neutrophils Platelet Estimate RBC Morphology POC VBG pH POC VBG pCO2 at Temp POC VBG pO2 POC VBG HCO3 POC VBG Total CO2 POC Venous O2 Sat POC VBG Base Excess VBG Lactic Acid 2.1 H Sodium 129 L Potassium 4.3 Chloride 92 L Carbon Dioxide 23 Anion Gap 14.0 BUN 3 L Creatinine 0.6 L GFR Calculation 96 Glucose 125 H Osmolality Pending Uric Acid Pending Calcium 9.2 Total Bilirubin 1.2 H AST 39 ALT 25 Alkaline Phosphatase 88 Total Protein 7.3 Albumin 4.0 Globulin 3.3 Albumin/Globulin Ratio 1.2 Urine Color Urine Appearance Urine pH Ur Specific [place] Urine Protein Urine Glucose (UA) Urine Ketones Urine Occult Blood Urine Nitrate Urine Bilirubin Urine Urobilinogen Ur Leukocyte Esterase Urine RBC Urine WBC Ur Squamous Epith Cells Ur Transition Epith Cell Urine Bacteria Urine Mucus Urine Yeast (Budding) Ur Culture Indicated? Urine Osmolality Ur Random Sodium Ethyl Alcohol mg/dL Ethyl Alcohol g/dL 05/30/22 05/30/22 05/30/22 11:20 11:20 10:43 WBC RBC Hgb Hct MCV MCH MCHC RDW Plt Count MPV Immature Gran % (Auto) Neut % (Auto) Lymph % (Auto) [place] % (Auto) Eos % (Auto) Baso % (Auto) Lymph # (Auto) [place] # (Auto) Eos # (Auto) Baso # (Auto) Immature Gran # Absolute Neutrophils Platelet Estimate RBC Morphology POC VBG pH 7.44 H POC VBG pCO2 at Temp 34.7 L POC VBG pO2 33 POC VBG HCO3 23.8 L POC VBG Total CO2 25.0 POC Venous O2 Sat 67.0 POC VBG Base Excess 0 VBG Lactic Acid 2.7 H Sodium Potassium Chloride Carbon Dioxide Anion Gap BUN Creatinine GFR Calculation Glucose Osmolality Uric Acid Calcium Total Bilirubin AST ALT Alkaline Phosphatase Total Protein Albumin Globulin Albumin/Globulin Ratio Urine Color Lt. yellow Urine Appearance Cloudy A Urine pH 6.5 Ur Specific [place] 1.010 Urine Protein Negative Urine Glucose (UA) Negative Urine Ketones Trace A Urine Occult Blood Trace-intact A Urine Nitrate Positive A Urine Bilirubin Negative Urine Urobilinogen 4.0 A Ur Leukocyte Esterase Moderate A Urine RBC 2 Urine WBC 20 H Ur Squamous Epith Cells 0 Ur Transition Epith Cell < 1 Urine Bacteria Few A Urine Mucus Few A Urine Yeast (Budding) Few A Ur Culture Indicated? yes Urine Osmolality Pending Ur Random Sodium Pending Ethyl Alcohol mg/dL Ethyl Alcohol g/dL 05/30/22 05/30/22 05/30/22 10:42 10:42 10:41 WBC 8.1 RBC 4.35 L Hgb 13.5 L Hct 39.1 L MCV 89.9 MCH 31.0 MCHC 34.5 RDW 14.1 Plt Count 135 L MPV 9.0 Immature Gran % (Auto) 0.4 Neut % (Auto) 81.3 H Lymph % (Auto) 6.9 L [place] % (Auto) 11.1 Eos % (Auto) 0.1 Baso % (Auto) 0.2 Lymph # (Auto) 0.56 L [place] # (Auto) 0.90 Eos # (Auto) 0.01 Baso # (Auto) 0.02 Immature Gran # 0.03 Absolute Neutrophils 6.60 Platelet Estimate Pending RBC Morphology Pending POC VBG pH POC VBG pCO2 at Temp POC VBG pO2 POC VBG HCO3 POC VBG Total CO2 POC Venous O2 Sat POC VBG Base Excess VBG Lactic Acid Sodium Potassium Chloride Carbon Dioxide Anion Gap BUN Creatinine GFR Calculation Glucose Osmolality Uric Acid Calcium Total Bilirubin AST ALT Alkaline Phosphatase Total Protein Albumin Globulin Albumin/Globulin Ratio Urine Color Urine Appearance Urine pH Ur Specific [place] Urine Protein Urine Glucose (UA) Urine Ketones Urine Occult Blood Urine Nitrate Urine Bilirubin Urine Urobilinogen Ur Leukocyte Esterase Urine RBC Urine WBC Ur Squamous Epith Cells Ur Transition Epith Cell Urine Bacteria Urine Mucus Urine Yeast (Budding) Ur Culture Indicated? Urine Osmolality Ur Random Sodium Ethyl Alcohol mg/dL 49.0 Ethyl Alcohol g/dL 0.049 H A/P Narrative A/P Narrative: A: #UTI: #Sepsis: 2/2 above #Hyperlactatemia: 2/2 above #Encephalopathy: 2/2 above #Generalized weakness/deconditioning: #Hypertension: Elevated #h/o Alcohol abuse and withdrawal: was admitted in January and March for etoh w/d #Chronic hyponatremia/hypochloremia: 2/2 beer potomania # hypomagnesemia: #Chronic thrombocytopenia: stable #anemia, chronic: #Paroxysmal atrial fibrillation: #Left periorbital skin cancer: is supposed to f/u with cancer center #h/o Oropharyngeal dysphagia: #Anxiety: #Probable mild cognitive impairment: Plan: -ABx, pending BC/UC -IVF -Monitor electrolytes replace as needed -CIWA protocol with Ativan prn, Vitamin supplementation -Continue home Diltiazem/Lisinopril -PT/OT -Speech therapy eval -CM palcement needs -f/u with cancer center -Home medication reconciliation -ppx: Eliquis Code status: Limited Time Spent With Patient Time: Total time spent is greater than 50% in coordination of care (as documented) at patient's floor/unit and/or counseling patient: Total time spent with greater than 50% in coordination of care (as documented) at patient's floor/unit and/or counseling patient:: Greater than 70 minutes
--- NOTE | 2022-05-30 15:30 | Cat Scan Report ---
CLINICAL INFORMATION: History of nonmelanoma skin cancer. COMPARISON: 02/16/2022 TECHNIQUE: 0.625 mm helical slices were obtained from the superior margin of the frontal sinuses through the lingular region. 2.5 mm axial and coronal reformatted images were processed and reviewed at bone and soft tissue windows.The exam was performed using radiation dose optimization techniques including, but not limited to, automated exposure control, adjustment of the mA and/or kV according to patient size and use of iterative reconstruction technique. FINDINGS: There are no fractures or other osseous abnormalities throughout the facial skeleton or visualized calvaria. Subtotal opacification right sphenoid sinus seen as before The frontal, ethmoid, left sphenoid, and maxillary air cells are clear. Nasal region is normal. The orbits, TMJs and petrous temporal regions are all unremarkable. The ulcerated dermal lesion in the lateral left periorbital soft tissues is increased from the comparison CT three months prior. At that time, it was 2.8 cm in length and is now 3.5 cm in length and 5 mm in thickness. This likely represents patient's known skin cancer. It does not appear to invade the underlying zygomatic process. Moderate calcific plaque present in the carotid arteries as previously seen IMPRESSION: 3.5 cm x 0.5 cm ulcerated dermal lesion in the left left lateral periorbital soft tissues show slight size increase over the past three months. No evidence of invasion underlying bone no adenopathy. Severe right sphenoid sinusitis stable Interpreted and Authenticated by: Luke Dickens 05/30/22
[2022-05-30 16:04] LABS: Sodium, Urine Random 84 mmol/L
[2022-05-30 16:12] LABS: Osmolality,Urine 297 mOSM/kg (80-1000)
[2022-05-30 16:55] LABS: Uric Acid 3.4 mg/dL (2.5-8.0)
[2022-05-30] MEDS ORDERED: POTASSIUM CHLORIDE 40 MEQ in DEXTROSE 5% IN WATER 500 ML IV PRN (16:55)
[2022-05-30] MEDS ORDERED: ONDANSETRON 4 MG/2 ML VIAL IV PRN (16:55)
[2022-05-30] MEDS ORDERED: 0.9 % SODIUM CHLORIDE 1,000 ML IV SCH (16:55)
[2022-05-30] MEDS ORDERED: LORazepam 2 MG/ML VIAL IV PRN (16:55)
[2022-05-30] MEDS ORDERED: IPRATROPIUM/ALBUTEROL 3 ML AMPUL.NEB NEB PRN (16:55)
[2022-05-30] MEDS ORDERED: MAGNESIUM SULFATE 2 GM/50 ML BAG IV PRN (16:55)
[2022-05-30] MEDS ORDERED: POTASSIUM CHLORIDE 20 MEQ TABLET PO PRN (16:55)
[2022-05-30] MEDS: MULTIVIT,THER IRON,CA,FA & MIN 1 TABLET PO SCH (17:13)
[2022-05-30] MEDS: SODIUM CHLORIDE 1 GM TABLET PO SCH ×2 (17:13→20:50)
[2022-05-30] MEDS: THIAMINE 100 MG TABLET PO SCH (17:13)
[2022-05-30] MEDS: FOLIC ACID 1 MG TABLET PO SCH (17:14)
[2022-05-30] MEDS: METOPROLOL TARTRATE 5 MG/5 ML VIAL IV PRN (17:26)
[2022-05-30] MEDS: PIPERACILLIN SODIUM/TAZOBACTAM 3.375 GM in DEXTROSE 5% IN WATER 50 ML IV SCH (18:39)
[2022-05-30] MEDS: cloNIDine HCL 0.1 MG TABLET PO PRN (20:50)
[2022-05-30] MEDS: chlordiazePOXIDE 25 MG CAPSULE PO PRN (20:51)
[2022-05-30] MEDS: 0.9 % SODIUM CHLORIDE 10 ML SYRINGE IV SCH (22:00)
[2022-05-31] MEDS: PIPERACILLIN SODIUM/TAZOBACTAM 3.375 GM in DEXTROSE 5% IN WATER 50 ML IV SCH ×4 (01:33→17:49)
[2022-05-31] MEDS: 0.9 % SODIUM CHLORIDE 10 ML SYRINGE IV SCH ×3 (06:02→20:05)
[2022-05-31 06:39] LABS: Basophils # (Auto) 0.01 K/mcL (0.00-0.30); Basophils % (Auto) 0.1 % (0.0-2.0); Eosinophils # (Auto) 0.05 K/mcL (0.00-0.70); Eosinophils % (Auto) 0.6 % (0.0-7.0); Hematocrit 33.6 % (40.1-51.0); Hemoglobin 11.7 g/dL (13.7-17.5); Lymphocytes % (Auto) 14.4 % (15.5-49.0); Mean Cell Volume 90.8 fL (80.0-100.0); Mean Corpuscular HGB Conc 34.8 g/dL (31.0-36.0); Mean Platelet Volume 9.1 fL (8.8-12.5); Monocytes # (Auto) 1.09 K/mcL (0.10-0.90); Neutrophils % (Auto) 72.5 % (38.0-78.0); Platelet Count 98 K/mcL (140-440); Red Cell Distribution Width 14.5 % (11.5-14.5); WBC 9.1 K/mcL (4.5-11.0)
[2022-05-31 06:59] LABS: ALT/SGPT 17 U/L (<40); AST/SGOT 25 U/L (<40); Albumin 3.1 gm/dL (3.2-5.2); Albumin/Globulin Ratio 1.1 (1.0-2.3); Alkaline Phosphatase 67 U/L (39-117); Bilirubin,Direct 0.6 mg/dL (<0.3); Bilirubin,Total 1.9 mg/dL (0.1-1.0); Blood Urea Nitrogen 7 mg/dL (8-23); Calcium 8.2 mg/dL (8.6-10.4); Carbon Dioxide 24 mmol/L (22-30); Chloride 95 mmol/L (96-108); Globulin 2.7 gm/dL (2.2-3.7); Glomerular Filtration Rate 91; Glucose 108 mg/dL (70-105); Lactate Dehydrogenase 133 U/L (135-225); Phosphorous 2.7 mg/dL (2.5-4.5); Triglycerides 63 mg/dL (<150); Uric Acid 1.9 mg/dL (2.5-8.0)
--- NOTE | 2022-05-31 07:54 | Internal Med Progress Note ---
SUBJECTIVE Subjective Patient information: Note initiated : 05/31/22 at 7:49 am Service Date, if different from initiated Date: [] Patient: Johnathan Son 76 y/o M admitted on 05/30/22 for weakness. Chief Complaint: [] Interval history: History of present illness: Mr. Son is a 76 year old M Presented to ED for severe weakness. Patient called 911 because he could not get up from his chair at the table. Is been progressively getting weaker the past couple days. Patient is a bit of a poor historian and feels a bit confused. He is also had some diarrhea for the past few days and urinary frequency. EMS reported fever of 101.5. In the ED he was tachycardic. Lactate elevated 2.7. Also had an elevated blood alcohol level of 0.049. He does drink a sixpack of beer per day. Sodium was low at 129. As well as a low chloride. Work-up concerning for sepsis from UTI. Patient was here in March for alcohol withdrawal 05/31 Patient feeling better today. Did get some Librium and Catapres yesterday evening for elevated CIWA. Sodium low. Replete Review of Systems: denies headache/fever/chills/nausea/vomiting/chest or abdominal pain/cough/dyspnea/diarrhea. Otherwise see above. Constitutional Vitals: Vital Signs Temp Pulse Resp BP Pulse Ox O2 Del Method O2 Flow Rate 99.2 F H 80 20 129/68 98 0 05/31/22 07:06 05/31/22 07:06 05/31/22 07:06 05/31/22 07:06 05/31/22 07:06 05/31/22 07:06 05/31/22 04:00 Period Temp Pulse Resp BP Sys/White Pulse Ox O2 Del Method O2 Flow Rate Last 24 Hr 97.7 F-99.3 F 80-142 14-27 129-190/68-103 95-100 Room Air-Room Air 0-0 Intake and Output 05/30/22 05/31/22 05/31/22 19:59 03:59 11:59 Intake Total 1929 344 8421 Output Total 300 100 Balance 1300 200 950 Weight 75.568 kg 75.432 kg Intake & Output: Intake & Output 05/30/22 05/31/22 05/31/22 19:59 03:59 11:59 Intake Total 2731 139 2169 Output Total 300 100 Balance 1300 200 950 Weight 75.568 kg 75.432 kg Intake: IV 1600 50 1050 Sodium Chloride 0.9% 1,000 ml @ 1000 100 mls/hr IV .Q10H [facility] Rx#: [id number] Lactated Ringers 1,000 ml @ 1000 Wide Open IV BOLUS ONE Rx#: [id number] Zosyn 3.375 gm In Dextrose 5% 100 50 50 in Water 50 ml @ 100 mls/hr IV Q6H [facility] Rx#:[id number] Vancomycin 1,500 mg In Sodium 500 Chloride 0.9% 500 ml @ 333.3 mls/hr IV ONCE ONE Rx#: [id number] Oral 150 Output: Void Amount 300 100 Other: Urine Appearance Cloudy Urine Color Light Nena Dark Nena Urine Odor Strong Stool Size Moderate Stool Color Brown Stool Consistency Liquid Loose # Bowel Movements 1 # of times incontinent of 1 Bowels Exam: General: Alert, Awake, No acute Distress Eyes/N/T: EOMI, Head/Neck: neck supple, CV: RRR, No murmurs, Pulm: Clear b/l, no wheezing/rhonchi/rales Abd: soft, nontender, +BS x4 Ext: no clubbing/cyanosis/edema Neuro: Alert, no focal deficits, moves all extremities Skin: warm/dry, Chronic left periorbital skin lesion OBJ DATA Labs CBC & Chem 7: 05/31/22 05:45 05/31/22 05:45 Labs: Abnormal Lab Results 05/31/22 05/31/22 05/30/22 05:45 05:45 14:01 RBC 3.70 L Hgb 11.7 L Hct 33.6 L Plt Count 98 L Neut % (Auto) Lymph % (Auto) 14.4 L Lymph # (Auto) 1.30 L [place] # (Auto) 1.09 H Seg Neutrophils % Lymphocytes % Monocytes % (Manual) Platelet Estimate POC VBG pH POC VBG pCO2 at Temp POC VBG HCO3 VBG Lactic Acid 2.1 H Sodium 128 L Chloride 95 L BUN 7 L Creatinine Glucose 108 H Uric Acid 1.9 L Calcium 8.2 L Total Bilirubin 1.9 H Direct Bilirubin 0.6 H Lactate Dehydrogenase 133 L Total Protein 5.8 L Albumin 3.1 L Urine Appearance Urine Ketones Urine Occult Blood Urine Nitrate Urine Urobilinogen Ur Leukocyte Esterase Urine WBC Urine Bacteria Urine Mucus Urine Yeast (Budding) Ethyl Alcohol g/dL 05/30/22 05/30/22 05/30/22 13:01 11:20 10:43 RBC Hgb Hct Plt Count Neut % (Auto) Lymph % (Auto) Lymph # (Auto) [place] # (Auto) Seg Neutrophils % Lymphocytes % Monocytes % (Manual) Platelet Estimate POC VBG pH 7.44 H POC VBG pCO2 at Temp 34.7 L POC VBG HCO3 23.8 L VBG Lactic Acid 2.7 H Sodium 129 L Chloride 92 L BUN 3 L Creatinine 0.6 L Glucose 125 H Uric Acid Calcium Total Bilirubin 1.2 H Direct Bilirubin Lactate Dehydrogenase Total Protein Albumin Urine Appearance Cloudy A Urine Ketones Trace A Urine Occult Blood Trace-intact A Urine Nitrate Positive A Urine Urobilinogen 4.0 A Ur Leukocyte Esterase Moderate A Urine WBC 20 H Urine Bacteria Few A Urine Mucus Few A Urine Yeast (Budding) Few A Ethyl Alcohol g/dL 05/30/22 05/30/22 05/30/22 10:42 10:42 10:41 RBC 4.35 L Hgb 13.5 L Hct 39.1 L Plt Count 135 L Neut % (Auto) 81.3 H Lymph % (Auto) 6.9 L Lymph # (Auto) 0.56 L [place] # (Auto) Seg Neutrophils % 79 H Lymphocytes % 8 L Monocytes % (Manual) 13 H Platelet Estimate Decreased A POC VBG pH POC VBG pCO2 at Temp POC VBG HCO3 VBG Lactic Acid Sodium Chloride BUN Creatinine Glucose Uric Acid Calcium Total Bilirubin Direct Bilirubin Lactate Dehydrogenase Total Protein Albumin Urine Appearance Urine Ketones Urine Occult Blood Urine Nitrate Urine Urobilinogen Ur Leukocyte Esterase Urine WBC Urine Bacteria Urine Mucus Urine Yeast (Budding) Ethyl Alcohol g/dL 0.049 H Meds: Medications Acetaminophen (Acetaminophen 325 Mg Tablet) 650 mg PO Q6HP PRN; Protocol PRN Reason: Per Pain Protocol/Fever > 101 Albuterol/Ipratropium (Ipratropium/Albuterol 3 Ml Ampul.Neb) 3 ml NEB Q4HP PRN PRN Reason: Shortness Of Breath Chlordiazepoxide HCl (Chlordiazepoxide 25 Mg Capsule) 50 mg PO UD PRN; Protocol PRN Reason: Alcohol Withdrawal/Assess CIWA Last Admin: 05/30/22 20:51 Dose: 50 mg Clonidine HCl (Clonidine Hcl 0.1 Mg Tablet) 0.1 mg PO Q4HP PRN PRN Reason: ALC Last Admin: 05/30/22 20:50 Dose: 0.1 mg Folic Acid (Folic Acid 1 Mg Tablet) 1 mg PO DAILY [facility] Last Admin: 05/30/22 17:14 Dose: 1 mg Potassium Chloride 40 meq/ (Dextrose) 520 mls @ 130 mls/hr IV UD PRN PRN Reason: Potassium < 3 Magnesium Sulfate (Magnesium Sulfate) 2 gm in 50 mls @ 50 mls/hr IV UD PRN PRN Reason: Magnesium </= 1.6 Piperacillin Sod/Tazobactam (Sod 3.375 gm/ Dextrose) 50 mls @ 100 mls/hr IV Q6H [facility]; Protocol Last Infusion: 05/31/22 07:19 Dose: Infused Iron Carb/Multivit/Partner/Folic Acid (Multivit,Ther Iron,Ca,Fa & Min 1 Tablet) 1 tab PO DAILY [facility] Last Admin: 05/30/22 17:13 Dose: 1 tab Lorazepam (Lorazepam 2 Mg/Ml Vial) 0 mg IV UD PRN; Protocol PRN Reason: Alcohol Withdrawal/Assess CIWA Metoprolol Tartrate (Metoprolol Tartrate 5 Mg/5 Ml Vial) 5 mg IV Q2HP PRN PRN Reason: Tachyarrhythmias HR>110 Last Admin: 05/30/22 17:26 Dose: 5 mg Ondansetron HCl (Ondansetron 4 Mg/2 Ml Vial) 4 mg IV Q4HP PRN PRN Reason: Nausea And Vomiting Potassium Chloride (Potassium Chloride 20 Meq Tablet) 40 meq PO UD PRN PRN Reason: Potssium is 3-3.5 Potassium Chloride (Potassium Chloride 20 Meq Tablet) 40 meq PO UD PRN PRN Reason: Potassium < 3 Sodium Chloride (0.9 % Sodium Chloride 10 Ml Syringe) 10 ml IV Q8 [facility] Last Admin: 05/31/22 06:02 Dose: Not Given Sodium Chloride (Sodium Chloride 1 Gm Tablet) 1 gm PO TID [facility] Last Admin: 05/30/22 20:50 Dose: 1 gm Thiamine HCl (Thiamine 100 Mg Tablet) 100 mg PO QDAY [facility] Last Admin: 05/30/22 17:13 Dose: 100 mg A/P Narrative A/P Narrative: A: #UTI(GNB): #Sepsis: 2/2 above, #Hyperlactatemia: 2/2 above, improving #Encephalopathy: 2/2 above #Generalized weakness/deconditioning: #Hypertension: Elevated #h/o Alcohol abuse and withdrawal: was admitted in January and March for etoh w/d #Chronic hyponatremia/hypochloremia/hypomagnesemia: 2/2 beer potomania, salt tabs for now #Chronic thrombocytopenia: stable #anemia, chronic: #Paroxysmal atrial fibrillation: #Left periorbital skin cancer: is supposed to f/u with cancer center #h/o Oropharyngeal dysphagia: #Anxiety: #Probable mild cognitive impairment: Plan: -ABx, pending BC/UC -Monitor electrolytes replace as needed -CIWA protocol with Ativan prn, Vitamin supplementation -Continue home Diltiazem/Lisinopril -PT/OT -Speech therapy eval -CM palcement needs -f/u with cancer center -Home medication reconciliation -Needs a new prescription for all of his home medications upon discharge -ppx: Eliquis Code status: Limited Time Spent With Patient Time: Total time spent is greater than 50% in coordination of care (as documented) at patient's floor/unit and/or counseling patient: Total time spent with greater than 50% in coordination of care (as documented) at patient's floor/unit and/or counseling patient:: 25 - 35 minutes QUALITY VTE Deep Vein Thrombosis/Pulmonary Embolism Present on Admission: No
[2022-05-31] MEDS: THIAMINE 100 MG TABLET PO SCH (08:13)
[2022-05-31] MEDS: FOLIC ACID 1 MG TABLET PO SCH (08:13)
[2022-05-31] MEDS: MULTIVIT,THER IRON,CA,FA & MIN 1 TABLET PO SCH (08:13)
[2022-05-31] MEDS: APIXABAN 5 MG TABLET PO SCH ×2 (08:13→19:12)
[2022-05-31] MEDS ORDERED: FUROSEMIDE 20 MG/2 ML VIAL IV SCH (08:15)
[2022-05-31] MEDS: LOPERAMIDE 2 MG CAPSULE PO PRN ×3 (08:24→20:05)
--- NOTE | 2022-05-31 10:23 | Discharge Summary ---
Discharge Provider Provider IMPORTANT FOLLOW-UP INFORMATION FOR PCP: Patient information: Note initiated : 05/31/22 at 10:21 am Service Date, if different from initiated Date: [] Patient: Johnathan Son 76 y/o M admitted on 05/30/22 for weakness. Chief Complaint: [] Date of admission: 05/30/22 16:45 Primary care physician: Noe Anderson MD Consults: 05/30/22 Consult to Physician [CONS] Stat Comment: Consulting Provider: Lauri Chapin Reason For Exam: Physician to Consult COURSE Hospital Course Hospital course: History of present illness: Mr. Son is a 76 year old M Presented to ED for severe weakness. Patient called 911 because he could not get up from his chair at the table. Is been progressively getting weaker the past couple days. Patient is a bit of a poor historian and feels a bit confused. He is also had some diarrhea for the past few days and urinary frequency. EMS reported fever of 101.5. In the ED he was tachycardic. Lactate elevated 2.7. Also had an elevated blood alcohol level of 0.049. He does drink a sixpack of beer per day. Sodium was low at 129. As well as a low chloride. Work-up concerning for sepsis from UTI. Patient was here in March for alcohol withdrawal 05/31 Patient feeling better today. Did get some Librium and Catapres yesterday evening for elevated CIWA. Sodium low. Replete 06/01 Patient doing well today. Up and moving around. will f/u chemistry A: #UTI(Klebsiella): #Bacteremia(GNB): #Sepsis: 2/2 above, #Hyperlactatemia: 2/2 above, improving #Encephalopathy: 2/2 above #Generalized weakness/deconditioning: #Hypertension: Elevated #h/o Alcohol abuse and withdrawal: was admitted in January and March for etoh w/d #Chronic hyponatremia/hypochloremia/hypomagnesemia: 2/2 beer potomania, salt tabs for now #Chronic thrombocytopenia: stable #anemia, chronic: #Paroxysmal atrial fibrillation: #Left periorbital skin cancer: is supposed to f/u with cancer center #h/o Oropharyngeal dysphagia: #Anxiety: #Probable mild cognitive impairment: Plan: -ABx -Needs a new prescription for all of his home medications upon discharge Discharge diagnosis: UTI sepsis hyperlipidemia Encephalopathy generalized to get secondary hyper Secondary discharge diagnosis: Electrolyte disturbance alcohol chronic anemia Time Spent with Patient Time attestation: Total time spent providing and/or coordinating discharge services: Time spent: Greater than 30 minutes EXAM Constitutional Vitals: Temp Pulse Resp BP Pulse Ox O2 Del Method O2 Flow Rate 99.2 F H 80 20 129/68 98 0 05/31/22 07:06 05/31/22 07:06 05/31/22 07:06 05/31/22 07:06 05/31/22 07:06 05/31/22 07:06 05/31/22 04:00 Discharge Data Data Completed and Pending Labs on day of discharge: Labs from last 24 hours 05/31/22 05/31/22 05/30/22 05:45 05:45 14:01 WBC 9.1 RBC 3.70 L Hgb 11.7 L Hct 33.6 L MCV 90.8 MCH 31.6 MCHC 34.8 RDW 14.5 Plt Count 98 L MPV 9.1 Immature Gran % (Auto) 0.4 Neut % (Auto) 72.5 Lymph % (Auto) 14.4 L [place] % (Auto) 12.0 Eos % (Auto) 0.6 Baso % (Auto) 0.1 Lymph # (Auto) 1.30 L [place] # (Auto) 1.09 H Eos # (Auto) 0.05 Baso # (Auto) 0.01 Seg Neutrophils % Lymphocytes % Monocytes % (Manual) Immature Gran # 0.04 Absolute Neutrophils 6.56 Platelet Estimate RBC Morphology POC VBG pH POC VBG pCO2 at Temp POC VBG pO2 POC VBG HCO3 POC VBG Total CO2 POC Venous O2 Sat POC VBG Base Excess VBG Lactic Acid 2.1 H Sodium 128 L Potassium 3.4 Chloride 95 L Carbon Dioxide 24 Anion Gap 9.0 BUN 7 L Creatinine 0.7 GFR Calculation 91 Glucose 108 H Osmolality Uric Acid 1.9 L Calcium 8.2 L Phosphorus 2.7 Magnesium 1.6 Total Bilirubin 1.9 H Direct Bilirubin 0.6 H GGT 43 AST 25 ALT 17 Alkaline Phosphatase 67 Lactate Dehydrogenase 133 L Total Protein 5.8 L Albumin 3.1 L Globulin 2.7 Albumin/Globulin Ratio 1.1 Triglycerides 63 Urine Color Urine Appearance Urine pH Ur Specific [place] Urine Protein Urine Glucose (UA) Urine Ketones Urine Occult Blood Urine Nitrate Urine Bilirubin Urine Urobilinogen Ur Leukocyte Esterase Urine RBC Urine WBC Ur Squamous Epith Cells Ur Transition Epith Cell Urine Bacteria Urine Mucus Urine Yeast (Budding) Ur Culture Indicated? Urine Osmolality Ur Random Sodium Ethyl Alcohol mg/dL Ethyl Alcohol g/dL 05/30/22 05/30/22 05/30/22 13:01 13:01 11:20 WBC RBC Hgb Hct MCV MCH MCHC RDW Plt Count MPV Immature Gran % (Auto) Neut % (Auto) Lymph % (Auto) [place] % (Auto) Eos % (Auto) Baso % (Auto) Lymph # (Auto) [place] # (Auto) Eos # (Auto) Baso # (Auto) Seg Neutrophils % Lymphocytes % Monocytes % (Manual) Immature Gran # Absolute Neutrophils Platelet Estimate RBC Morphology POC VBG pH POC VBG pCO2 at Temp POC VBG pO2 POC VBG HCO3 POC VBG Total CO2 POC Venous O2 Sat POC VBG Base Excess VBG Lactic Acid Sodium 129 L Potassium 4.3 Chloride 92 L Carbon Dioxide 23 Anion Gap 14.0 BUN 3 L Creatinine 0.6 L GFR Calculation 96 Glucose 125 H Osmolality 282 Uric Acid 3.4 Calcium 9.2 Phosphorus Magnesium 1.7 Total Bilirubin 1.2 H Direct Bilirubin GGT AST 39 ALT 25 Alkaline Phosphatase 88 Lactate Dehydrogenase Total Protein 7.3 Albumin 4.0 Globulin 3.3 Albumin/Globulin Ratio 1.2 Triglycerides Urine Color Urine Appearance Urine pH Ur Specific [place] Urine Protein Urine Glucose (UA) Urine Ketones Urine Occult Blood Urine Nitrate Urine Bilirubin Urine Urobilinogen Ur Leukocyte Esterase Urine RBC Urine WBC Ur Squamous Epith Cells Ur Transition Epith Cell Urine Bacteria Urine Mucus Urine Yeast (Budding) Ur Culture Indicated? Urine Osmolality Ur Random Sodium Ethyl Alcohol mg/dL Ethyl Alcohol g/dL 05/30/22 05/30/22 05/30/22 11:20 11:20 10:43 WBC RBC Hgb Hct MCV MCH MCHC RDW Plt Count MPV Immature Gran % (Auto) Neut % (Auto) Lymph % (Auto) [place] % (Auto) Eos % (Auto) Baso % (Auto) Lymph # (Auto) [place] # (Auto) Eos # (Auto) Baso # (Auto) Seg Neutrophils % Lymphocytes % Monocytes % (Manual) Immature Gran # Absolute Neutrophils Platelet Estimate RBC Morphology POC VBG pH 7.44 H POC VBG pCO2 at Temp 34.7 L POC VBG pO2 33 POC VBG HCO3 23.8 L POC VBG Total CO2 25.0 POC Venous O2 Sat 67.0 POC VBG Base Excess 0 VBG Lactic Acid 2.7 H Sodium Potassium Chloride Carbon Dioxide Anion Gap BUN Creatinine GFR Calculation Glucose Osmolality Uric Acid Calcium Phosphorus Magnesium Total Bilirubin Direct Bilirubin GGT AST ALT Alkaline Phosphatase Lactate Dehydrogenase Total Protein Albumin Globulin Albumin/Globulin Ratio Triglycerides Urine Color Lt. yellow Urine Appearance Cloudy A Urine pH 6.5 Ur Specific [place] 1.010 Urine Protein Negative Urine Glucose (UA) Negative Urine Ketones Trace A Urine Occult Blood Trace-intact A Urine Nitrate Positive A Urine Bilirubin Negative Urine Urobilinogen 4.0 A Ur Leukocyte Esterase Moderate A Urine RBC 2 Urine WBC 20 H Ur Squamous Epith Cells 0 Ur Transition Epith Cell < 1 Urine Bacteria Few A Urine Mucus Few A Urine Yeast (Budding) Few A Ur Culture Indicated? yes Urine Osmolality 297 Ur Random Sodium 84 Ethyl Alcohol mg/dL Ethyl Alcohol g/dL 05/30/22 05/30/22 05/30/22 10:42 10:42 10:41 WBC 8.1 RBC 4.35 L Hgb 13.5 L Hct 39.1 L MCV 89.9 MCH 31.0 MCHC 34.5 RDW 14.1 Plt Count 135 L MPV 9.0 Immature Gran % (Auto) 0.4 Neut % (Auto) 81.3 H Lymph % (Auto) 6.9 L [place] % (Auto) 11.1 Eos % (Auto) 0.1 Baso % (Auto) 0.2 Lymph # (Auto) 0.56 L [place] # (Auto) 0.90 Eos # (Auto) 0.01 Baso # (Auto) 0.02 Seg Neutrophils % 79 H Lymphocytes % 8 L Monocytes % (Manual) 13 H Immature Gran # 0.03 Absolute Neutrophils 6.60 Platelet Estimate Decreased A RBC Morphology Normal POC VBG pH POC VBG pCO2 at Temp POC VBG pO2 POC VBG HCO3 POC VBG Total CO2 POC Venous O2 Sat POC VBG Base Excess VBG Lactic Acid Sodium Potassium Chloride Carbon Dioxide Anion Gap BUN Creatinine GFR Calculation Glucose Osmolality Uric Acid Calcium Phosphorus Magnesium Total Bilirubin Direct Bilirubin GGT AST ALT Alkaline Phosphatase Lactate Dehydrogenase Total Protein Albumin Globulin Albumin/Globulin Ratio Triglycerides Urine Color Urine Appearance Urine pH Ur Specific [place] Urine Protein Urine Glucose (UA) Urine Ketones Urine Occult Blood Urine Nitrate Urine Bilirubin Urine Urobilinogen Ur Leukocyte Esterase Urine RBC Urine WBC Ur Squamous Epith Cells Ur Transition Epith Cell Urine Bacteria Urine Mucus Urine Yeast (Budding) Ur Culture Indicated? Urine Osmolality Ur Random Sodium Ethyl Alcohol mg/dL 49.0 Ethyl Alcohol g/dL 0.049 H Preliminary micro results at discharge 05/30/22 10:38 Blood Culture - Preliminary Blood Gram negative bacillus Discharge Plan Patient/Caregiver Discharge Instructions Activity: increase activity as tolerated Diet: Dysphagia Level 7 Easy to Chew Foods Prescriptions: New levofloxacin 750 mg tablet 750 mg PO Q24H Qty: 12 0RF Follow Up Plan Follow up with: Noe Anderson MD [Primary Care Provider] - Patient Disposition: Home, Self-Care Prognosis: Fair Overall status at discharge: patient is progressing back to baseline QUALITY VTE Deep Vein Thrombosis/Pulmonary Embolism Present on Admission: No
[2022-05-31] MEDS: DILTIAZEM 30 MG TABLET PO SCH ×3 (12:24→19:12)
[2022-05-31] MEDS: ACETAMINOPHEN 325 MG TABLET PO PRN (15:41)
[2022-05-31] MEDS: METOPROLOL TARTRATE 5 MG/5 ML VIAL IV PRN (18:59)
[2022-05-31] MEDS: POTASSIUM CHLORIDE 20 MEQ TABLET PO PRN (19:01)
[2022-05-31] MEDS: cloNIDine HCL 0.1 MG TABLET PO PRN (20:15)
[2022-05-31] MEDS: chlordiazePOXIDE 25 MG CAPSULE PO PRN (21:28)
[2022-06-01] MEDS: PIPERACILLIN SODIUM/TAZOBACTAM 3.375 GM in DEXTROSE 5% IN WATER 50 ML IV SCH ×2 (00:56→05:11)
[2022-06-01] MEDS: cloNIDine HCL 0.1 MG TABLET PO PRN (01:45)
[2022-06-01] MEDS: 0.9 % SODIUM CHLORIDE 10 ML SYRINGE IV SCH ×3 (05:12→20:43)
[2022-06-01] MEDS: APIXABAN 5 MG TABLET PO SCH ×2 (08:02→20:42)
[2022-06-01] MEDS: THIAMINE 100 MG TABLET PO SCH (08:02)
[2022-06-01] MEDS: DILTIAZEM 30 MG TABLET PO SCH ×4 (08:02→20:42)
[2022-06-01] MEDS: MULTIVIT,THER IRON,CA,FA & MIN 1 TABLET PO SCH (08:02)
[2022-06-01] MEDS: FOLIC ACID 1 MG TABLET PO SCH (08:02)
[2022-06-01 10:12] LABS: Blood Urea Nitrogen 13 mg/dL (8-23); Calcium 8.4 mg/dL (8.6-10.4); Carbon Dioxide 24 mmol/L (22-30); Chloride 91 mmol/L (96-108); Glomerular Filtration Rate 86; Glucose 166 mg/dL (70-105)
--- NOTE | 2022-06-01 10:25 | Internal Med Progress Note ---
SUBJECTIVE Subjective Patient information: Note initiated : 06/01/22 at 10:16 am Service Date, if different from initiated Date: [] Patient: Johnathan Son a 76 y/o M admitted on 05/30/22 for weakness. Chief Complaint: [] Interval history: History of present illness: Mr. Son is a 76 year old M Presented to ED for severe weakness. Patient called 911 because he could not get up from his chair at the table. Is been progressively getting weaker the past couple days. Patient is a bit of a poor historian and feels a bit confused. He is also had some diarrhea for the past few days and urinary frequency. EMS reported fever of 101.5. In the ED he was tachycardic. Lactate elevated 2.7. Also had an elevated blood alcohol level of 0.049. He does drink a sixpack of beer per day. Sodium was low at 129. As well as a low chloride. Work-up concerning for sepsis from UTI. Patient was here in March for alcohol withdrawal 05/31 Patient feeling better today. Did get some Librium and Catapres yesterday evening for elevated CIWA. Sodium low. Replete 06/01 Patient slept okay and feeling fine today. Sodium decreasing. And chloride. 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 We will treat treat accordingly today. Follow-up chemistry Review of Systems: denies headache/fever/chills/nausea/vomiting/chest or abdominal pain/cough/dyspnea/diarrhea. Otherwise see above. Constitutional Vitals: Vital Signs Temp Pulse Resp BP Pulse Ox O2 Del Method O2 Flow Rate 98.2 F 85 20 121/70 97 0 06/01/22 06:55 06/01/22 06:55 06/01/22 06:55 06/01/22 06:55 06/01/22 06:55 06/01/22 06:55 05/31/22 04:00 Period Temp Pulse Resp BP Sys/White Pulse Ox O2 Del Method O2 Flow Rate Last 24 Hr 97.6 F-100.6 F 85-127 16-20 121-134/66-85 94-100 Room Air-Room Air Intake and Output 05/31/22 06/01/22 06/01/22 19:59 03:59 11:59 Intake Total 520 435 1956 Output Total 250 100 Balance 650 100 940 Weight 75.432 kg 76.793 kg Intake & Output: Intake & Output 05/31/22 06/01/22 06/01/22 19:59 03:59 11:59 Intake Total 461 599 2636 Output Total 250 100 Balance 650 100 940 Weight 75.432 kg 76.793 kg Intake: IV 100 100 Zosyn 3.375 gm In Dextrose 5% 100 50 in Water 50 ml @ 100 mls/hr IV Q6H [facility] Rx#:[id number] Oral 800 1040 Output: Void Amount 250 100 Other: Meal Dinner Breakfast Percent of Meal Consumed 100% 100% Feeding Ability Assist with Tray Set Up Assist with Tray Set Up Urine Appearance Clear Clear Urine Color Yellow Yellow Urine Odor Normal Stool Size Small Stool Color Brown Yellow Stool Consistency Loose # Voids 1 1 1 # Bowel Movements 1 1 Exam: General: Alert, Awake, No acute Distress Eyes/N/T: EOMI, Head/Neck: neck supple, CV: RRR, No murmurs, Pulm: Clear b/l, no wheezing/rhonchi/rales Abd: soft, nontender, +BS x4 Ext: no clubbing/cyanosis/edema Neuro: Alert, no focal deficits, moves all extremities Skin: warm/dry, Chronic left periorbital skin lesion OBJ DATA Labs CBC & Chem 7: 05/31/22 05:45 06/01/22 09:11 Labs: Abnormal Lab Results 06/01/22 05/31/22 05/31/22 09:11 05:45 05:45 RBC 3.70 L Hgb 11.7 L Hct 33.6 L Plt Count 98 L Neut % (Auto) Lymph % (Auto) 14.4 L Lymph # (Auto) 1.30 L [place] # (Auto) 1.09 H Seg Neutrophils % Lymphocytes % Monocytes % (Manual) Platelet Estimate POC VBG pH POC VBG pCO2 at Temp POC VBG HCO3 VBG Lactic Acid Sodium 126 L 128 L Chloride 91 L 95 L BUN 7 L Creatinine Glucose 166 H 108 H Uric Acid 1.9 L Calcium 8.4 L 8.2 L Total Bilirubin 1.9 H Direct Bilirubin 0.6 H Lactate Dehydrogenase 133 L Total Protein 5.8 L Albumin 3.1 L Urine Appearance Urine Ketones Urine Occult Blood Urine Nitrate Urine Urobilinogen Ur Leukocyte Esterase Urine WBC Urine Bacteria Urine Mucus Urine Yeast (Budding) Ethyl Alcohol g/dL 05/30/22 05/30/22 05/30/22 14:01 13:01 11:20 RBC Hgb Hct Plt Count Neut % (Auto) Lymph % (Auto) Lymph # (Auto) [place] # (Auto) Seg Neutrophils % Lymphocytes % Monocytes % (Manual) Platelet Estimate POC VBG pH POC VBG pCO2 at Temp POC VBG HCO3 VBG Lactic Acid 2.1 H Sodium 129 L Chloride 92 L BUN 3 L Creatinine 0.6 L Glucose 125 H Uric Acid Calcium Total Bilirubin 1.2 H Direct Bilirubin Lactate Dehydrogenase Total Protein Albumin Urine Appearance Cloudy A Urine Ketones Trace A Urine Occult Blood Trace-intact A Urine Nitrate Positive A Urine Urobilinogen 4.0 A Ur Leukocyte Esterase Moderate A Urine WBC 20 H Urine Bacteria Few A Urine Mucus Few A Urine Yeast (Budding) Few A Ethyl Alcohol g/dL 05/30/22 05/30/22 05/30/22 10:43 10:42 10:42 RBC 4.35 L Hgb 13.5 L Hct 39.1 L Plt Count 135 L Neut % (Auto) 81.3 H Lymph % (Auto) 6.9 L Lymph # (Auto) 0.56 L [place] # (Auto) Seg Neutrophils % 79 H Lymphocytes % 8 L Monocytes % (Manual) 13 H Platelet Estimate Decreased A POC VBG pH 7.44 H POC VBG pCO2 at Temp 34.7 L POC VBG HCO3 23.8 L VBG Lactic Acid 2.7 H Sodium Chloride BUN Creatinine Glucose Uric Acid Calcium Total Bilirubin Direct Bilirubin Lactate Dehydrogenase Total Protein Albumin Urine Appearance Urine Ketones Urine Occult Blood Urine Nitrate Urine Urobilinogen Ur Leukocyte Esterase Urine WBC Urine Bacteria Urine Mucus Urine Yeast (Budding) Ethyl Alcohol g/dL 05/30/22 10:41 RBC Hgb Hct Plt Count Neut % (Auto) Lymph % (Auto) Lymph # (Auto) [place] # (Auto) Seg Neutrophils % Lymphocytes % Monocytes % (Manual) Platelet Estimate POC VBG pH POC VBG pCO2 at Temp POC VBG HCO3 VBG Lactic Acid Sodium Chloride BUN Creatinine Glucose Uric Acid Calcium Total Bilirubin Direct Bilirubin Lactate Dehydrogenase Total Protein Albumin Urine Appearance Urine Ketones Urine Occult Blood Urine Nitrate Urine Urobilinogen Ur Leukocyte Esterase Urine WBC Urine Bacteria Urine Mucus Urine Yeast (Budding) Ethyl Alcohol g/dL 0.049 H Meds: Medications Acetaminophen (Acetaminophen 325 Mg Tablet) 650 mg PO Q6HP PRN; Protocol PRN Reason: Per Pain Protocol/Fever > 101 Last Admin: 05/31/22 15:41 Dose: 650 mg Albuterol/Ipratropium (Ipratropium/Albuterol 3 Ml Ampul.Neb) 3 ml NEB Q4HP PRN PRN Reason: Shortness Of Breath Apixaban (Apixaban 5 Mg Tablet) 5 mg PO BID [facility] Last Admin: 06/01/22 08:02 Dose: 5 mg Chlordiazepoxide HCl (Chlordiazepoxide 25 Mg Capsule) 50 mg PO UD PRN; Protocol PRN Reason: Alcohol Withdrawal/Assess CIWA Last Admin: 05/31/22 21:28 Dose: 25 mg Clonidine HCl (Clonidine Hcl 0.1 Mg Tablet) 0.1 mg PO Q4HP PRN PRN Reason: ALC Last Admin: 06/01/22 01:45 Dose: 0.1 mg Diltiazem HCl (Diltiazem 30 Mg Tablet) 30 mg PO ACHS [facility] Last Admin: 06/01/22 08:02 Dose: 30 mg Folic Acid (Folic Acid 1 Mg Tablet) 1 mg PO DAILY [facility] Last Admin: 06/01/22 08:02 Dose: 1 mg Potassium Chloride 40 meq/ (Dextrose) 520 mls @ 130 mls/hr IV UD PRN PRN Reason: Potassium < 3 Magnesium Sulfate (Magnesium Sulfate) 2 gm in 50 mls @ 50 mls/hr IV UD PRN PRN Reason: Magnesium </= 1.6 Last Infusion: 05/31/22 21:25 Dose: Infused Ceftriaxone Sodium 2 gm/ (Dextrose) 50 mls @ 100 mls/hr IV Q24H [facility]; Protocol Iron Carb/Multivit/[place] Consultant/Folic Acid (Multivit,Ther Iron,Ca,Fa & Min 1 Tablet) 1 tab PO DAILY [facility] Last Admin: 06/01/22 08:02 Dose: 1 tab Loperamide HCl (Loperamide 2 Mg Capsule) 2 mg PO PRN PRN PRN Reason: Diarrhea Last Admin: 05/31/22 20:05 Dose: 2 mg Lorazepam (Lorazepam 2 Mg/Ml Vial) 0 mg IV UD PRN; Protocol PRN Reason: Alcohol Withdrawal/Assess CIWA Last Admin: 05/31/22 22:30 Dose: 1 mg Metoprolol Tartrate (Metoprolol Tartrate 5 Mg/5 Ml Vial) 5 mg IV Q2HP PRN PRN Reason: Tachyarrhythmias HR>110 Last Admin: 05/31/22 18:59 Dose: 5 mg Ondansetron HCl (Ondansetron 4 Mg/2 Ml Vial) 4 mg IV Q4HP PRN PRN Reason: Nausea And Vomiting Potassium Chloride (Potassium Chloride 20 Meq Tablet) 40 meq PO UD PRN PRN Reason: Potssium is 3-3.5 Last Admin: 05/31/22 19:01 Dose: 40 meq Potassium Chloride (Potassium Chloride 20 Meq Tablet) 40 meq PO UD PRN PRN Reason: Potassium < 3 Sodium Chloride (0.9 % Sodium Chloride 10 Ml Syringe) 10 ml IV Q8 [facility] Last Admin: 06/01/22 05:12 Dose: 10 ml Thiamine HCl (Thiamine 100 Mg Tablet) 100 mg PO QDAY [facility] Last Admin: 06/01/22 08:02 Dose: 100 mg A/P Narrative A/P Narrative: A: #UTI(Klebsiella): #Bacteremia (GNB): #Sepsis: 2/2 above, #Hyperlactatemia: 2/2 above, improved #Encephalopathy: 2/2 above #Generalized weakness/deconditioning: #Hypertension: Elevated #h/o Alcohol abuse and withdrawal: was admitted in January and March for etoh w/d #Chronic hyponatremia/hypochloremia/hypomagnesemia: suspect SIADH #Chronic thrombocytopenia: stable #anemia, chronic: #Paroxysmal atrial fibrillation: #Left periorbital skin cancer: is supposed to f/u with cancer center #h/o Oropharyngeal dysphagia, mild: #Anxiety: #Probable mild cognitive impairment: Plan: -Rocephin, pending final BC/UC -Fluid restrict and salt tabs -Monitor electrolytes replace as needed -CIWA protocol with Ativan prn, Vitamin supplementation -Continue home Diltiazem, home Lisinopril restarted -PT/OT -Speech therapy eval -CM placement needs -f/u with cancer center -Home medication reconciliation -Needs a new prescription for all of his home medications upon discharge, printed -ppx: Eliquis Code status: Limited Time Spent With Patient Time: Total time spent is greater than 50% in coordination of care (as documented) at patient's floor/unit and/or counseling patient: Total time spent with greater than 50% in coordination of care (as documented) at patient's floor/unit and/or counseling patient:: 35 - 50 minutes QUALITY VTE Deep Vein Thrombosis/Pulmonary Embolism Present on Admission: No
[2022-06-01] MEDS: cefTRIAXone 2 GM in DEXTROSE 5% IN WATER 50 ML IV SCH (10:39)
[2022-06-01] MEDS: LISINOPRIL 5 MG TABLET PO SCH (10:47)
[2022-06-01] MEDS: SODIUM CHLORIDE 1 GM TABLET PO SCH ×2 (10:47→20:42)
--- NOTE | 2022-06-01 12:18 | Internal Med Progress Note ---
SUBJECTIVE Subjective Patient information: Note initiated : 06/01/22 at 12:14 pm Service Date, if different from initiated Date: [] Patient: Johnathan Son 76 y/o M admitted on 05/30/22 for weakness. Chief Complaint: [] Interval history: 06/02 Physical exam Head: Atraumatic, normal inspection. Eyes: normal appearance, no scleral icterus. Neck: full ROM Respiratory: no respiratory distress. Cardiovascular: normal rate and rhythm, S1, S2. GI/Abdominal: soft, nontender, no guarding. Extremities: full range of motion, nontender. Neurological: CN II-XII intact, intact motor, intact sensation. Psychiatric: normal mood. Skin: warm, normal color Constitutional Vitals: Vital Signs Temp Pulse Resp BP Pulse Ox O2 Del Method O2 Flow Rate 98.2 F 85 20 121/70 97 0 06/01/22 06:55 06/01/22 06:55 06/01/22 06:55 06/01/22 06:55 06/01/22 06:55 06/01/22 06:55 05/31/22 04:00 Period Temp Pulse Resp BP Sys/White Pulse Ox O2 Del Method O2 Flow Rate Last 24 Hr 98.2 F-100.6 F 85-127 16-20 121-134/66-85 94-100 Room Air-Room Air Intake and Output 06/01/22 06/01/22 06/01/22 03:59 11:59 19:59 Intake Total 100 1090 Output Total 100 Balance 100 990 Weight 76.793 kg Intake & Output: Intake & Output 06/01/22 06/01/22 06/01/22 03:59 11:59 19:59 Intake Total 100 1090 Output Total 100 Balance 100 990 Weight 76.793 kg Intake: IV 100 50 Zosyn 3.375 gm In Dextrose 5% 50 in Water 50 ml @ 100 mls/hr IV Q6H [facility] Rx#:[id number] Rocephin 2 gm In Dextrose 5% in 50 Water 50 ml @ 100 mls/hr IV Q24H [facility] Rx#:[id number] Oral 1040 Output: Void Amount 100 Other: Meal Breakfast Percent of Meal Consumed 100% Feeding Ability Assist with Tray Set Up Urine Appearance Clear Urine Color Yellow Stool Size Small Stool Color Brown Yellow Stool Consistency Loose # Voids 1 1 # Bowel Movements 1 OBJ DATA Labs CBC & Chem 7: 05/31/22 05:45 06/01/22 09:11 Labs: Abnormal Lab Results 06/01/22 05/31/22 05/31/22 09:11 05:45 05:45 RBC 3.70 L Hgb 11.7 L Hct 33.6 L Plt Count 98 L Neut % (Auto) Lymph % (Auto) 14.4 L Lymph # (Auto) 1.30 L [place] # (Auto) 1.09 H Seg Neutrophils % Lymphocytes % Monocytes % (Manual) Platelet Estimate POC VBG pH POC VBG pCO2 at Temp POC VBG HCO3 VBG Lactic Acid Sodium 126 L 128 L Chloride 91 L 95 L BUN 7 L Creatinine Glucose 166 H 108 H Uric Acid 1.9 L Calcium 8.4 L 8.2 L Total Bilirubin 1.9 H Direct Bilirubin 0.6 H Lactate Dehydrogenase 133 L Total Protein 5.8 L Albumin 3.1 L Urine Appearance Urine Ketones Urine Occult Blood Urine Nitrate Urine Urobilinogen Ur Leukocyte Esterase Urine WBC Urine Bacteria Urine Mucus Urine Yeast (Budding) Ethyl Alcohol g/dL 05/30/22 05/30/22 05/30/22 14:01 13:01 11:20 RBC Hgb Hct Plt Count Neut % (Auto) Lymph % (Auto) Lymph # (Auto) [place] # (Auto) Seg Neutrophils % Lymphocytes % Monocytes % (Manual) Platelet Estimate POC VBG pH POC VBG pCO2 at Temp POC VBG HCO3 VBG Lactic Acid 2.1 H Sodium 129 L Chloride 92 L BUN 3 L Creatinine 0.6 L Glucose 125 H Uric Acid Calcium Total Bilirubin 1.2 H Direct Bilirubin Lactate Dehydrogenase Total Protein Albumin Urine Appearance Cloudy A Urine Ketones Trace A Urine Occult Blood Trace-intact A Urine Nitrate Positive A Urine Urobilinogen 4.0 A Ur Leukocyte Esterase Moderate A Urine WBC 20 H Urine Bacteria Few A Urine Mucus Few A Urine Yeast (Budding) Few A Ethyl Alcohol g/dL 05/30/22 05/30/22 05/30/22 10:43 10:42 10:42 RBC 4.35 L Hgb 13.5 L Hct 39.1 L Plt Count 135 L Neut % (Auto) 81.3 H Lymph % (Auto) 6.9 L Lymph # (Auto) 0.56 L [place] # (Auto) Seg Neutrophils % 79 H Lymphocytes % 8 L Monocytes % (Manual) 13 H Platelet Estimate Decreased A POC VBG pH 7.44 H POC VBG pCO2 at Temp 34.7 L POC VBG HCO3 23.8 L VBG Lactic Acid 2.7 H Sodium Chloride BUN Creatinine Glucose Uric Acid Calcium Total Bilirubin Direct Bilirubin Lactate Dehydrogenase Total Protein Albumin Urine Appearance Urine Ketones Urine Occult Blood Urine Nitrate Urine Urobilinogen Ur Leukocyte Esterase Urine WBC Urine Bacteria Urine Mucus Urine Yeast (Budding) Ethyl Alcohol g/dL 05/30/22 10:41 RBC Hgb Hct Plt Count Neut % (Auto) Lymph % (Auto) Lymph # (Auto) [place] # (Auto) Seg Neutrophils % Lymphocytes % Monocytes % (Manual) Platelet Estimate POC VBG pH POC VBG pCO2 at Temp POC VBG HCO3 VBG Lactic Acid Sodium Chloride BUN Creatinine Glucose Uric Acid Calcium Total Bilirubin Direct Bilirubin Lactate Dehydrogenase Total Protein Albumin Urine Appearance Urine Ketones Urine Occult Blood Urine Nitrate Urine Urobilinogen Ur Leukocyte Esterase Urine WBC Urine Bacteria Urine Mucus Urine Yeast (Budding) Ethyl Alcohol g/dL 0.049 H Meds: Medications Acetaminophen (Acetaminophen 325 Mg Tablet) 650 mg PO Q6HP PRN; Protocol PRN Reason: Per Pain Protocol/Fever > 101 Last Admin: 05/31/22 15:41 Dose: 650 mg Albuterol/Ipratropium (Ipratropium/Albuterol 3 Ml Ampul.Neb) 3 ml NEB Q4HP PRN PRN Reason: Shortness Of Breath Apixaban (Apixaban 5 Mg Tablet) 5 mg PO BID [facility] Last Admin: 06/01/22 08:02 Dose: 5 mg Chlordiazepoxide HCl (Chlordiazepoxide 25 Mg Capsule) 50 mg PO UD PRN; Protocol PRN Reason: Alcohol Withdrawal/Assess CIWA Last Admin: 05/31/22 21:28 Dose: 25 mg Clonidine HCl (Clonidine Hcl 0.1 Mg Tablet) 0.1 mg PO Q4HP PRN PRN Reason: ALC Last Admin: 06/01/22 01:45 Dose: 0.1 mg Diltiazem HCl (Diltiazem 30 Mg Tablet) 30 mg PO ACHS [facility] Last Admin: 06/01/22 10:39 Dose: 30 mg Folic Acid (Folic Acid 1 Mg Tablet) 1 mg PO DAILY [facility] Last Admin: 06/01/22 08:02 Dose: 1 mg Potassium Chloride 40 meq/ (Dextrose) 520 mls @ 130 mls/hr IV UD PRN PRN Reason: Potassium < 3 Magnesium Sulfate (Magnesium Sulfate) 2 gm in 50 mls @ 50 mls/hr IV UD PRN PRN Reason: Magnesium </= 1.6 Last Infusion: 05/31/22 21:25 Dose: Infused Ceftriaxone Sodium 2 gm/ (Dextrose) 50 mls @ 100 mls/hr IV Q24H [facility]; Protocol Last Infusion: 06/01/22 11:27 Dose: Infused Iron Carb/Multivit/[place]/Folic Acid (Multivit,Ther Iron,Ca,Fa & Min 1 Tablet) 1 tab PO DAILY [facility] Last Admin: 06/01/22 08:02 Dose: 1 tab Lisinopril (Lisinopril 5 Mg Tablet) 5 mg PO DAILY [facility] Last Admin: 06/01/22 10:47 Dose: 5 mg Loperamide HCl (Loperamide 2 Mg Capsule) 2 mg PO PRN PRN PRN Reason: Diarrhea Last Admin: 05/31/22 20:05 Dose: 2 mg Lorazepam (Lorazepam 2 Mg/Ml Vial) 0 mg IV UD PRN; Protocol PRN Reason: Alcohol Withdrawal/Assess CIWA Last Admin: 05/31/22 22:30 Dose: 1 mg Metoprolol Tartrate (Metoprolol Tartrate 5 Mg/5 Ml Vial) 5 mg IV Q2HP PRN PRN Reason: Tachyarrhythmias HR>110 Last Admin: 05/31/22 18:59 Dose: 5 mg Ondansetron HCl (Ondansetron 4 Mg/2 Ml Vial) 4 mg IV Q4HP PRN PRN Reason: Nausea And Vomiting Potassium Chloride (Potassium Chloride 20 Meq Tablet) 40 meq PO UD PRN PRN Reason: Potssium is 3-3.5 Last Admin: 05/31/22 19:01 Dose: 40 meq Potassium Chloride (Potassium Chloride 20 Meq Tablet) 40 meq PO UD PRN PRN Reason: Potassium < 3 Sodium Chloride (0.9 % Sodium Chloride 10 Ml Syringe) 10 ml IV Q8 [facility] Last Admin: 06/01/22 05:12 Dose: 10 ml Sodium Chloride (Sodium Chloride 1 Gm Tablet) 2 gm PO BID [facility] Stop: 06/01/22 21:01 Last Admin: 06/01/22 10:47 Dose: 2 gm Thiamine HCl (Thiamine 100 Mg Tablet) 100 mg PO QDAY [facility] Last Admin: 06/01/22 08:02 Dose: 100 mg A/P Narrative A/P Narrative: Assessment: 76-year-old male with multiple comorbidities admitted for sepsis secondary to Klebsiella complicated by encephalopathy. The patient also has gram-negative bacteremia. #UTI(Klebsiella): #Bacteremia (GNB): #Sepsis: 2/2 above, #Hyperlactatemia: 2/2 above, improved #Encephalopathy: 2/2 above #Generalized weakness/deconditioning: #Hypertension: Elevated #h/o Alcohol abuse and withdrawal: was admitted in January and March for etoh w/d #Chronic hyponatremia/hypochloremia/hypomagnesemia: suspect SIADH #Chronic thrombocytopenia: stable #anemia, chronic: #Paroxysmal atrial fibrillation: #Left periorbital skin cancer: is supposed to f/u with cancer center #h/o Oropharyngeal dysphagia, mild: #Anxiety: #Probable mild cognitive impairment: Plan: -Rocephin, pending final BC/UC -Fluid restrict and salt tabs -Monitor electrolytes replace as needed -CIWA protocol with Ativan prn, Vitamin supplementation -Continue home Diltiazem, home Lisinopril restarted -PT/OT -Speech therapy eval -CM placement needs -f/u with cancer center -Home medication reconciliation -Needs a new prescription for all of his home medications upon discharge, printed -ppx: Eliquis Code status: Limited Time Spent With Patient Time: Total time spent is greater than 50% in coordination of care (as documented) at patient's floor/unit and/or counseling patient: QUALITY VTE Deep Vein Thrombosis/Pulmonary Embolism Present on Admission: No
[2022-06-01] MEDS: ACETAMINOPHEN 325 MG TABLET PO PRN (20:42)
[2022-06-01] MEDS: POTASSIUM CHLORIDE 20 MEQ TABLET PO PRN (20:43)
[2022-06-02] MEDS: 0.9 % SODIUM CHLORIDE 10 ML SYRINGE IV SCH ×2 (06:03→13:27)
[2022-06-02] MEDS: DILTIAZEM 30 MG TABLET PO SCH ×2 (07:18→10:59)
[2022-06-02 07:47] LABS: Blood Urea Nitrogen 11 mg/dL (8-23); Calcium 8.6 mg/dL (8.6-10.4); Carbon Dioxide 24 mmol/L (22-30); Chloride 98 mmol/L (96-108); Glomerular Filtration Rate 91; Glucose 102 mg/dL (70-105)
[2022-06-02] MEDS: APIXABAN 5 MG TABLET PO SCH (09:13)
[2022-06-02] MEDS: LISINOPRIL 5 MG TABLET PO SCH (09:14)
[2022-06-02] MEDS: MULTIVIT,THER IRON,CA,FA & MIN 1 TABLET PO SCH (09:14)
[2022-06-02] MEDS: THIAMINE 100 MG TABLET PO SCH (09:14)
[2022-06-02] MEDS: FOLIC ACID 1 MG TABLET PO SCH (09:14)
--- NOTE | 2022-06-02 09:15 | Discharge Summary ---
Discharge Provider Provider IMPORTANT FOLLOW-UP INFORMATION FOR PCP: Patient information: Note initiated : 06/02/22 at 9:12 am Service Date, if different from initiated Date: [] Patient: Johnathan Son 76 y/o M admitted on 05/30/22 for weakness. Chief Complaint: [] Date of admission: 05/30/22 16:45 Discharge date: 06/02/22 Primary care physician: Noe Anderson MD Consults: 05/30/22 Consult to Physician [CONS] Stat Comment: Consulting Provider: Lauri Chapin Reason For Exam: Physician to Consult COURSE Hospital Course Hospital course: Mr. Son is a 76 year old M Presented to ED for severe weakness. Patient called 911 because he could not get up from his chair at the table. Is been progressively getting weaker the past couple days. Patient is a bit of a poor historian and feels a bit confused. He is also had some diarrhea for the past few days and urinary frequency. EMS reported fever of 101.5. In the ED he was tachycardic. Lactate elevated 2.7. Also had an elevated blood alcohol level of 0.049. He does drink a sixpack of beer per day. Sodium was low at 129. As well as a low chloride. Work-up concerning for sepsis from UTI. Patient was here in March for alcohol withdrawal 05/31 Patient feeling better today. Did get some Librium and Catapres yesterday evening for elevated CIWA. Sodium low. Replete 06/01 Patient slept okay and feeling fine today. Sodium decreasing. And chloride. 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 We will treat treat accordingly today. Follow-up chemistry. 06/02 Sodium level improved to 132. Blood culture growing Klebsiella variicola, the same organism as the urine culture which was sensitive to levofloxacin. The patient is discharged on oral levofloxacin. I discussed the patient's left facial cancer with Dr. Efrain Ko, he says he does perform surgery for these types of cancer routinely. Referral placed for the patient to see Dr. Ko after discharge. Physical exam Head: Atraumatic, normal inspection. Eyes: normal appearance, no scleral icterus. Neck: full ROM Respiratory: no respiratory distress. Cardiovascular: normal rate and rhythm, S1, S2. GI/Abdominal: soft, nontender, no guarding. Extremities: full range of motion, nontender. Neurological: CN II-XII intact, intact motor, intact sensation. Psychiatric: normal mood. Skin: Left ulcerated facial lesion lateral to left eye. Discharge diagnosis: Sepsis secondary to UTI complicated by gram-negative bacteremia Secondary discharge diagnosis: Left facial cancer Time Spent with Patient Time attestation: Total time spent providing and/or coordinating discharge services: Time spent: Greater than 30 minutes EXAM Constitutional Vitals: Temp Pulse Resp BP Pulse Ox O2 Del Method O2 Flow Rate 98.4 F 97 H 14 155/93 95 0 06/02/22 07:15 06/02/22 07:15 06/02/22 07:15 06/02/22 07:15 06/02/22 07:20 06/02/22 07:20 05/31/22 04:00 Discharge Data Data Completed and Pending Labs on day of discharge: Labs from last 24 hours 06/02/22 06/01/22 06:10 09:11 Sodium 132 L 126 L Potassium 4.0 3.4 Chloride 98 91 L Carbon Dioxide 24 24 Anion Gap 10.0 11.0 BUN 11 13 Creatinine 0.7 0.8 GFR Calculation 91 86 Glucose 102 166 H Calcium 8.6 8.4 L Preliminary micro results at discharge 05/30/22 10:38 Blood Culture - Preliminary Blood Klebsiella Variicola 05/30/22 10:31 Blood Culture - Preliminary Blood Discharge Plan Patient/Caregiver Discharge Instructions Activity: increase activity as tolerated Diet: Dysphagia Level 7 Easy to Chew Foods Prescriptions: New levofloxacin 750 mg tablet 750 mg PO Q24H Qty: 12 0RF diltiazem HCl 30 mg Tablet 30 mg PO ACHS Qty: 120 0RF Eliquis 5 mg Tablet 5 mg PO BID Qty: 120 0RF lisinopril 5 mg tablet 5 mg PO QDAY Qty: 30 0RF Follow Up Plan Follow up with: Efrain Ko MD [Physician] - 06/09/22 (Left facial cancer. ) Noe Anderson MD [Primary Care Provider] - Patient Disposition: Home, Self-Care Prognosis: Fair Overall status at discharge: patient is progressing back to baseline Discharge Orders: Discharge Order (Routine); Ordered 06/02/22 Ordered By: Eddie SAENZ VTE Deep Vein Thrombosis/Pulmonary Embolism Present on Admission: No
[2022-06-02] MEDS: cefTRIAXone 2 GM in DEXTROSE 5% IN WATER 50 ML IV SCH (09:18)
== END 2022-06-02 14:22 | disposition home or self-care (01) | DRG 871 ==
LOC: ED 09:58 → MEDSUR 16:45
PROVIDERS: ADMIT Internal Medicine; ATTEND Internal Medicine